=== PATIENT | female | born 1945 | race Caucasian/White ===

== ENCOUNTER 2016-03-14 17:15 | Inpatient (IN) ==
--- NOTE | 2016-03-14 17:46 | Emergency Department Note ---
Disposition Clinical Impression: Acute exacerbation of chronic obstructive airways disease, Hyperglycemia Disposition: Admitted As Inpatient Referrals: Noah Clark MD [Primary Care Provider] - Forms: ED Satisfaction Letter General Adult HPI - General Chief complaint: ED Shortness of Breath/Dyspnea Stated complaint: BA Time Seen by Provider: 03/14/16 17:39 Source: patient, EMS Limitations: no limitations - History of Present Illness HPI Narrative: 70-year-old female reports to the emergency department complaining of cough and shortness of breath. She was here previously in the ED and was advised to stay in the hospital but she declined at that time. The patient has no baseline oxygen requirement. She does have a history of COPD and takes inhalers at home. She reports a coarse cough which has been present for several days. She has chest pain when coughing. The patient does not have chest pain otherwise. She describes a history of coronary artery disease. She has never had any type of malignancy or PE or DVT per direct history. The patient denies any vomiting , she might of had an episode or 2 of diarrhea which have been nonbloody earlier today. No abdominal pain no leg swelling or pain no coughing up blood she has had a sore throat. No history of ear pain headache neck stiffness rash convulsion or confusion no trouble moving the arms or legs and independently no trauma reported or noted. The patient denies any history of CHF and does not take diuretic medication. Onset (ago): day(s) Pain Scale: 0 - Related Data Home Medications Medication Instructions Recorded Confirmed Alprazolam [Xanax 0.5 MG Tablet] 0.5 mg PO TID 07/23/15 03/14/16 Aripiprazole [Abilify] 5 mg PO DAILY 07/23/15 03/14/16 Diltiazem CD (24hr) [Cardizem CD] 120 mg PO DAILY 07/23/15 03/14/16 Folic Acid 1 mg PO DAILY 07/23/15 03/14/16 GuaiFENesin ER [Mucinex] 600 mg PO Q12H PRN 07/23/15 03/14/16 Lisinopril [Zestril] 20 mg PO BID 07/23/15 03/14/16 Metformin [Glucophage] 500 mg PO BIDWM 07/23/15 03/14/16 Propafenone HCl [Rythmol] 225 mg PO Q8H 07/23/15 03/14/16 Solifenacin Succinate [Vesicare] 5 mg PO DAILY 07/23/15 03/14/16 Albuterol Sulfate [Ventolin Hfa] 2 puff IH Q4H PRN 03/14/16 03/14/16 Atorvastatin [Lipitor] 10 mg PO HS 03/14/16 03/14/16 Brimonidine Tartrate/Timolol 1 drop BOTH EYES BID 03/14/16 03/14/16 [Combigan Eye Drops] Budesonide/Formoterol 160/4.5 2 puff IH BIDR 03/14/16 03/14/16 [Symbicort 160/4.5] Cholecalciferol (D-3) [Vitamin D] 5,000 unit PO DAILY 03/14/16 03/14/16 Citalopram Hydrobromide [Celexa] 40 mg PO DAILY 03/14/16 03/14/16 Fenofibrate [Lofibra] 160 mg PO DAILY 03/14/16 03/14/16 Multivitamin/Iron/Folic Acid 1 each PO DAILY 03/14/16 03/14/16 [Cerovite Advanced Form Tab] Omeprazole [PriLOSEC] 40 mg PO DAILY 03/14/16 03/14/16 Oxycodone HCl/Acetaminophen 1 each PO TID PRN 03/14/16 03/14/16 [Percocet 7.5-325 mg Tablet] Thiamine Mononitrate [Vitamin B-1] 100 mg PO DAILY 03/14/16 03/14/16 Vitamin E 1,000 unit PO DAILY 03/14/16 03/14/16 Previous Rx's Medication Instructions Recorded Cephalexin [Keflex] 500 mg PO QID #28 capsule MDD 03/10/16 03-10-16 Allergies Allergy/AdvReac Type Severity Reaction Status Date / Time gabapentin AdvReac Confusion Verified 03/14/16 20:23 Methadone AdvReac Confusion Verified 03/14/16 20:23 morphine AdvReac Confusion Verified 03/14/16 20:23 Zolpidem [From Ambien] AdvReac Confusion Verified 03/14/16 20:23 All systems ED: reviewed and negative except as stated. Past Medical History - Past Medical History Medical history: Reports: arthritis, COPD, diabetes, osteoporosis, SVT Surgical history: Reports: non-contributory Psychiatric history: Reports: anxiety, depression - Social History Smoking Status: Former smoker Smokeless Tobacco Status: No Alcohol use: Reports: none Drug use: Reports: none Physical Exam - General Limitations: no limitations General appearance: alert, in no apparent distress - Head Head exam: atraumatic, normocephalic, normal inspection - Eye Eye exam: Present: normal appearance, PERRL, EOMI - ENT ENT exam: normal exam, normal oropharynx, mucous membranes moist, normal external ear exam - Neck Neck exam: Present: normal inspection, full ROM, trachea midline - Chest Chest inspection: Present: symmetric chest wall rise. Absent: tenderness - Respiratory Respiratory exam: Present: wheezes, prolonged expiratory phase, other (Coarse breath sounds). Absent: respiratory distress - Cardiovascular Cardiovascular exam: Present: regular rate, normal rhythm, normal heart sounds - Abdominal Exam Abdominal exam: Present: soft, Non-Tender. Absent: tenderness, distention, guarding, rebound, rigidity - Extremities Exam Extremities exam: Present: normal inspection, full ROM. Absent: tenderness, normal capillary refill, pedal edema, joint swelling, calf tenderness - Expanded Lower Extremity Exam Hip/Pelvis exam: Present: tenderness Lower leg exam: Absent: tenderness, Homans' sign Neurovascular/Tendon exam: Absent: motor deficit, sensory deficit, tendon deficit - Back Exam Back exam: Present: normal inspection, full ROM. Absent: tenderness, CVA tenderness (R), CVA tenderness (L), vertebral tenderness - Neurological Exam Neurological exam: Present: alert, oriented X3, CN II-XII intact. Absent: motor sensory deficit - Psychiatric Psychiatric exam: Present: normal affect, normal mood - Skin Skin exam: Present: warm, dry, intact, normal color. Absent: rash, cyanosis, diaphoresis, erythema, pallor, mottled Course Vital Signs Temperature 98.3 F 03/14/16 17:16 Pulse Rate 76 03/14/16 17:16 Respiratory Rate 20 03/14/16 17:16 Blood Pressure 143/84 03/14/16 17:16 O2 Sat by Pulse Oximetry 97 03/14/16 17:16 Temperature 98.3 F 03/14/16 17:16 Pulse Rate 97 03/14/16 20:52 Respiratory Rate 20 03/14/16 20:52 Blood Pressure 170/104 03/14/16 20:52 O2 Sat by Pulse Oximetry 94 L 03/14/16 20:52 Oxygen Delivery Oxygen Delivery Room Air Medical Decision Making - MDM Narrative Medical decision making narrative: The patient had very coarse breath sounds with significant wheezing in the ED. She was given 2 DuoNeb and still had a peak flow of 150. The patient appears to have failed outpatient therapy. She appears to have a COPD exacerbation. The patient has coarse rhonchi and wheezing persistently. She was seen several days ago in the ED for UTI and COPD and decided to try home therapy but is now getting worse. Urinalysis is pending. The patient states she lives alone at home, she is diabetic, she appears to have significant COPD, and is been worsening instead of improving, she was on steroids outpatient which have not really helped her. She was given antibiotics in the ED as well. Based on her presentation comorbidities and on improvement I have consulted the hospitalist. - Lab Data Lab results reviewed: Yes I reviewed the patient's lab results. Result diagrams: 03/14/16 18:12 03/14/16 18:12 Lab Results 03/14/16 03/14/16 03/14/16 Range/Units 18:12 18:12 18:12 WBC 7.8 (4.3-11.1) K/mcL RBC 4.70 (3.82-4.97) M/mcL Hgb 13.4 (11.5-15.4) g/dL Hct 41.1 (35.3-44.9) % MCV 87.4 (83.0-100.0) fL MCH 28.5 (28.0-33.3) pg MCHC 32.6 (31.6-35.5) g/dL RDW 12.7 (11.5-14.5) % Plt Count 289 (140-400) K/mcL MPV 10.4 (9.4-12.4) fL Seg Neutrophils % 76.0 % Band Neutrophils % 6.0 H (0-4) % Lymphocytes % 14.0 % Monocytes % 2.0 % Basophils % 2.0 % Neutrophils # 6.4 (1.6-8.9) K/mcL Lymphocytes # 1.1 (0.6-4.6) K/mcL Monocytes # 0.2 (0.0-1.3) K/mcL Basophils # 0.2 (0.0-0.2) K/mcL Platelet Estimate Normal (Normal) Immature Plt Fraction 4.4 (1.1-6.1) % Sodium 142 (136-145) mEq/L Potassium 4.0 (3.5-4.5) mEq/L Chloride 109 (98-109) mEq/L Carbon Dioxide 24 (19-29) mEq/L BUN 24 H (7-20) mg/dL Creatinine 0.85 (0.57-1.11) mg/dL Est GFR ( Amer) > 60 (> 60) Est GFR (Non-Af Amer) > 60 (> 60) BUN/Creatinine Ratio 28 H (6-26) Glucose 153 H (70-99) mg/dL Calculated Osmolality 301 H (280-300) Lactic Acid 1.3 (0.5-2.2) mmol/L Calcium 9.5 (8.6-10.8) mg/dL Total Bilirubin 0.4 (0.2-1.2) mg/dL Direct Bilirubin 0.2 (0.0-0.5) mg/dL Indirect Bilirubin 0.2 (0.0-1.2) mg/dL AST 19 (5-34) Units/L ALT 16 (0-55) Units/L Alkaline Phosphatase 93 (38-126) Units/L Troponin I (0-0.03) ng/mL C-Reactive Protein (Less than 5) mg/L B-Natriuretic Peptide (0-100) pg/mL Serum Total Protein 7.0 (6.0-8.3) g/dL Albumin 3.4 L (3.5-5.0) g/dL Globulin 3.6 H (2.4-3.5) g/dL Albumin/Globulin Ratio 0.9 L (1.1-2.2) 03/14/16 03/14/16 03/14/16 Range/Units 18:12 18:12 18:12 WBC (4.3-11.1) K/mcL RBC (3.82-4.97) M/mcL Hgb (11.5-15.4) g/dL Hct (35.3-44.9) % MCV (83.0-100.0) fL MCH (28.0-33.3) pg MCHC (31.6-35.5) g/dL RDW (11.5-14.5) % Plt Count (140-400) K/mcL MPV (9.4-12.4) fL Seg Neutrophils % % Band Neutrophils % (0-4) % Lymphocytes % % Monocytes % % Basophils % % Neutrophils # (1.6-8.9) K/mcL Lymphocytes # (0.6-4.6) K/mcL Monocytes # (0.0-1.3) K/mcL Basophils # (0.0-0.2) K/mcL Platelet Estimate (Normal) Immature Plt Fraction (1.1-6.1) % Sodium (136-145) mEq/L Potassium (3.5-4.5) mEq/L Chloride (98-109) mEq/L Carbon Dioxide (19-29) mEq/L BUN (7-20) mg/dL Creatinine (0.57-1.11) mg/dL Est GFR ( Amer) (> 60) Est GFR (Non-Af Amer) (> 60) BUN/Creatinine Ratio (6-26) Glucose (70-99) mg/dL Calculated Osmolality (280-300) Lactic Acid (0.5-2.2) mmol/L Calcium (8.6-10.8) mg/dL Total Bilirubin (0.2-1.2) mg/dL Direct Bilirubin (0.0-0.5) mg/dL Indirect Bilirubin (0.0-1.2) mg/dL AST (5-34) Units/L ALT (0-55) Units/L Alkaline Phosphatase (38-126) Units/L Troponin I 0.01 (0-0.03) ng/mL C-Reactive Protein 20 H (Less than 5) mg/L B-Natriuretic Peptide 87 (0-100) pg/mL Serum Total Protein (6.0-8.3) g/dL Albumin (3.5-5.0) g/dL Globulin (2.4-3.5) g/dL Albumin/Globulin Ratio (1.1-2.2) - Radiology Data Radiology results reviewed: Yes I reviewed the patient's radiology results.
[2016-03-14] MEDS ORDERED: Ipratropium/Albuterol Neb 3 ML IH ONE ×2 (17:55→20:00)
[2016-03-14] MEDS ORDERED: methylPREDNISolone 125 MG/2 ML VIAL IVP ONE (17:55)
[2016-03-14 18:22] LABS: Hematocrit 41.1 % (35.3-44.9); Hemoglobin 13.4 g/dL (11.5-15.4); Immature Platelets 4.4 % (1.1-6.1); Mean Corpuscular HGB Conc 32.6 g/dL (31.6-35.5); Mean Corpuscular Hemoglobin 28.5 pg (28.0-33.3); Mean Corpuscular Volume 87.4 fL (83.0-100.0); Mean Platelet Volume 10.4 fL (9.4-12.4); Platelet Count 289 K/mcL (140-400); Red Cell Distribution Width 12.7 % (11.5-14.5)
[2016-03-14 18:37] LABS: Alanine Aminotransferase 16 Units/L (0-55); Albumin 3.4 g/dL (3.5-5.0); Albumin/Globulin Ratio 0.9 (1.1-2.2); Alkaline Phosphatase 93 Units/L (38-126); Aspartate Amino Transferase 19 Units/L (5-34); BUN/Creatinine Ratio 28 (6-26); Bilirubin,Direct 0.2 mg/dL (0.0-0.5); Bilirubin,Indirect 0.2 mg/dL (0.0-1.2); Bilirubin,Total 0.4 mg/dL (0.2-1.2); Blood Urea Nitrogen 24 mg/dL (7-20); Calcium 9.5 mg/dL (8.6-10.8); Carbon Dioxide 24 mEq/L (19-29); Chloride 109 mEq/L (98-109); Globulin 3.6 g/dL (2.4-3.5); Glucose 153 mg/dL (70-99); Osmolality,Calculated 301 (280-300); Sodium 142 mEq/L (136-145); eGFR For African Americans > 60 (> 60); eGFR For Non-African Americans > 60 (> 60)
[2016-03-14 18:50] LABS: Basophils # 0.2 K/mcL (0.0-0.2); Lymphocytes # 1.1 K/mcL (0.6-4.6); Monocytes # 0.2 K/mcL (0.0-1.3); Neutrophils # 6.4 K/mcL (1.6-8.9); Platelet Estimate Normal (Normal)
[2016-03-14] MEDS ORDERED: Levofloxacin 750 MG/150 ML 750 MG/150 ML BAG IVPB ONE (20:08)
[2016-03-14] MEDS ORDERED: *HR* OxyCODONE/APAP 5/325 TABLET PO ONE (20:58)
[2016-03-14] MEDS ORDERED: Albuterol 2.5 MG/3 ML NEBULIZER IH PRN (21:53)
[2016-03-14] MEDS ORDERED: GuaiFENesin/Codeine Oral Soln 5 ML UDC PO PRN (22:07)
[2016-03-14] MEDS ORDERED: Naloxone 0.4 MG/ML INJ IVP PRN (22:10)
[2016-03-14] MEDS ORDERED: *HR* Dextrose 50 % in Water (Syg) 50 ML SYRINGE IVP PRN (22:13)
[2016-03-14] MEDS ORDERED: Dextrose Gel 15 GM PO PRN ×2 (22:13)
[2016-03-14] MEDS ORDERED: D5% in Water 1,000 ML IV PRN (22:13)
[2016-03-14] MEDS ORDERED: Ringers Solution, Lactated 1,000 ML IVC SCH (22:15)
--- NOTE | 2016-03-14 22:16 | Internal Med History&Physical ---
Date of Encounter: 03/14/16 Time of Encounter: 21:30 Internal Medicine - H&P: HPI Chief complaint: SOB, coughing x 1 day. Admitted From: Emergency Dept Plans for Post Hospital Care: Home History of present illness: Ms. Lemon is a 70 year old female with medical history significant for COPD, presents to the ED with 1 week history of dry, coarse cough, rattling breath sounds and progressive SOB. She was evaluated in the ED, an admission was recommended at that time, but she preferred to go home. She was prescribed Cephalexin for UTI. She has sick contacts, as her daughter and grand son all had respiratory conditions recently. She is not oxygen dependent and uses Symbicort for maintenance for COPD. sHE QUIT SMOKING 4 YEARS AGO. She is up-to- date with influenza and pneumococcal vaccination. She reports eigastric and lower chest wall pain with cough. No hemoptysis, no rash, no sorethroat or glandular enlargement, no vomiting. She has 2 loose bowel movements today, this has since resolved. No abdominal pain no leg swelling or pain No history of ear pain headache neck stiffness,convulsion or confusion, no focal weakness. No history of CHF, no current diuretic use, no history of DVT/PE. She has a history of SVT on chronic cardizem and propafenone. She is FULL CODE as per discussion, she nominates her daughter, Niurka Lemon ([phone]) as joselyn JOVANNY/ MAKSIM. Medical history: Reports: arthritis, COPD, diabetes, osteoporosis, SVT Surgical history: Reports: non-contributory, not significant Psychiatric history: Reports: anxiety, depression Smoking Status: Former smoker, quit 4 years ago Smokeless Tobacco Status: No Alcohol use: Reports: none Drug use: Reports: none Family History: Father: CHF, mother: DM2, brother: liver cancer (alcoholic), COPD, daughter : PVCs, DVT, COPD. ROS: A 10-point ROS was performed, positives and relevant negatives are detailed , system-symptoms not mentioned are assumed negative unless otherwise stated. Vital Signs Temperature 98.3 F 03/14/16 17:16 Pulse Rate 76 03/14/16 17:16 Respiratory Rate 20 03/14/16 17:16 Blood Pressure 143/84 03/14/16 17:16 O2 Sat by Pulse Oximetry 97 03/14/16 17:16 Temperature 98.3 F 03/14/16 17:16 Pulse Rate 97 03/14/16 20:52 Respiratory Rate 20 03/14/16 20:52 Blood Pressure 170/104 03/14/16 20:52 O2 Sat by Pulse Oximetry 94 L 03/14/16 20:52 Not in distress, not pale, anicteric, afebrile,acyanotic, mild tachypnea, lethargic, no pusring of lips, Speaks in complete sentences. HEENT: Trachea is central, no cervical or jugular lymphadenopathy, no subcutaneous emphysema. Chest: Scattered wheezing. Diminished air entry. Mid inspiratory crackles. generalized, no localization Heart: rrr, hs1/2 Abdomen: soft, non-tender, no masses. 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, no focal Extremities: Trace pedal edema, normal pedal pulses, no calf tenderness SKIN: No active skin lesion Lab Results 03/14/16 03/14/16 03/14/16 Range/Units 18:12 18:12 18:12 WBC 7.8 (4.3-11.1) K/mcL RBC 4.70 (3.82-4.97) M/mcL Hgb 13.4 (11.5-15.4) g/dL Hct 41.1 (35.3-44.9) % MCV 87.4 (83.0-100.0) fL MCH 28.5 (28.0-33.3) pg MCHC 32.6 (31.6-35.5) g/dL RDW 12.7 (11.5-14.5) % Plt Count 289 (140-400) K/mcL MPV 10.4 (9.4-12.4) fL Seg Neutrophils % 76.0 % Band Neutrophils % 6.0 H (0-4) % Lymphocytes % 14.0 % Monocytes % 2.0 % Basophils % 2.0 % Neutrophils # 6.4 (1.6-8.9) K/mcL Lymphocytes # 1.1 (0.6-4.6) K/mcL Monocytes # 0.2 (0.0-1.3) K/mcL Basophils # 0.2 (0.0-0.2) K/mcL Platelet Estimate Normal (Normal) Immature Plt Fraction 4.4 (1.1-6.1) % Sodium 142 (136-145) mEq/L Potassium 4.0 (3.5-4.5) mEq/L Chloride 109 (98-109) mEq/L Carbon Dioxide 24 (19-29) mEq/L BUN 24 H (7-20) mg/dL Creatinine 0.85 (0.57-1.11) mg/dL Est GFR ( Amer) > 60 (> 60) Est GFR (Non-Af Amer) > 60 (> 60) BUN/Creatinine Ratio 28 H (6-26) Glucose 153 H (70-99) mg/dL Calculated Osmolality 301 H (280-300) Lactic Acid 1.3 (0.5-2.2) mmol/L Calcium 9.5 (8.6-10.8) mg/dL Total Bilirubin 0.4 (0.2-1.2) mg/dL Direct Bilirubin 0.2 (0.0-0.5) mg/dL Indirect Bilirubin 0.2 (0.0-1.2) mg/dL AST 19 (5-34) Units/L ALT 16 (0-55) Units/L Alkaline Phosphatase 93 (38-126) Units/L Troponin I (0-0.03) ng/mL C-Reactive Protein (Less than 5) mg/L B-Natriuretic Peptide (0-100) pg/mL Serum Total Protein 7.0 (6.0-8.3) g/dL Albumin 3.4 L (3.5-5.0) g/dL Globulin 3.6 H (2.4-3.5) g/dL Albumin/Globulin Ratio 0.9 L (1.1-2.2) 03/14/16 03/14/16 03/14/16 Range/Units 18:12 18:12 18:12 WBC (4.3-11.1) K/mcL RBC (3.82-4.97) M/mcL Hgb (11.5-15.4) g/dL Hct (35.3-44.9) % MCV (83.0-100.0) fL MCH (28.0-33.3) pg MCHC (31.6-35.5) g/dL RDW (11.5-14.5) % Plt Count (140-400) K/mcL MPV (9.4-12.4) fL Seg Neutrophils % % Band Neutrophils % (0-4) % Lymphocytes % % Monocytes % % Basophils % % Neutrophils # (1.6-8.9) K/mcL Lymphocytes # (0.6-4.6) K/mcL Monocytes # (0.0-1.3) K/mcL Basophils # (0.0-0.2) K/mcL Platelet Estimate (Normal) Immature Plt Fraction (1.1-6.1) % Sodium (136-145) mEq/L Potassium (3.5-4.5) mEq/L Chloride (98-109) mEq/L Carbon Dioxide (19-29) mEq/L BUN (7-20) mg/dL Creatinine (0.57-1.11) mg/dL Est GFR ( Amer) (> 60) Est GFR (Non-Af Amer) (> 60) BUN/Creatinine Ratio (6-26) Glucose (70-99) mg/dL Calculated Osmolality (280-300) Lactic Acid (0.5-2.2) mmol/L Calcium (8.6-10.8) mg/dL Total Bilirubin (0.2-1.2) mg/dL Direct Bilirubin (0.0-0.5) mg/dL Indirect Bilirubin (0.0-1.2) mg/dL AST (5-34) Units/L ALT (0-55) Units/L Alkaline Phosphatase (38-126) Units/L Troponin I 0.01 (0-0.03) ng/mL C-Reactive Protein 20 H (Less than 5) mg/L B-Natriuretic Peptide 87 (0-100) pg/mL Serum Total Protein (6.0-8.3) g/dL Albumin (3.5-5.0) g/dL Globulin (2.4-3.5) g/dL Albumin/Globulin Ratio (1.1-2.2) CXR: Background COPD, no acute cardiopulmonary findings. IMP COPD exacerbation. Acute on chronic bronchitis Mild dehydration Chronic morbidities COPD DM2 Osteoporosis History of SVT PLAN Admit Solumedrol 40mg q12h, Duonebs QID, ALBUTEROL NEBS Q4H PRN. Continue Symbicort Levaquin 500mg po QD Cough suppressant Chest percussion therapy, incentive spirometry, respiratory therapy consult Supportive care IVF RL @ 75 Continue metformin, start Levenir 10u QHS, and sliding scale insulin Continue other medications for chronic morbidities including cardizem and propafenone. DVT prophylaxis with Lovenox GI prophylaxis, she is on Esomeprazole for GERD. I discussed my assessment with the patient, family at [facility], they verbalized understanding and are agreeable to admission. She is at risk of acute respiratory failure. Past Med Surg Social Fam HX - Past Medical History Medical history: arthritis, COPD, diabetes, osteoporosis, SVT Psychiatric history: anxiety, depression - Past Surgical History Surgical History: non-contributory - Social History Smoking Status: Former smoker Smokeless Tobacco Status: No Alcohol use: none Drug use: none Internal Medicine - H&P: Meds Alprazolam [Xanax 0.5 MG Tablet] 0.5 mg PO TID 07/23/15 [History] Aripiprazole [Abilify] 5 mg PO DAILY 07/23/15 [History] Diltiazem CD (24hr) [Cardizem CD] 120 mg PO DAILY 07/23/15 [History] Folic Acid 1 mg PO DAILY 07/23/15 [History] GuaiFENesin ER [Mucinex] 600 mg PO Q12H PRN 07/23/15 [History] Lisinopril [Zestril] 20 mg PO BID 07/23/15 [History] Metformin [Glucophage] 500 mg PO BIDWM 07/23/15 [History] Propafenone HCl [Rythmol] 225 mg PO Q8H 07/23/15 [History] Solifenacin Succinate [Vesicare] 5 mg PO DAILY 07/23/15 [History] Cephalexin [Keflex] 500 mg PO QID #28 capsule MDD 1-5-17 03/10/16 [Rx] Albuterol Sulfate [Ventolin Hfa] 2 puff IH Q4H PRN 03/14/16 [History] Atorvastatin [Lipitor] 10 mg PO HS 03/14/16 [History] Brimonidine Tartrate/Timolol [Combigan Eye Drops] 1 drop BOTH EYES BID 03/14/16 [History] Budesonide/Formoterol 160/4.5 [Symbicort 160/4.5] 2 puff IH BIDR 03/14/16 [ History] Cholecalciferol (D-3) [Vitamin D] 5,000 unit PO DAILY 03/14/16 [History] Citalopram Hydrobromide [Celexa] 40 mg PO DAILY 03/14/16 [History] Fenofibrate [Lofibra] 160 mg PO DAILY 03/14/16 [History] Multivitamin/Iron/Folic Acid [Cerovite Advanced Form Tab] 1 each PO DAILY [History] Omeprazole [PriLOSEC] 40 mg PO DAILY 03/14/16 [History] Oxycodone HCl/Acetaminophen [Percocet 7.5-325 mg Tablet] 1 each PO TID PRN 03/14 [History] Thiamine Mononitrate [Vitamin B-1] 100 mg PO DAILY 03/14/16 [History] Vitamin E 1,000 unit PO DAILY 03/14/16 [History] Allergies gabapentin Adverse Reaction (Verified 03/14/16 20:23) Confusion Methadone Adverse Reaction (Verified 03/14/16 20:23) Confusion morphine Adverse Reaction (Verified 03/14/16 20:23) Confusion Zolpidem [From Ambien] Adverse Reaction (Verified 03/14/16 20:23) Confusion All Systems PM: A 10-system review of systems was performed and is negative for pertinent findings except as documented above in the HPI. - Constitutional Vitals: Temp Pulse Resp BP Pulse Ox 98.3 F 97 20 170/96 94 L 03/14/16 21:30 03/14/16 20:52 03/14/16 21:30 03/14/16 21:30 03/14/16 20:52 Internal Med - H&P Results - Labs CBC & Chem 7: 03/14/16 18:12 03/14/16 18:12
[2016-03-14] MEDS: Insulin DETEMIR 100 UNIT/ML X5UNITS SQ SCH (23:28)
[2016-03-14] MEDS: Lisinopril 20 MG TABLET PO SCH (23:51)
[2016-03-14] MEDS: ALPRAZolam 0.5 MG TABLET PO SCH (23:51)
[2016-03-14] MEDS: *HR* OxyCODONE/APAP 7.5/325 TABLET PO PRN (23:52)
[2016-03-15] MEDS: Ipratropium/Albuterol Neb 3 ML IH SCH ×6 (00:36→22:53)
[2016-03-15 01:55] LABS: Bilirubin,Urine Negative (Negative); Blood,Urine Negative (Negative); Clarity,Urine Clear (Clear); Color,Urine Yellow (Yellow); Glucose,Urine (UA) 100 mg/dL (Normal); Ketones,Urine Negative (Negative); Leukocyte Esterase,Urine Negative (Negative); Nitrite,Urine Negative (Negative); Protein,Urine Negative (Neg-Trace); Urobilinogen,Urine Normal (Normal)
[2016-03-15] MEDS: MethylPREDNISolone 40 MG/ML VIAL IVP SCH ×2 (05:59→17:01)
[2016-03-15] MEDS: *HR* Enoxaparin 40 MG/0.4 ML SYRINGE SQ SCH (05:59)
[2016-03-15] MEDS: ARIPiprazole 5 MG TABLET PO SCH (09:17)
[2016-03-15] MEDS: levoFLOXacin 500 MG TABLET PO SCH (09:17)
[2016-03-15] MEDS: *HR* Metformin 500 MG TABLET PO SCH ×2 (09:17→17:01)
[2016-03-15] MEDS: ALPRAZolam 0.5 MG TABLET PO SCH ×3 (09:17→20:31)
[2016-03-15] MEDS: Multivit/Ca/Min/Fe/FA 1 TAB TABLET PO SCH (09:17)
[2016-03-15] MEDS: Lisinopril 20 MG TABLET PO SCH ×2 (09:17→20:31)
[2016-03-15] MEDS: Fenofibrate 54 MG TABLET PO SCH (09:17)
[2016-03-15] MEDS: Diltiazem CD (24hr) 120 MG CAPSULE PO SCH (09:17)
[2016-03-15] MEDS: Folic Acid 1 MG TABLET PO SCH (09:18)
[2016-03-15] MEDS: Cholecalciferol (D-3) 1,000 UNIT TABLET PO SCH (09:18)
[2016-03-15] MEDS: Insulin LISPRO 300 UNITS/3 ML VIAL SQ SCH ×4 (09:19→20:32)
[2016-03-15] MEDS: (Vitamin E [Vitamin E] 1,000 UNIT) PO SCH (09:19)
[2016-03-15] MEDS: (Combigan 0.2%-0.5% Eye) OP SCH ×2 (09:19→20:33)
[2016-03-15] MEDS: Thiamine (B-1) 100 MG TABLET PO SCH (09:19)
[2016-03-15] MEDS: *HR* OxyCODONE/APAP 7.5/325 TABLET PO PRN ×2 (09:25→20:30)
[2016-03-15] MEDS: Budesonide/Formoterol 160/4.5 MDI IH SCH ×2 (10:27→22:53)
--- NOTE | 2016-03-15 14:44 | Electrocardiograph Report ---
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
--- NOTE | 2016-03-15 15:35 | Internal Med Progress Note ---
Date of Encounter: 03/15/16 Time of Encounter: 15:26 - Assessment and plan (1) Acute exacerbation of chronic obstructive airways disease Current Visit: Yes Status: Acute (2) Bronchitis Current Visit: No Status: Acute (3) UTI (urinary tract infection) Current Visit: No Status: Acute Assessment and plan: Continue steroids, nebs and abx. add mucinex bid recent Ucx shows klebsiella sensitive to cipro. Qualifiers: Urinary tract infection type: acute cystitis Hematuria presence: without hematuria Qualified Code(s): N30.00 - Acute cystitis without hematuria - Subjective Interval history: Pt reports some improvement, still coughing. - Constitutional Vitals: Temp Pulse Resp BP Pulse Ox 98.0 F 91 14 147/75 94 L 03/15/16 15:20 03/15/16 15:20 03/15/16 15:20 03/15/16 15:20 03/15/16 15:20 General appearance: Present: A&O X 3, no acute distress - Head Head exam: Present: atraumatic, normocephalic - Eye Eye exam: Present: PERRL, conjuntiva pink, sclera anicteric Pupils: Present: PERRL - Neck Neck exam general surgery: Present: supple, trachea midline. Absent: lymphadenopathy - Respiratory Respiratory exam: Present: decreased breath sounds, rhonchi. Absent: accessory muscle use, CTAB, rales, wheezes - Cardiovascular Cardiovascular exam: Present: RRR, +S1, +S2. Absent: diastolic murmur, gallop, rubs, systolic murmur - GI/Abdominal GI/Abdominal exam: Present: normal bowel sounds, soft, no peritoneal signs. Absent: distended, tenderness - Extremities Exam Extremities exam: Present: warm, radial pulses palpable and symetrical. Absent : calf tenderness, cyanotic, pedal edema - Neurological Exam Neurological exam: Present: CN II-XII intact, oriented X3, no focal deficits. Absent: pronater drift, facial droop, speech deficit - Skin Skin exam: Present: dry, intact Internal Medicine: Result - Labs CBC & Chem 7: 03/14/16 18:12 03/14/16 18:12 Labs: Urine 03/15/16 Range/Units 00:25 Urine Color Yellow (Yellow) Urine Clarity Clear (Clear) Urine pH 6.0 (5.0-8.0) pH Units Ur Specific [place] 1.020 (1.010-1.025) Urine Protein Negative (Neg-Trace) mg/dL Urine Glucose (UA) 100 H (Normal) mg/dL Consult Discharge Plan - Plan Referrals: Noah Clark MD [Primary Care Provider] - 03/21/16 1:45 pm
[2016-03-15] MEDS: Insulin DETEMIR 100 UNIT/ML X5UNITS SQ SCH (20:32)
[2016-03-16] MEDS: Ipratropium/Albuterol Neb 3 ML IH SCH ×4 (03:54→21:18)
[2016-03-16] MEDS: *HR* Enoxaparin 40 MG/0.4 ML SYRINGE SQ SCH (06:44)
[2016-03-16] MEDS: MethylPREDNISolone 40 MG/ML VIAL IVP SCH ×3 (06:44→22:50)
[2016-03-16] MEDS: Lisinopril 20 MG TABLET PO SCH ×2 (09:05→20:39)
[2016-03-16] MEDS: (Vitamin E [Vitamin E] 1,000 UNIT) PO SCH (09:05)
[2016-03-16] MEDS: *HR* Metformin 500 MG TABLET PO SCH ×2 (09:05→17:33)
[2016-03-16] MEDS: Fenofibrate 54 MG TABLET PO SCH (09:05)
[2016-03-16] MEDS: levoFLOXacin 500 MG TABLET PO SCH (09:05)
[2016-03-16] MEDS: Multivit/Ca/Min/Fe/FA 1 TAB TABLET PO SCH (09:05)
[2016-03-16] MEDS: Diltiazem CD (24hr) 120 MG CAPSULE PO SCH (09:05)
[2016-03-16] MEDS: Insulin LISPRO 300 UNITS/3 ML VIAL SQ SCH ×4 (09:05→20:38)
[2016-03-16] MEDS: ALPRAZolam 0.5 MG TABLET PO SCH ×3 (09:05→20:39)
[2016-03-16] MEDS: (Combigan 0.2%-0.5% Eye) OP SCH ×2 (09:05→20:39)
[2016-03-16] MEDS: Folic Acid 1 MG TABLET PO SCH (09:05)
[2016-03-16] MEDS: Thiamine (B-1) 100 MG TABLET PO SCH (09:05)
[2016-03-16] MEDS: ARIPiprazole 5 MG TABLET PO SCH (09:05)
[2016-03-16] MEDS: Cholecalciferol (D-3) 1,000 UNIT TABLET PO SCH (09:05)
[2016-03-16] MEDS: *HR* OxyCODONE/APAP 7.5/325 TABLET PO PRN ×3 (10:41→22:51)
[2016-03-16] MEDS: Budesonide/Formoterol 160/4.5 MDI IH SCH (10:52)
--- NOTE | 2016-03-16 18:24 | Internal Med Progress Note ---
Date of Encounter: 03/16/16 Time of Encounter: 18:22 - Assessment and plan (1) Acute exacerbation of chronic obstructive airways disease Current Visit: Yes Status: Acute (2) Bronchitis Current Visit: No Status: Acute (3) UTI (urinary tract infection) Current Visit: No Status: Acute Assessment and plan: Continue steroids, nebs and abx. still significant congestion. continue mucinex bid, add mucomyst nebs q8 recent Ucx shows klebsiella, continue levaquin. Qualifiers: Urinary tract infection type: acute cystitis Hematuria presence: without hematuria Qualified Code(s): N30.00 - Acute cystitis without hematuria - Subjective Interval history: Pt reports more cough today rather than improvement. - Constitutional Vitals: Temp Pulse Resp BP Pulse Ox 98.3 F 96 16 146/75 97 03/16/16 15:02 03/16/16 15:02 03/16/16 15:52 03/16/16 15:02 03/16/16 15:52 General appearance: Present: A&O X 3, no acute distress - Head Head exam: Present: atraumatic, normocephalic - Eye Eye exam: Present: PERRL, conjuntiva pink, sclera anicteric Pupils: Present: PERRL - Neck Neck exam general surgery: Present: supple, trachea midline. Absent: lymphadenopathy - Respiratory Respiratory exam: Present: decreased breath sounds, rhonchi. Absent: accessory muscle use, rales, wheezes - Cardiovascular Cardiovascular exam: Present: RRR, +S1, +S2. Absent: diastolic murmur, gallop, rubs, systolic murmur - GI/Abdominal GI/Abdominal exam: Present: normal bowel sounds, soft, no peritoneal signs. Absent: distended, tenderness - Extremities Exam Extremities exam: Present: warm, radial pulses palpable and symetrical. Absent : calf tenderness, cyanotic, pedal edema - Neurological Exam Neurological exam: Present: CN II-XII intact, oriented X3, no focal deficits. Absent: pronater drift, facial droop, speech deficit - Skin Skin exam: Present: dry, intact Internal Medicine: Result - Labs CBC & Chem 7: 03/14/16 18:12 03/14/16 18:12 Consult Discharge Plan - Plan Referrals: Noah Clark MD [Primary Care Provider] - 03/21/16 1:45 pm
[2016-03-16] MEDS: Insulin DETEMIR 100 UNIT/ML X5UNITS SQ SCH (20:38)
[2016-03-16] MEDS: Acetylcysteine 10% 2 ML INHSOL IH SCH (21:17)
[2016-03-17] MEDS: Ipratropium/Albuterol Neb 3 ML IH SCH ×7 (00:48→23:08)
[2016-03-17 03:37] LABS: Basophils % 0.3 %; Hematocrit 42.2 % (35.3-44.9); Hemoglobin 13.8 g/dL (11.5-15.4); Immature Granulocytes % 4.3 % (0-4); Lymphocytes # 0.6 K/mcL (0.6-4.6); Lymphocytes % 4.7 %; Mean Corpuscular HGB Conc 32.7 g/dL (31.6-35.5); Mean Corpuscular Hemoglobin 28.5 pg (28.0-33.3); Mean Platelet Volume 10.6 fL (9.4-12.4); Monocytes # 0.2 K/mcL (0.0-1.3); Monocytes % 1.4 %; Platelet Count 309 K/mcL (140-400); Red Blood Count 4.85 M/mcL (3.82-4.97); Red Cell Distribution Width 12.8 % (11.5-14.5); Segmented Neutrophils % 89.3 %
[2016-03-17 03:51] LABS: Calcium 9.5 mg/dL (8.6-10.8); Potassium 4.4 mEq/L (3.5-4.5)
[2016-03-17] MEDS: Acetylcysteine 10% 2 ML INHSOL IH SCH ×4 (04:51→23:08)
[2016-03-17] MEDS: *HR* Enoxaparin 40 MG/0.4 ML SYRINGE SQ SCH (06:13)
[2016-03-17] MEDS: Insulin LISPRO 300 UNITS/3 ML VIAL SQ SCH ×4 (08:51→21:32)
[2016-03-17] MEDS: MethylPREDNISolone 40 MG/ML VIAL IVP SCH ×2 (08:51→17:46)
[2016-03-17] MEDS: Folic Acid 1 MG TABLET PO SCH (08:52)
[2016-03-17] MEDS: Lisinopril 20 MG TABLET PO SCH (08:52)
[2016-03-17] MEDS: *HR* Metformin 500 MG TABLET PO SCH (08:52)
[2016-03-17] MEDS: Cholecalciferol (D-3) 1,000 UNIT TABLET PO SCH (08:52)
[2016-03-17] MEDS: Fenofibrate 54 MG TABLET PO SCH (08:52)
[2016-03-17] MEDS: Thiamine (B-1) 100 MG TABLET PO SCH (08:52)
[2016-03-17] MEDS: Multivit/Ca/Min/Fe/FA 1 TAB TABLET PO SCH (08:53)
[2016-03-17] MEDS: levoFLOXacin 500 MG TABLET PO SCH (08:53)
[2016-03-17] MEDS: *HR* OxyCODONE/APAP 7.5/325 TABLET PO PRN ×3 (08:53→22:51)
[2016-03-17] MEDS: Diltiazem CD (24hr) 120 MG CAPSULE PO SCH (08:53)
[2016-03-17] MEDS: ARIPiprazole 5 MG TABLET PO SCH (08:53)
[2016-03-17] MEDS: ALPRAZolam 0.5 MG TABLET PO SCH ×3 (08:53→21:30)
[2016-03-17] MEDS: (Vitamin E [Vitamin E] 1,000 UNIT) PO SCH (08:54)
[2016-03-17] MEDS: (Combigan 0.2%-0.5% Eye) OP SCH ×2 (08:54→22:42)
--- NOTE | 2016-03-17 18:25 | Internal Med Progress Note ---
Date of Encounter: 03/17/16 Time of Encounter: 18:23 - Assessment and plan (1) Acute exacerbation of chronic obstructive airways disease Current Visit: Yes Status: Acute (2) Bronchitis Current Visit: No Status: Acute (3) UTI (urinary tract infection) Current Visit: No Status: Acute Assessment and plan: Continue steroids, nebs and abx. still significant congestion persists. acute renal insufficiency, will give gentle hydration, might help with expectoration of mucus. continue mucinex bid, and mucomyst nebs q8 continue levaquin. Qualifiers: Urinary tract infection type: acute cystitis Hematuria presence: without hematuria Qualified Code(s): N30.00 - Acute cystitis without hematuria - Subjective Interval history: Pt reports mild improvement. - Constitutional Vitals: Temp Pulse Resp BP Pulse Ox 98.5 F 82 15 120/71 94 L 03/17/16 15:17 03/17/16 15:17 03/17/16 16:31 03/17/16 15:17 03/17/16 16:31 General appearance: Present: A&O X 3, no acute distress - Head Head exam: Present: atraumatic, normocephalic - Eye Eye exam: Present: PERRL, conjuntiva pink, sclera anicteric Pupils: Present: PERRL - Neck Neck exam general surgery: Present: supple, trachea midline. Absent: lymphadenopathy - Respiratory Respiratory exam: Present: decreased breath sounds, rhonchi. Absent: accessory muscle use, rales, wheezes - Cardiovascular Cardiovascular exam: Present: RRR, +S1, +S2. Absent: diastolic murmur, gallop, rubs, systolic murmur - GI/Abdominal GI/Abdominal exam: Present: normal bowel sounds, soft, no peritoneal signs. Absent: distended, tenderness - Extremities Exam Extremities exam: Present: warm, radial pulses palpable and symetrical. Absent : calf tenderness, cyanotic, pedal edema - Neurological Exam Neurological exam: Present: CN II-XII intact, oriented X3, no focal deficits. Absent: pronater drift, facial droop, speech deficit - Skin Skin exam: Present: dry, intact Internal Medicine: Result - Labs CBC & Chem 7: 03/17/16 03:04 03/17/16 03:04 Labs: Short CBC 03/17/16 Range/Units 03:04 WBC 12.3 H D (4.3-11.1) K/mcL Hgb 13.8 (11.5-15.4) g/dL Hct 42.2 (35.3-44.9) % Plt Count 309 (140-400) K/mcL Neutrophils # 11.0 H (1.6-8.9) K/mcL BMP 03/17/16 03:04 Sodium 138 Potassium 4.4 Chloride 105 Carbon Dioxide 21 BUN 32 H Creatinine 1.16 H Glucose 293 H Calcium 9.5 Consult Discharge Plan - Plan Referrals: Noah Clark MD [Primary Care Provider] - 03/21/16 1:45 pm
[2016-03-17] MEDS ORDERED: 0.9 % Sodium Chloride 1,000 ML IV ONE (18:30)
[2016-03-17] MEDS ORDERED: 0.9 % Sodium Chloride 1,000 ML ONE (18:41)
[2016-03-17] MEDS: Insulin DETEMIR 100 UNIT/ML X5UNITS SQ SCH (21:32)
[2016-03-18 03:53] LABS: Basophils # 0.1 K/mcL (0.0-0.2); Basophils % 0.5 %; Hematocrit 40.4 % (35.3-44.9); Hemoglobin 13.1 g/dL (11.5-15.4); Immature Granulocytes % 4.4 % (0-4); Lymphocytes # 0.6 K/mcL (0.6-4.6); Lymphocytes % 5.3 %; Mean Corpuscular HGB Conc 32.4 g/dL (31.6-35.5); Mean Corpuscular Hemoglobin 28.1 pg (28.0-33.3); Mean Corpuscular Volume 86.7 fL (83.0-100.0); Mean Platelet Volume 11.1 fL (9.4-12.4); Monocytes # 0.5 K/mcL (0.0-1.3); Monocytes % 4.5 %; Neutrophils # 9.4 K/mcL (1.6-8.9); Platelet Count 284 K/mcL (140-400); Red Blood Count 4.66 M/mcL (3.82-4.97); Red Cell Distribution Width 12.8 % (11.5-14.5); Segmented Neutrophils % 85.3 %
[2016-03-18 04:10] LABS: Calcium 9.3 mg/dL (8.6-10.8)
[2016-03-18 04:18] LABS: Potassium 4.3 mEq/L (3.5-4.5)
[2016-03-18] MEDS: Ipratropium/Albuterol Neb 3 ML IH SCH ×5 (04:28→20:10)
[2016-03-18] MEDS: *HR* Enoxaparin 40 MG/0.4 ML SYRINGE SQ SCH (05:50)
[2016-03-18] MEDS: MethylPREDNISolone 40 MG/ML VIAL IVP SCH ×2 (05:51→17:56)
[2016-03-18] MEDS: Acetylcysteine 10% 2 ML INHSOL IH SCH ×2 (07:44→16:23)
[2016-03-18] MEDS: ALPRAZolam 0.5 MG TABLET PO SCH ×3 (08:08→20:03)
[2016-03-18] MEDS: Cholecalciferol (D-3) 1,000 UNIT TABLET PO SCH (08:08)
[2016-03-18] MEDS: Multivit/Ca/Min/Fe/FA 1 TAB TABLET PO SCH (08:08)
[2016-03-18] MEDS: amLODIPine 5 MG TABLET PO SCH (08:08)
[2016-03-18] MEDS: Thiamine (B-1) 100 MG TABLET PO SCH (08:08)
[2016-03-18] MEDS: ARIPiprazole 5 MG TABLET PO SCH (08:08)
[2016-03-18] MEDS: (Combigan 0.2%-0.5% Eye) OP SCH ×2 (08:09→20:09)
[2016-03-18] MEDS: levoFLOXacin 500 MG TABLET PO SCH (08:09)
[2016-03-18] MEDS: Fenofibrate 54 MG TABLET PO SCH (08:09)
[2016-03-18] MEDS: Folic Acid 1 MG TABLET PO SCH (08:09)
[2016-03-18] MEDS: (Vitamin E [Vitamin E] 1,000 UNIT) PO SCH (08:09)
[2016-03-18] MEDS: Diltiazem CD (24hr) 120 MG CAPSULE PO SCH (08:09)
[2016-03-18] MEDS: Insulin LISPRO 300 UNITS/3 ML VIAL SQ SCH ×4 (08:15→22:17)
[2016-03-18] MEDS: *HR* OxyCODONE/APAP 7.5/325 TABLET PO PRN ×2 (13:39→22:17)
--- NOTE | 2016-03-18 18:08 | Internal Med Progress Note ---
Date of Encounter: 03/18/16 Time of Encounter: 18:05 - Assessment and plan (1) Acute exacerbation of chronic obstructive airways disease Current Visit: Yes Status: Acute (2) DM2 (diabetes mellitus, type 2) Current Visit: Yes Status: Acute Qualifiers: Diabetes mellitus complication status: with unspecified complications Qualified Code(s): E11.8 - Type 2 diabetes mellitus with unspecified complications (3) HTN (hypertension) Current Visit: Yes Status: Acute Assessment and plan: Continue steroids, nebs and abx. still significant congestion persists but improving slowly. renal function not improved today, if worsens tomorrow, consider checking retroperitoneal/renal ultrasound. monitor ins/outs. avoiding nephrotoxic drugs/agents. continue levaquin. continue norvasc and diltiazem continue accucheck with insulin coverage. Qualifiers: Hypertension type: essential hypertension Qualified Code(s): I10 - Essential (primary) hypertension - Subjective Interval history: Pt reports mild improvement. - Constitutional Vitals: Temp Pulse Resp BP Pulse Ox 98.2 F 77 18 153/75 97 03/18/16 11:22 03/18/16 11:22 03/18/16 16:23 03/18/16 11:22 03/18/16 16:23 General appearance: Present: A&O X 3, no acute distress - Head Head exam: Present: atraumatic, normocephalic - Eye Eye exam: Present: PERRL, conjuntiva pink, sclera anicteric Pupils: Present: PERRL - Neck Neck exam general surgery: Present: supple, trachea midline. Absent: lymphadenopathy - Respiratory Respiratory exam: Present: decreased breath sounds, rhonchi. Absent: accessory muscle use, rales, wheezes - Cardiovascular Cardiovascular exam: Present: RRR, +S1, +S2. Absent: diastolic murmur, gallop, rubs, systolic murmur - GI/Abdominal GI/Abdominal exam: Present: normal bowel sounds, soft, no peritoneal signs. Absent: distended, tenderness - Extremities Exam Extremities exam: Present: warm, radial pulses palpable and symetrical. Absent : calf tenderness, cyanotic, pedal edema - Neurological Exam Neurological exam: Present: CN II-XII intact, oriented X3, no focal deficits. Absent: pronater drift, facial droop, speech deficit - Skin Skin exam: Present: dry, intact Internal Medicine: Result - Labs CBC & Chem 7: 03/18/16 03:02 03/18/16 03:02 Labs: Short CBC 03/18/16 Range/Units 03:02 WBC 11.0 (4.3-11.1) K/mcL Hgb 13.1 (11.5-15.4) g/dL Hct 40.4 (35.3-44.9) % Plt Count 284 (140-400) K/mcL Neutrophils # 9.4 H (1.6-8.9) K/mcL BMP 03/18/16 03:02 Sodium 138 Potassium 4.3 Chloride 104 Carbon Dioxide 21 BUN 34 H Creatinine 1.25 H Glucose 335 H Calcium 9.3 Consult Discharge Plan - Plan Referrals: Noah Clark MD [Primary Care Provider] - 03/21/16 1:45 pm
[2016-03-18] MEDS: Insulin DETEMIR 100 UNIT/ML X5UNITS SQ SCH (22:18)
[2016-03-19] MEDS: Ipratropium/Albuterol Neb 3 ML IH SCH ×7 (00:17→23:29)
[2016-03-19 04:16] LABS: Basophils # 0.1 K/mcL (0.0-0.2); Basophils % 0.5 %; Hematocrit 39.1 % (35.3-44.9); Immature Granulocytes % 3.5 % (0-4); Lymphocytes # 0.6 K/mcL (0.6-4.6); Lymphocytes % 6.6 %; Mean Corpuscular HGB Conc 33.2 g/dL (31.6-35.5); Mean Corpuscular Hemoglobin 28.5 pg (28.0-33.3); Mean Corpuscular Volume 85.7 fL (83.0-100.0); Mean Platelet Volume 11.1 fL (9.4-12.4); Monocytes # 0.4 K/mcL (0.0-1.3); Monocytes % 4.7 %; Neutrophils # 7.7 K/mcL (1.6-8.9); Platelet Count 252 K/mcL (140-400); Red Blood Count 4.56 M/mcL (3.82-4.97); Red Cell Distribution Width 12.7 % (11.5-14.5); Segmented Neutrophils % 84.7 %
[2016-03-19 04:35] LABS: Calcium 8.9 mg/dL (8.6-10.8); Potassium 3.9 mEq/L (3.5-4.5)
[2016-03-19] MEDS: MethylPREDNISolone 40 MG/ML VIAL IVP SCH ×2 (06:38→17:23)
[2016-03-19] MEDS: *HR* Enoxaparin 40 MG/0.4 ML SYRINGE SQ SCH (06:38)
[2016-03-19] MEDS: *HR* OxyCODONE/APAP 7.5/325 TABLET PO PRN ×3 (06:48→23:34)
[2016-03-19] MEDS ORDERED: Insulin DETEMIR 100 UNIT/ML X5UNITS SQ SCH (08:35)
--- NOTE | 2016-03-19 08:38 | Internal Med Progress Note ---
Date of Encounter: 03/19/16 Time of Encounter: 07:30 - Assessment and plan (1) Physical deconditioning Current Visit: Yes Status: Acute Assessment and plan: Cardiac back on Xanax, ambulate PT/OT. Check vitamin B12 and 25-hydroxy vitamin D (2) Polypharmacy Current Visit: Yes Status: Acute Assessment and plan: Tapered down Xanax and cut back on Bactroban (3) Acute exacerbation of chronic obstructive airways disease Current Visit: Yes Status: Acute Assessment and plan: Increase Mucinex , continued Duonep, counseling on deep breathing, counseling on incentive spirometry, will check chest x-ray, check BNP (4) DM2 (diabetes mellitus, type 2) Current Visit: Yes Status: Acute Assessment and plan: Increase Levemir continuous insulin sliding scale Qualifiers: Diabetes mellitus complication status: with unspecified complications Diabetes mellitus intelligence clerk insulin use: without intelligence clerk use Qualified Code( s): E11.8 - Type 2 diabetes mellitus with unspecified complications - Time Spent With Patient 25 - 35 minutes (Possible discharge in next 24 hour. Awaiting chest x-ray result. Weaning off oxygen as tolerated, ambulate with physical therapy) - Subjective Interval history: Operations complain of feeling very tired, patient is complaining of shortness of breath and dry cough. Patient denies any nausea or vomiting. Patient denies any orthopnea or paroxysmal nocturnal dyspnea - Constitutional Vitals: Temp Pulse Resp BP Pulse Ox 97.6 F 79 15 131/86 94 L 03/19/16 06:47 03/19/16 06:47 03/19/16 06:47 03/19/16 06:47 03/19/16 06:47 General appearance: Present: A&O X 3, no acute distress - Head Head exam: Present: atraumatic, normocephalic - Respiratory Respiratory exam: Present: decreased breath sounds, rales, wheezes (Diffuse expiratory wheezing bilaterally). Absent: accessory muscle use, rhonchi - Cardiovascular Cardiovascular exam: Present: RRR, +S1, +S2. Absent: diastolic murmur, gallop, rubs, systolic murmur - GI/Abdominal GI/Abdominal exam: Present: normal bowel sounds, soft, no peritoneal signs. Absent: distended, tenderness - Extremities Exam Extremities exam: Present: warm, radial pulses palpable and symetrical. Absent : calf tenderness, cyanotic, pedal edema - Skin Skin exam: Present: dry, intact Internal Medicine: Result - Labs CBC & Chem 7: 03/19/16 03:28 03/19/16 03:28 Labs: Short CBC 03/19/16 Range/Units 03:28 WBC 9.1 (4.3-11.1) K/mcL Hgb 13.0 (11.5-15.4) g/dL Hct 39.1 (35.3-44.9) % Plt Count 252 (140-400) K/mcL Neutrophils # 7.7 (1.6-8.9) K/mcL BMP 03/19/16 03:28 Sodium 137 Potassium 3.9 Chloride 100 Carbon Dioxide 28 BUN 31 H Creatinine 1.14 H Glucose 297 H Calcium 8.9 Renal function at baseline Consult Discharge Plan - Plan Referrals: Noah Clark MD [Primary Care Provider] - 03/21/16 1:45 pm
[2016-03-19] MEDS: Cholecalciferol (D-3) 1,000 UNIT TABLET PO SCH (09:43)
[2016-03-19] MEDS: levoFLOXacin 500 MG TABLET PO SCH (09:44)
[2016-03-19] MEDS: ARIPiprazole 5 MG TABLET PO SCH (09:44)
[2016-03-19] MEDS: Fenofibrate 54 MG TABLET PO SCH (09:44)
[2016-03-19] MEDS: amLODIPine 5 MG TABLET PO SCH (09:44)
[2016-03-19] MEDS: Folic Acid 1 MG TABLET PO SCH (09:44)
[2016-03-19] MEDS: Diltiazem CD (24hr) 120 MG CAPSULE PO SCH (09:44)
[2016-03-19] MEDS: Multivit/Ca/Min/Fe/FA 1 TAB TABLET PO SCH (09:45)
[2016-03-19] MEDS: Thiamine (B-1) 100 MG TABLET PO SCH (09:45)
[2016-03-19] MEDS: ALPRAZolam 0.5 MG TABLET PO PRN ×2 (09:45→23:39)
[2016-03-19] MEDS: Insulin LISPRO 300 UNITS/3 ML VIAL SQ SCH ×4 (09:50→20:41)
[2016-03-19] MEDS: (Combigan 0.2%-0.5% Eye) OP SCH ×2 (10:01→23:34)
[2016-03-19] MEDS: (Vitamin E [Vitamin E] 1,000 UNIT) PO SCH (10:01)
[2016-03-20] MEDS: Ipratropium/Albuterol Neb 3 ML IH SCH ×6 (04:19→23:50)
[2016-03-20 04:30] LABS: Basophils # 0.1 K/mcL (0.0-0.2); Basophils % 0.5 %; Hematocrit 40.7 % (35.3-44.9); Hemoglobin 13.6 g/dL (11.5-15.4); Immature Granulocytes % 2.4 % (0-4); Lymphocytes # 0.5 K/mcL (0.6-4.6); Lymphocytes % 5.2 %; Mean Corpuscular HGB Conc 33.4 g/dL (31.6-35.5); Mean Corpuscular Hemoglobin 28.5 pg (28.0-33.3); Mean Corpuscular Volume 85.3 fL (83.0-100.0); Monocytes # 0.4 K/mcL (0.0-1.3); Monocytes % 4.6 %; Neutrophils # 8.1 K/mcL (1.6-8.9); Platelet Count 258 K/mcL (140-400); Red Blood Count 4.77 M/mcL (3.82-4.97); Red Cell Distribution Width 12.7 % (11.5-14.5); Segmented Neutrophils % 87.3 %
[2016-03-20] MEDS: *HR* Enoxaparin 40 MG/0.4 ML SYRINGE SQ SCH (06:05)
[2016-03-20] MEDS: MethylPREDNISolone 40 MG/ML VIAL IVP SCH ×2 (06:05→17:08)
[2016-03-20 06:14] LABS: BUN/Creatinine Ratio 31 (6-26); Blood Urea Nitrogen 32 mg/dL (7-20); Calcium 8.9 mg/dL (8.6-10.8); Carbon Dioxide 24 mEq/L (19-29); Chloride 103 mEq/L (98-109); Glucose 359 mg/dL (70-99); Osmolality,Calculated 307 (280-300); Potassium 4.3 mEq/L (3.5-4.5); Sodium 138 mEq/L (136-145); eGFR For African Americans > 60 (> 60); eGFR For Non-African Americans 54 (> 60)
[2016-03-20] MEDS: Cholecalciferol (D-3) 1,000 UNIT TABLET PO SCH (08:02)
[2016-03-20] MEDS: Multivit/Ca/Min/Fe/FA 1 TAB TABLET PO SCH (08:02)
[2016-03-20] MEDS: Insulin LISPRO 300 UNITS/3 ML VIAL SQ SCH ×4 (08:02→21:15)
[2016-03-20] MEDS: Fenofibrate 54 MG TABLET PO SCH (08:02)
[2016-03-20] MEDS: ARIPiprazole 5 MG TABLET PO SCH (08:02)
[2016-03-20] MEDS: Thiamine (B-1) 100 MG TABLET PO SCH (08:03)
[2016-03-20] MEDS: amLODIPine 5 MG TABLET PO SCH (08:03)
[2016-03-20] MEDS: Folic Acid 1 MG TABLET PO SCH (08:03)
[2016-03-20] MEDS: levoFLOXacin 500 MG TABLET PO SCH (08:03)
[2016-03-20] MEDS: Diltiazem CD (24hr) 120 MG CAPSULE PO SCH (08:03)
[2016-03-20] MEDS: (Combigan 0.2%-0.5% Eye) OP SCH ×2 (08:11→20:06)
[2016-03-20] MEDS: *HR* OxyCODONE/APAP 7.5/325 TABLET PO PRN ×3 (08:12→23:20)
[2016-03-20] MEDS: (Vitamin E [Vitamin E] 1,000 UNIT) PO SCH (08:13)
--- NOTE | 2016-03-20 15:08 | Internal Med Progress Note ---
Date of Encounter: 03/20/16 Time of Encounter: 15:00 - Assessment and plan (1) Physical deconditioning Current Visit: Yes Status: Acute Assessment and plan: PT OT ambulate (2) Polypharmacy Current Visit: Yes Status: Acute Assessment and plan: Taper down narcotic and benzodiazepine as tolerated (3) Acute exacerbation of chronic obstructive airways disease Current Visit: Yes Status: Acute Assessment and plan: Continue aerosol treatment, chest physical therapy, counseling again on deep breathing, incentive spirometry (4) DM2 (diabetes mellitus, type 2) Current Visit: Yes Status: Acute Assessment and plan: Increase Levemir again continuous insulin sliding scale Qualifiers: Diabetes mellitus complication status: with unspecified complications Diabetes mellitus long term acute care registered nurse insulin use: without long term acute care registered nurse use Qualified Code( s): E11.8 - Type 2 diabetes mellitus with unspecified complications - Subjective Interval history: Patient still has some shortness of breath, she stated that she is not on home oxygen, she continued to have dry cough, audible wheezing - Constitutional Vitals: Temp Pulse Resp BP Pulse Ox 97.9 F 69 15 134/77 95 03/20/16 10:48 03/20/16 10:48 03/20/16 11:43 03/20/16 10:48 03/20/16 11:43 General appearance: Present: A&O X 3, no acute distress - Neck Neck exam general surgery: Present: supple, trachea midline - Respiratory Respiratory exam: Present: decreased breath sounds, prolonged expiratory phase, rales (Diffuse wheezing and crackles bilateral), wheezes. Absent: accessory muscle use, rhonchi - Cardiovascular Cardiovascular exam: Present: RRR, +S1, +S2. Absent: diastolic murmur, gallop, rubs, systolic murmur - GI/Abdominal GI/Abdominal exam: Present: normal bowel sounds, soft, no peritoneal signs. Absent: distended, tenderness - Extremities Exam Extremities exam: Present: warm, radial pulses palpable and symetrical. Absent : calf tenderness, cyanotic, pedal edema - Skin Skin exam: Present: dry, intact Internal Medicine: Result - Labs CBC & Chem 7: 03/20/16 03:53 03/20/16 03:53 Labs: Short CBC 03/20/16 Range/Units 03:53 WBC 9.3 (4.3-11.1) K/mcL Hgb 13.6 (11.5-15.4) g/dL Hct 40.7 (35.3-44.9) % Plt Count 258 (140-400) K/mcL Neutrophils # 8.1 (1.6-8.9) K/mcL [facility] 03/20/16 03:53 Sodium 138 Potassium 4.3 Chloride 103 Carbon Dioxide 24 BUN 32 H Creatinine 1.02 Glucose 359 H Calcium 8.9 Consult Discharge Plan - Plan Referrals: Noah Clark MD [Primary Care Provider] - 03/21/16 1:45 pm
[2016-03-20] MEDS ORDERED: Insulin DETEMIR 100 UNIT/ML X5UNITS SQ SCH (15:14)
[2016-03-20] MEDS ORDERED: Insulin Human Regular 10 UNIT in 0.9 % Sodium Chloride 10 ML IV ONE (15:15)
[2016-03-20] MEDS: ALPRAZolam 0.5 MG TABLET PO PRN (17:03)
[2016-03-21] MEDS: Ipratropium/Albuterol Neb 3 ML IH SCH ×5 (03:58→20:25)
[2016-03-21] MEDS: *HR* Enoxaparin 40 MG/0.4 ML SYRINGE SQ SCH (05:37)
[2016-03-21] MEDS: MethylPREDNISolone 40 MG/ML VIAL IVP SCH (05:38)
[2016-03-21] MEDS: Insulin LISPRO 300 UNITS/3 ML VIAL SQ SCH ×3 (07:48→17:51)
[2016-03-21] MEDS: Folic Acid 1 MG TABLET PO SCH (07:49)
[2016-03-21] MEDS: Diltiazem CD (24hr) 120 MG CAPSULE PO SCH (07:49)
[2016-03-21] MEDS: Fenofibrate 54 MG TABLET PO SCH (07:49)
[2016-03-21] MEDS: Multivit/Ca/Min/Fe/FA 1 TAB TABLET PO SCH (07:49)
[2016-03-21] MEDS: ARIPiprazole 5 MG TABLET PO SCH (07:49)
[2016-03-21] MEDS: Cholecalciferol (D-3) 1,000 UNIT TABLET PO SCH (07:49)
[2016-03-21] MEDS: Thiamine (B-1) 100 MG TABLET PO SCH (07:49)
[2016-03-21] MEDS: amLODIPine 5 MG TABLET PO SCH (07:50)
[2016-03-21] MEDS: (Combigan 0.2%-0.5% Eye) OP SCH (07:51)
[2016-03-21] MEDS: (Vitamin E [Vitamin E] 1,000 UNIT) PO SCH (07:51)
[2016-03-21] MEDS: ALPRAZolam 0.5 MG TABLET PO PRN (08:00)
[2016-03-21] MEDS: *HR* OxyCODONE/APAP 7.5/325 TABLET PO PRN ×2 (08:00→15:39)
[2016-03-21] MEDS ORDERED: Levofloxacin 500 MG/100 ML 500 MG/100 ML BAG IVPB SCH (09:00)
[2016-03-21 15:50] VITALS: BP 139/73
--- NOTE | 2016-03-21 15:53 | Discharge Summary ---
Date of Encounter: 03/21/16 Time of Encounter: 14:00 - Discharge Diagnosis (1) Acute exacerbation of chronic obstructive airways disease Priority: Primary Status: Acute Comments: Improved. Patient stating she was nearly back to her baseline on day of discharge however she remained hypoxic. Sending inpatient rehabilitation. Flu negative. Blood culture negative. Received 1 dose of Levaquin while admitted, will continue upon discharge. ITS Impressions Chest X-Ray 03/14/16 17:45 IMPRESSION: No evidence of acute cardiopulmonary disease. D/ / Jose Parker MD / Jose Parker MD Interpreting Provider: Jose Parker MD Chest X-Ray 03/19/16 08:28 IMPRESSION: Bibasilar airspace disease could represent atelectasis and/or pneumonia. D/ / Juma Garcia MD / Juma Garcia MD Interpreting Provider: Juma Garcia MD (2) Acute respiratory failure Priority: Primary Status: Acute Comments: Likely secondary to COPD exacerbation and possible bilateral pneumonia. Treated with levofloxacin, will continue upon discharge. Not on oxygen at home , 3 L here, sending the inpatient rehabilitation. (3) COURTNEY (acute kidney injury) Priority: Primary Status: Acute Comments: nearly resolved; recommend follow-up outpatient. (4) DM2 (diabetes mellitus, type 2) Priority: Secondary Status: Chronic Comments: Relatively well controlled with an increase in A1c is 7.1%. Recommend continued follow-up outpatient. Qualifiers: Diabetes mellitus complication status: with unspecified complications Diabetes mellitus jail insulin use: without jail use Qualified Code( s): E11.8 - Type 2 diabetes mellitus with unspecified complications (5) HTN (hypertension) Priority: Secondary Status: Chronic Comments: Controlled, recommended continued follow-up outpatient. Qualifiers: Hypertension type: essential hypertension Qualified Code(s): I10 - Essential (primary) hypertension (6) Physical deconditioning Priority: Primary Status: Acute Comments: Likely secondary to COPD exacerbation/possible bilateral pneumonia, sending to [facility]. (7) Polypharmacy Priority: Secondary Status: Chronic - Discharge Medications Prescriptions: Alprazolam [Xanax 0.5 MG Tablet] 0.5 mg PO TID #21 tablet Levofloxacin 750 mg PO DAILY #5 tablet Oxycodone HCl/Acetaminophen [Percocet 7.5-325 mg Tablet] 1 each PO TID PRN #21 tablet PRN Reason: Pain Oxygen 3 l IN CONT #1 each PredniSONE 40 mg PO DAILY #10 tablet Home Medications: Aripiprazole [Abilify] 5 mg PO DAILY 07/23/15 [History] Diltiazem CD (24hr) [Cardizem CD] 120 mg PO DAILY 07/23/15 [History] Folic Acid 1 mg PO DAILY 07/23/15 [History] GuaiFENesin ER [Mucinex] 600 mg PO Q12H PRN 07/23/15 [History] Lisinopril [Zestril] 20 mg PO BID 07/23/15 [History] Metformin [Glucophage] 500 mg PO BIDWM 07/23/15 [History] Propafenone HCl [Rythmol] 225 mg PO Q8H 07/23/15 [History] Solifenacin Succinate [Vesicare] 5 mg PO DAILY 07/23/15 [History] Cephalexin [Keflex] 500 mg PO QID #28 capsule MDD 1-5-17 03/10/16 [Rx] Albuterol Sulfate [Ventolin Hfa] 2 puff IH Q4H PRN 03/14/16 [History] Atorvastatin [Lipitor] 10 mg PO HS 03/14/16 [History] Brimonidine Tartrate/Timolol [Combigan 0.2%-0.5% Eye Drops] 1 drop BOTH EYES BID 03/14/16 [History] Budesonide/Formoterol 160/4.5 [Symbicort 160/4.5] 2 puff IH BIDR 03/14/16 [ History] Cholecalciferol (D-3) [Vitamin D] 5,000 unit PO DAILY 03/14/16 [History] Citalopram Hydrobromide [Celexa] 40 mg PO DAILY 03/14/16 [History] Fenofibrate [Lofibra] 160 mg PO DAILY 03/14/16 [History] Multivitamin/Iron/Folic Acid [Cerovite Advanced Form Tab] 1 each PO DAILY [History] Omeprazole [PriLOSEC] 40 mg PO DAILY 03/14/16 [History] Thiamine Mononitrate [Vitamin B-1] 100 mg PO DAILY 03/14/16 [History] Vitamin E 1,000 unit PO DAILY 03/14/16 [History] Alprazolam [Xanax 0.5 MG Tablet] 0.5 mg PO TID #21 tablet 03/21/16 [Rx] Levofloxacin 750 mg PO DAILY #5 tablet 03/21/16 [Rx] Oxycodone HCl/Acetaminophen [Percocet 7.5-325 mg Tablet] 1 each PO TID PRN #21 tablet 03/21/16 [Rx] Oxygen 3 l IN CONT #1 each 03/21/16 [Rx] PredniSONE 40 mg PO DAILY #10 tablet 03/21/16 [Rx] Allergies/Adverse Reactions: Allergies gabapentin Adverse Reaction (Verified 03/14/16 20:23) Confusion Methadone Adverse Reaction (Verified 03/14/16 20:23) Confusion morphine Adverse Reaction (Verified 03/14/16 20:23) Confusion Zolpidem [From Ambien] Adverse Reaction (Verified 03/14/16 20:23) Confusion Date of admission: 03/14/16 21:07 Primary care physician: Noah Clark MD Consults: 03/17/16 02:14 Consult to Filing And Polishing Supervisor [CONS] Routine Reason for SW Consult: Possible need for O2 qualification 03/17/16 02:16 OT [Consult to Occupational Therapy] [CONS] Routine Comment: Evaluate, develop and implement POC PT [Consult to Physical Therapy] [CONS] Routine Comment: Evaluate, develop and implement POC 03/20/16 15:18 Consult to Nurse Navigator [CONS] Routine Comment: Chest physiotherapy 3 times a day Discharging clinician: Viviana Cisneros Anticipated date of discharge: 03/21/16 - Patient Status Disposition: Transfer Inpatient Rehab Fac Condition: Fair Functional capacity at discharge: independent ambulation Overall status at discharge: patient is progressing back to baseline - Discharge Instructions Follow Up With: Noah Clark MD [Primary Care Provider] - 03/21/16 1:45 pm Additional Instructions: Follow-up with primary care provider within one to 2 weeks - Diet and Activity Activity: as per physical therapy, increase activity as tolerated Diet: diabetic diet Hospital course: Ms. Lemon is a 70 year old female with past medical history of COPD not on home oxygen, diabetes, SVT, former tobacco abuse. Patient presented to the emergency room for chief complaint one-week history of dry, coarse cough and progressive shortness of breath. She was seen and evaluated 5 days prior to this presentation and inpatient was recommended at that time however the patient refused stating she would rather go home. She was sent home on Keflex for urinary tract infection at that time. She then returned for continued shortness of breath. Workup in the emergency department unremarkable. Initial chest x-ray negative. Patient was admitted to the hospitalist service for further evaluation and management of COPD exacerbation. Patient required supplemental oxygenation throughout this admission. She was admitted and observed over the course of 8 days. She was seen and evaluated by occupational and physical therapy who recommended ECF placement. Repeat chest x-ray on day 5 of her admission revealed findings consistent with possible bilateral bibasilar pneumonia. Patient was then started on levofloxacin. On day of discharge, patient stating she was feeling closer back to her norm though continued to endorse weakness and shortness of breath above her norm. Patient initially had acute kidney injury did nearly resolved while admitted. Flu swab negative. Blood cultures negative. She was discharged to [facility] in stable condition with close outpatient follow-up recommended. ITS Impressions Chest X-Ray 03/14/16 17:45 IMPRESSION: No evidence of acute cardiopulmonary disease. D/ / Jose Parker MD / Jose Parker MD Interpreting Provider: Jose Parker MD Chest X-Ray 03/19/16 08:28 IMPRESSION: Bibasilar airspace disease could represent atelectasis and/or pneumonia. D/ / Juma Garcia MD / Juma Garcia MD Interpreting Provider: Juma Garcia MD - Time Spent with Patient Total time spent providing and/or coordinating discharge services: - Constitutional Vitals: Temp Pulse Resp BP Pulse Ox 98.7 F 72 16 139/73 92 L 03/21/16 15:50 03/21/16 15:50 03/21/16 15:50 03/21/16 15:50 03/21/16 15:50 General appearance: Present: A&O X 3, pleasant, no acute distress, answers questions appropriately - Head Head exam: Present: atraumatic, normocephalic - Eye Eye exam: Present: PERRL, conjuntiva pink, sclera anicteric Pupils: Present: PERRL - Neck Neck exam general surgery: Present: supple, trachea midline. Absent: lymphadenopathy - Respiratory Respiratory exam: Present: accessory muscle use, decreased breath sounds. Absent: rales, respiratory distress, rhonchi, wheezes - Cardiovascular Cardiovascular exam: Present: RRR, +S1, +S2. Absent: diastolic murmur, gallop, rubs, systolic murmur - GI/Abdominal GI/Abdominal exam: Present: normal bowel sounds, soft, no peritoneal signs. Absent: distended, tenderness - Extremities Exam Extremities exam: Present: warm, radial pulses palpable and symetrical. Absent : calf tenderness, cyanotic, pedal edema - Neurological Exam Neurological exam: Present: alert, CN II-XII intact, oriented X3, no focal deficits, strengths equal and symetr throughout. Absent: pronater drift, facial droop, speech deficit - Skin Skin exam: Present: dry, intact, pallor, warm
--- NOTE | 2016-03-21 16:08 | Physician Discharge Referral ---
ExtendedCare Referral Info Transfer To: [facility] Provider in Charge: Ivan Cisneros CNP Provider in Charge after Transfer: PCP Institutional Level of Care: Skilled - Diagnosis (1) Acute exacerbation of chronic obstructive airways disease Priority: Primary Status: Acute (2) Acute respiratory failure Priority: Primary Status: Acute (3) COURTNEY (acute kidney injury) Priority: Primary Status: Acute (4) DM2 (diabetes mellitus, type 2) Priority: Secondary Status: Chronic (5) HTN (hypertension) Priority: Secondary Status: Chronic (6) Physical deconditioning Priority: Primary Status: Acute (7) Polypharmacy Priority: Secondary Status: Chronic Prognosis: Good Aware of Diagnosis: Patient Aware of Prognosis: Patient - Transfer Medications Prescriptions: Alprazolam [Xanax 0.5 MG Tablet] 0.5 mg PO TID #21 tablet Levofloxacin 750 mg PO DAILY #5 tablet Oxycodone HCl/Acetaminophen [Percocet 7.5-325 mg Tablet] 1 each PO TID PRN #21 tablet PRN Reason: Pain Oxygen 3 l IN CONT #1 each PredniSONE 40 mg PO DAILY #10 tablet Home Medications: Aripiprazole [Abilify] 5 mg PO DAILY 07/23/15 [History] Diltiazem CD (24hr) [Cardizem CD] 120 mg PO DAILY 07/23/15 [History] Folic Acid 1 mg PO DAILY 07/23/15 [History] GuaiFENesin ER [Mucinex] 600 mg PO Q12H PRN 07/23/15 [History] Lisinopril [Zestril] 20 mg PO BID 07/23/15 [History] Metformin [Glucophage] 500 mg PO BIDWM 07/23/15 [History] Propafenone HCl [Rythmol] 225 mg PO Q8H 07/23/15 [History] Solifenacin Succinate [Vesicare] 5 mg PO DAILY 07/23/15 [History] Cephalexin [Keflex] 500 mg PO QID #28 capsule MDD 1-5-17 03/10/16 [Rx] Albuterol Sulfate [Ventolin Hfa] 2 puff IH Q4H PRN 03/14/16 [History] Atorvastatin [Lipitor] 10 mg PO HS 03/14/16 [History] Brimonidine Tartrate/Timolol [Combigan 0.2%-0.5% Eye Drops] 1 drop BOTH EYES BID 03/14/16 [History] Budesonide/Formoterol 160/4.5 [Symbicort 160/4.5] 2 puff IH BIDR 03/14/16 [ History] Cholecalciferol (D-3) [Vitamin D] 5,000 unit PO DAILY 03/14/16 [History] Citalopram Hydrobromide [Celexa] 40 mg PO DAILY 03/14/16 [History] Fenofibrate [Lofibra] 160 mg PO DAILY 03/14/16 [History] Multivitamin/Iron/Folic Acid [Cerovite Advanced Form Tab] 1 each PO DAILY [History] Omeprazole [PriLOSEC] 40 mg PO DAILY 03/14/16 [History] Thiamine Mononitrate [Vitamin B-1] 100 mg PO DAILY 03/14/16 [History] Vitamin E 1,000 unit PO DAILY 03/14/16 [History] Alprazolam [Xanax 0.5 MG Tablet] 0.5 mg PO TID #21 tablet 03/21/16 [Rx] Levofloxacin 750 mg PO DAILY #5 tablet 03/21/16 [Rx] Oxycodone HCl/Acetaminophen [Percocet 7.5-325 mg Tablet] 1 each PO TID PRN #21 tablet 03/21/16 [Rx] Oxygen 3 l IN CONT #1 each 03/21/16 [Rx] PredniSONE 40 mg PO DAILY #10 tablet 03/21/16 [Rx] Allergies/Adverse Reactions: Allergies gabapentin Adverse Reaction (Verified 03/14/16 20:23) Confusion Methadone Adverse Reaction (Verified 03/14/16 20:23) Confusion morphine Adverse Reaction (Verified 03/14/16 20:23) Confusion Zolpidem [From Ambien] Adverse Reaction (Verified 03/14/16 20:23) Confusion - Respiratory Orders Oxygen / L per min (3) Smoking Cessation: Smoking cessation has been advised. For more information, call the [place] Tobacco Quit Line at 0-227-UPNW-NOW. - Ancillary Orders May use pressure relief devices daily prn, May go on MODESTA w/family/respon constitution party w /meds at nurse discretion PRN, May have alcoholic beverages, May consult with Dentist, Project Management It Specialist, Nitric Acid Concentrator Operator PRN - Advance Directives Living Will: No Power of Sheriff Detective: No Code Status: Full Code - Mobility Orders Ambulate (per PT) - Rehabiliation Orders Rehab Potential: Good Rehab Orders: ROM Exercises, Evaluation for Physical Therapy, Evaluation for Occupational Therapy - Treatments Skin tear care topically daily PRN per policy, May check for fecal impaction rectally daily PRN, Fleet enema rectally every other day PRN cleansing purposes - Diet Orders No Added Salt (GUADALUPE), No Concentrated Sweets CERTIFICATION: I certify that the transfer of the above named patient to an Extended Care Facility is necessary for the continuing treatment of the diagnosis listed. The above information is true and accurate reflection of patient's current condition. Confidential - Redisclosure prohibited without a patient's written consent.
== END 2016-03-21 19:05 | DRG 140 ==
LOC: 3BNU 17:15 → EMEROO 17:15 → OBSVTOIN 21:07 → SUATTDRO 21:07 → 3BNU 22:02
PROVIDERS: ADMIT Internal Medicine; ATTEND Nurse Practitioner Family

== ENCOUNTER 2016-07-11 18:11 | Inpatient (IN) ==
[~2016-07-11 18:11] MED LIST: *HR* LORazepam 2 MG/ML VIAL IVP ONE; *HR* Midazolam HCl 2 MG/2 ML VIAL IVP ONE; *HR* Midazolam HCl 5 MG/5 ML VIAL IVP ONE; *HR* Rocuronium Bromide 100 MG/10 ML VIAL IVP ONE
--- NOTE | 2016-07-11 18:22 | Emergency Department Note ---
START Narrative - START START: I examined this patient and my medical decision-making was reviewed with the CODE NUMBER STAMPER/PA/Advanced Practice Nurse/Resident Physician. I agree with the documented findings, disposition and treatment plan as described except to the extent set forth below. Patient was seen on arrival by Dr. Pettit and myself with EMS. They were called for altered mental status. Her Xanax is missing and they could have taken up to 30 (0.5 mg) Xanax. She is protecting her airway she will follow commands no signs of obvious stroke. We will get labs CT of her head chest x-ray EKG and reassess. She is stable at this time or move her to a resuscitation room. And then we will monitor her and sign her out to the evening ER physician for further management and disposition.
[2016-07-11] MEDS ORDERED: 0.9 % Sodium Chloride 1,000 ML IVC SCH (18:30)
[2016-07-11 18:51] LABS: VBG HCO3 30.3 mEq/L (21-27); VBG PH 7.39 pH Units (7.32-7.42)
[2016-07-11 18:54] LABS: Basophils % 0.6 %; Eosinophils # 0.1 K/mcL (0.0-0.6); Eosinophils % 1.4 %; Hematocrit 46.9 % (35.3-44.9); Hemoglobin 15.2 g/dL (11.5-15.4); Immature Granulocytes % 0.2 % (0-4); Lymphocytes # 1.5 K/mcL (0.6-4.6); Lymphocytes % 30.5 %; Mean Corpuscular HGB Conc 32.4 g/dL (31.6-35.5); Mean Corpuscular Volume 86.5 fL (83.0-100.0); Mean Platelet Volume 10.6 fL (9.4-12.4); Monocytes # 0.3 K/mcL (0.0-1.3); Monocytes % 6.4 %; Platelet Count 213 K/mcL (140-400); Red Blood Count 5.42 M/mcL (3.82-4.97); Red Cell Distribution Width 12.3 % (11.5-14.5); Segmented Neutrophils % 60.9 %
[2016-07-11 19:07] LABS: Acetaminophen < 1.0 mcg/mL (10-30); Alanine Aminotransferase 8 Units/L (0-55); Albumin 3.8 g/dL (3.5-5.0); Albumin/Globulin Ratio 1.1 (1.1-2.2); Alkaline Phosphatase 89 Units/L (38-126); Aspartate Amino Transferase 12 Units/L (5-34); BUN/Creatinine Ratio 20 (6-26); Bilirubin,Total 0.5 mg/dL (0.2-1.2); Blood Urea Nitrogen 17 mg/dL (7-20); Calcium 9.5 mg/dL (8.6-10.8); Carbon Dioxide 28 mEq/L (19-29); Chloride 107 mEq/L (98-109); Ethanol < 10 mg/dL (0-10); Globulin 3.5 g/dL (2.4-3.5); Glucose 119 mg/dL (70-99); Osmolality,Calculated 299 (280-300); Potassium 3.7 mEq/L (3.5-4.5); Salicylate < 5.0 mg/dL (15-30); Sodium 143 mEq/L (136-145); Total Protein 7.3 g/dL (6.0-8.3); eGFR For African Americans > 60 (> 60); eGFR For Non-African Americans > 60 (> 60)
--- NOTE | 2016-07-11 21:44 | Emergency Department Note ---
Overdose - Lab Data Result diagrams: 07/11/16 18:43 07/11/16 18:43 Lab Results 07/11/16 07/11/16 07/11/16 Range/Units 18:38 18:43 18:43 WBC 4.9 (4.3-11.1) K/mcL RBC 5.42 H (3.82-4.97) M/mcL Hgb 15.2 (11.5-15.4) g/dL Hct 46.9 H (35.3-44.9) % MCV 86.5 (83.0-100.0) fL MCH 28.0 (28.0-33.3) pg MCHC 32.4 (31.6-35.5) g/dL RDW 12.3 (11.5-14.5) % Plt Count 213 (140-400) K/mcL MPV 10.6 (9.4-12.4) fL Immature Gran % 0.2 (0-4) % Seg Neutrophils % 60.9 % Lymphocytes % 30.5 % Monocytes % 6.4 % Eosinophils % 1.4 % Basophils % 0.6 % Neutrophils # 3.0 (1.6-8.9) K/mcL Lymphocytes # 1.5 (0.6-4.6) K/mcL Monocytes # 0.3 (0.0-1.3) K/mcL Eosinophils # 0.1 (0.0-0.6) K/mcL Basophils # 0.0 (0.0-0.2) K/mcL ABG pH (7.32-7.45) pH Units ABG pCO2 (35-45) mmHg ABG pO2 (85-104) mmHg ABG HCO3 (21-27) mEQ/L ABG Total CO2 (20-26) mEq/L ABG O2 Saturation (95-98) % ABG Base Excess (-2.0 to 3.0) mEq/L VBG pH (7.32-7.42) pH Units VBG pCO2 (41-51) mmHg VBG pO2 (25-40) mmHg VBG HCO3 (21-27) mEq/L Respiration Rate Blood Gas Modality Inspired O2 % Tidal Volume cc PEEP cm H2O Sodium 143 (136-145) mEq/L Potassium 3.7 (3.5-4.5) mEq/L Chloride 107 (98-109) mEq/L Carbon Dioxide 28 (19-29) mEq/L BUN 17 (7-20) mg/dL Creatinine 0.86 (0.57-1.11) mg/dL Est GFR ( Amer) > 60 (> 60) Est GFR (Non-Af Amer) > 60 (> 60) BUN/Creatinine Ratio 20 (6-26) Glucose 119 H (70-99) mg/dL POC Glucose 106 H (58-89) Calculated Osmolality 299 (280-300) Calcium 9.5 (8.6-10.8) mg/dL Total Bilirubin 0.5 (0.2-1.2) mg/dL AST 12 (5-34) Units/L ALT 8 (0-55) Units/L Alkaline Phosphatase 89 (38-126) Units/L Creatine Kinase (29-168) Units/L Troponin I (0-0.03) ng/mL Serum Total Protein 7.3 (6.0-8.3) g/dL Albumin 3.8 (3.5-5.0) g/dL Globulin 3.5 (2.4-3.5) g/dL Albumin/Globulin Ratio 1.1 (1.1-2.2) Urine Color (Yellow) Urine Clarity (Clear) Urine pH (5.0-8.0) pH Units Ur Specific [place] (1.010-1.025) Urine Protein (Neg-Trace) mg/dL Urine Glucose (UA) (Normal) mg/dL Urine Ketones (Negative) mg/dL Urine Blood (Negative) Urine Nitrite (Negative) Urine Bilirubin (Negative) Urine Urobilinogen (Normal) mg/dL Ur Leukocyte Esterase (Negative) Urine Microscopic RBC (0-3) per hpf Urine Microscopic WBC (0-3) per hpf Ur Squamous Epith Cells (None-Few) per lpf Urine Bacteria (None-Few) per hpf Hyaline Casts (None-Few) per lpf Ur Culture Indicated? (NO) Salicylates < 5.0 L (15-30) mg/dL Urine Opiates Screen (Gmeego=576) ng/mL Acetaminophen < 1.0 L (10-30) mcg/mL Ur Barbiturates Screen (Ophtqx=686) ng/mL Ur Phencyclidine Scrn (Cutoff=25) ng/mL Ur Amphetamines Screen (Nebefk=7312) ng/mL U Benzodiazepines Scrn (Smfoif=774) ng/mL Urine Cocaine Screen (Cutoff= 300) ng/mL U Marijuana (THC) Screen (Cutoff = 50) ng/mL Ethyl Alcohol < 10 (0-10) mg/dL 07/11/16 07/11/16 07/11/16 Range/Units 18:43 18:43 18:43 WBC (4.3-11.1) K/mcL RBC (3.82-4.97) M/mcL Hgb (11.5-15.4) g/dL Hct (35.3-44.9) % MCV (83.0-100.0) fL MCH (28.0-33.3) pg MCHC (31.6-35.5) g/dL RDW (11.5-14.5) % Plt Count (140-400) K/mcL MPV (9.4-12.4) fL Immature Gran % (0-4) % Seg Neutrophils % % Lymphocytes % % Monocytes % % Eosinophils % % Basophils % % Neutrophils # (1.6-8.9) K/mcL Lymphocytes # (0.6-4.6) K/mcL Monocytes # (0.0-1.3) K/mcL Eosinophils # (0.0-0.6) K/mcL Basophils # (0.0-0.2) K/mcL ABG pH (7.32-7.45) pH Units ABG pCO2 (35-45) mmHg ABG pO2 (85-104) mmHg ABG HCO3 (21-27) mEQ/L ABG Total CO2 (20-26) mEq/L ABG O2 Saturation (95-98) % ABG Base Excess (-2.0 to 3.0) mEq/L VBG pH 7.39 (7.32-7.42) pH Units VBG pCO2 50 (41-51) mmHg VBG pO2 31 (25-40) mmHg VBG HCO3 30.3 H (21-27) mEq/L Respiration Rate Blood Gas Modality Inspired O2 % Tidal Volume cc PEEP cm H2O Sodium (136-145) mEq/L Potassium (3.5-4.5) mEq/L Chloride (98-109) mEq/L Carbon Dioxide (19-29) mEq/L BUN (7-20) mg/dL Creatinine (0.57-1.11) mg/dL Est GFR ( Amer) (> 60) Est GFR (Non-Af Amer) (> 60) BUN/Creatinine Ratio (6-26) Glucose (70-99) mg/dL POC Glucose (58-89) Calculated Osmolality (280-300) Calcium (8.6-10.8) mg/dL Total Bilirubin (0.2-1.2) mg/dL AST (5-34) Units/L ALT (0-55) Units/L Alkaline Phosphatase (38-126) Units/L Creatine Kinase 39 (29-168) Units/L Troponin I 0.00 (0-0.03) ng/mL Serum Total Protein (6.0-8.3) g/dL Albumin (3.5-5.0) g/dL Globulin (2.4-3.5) g/dL Albumin/Globulin Ratio (1.1-2.2) Urine Color (Yellow) Urine Clarity (Clear) Urine pH (5.0-8.0) pH Units Ur Specific [place] (1.010-1.025) Urine Protein (Neg-Trace) mg/dL Urine Glucose (UA) (Normal) mg/dL Urine Ketones (Negative) mg/dL Urine Blood (Negative) Urine Nitrite (Negative) Urine Bilirubin (Negative) Urine Urobilinogen (Normal) mg/dL Ur Leukocyte Esterase (Negative) Urine Microscopic RBC (0-3) per hpf Urine Microscopic WBC (0-3) per hpf Ur Squamous Epith Cells (None-Few) per lpf Urine Bacteria (None-Few) per hpf Hyaline Casts (None-Few) per lpf Ur Culture Indicated? (NO) Salicylates (15-30) mg/dL Urine Opiates Screen (Lbzqda=968) ng/mL Acetaminophen (10-30) mcg/mL Ur Barbiturates Screen (Aibhxg=124) ng/mL Ur Phencyclidine Scrn (Cutoff=25) ng/mL Ur Amphetamines Screen (Jijxbo=1471) ng/mL U Benzodiazepines Scrn (Qnioah=772) ng/mL Urine Cocaine Screen (Cutoff= 300) ng/mL U Marijuana (THC) Screen (Cutoff = 50) ng/mL Ethyl Alcohol (0-10) mg/dL 07/11/16 07/11/16 07/11/16 Range/Units 22:08 22:08 23:08 WBC (4.3-11.1) K/mcL RBC (3.82-4.97) M/mcL Hgb (11.5-15.4) g/dL Hct (35.3-44.9) % MCV (83.0-100.0) fL MCH (28.0-33.3) pg MCHC (31.6-35.5) g/dL RDW (11.5-14.5) % Plt Count (140-400) K/mcL MPV (9.4-12.4) fL Immature Gran % (0-4) % Seg Neutrophils % % Lymphocytes % % Monocytes % % Eosinophils % % Basophils % % Neutrophils # (1.6-8.9) K/mcL Lymphocytes # (0.6-4.6) K/mcL Monocytes # (0.0-1.3) K/mcL Eosinophils # (0.0-0.6) K/mcL Basophils # (0.0-0.2) K/mcL ABG pH 7.32 (7.32-7.45) pH Units ABG pCO2 51 H (35-45) mmHg ABG pO2 104 (85-104) mmHg ABG HCO3 26.3 (21-27) mEQ/L ABG Total CO2 27.9 H (20-26) mEq/L ABG O2 Saturation 98 (95-98) % ABG Base Excess -0.7 (-2.0 to 3.0) mEq/L VBG pH (7.32-7.42) pH Units VBG pCO2 (41-51) mmHg VBG pO2 (25-40) mmHg VBG HCO3 (21-27) mEq/L Respiration Rate 16 Blood Gas Modality SIMV Inspired O2 100 % Tidal Volume 400 cc PEEP 5 cm H2O Sodium (136-145) mEq/L Potassium (3.5-4.5) mEq/L Chloride (98-109) mEq/L Carbon Dioxide (19-29) mEq/L BUN (7-20) mg/dL Creatinine (0.57-1.11) mg/dL Est GFR ( Amer) (> 60) Est GFR (Non-Af Amer) (> 60) BUN/Creatinine Ratio (6-26) Glucose (70-99) mg/dL POC Glucose (58-89) Calculated Osmolality (280-300) Calcium (8.6-10.8) mg/dL Total Bilirubin (0.2-1.2) mg/dL AST (5-34) Units/L ALT (0-55) Units/L Alkaline Phosphatase (38-126) Units/L Creatine Kinase (29-168) Units/L Troponin I (0-0.03) ng/mL Serum Total Protein (6.0-8.3) g/dL Albumin (3.5-5.0) g/dL Globulin (2.4-3.5) g/dL Albumin/Globulin Ratio (1.1-2.2) Urine Color Yellow (Yellow) Urine Clarity Cloudy A (Clear) Urine pH 7.0 (5.0-8.0) pH Units Ur Specific [place] 1.012 (1.010-1.025) Urine Protein Trace (Neg-Trace) mg/dL Urine Glucose (UA) Normal (Normal) mg/dL Urine Ketones Negative (Negative) mg/dL Urine Blood Trace H (Negative) Urine Nitrite Negative (Negative) Urine Bilirubin Negative (Negative) Urine Urobilinogen Normal (Normal) mg/dL Ur Leukocyte Esterase Large H (Negative) Urine Microscopic RBC 5-15 H (0-3) per hpf Urine Microscopic WBC TNTC H (0-3) per hpf Ur Squamous Epith Cells Many H (None-Few) per lpf Urine Bacteria Many H (None-Few) per hpf Hyaline Casts None Seen (None-Few) per lpf Ur Culture Indicated? YES A (NO) Salicylates (15-30) mg/dL Urine Opiates Screen Negative (Aitpat=030) ng/mL Acetaminophen (10-30) mcg/mL Ur Barbiturates Screen Negative (Nixtmr=882) ng/mL Ur Phencyclidine Scrn Negative (Cutoff=25) ng/mL Ur Amphetamines Screen Negative (Atnqaz=2267) ng/mL U Benzodiazepines Scrn Positive H (Abelsr=995) ng/mL Urine Cocaine Screen Negative (Cutoff= 300) ng/mL U Marijuana (THC) Screen Negative (Cutoff = 50) ng/mL Ethyl Alcohol (0-10) mg/dL Overdose HPI - General Chief Complaint: ED Overdose Stated Complaint: Decreased LOC took Xanax Time Seen by Provider: 07/11/16 18:19 Source: EMS Limitations: altered mental status Nursing Notes Reviewed: Yes Vital Signs Reviewed: Yes - History of Present Illness HPI Narrative: History extremely limited due to patient's altered mental status. I received the patient in sign out. Per Dr. Pardo, the patient took 30 tablets of 0.5 mg Xanax in an attempt to harm herself. No other known ingestions. Patient comes in due to extreme somnolence. No further history available due to patient 's altered mental status. - Related Data Home Medications Medication Instructions Recorded Confirmed Aripiprazole [Abilify] 5 mg PO DAILY 07/23/15 07/11/16 Diltiazem CD (24hr) [Cardizem CD] 120 mg PO DAILY 07/23/15 07/11/16 Folic Acid 1 mg PO DAILY 07/23/15 07/11/16 GuaiFENesin ER [Mucinex] 600 mg PO Q12H PRN 07/23/15 07/11/16 Lisinopril [Zestril] 20 mg PO BID 07/23/15 07/11/16 Metformin [Glucophage] 500 mg PO BIDWM 07/23/15 07/11/16 Propafenone HCl [Rythmol] 225 mg PO Q8H 07/23/15 07/11/16 Solifenacin Succinate [Vesicare] 5 mg PO DAILY 07/23/15 07/11/16 Albuterol Sulfate [Ventolin Hfa] 2 puff IH Q4H PRN 03/14/16 07/11/16 Atorvastatin [Lipitor] 10 mg PO HS 03/14/16 07/11/16 Brimonidine Tartrate/Timolol 1 drop BOTH EYES BID 03/14/16 07/11/16 [Combigan 0.2%-0.5% Eye Drops] Budesonide/Formoterol 160/4.5 2 puff IH BIDR 03/14/16 07/11/16 [Symbicort 160/4.5] Cholecalciferol (D-3) [Vitamin D] 5,000 unit PO DAILY 03/14/16 07/11/16 Citalopram Hydrobromide [Celexa] 40 mg PO DAILY 03/14/16 07/11/16 Fenofibrate [Lofibra] 160 mg PO DAILY 03/14/16 07/11/16 Multivitamin/Iron/Folic Acid 1 each PO DAILY 03/14/16 07/11/16 [Cerovite Advanced Form Tab] Omeprazole [PriLOSEC] 40 mg PO DAILY 03/14/16 07/11/16 Thiamine Mononitrate [Vitamin B-1] 100 mg PO DAILY 03/14/16 07/11/16 Vitamin E 1,000 unit PO DAILY 03/14/16 07/11/16 Previous Rx's Medication Instructions Recorded Alprazolam [Xanax 0.5 MG Tablet] 0.5 mg PO TID #21 tablet 03/21/16 Oxycodone HCl/Acetaminophen 1 each PO TID PRN #21 tablet 03/21/16 [Percocet 7.5-325 mg Tablet] Oxygen 3 l IN CONT #1 each 03/21/16 Allergies Allergy/AdvReac Type Severity Reaction Status Date / Time gabapentin AdvReac Confusion Verified 03/14/16 20:23 Methadone AdvReac Confusion Verified 03/14/16 20:23 morphine AdvReac Confusion Verified 03/14/16 20:23 Zolpidem [From Ambien] AdvReac Confusion Verified 03/14/16 20:23 Limitations: ROS unobtainable due to patients medical condition Past Medical History - Past Medical History Attestation: Yes The following information was validated with the patient. Source: patient Medical history: Reports: arthritis, COPD, diabetes, osteoporosis, SVT Surgical history: Reports: non-contributory, hysterectomy Psychiatric history: Reports: anxiety, depression - Social History Smoking Status: Former smoker Smokeless Tobacco Status: No Alcohol use: Reports: none Drug use: Reports: none Physical Exam - Head Head exam: atraumatic, normocephalic, normal inspection - Eye Eye exam: Present: normal appearance, PERRL, EOMI - ENT ENT exam: normal exam, normal oropharynx, mucous membranes moist - Neck Neck exam: Present: normal inspection, full ROM, trachea midline - Chest Chest inspection: Present: normal inspection, symmetric chest wall rise - Respiratory Respiratory exam: Clear to auscultation bilaterally without wheezes rales or rhonchi Cardiovascular Cardiovascular exam: Present: regular rate, normal rhythm, normal heart sounds - Abdominal Exam Abdominal exam: Present: soft, Non-Tender. Absent: tenderness, distention, guarding, rebound, rigidity There is mild bilateral pedal edema. - Back Exam Back exam: Present: normal inspection, full ROM. Absent: tenderness, CVA tenderness (R), CVA tenderness (L) - Neurological Exam Patient opens eyes to voice. She grumbles responses to my questions, but does not make any coherent answers. A simple commands and moves all extremities. - Skin Skin exam: Present: warm, dry, intact, normal color - General Limitations: altered mental status General appearance: alert Course - Reevaluation(s) Reevaluation #1: Sinus bradycardia at 58 with left axis deviation. No ST elevation or depression. There is one PVC. Normal QRS at 89 otherwise. Normal QTC at 431. No old EKG available. Time: 21:44 Reevaluation #2: Patient now with difficulty bearing secretions. She is requiring frequent suctioning. She has some gag reflex, but with increased secretions and significant oxygen requirement at 4 L by nasal cannula and poor mental status we will intubate the patient for airway protection. I attempted to reach the patient's daughter Azalea, but she has not answered the phone on 2 separate phone calls. Time: 22:20 Reevaluation #3: ET tube on good position on chest x-ray. Blood pressure and heart rate improved after sedation. Patient accepted by Dr. Johnson for overdose, suicide attempt, respiratory failure, urinary tract infection. Patient is given a 30 mL /kg IV fluid bolus due to her pulmonary vascular congestion and poor respiratory status. She has not had any hypotension. No acidosis on ABG. Time: 23:45 Vital Signs Temperature 0 F L 07/11/16 18:17 Pulse Rate 62 07/11/16 18:17 Respiratory Rate 20 07/11/16 18:17 Blood Pressure 169/105 07/11/16 18:17 O2 Sat by Pulse Oximetry 95 07/11/16 18:17 Temperature 97.2 F L 07/12/16 01:00 Pulse Rate 89 07/12/16 01:00 Respiratory Rate 19 07/12/16 01:00 Blood Pressure 154/73 07/12/16 01:00 O2 Sat by Pulse Oximetry 96 07/12/16 01:00 Oxygen Delivery Oxygen Delivery Ventilator Procedures - Intubation Time out performed: Yes sedative: Versed Mg Given: 5 paralytic: Rocuronium Mg Given: 100 Laryngoscope: Ladi (4) ET Tube Size: 7.5 ET Tube Uncuffed: No Tube Secured Depth (cm): 23 Tube Secured Location: lips Tube Placement Confirmation: visualized tube passing through cords, equal breath sounds bilaterally, no breath sounds over epigastrium, confirmation by capnometry Patient Tolerated Procedure: well, no complications Intubation Complications: none Additional Comments: No complications or desaturation during intubation, the patient was noted to have a significant amount of clear frothy secretions throughout the procedure. Disposition Clinical Impression: Drug overdose, Suicide attempt, UTI (urinary tract infection) Respiratory failure Qualifiers: Chronicity: acute Respiratory failure complication: unspecified whether with hypoxia or hypercapnia Qualified Code(s): J96.00 - Acute respiratory failure, unspecified whether with hypoxia or hypercapnia Disposition: Admitted As Inpatient Condition: Undetermined Time of Disposition: 21:45 Attestation Statement - Attestation Attestation: I, Dusty Santiago, examined this patient and my medical decision-making was reviewed with the VENEER LATHE OPERATOR/PA/Advanced Practice Nurse/Resident Physician. I agree with the documented findings, disposition and treatment plan as described except to the extent set forth below. History source: Patient is unable to provide information for this note. Info was gathered from the patient, hospital staff, the patient's chart. History limitations: Patient condition Medications: As per nurses note 71-year-old female received in sign out at start of my shift pending laboratory evaluation, imaging, evaluation, and disposition. Patient was found face down in a bed with an empty pill bottle of Xanax nearby. Patient has been unable to provide history regarding her symptoms. Family has not been present during my evaluation in the emergency department to obtain further history. Patient was observed for multiple hours while waiting results of urine and other labs. She started to have worsening of her respiratory effort, requiring multiple liters of oxygen while satting 93%. Patient was intubated for protection of her airway. She was unable to provide history regarding her CODE STATUS and we were unable to obtain family. Patient was intubated in the emergency department without complication. Patient given ceftriaxone for urinary tract infection. Patient was not given 30 mL per KG fluid bolus secondary to venous congestion on chest x-ray and her difficulty breathing. She was transferred to the ICU for further care and evaluation of her altered mental status, also overdose of Xanax and possible suicidal ideation.
[2016-07-11] MEDS ORDERED: *HR* FentaNYL (PF) 100 MCG/2 ML VIAL IVP ONE (22:16)
[2016-07-11] MEDS ORDERED: *HR* Midazolam HCl 5 MG/ML VIAL IVP ONE (22:16)
[2016-07-11] MEDS ORDERED: *HR* Rocuronium Bromide 50 MG/5 ML VIAL IVP ONE (22:16)
[2016-07-11 22:18] LABS: Bilirubin,Urine Negative (Negative); Blood,Urine Trace (Negative); Clarity,Urine Cloudy (Clear); Color,Urine Yellow (Yellow); Glucose,Urine (UA) Normal (Normal); Ketones,Urine Negative (Negative); Leukocyte Esterase,Urine Large (Negative); Nitrite,Urine Negative (Negative); Protein,Urine Trace mg/dL (Neg-Trace); Specific Gravity,Urine 1.012 (1.010-1.025); Urobilinogen,Urine Normal (Normal)
[2016-07-11 22:21] LABS: Bacteria,Urine Many per hpf (None-Few); Hyaline Casts,Urine None Seen per lpf (None-Few); Squamous Epithelial Cell,Urine Many per lpf (None-Few); WBC,Urine TNTC per hpf (0-3)
[2016-07-11 22:25] LABS: Amphetamine Screen,Urine Negative ng/mL (Cutoff=1000); Barbiturate Screen,Urine Negative ng/mL (Cutoff=200); Benzodiazepines Screen,Urine Positive ng/mL (Cutoff=200); Cannabinoid Screen,Urine Negative ng/mL (Cutoff = 50); Cocaine Screen,Urine Negative ng/mL (Cutoff= 300); Opiate Screen,Urine Negative ng/mL (Cutoff=300); Phencyclidine Screen,Urine Negative ng/mL (Cutoff=25)
[2016-07-11] MEDS ORDERED: *HR* Propofol 500 MG/50 ML BOTTLE IVP ONE (23:14)
[2016-07-11] MEDS ORDERED: *HR* Midazolam HCl 2 MG/2 ML VIAL IVP ONE (23:14)
[2016-07-11] MEDS ORDERED: *HR* LORazepam 2 MG/ML VIAL IVP ONE (23:19)
[2016-07-11 23:20] LABS: ABG Base Excess -0.7 mEq/L (-2.0 to 3.0); ABG HCO3 26.3 mEQ/L (21-27); ABG Oxygen Saturation 98 % (95-98); ABG PCO2 51 mmHg (35-45); ABG PH 7.32 pH Units (7.32-7.45); ABG PO2 104 mmHg (85-104); ABG TCO2 27.9 mEq/L (20-26)
[2016-07-11] MEDS ORDERED: *HR* HYDROmorphone (PF) 1 MG/ML SYRINGE IVP ONE (23:20)
[2016-07-11 23:21] LABS: Blood Gas FiO2 100 %; Blood Gas PEEP 5 cm H2O; Blood Gas Respiration Rate 16; Blood Gas VT 400 cc
[2016-07-11] MEDS: Propofol 500 MG/50 ML INFUS..BTL IVC SCH (23:48)
[2016-07-12] MEDS ORDERED: Naloxone 0.4 MG/ML INJ IVP PRN (00:43)
[2016-07-12] MEDS ORDERED: Lacri-Lube 3.5 GM TUBE BOTH EYES PRN (00:46)
--- NOTE | 2016-07-12 01:30 | Internal Med History&Physical ---
<James Cochran - Last Filed: 07/12/16 02:40> Date of Encounter: 07/12/16 Time of Encounter: 01:26 Assessment and Plan (1) Drug overdose Current visit: Yes Status: Acute Apparently intentional. Likely Xanax per records, could be as many as 30 0.5Mg tablets. Remains unresponsive at this time. We will continue with supportive therapy and fluid hydration. Patient is not a good candidate for flumazenil as she is on chronic benzo therapy and this could precipitate withdrawal and seizures. Qualifiers: Encounter type: initial encounter Injury intent: intentional self-harm Qualified Code(s): T50.902A - Poisoning by unspecified drugs, medicaments and biological substances, intentional self-harm, initial encounter (2) Suicide attempt Current visit: Yes Status: Acute Via benzodiazepine overdose as discussed above. Patient will likely need psychiatric evaluation when medically stable. (3) Acute respiratory failure Current visit: No Status: Acute Secondary to benzodiazepine overdose as discussed above. Patient was intubated in the emergency department. ABGs show acceptable oxygenation and ventilation. We will continue to monitor. Qualifiers: Respiratory failure complication: unspecified whether with hypoxia or hypercapnia Qualified Code(s): J96.00 - Acute respiratory failure, unspecified whether with hypoxia or hypercapnia (4) UTI (urinary tract infection) Current visit: Yes Status: Acute Urinalysis shows positive leukocyte esterase with many bacteria and too numerous to count white blood cells. Culture is pending. We will treat with Rocephin for 3 days. Qualifiers: Urinary tract infection type: acute cystitis Hematuria presence: with hematuria Qualified Code(s): N30.01 - Acute cystitis with hematuria (5) H/O supraventricular tachycardia Current visit: Yes Status: Acute It was noted on a previous admission H&P that the patient has a history of supraventricular tachycardia and the patient takes Rythmol. No evidence of arrhythmia at this time. Will hold patient's home medications at this time and continue to monitor. (6) DM2 (diabetes mellitus, type 2) Current visit: No Status: Chronic Questionable history. Patient is on metformin at home. Blood sugars been under relatively good control since admission. We will check A1c in the morning. We will hold off on any treatment at this time as the patient is nothing by mouth. Qualifiers: Diabetes mellitus complication status: with unspecified complications Diabetes mellitus retirement insulin use: without meterman use Qualified Code( s): E11.8 - Type 2 diabetes mellitus with unspecified complications (7) HTN (hypertension) Current visit: No Status: Chronic Blood pressure stable this time. We will hold blood pressure medications in the acute phase of the drug overdose as discussed above. Qualifiers: Hypertension type: essential hypertension Qualified Code(s): I10 - Essential (primary) hypertension (8) DVT prophylaxis Current visit: Yes Status: Acute Heparin 5000 units subcutaneous every 8 hours. Internal Medicine - H&P: HPI Chief complaint: Overdose Admitted From: Home Plans for Post Hospital Care: Home History of present illness: Ms. Lemon is a 71 year old female who presents with an overdose. The patient was intubated and sedated on arrival to the ICU and there is no family at the bedside. History is extremely limited due to this. Per ER records the patient took 30 0.5 mg Xanax tablets prior to arrival. Upon presentation the emergency department the patient was somnolent but stable and protecting her airway at that time. However, throughout her stay in the emergency department she began to have trouble handling her secretions and there is concern for airway compromise and the patient was intubated. Patient was then transferred to the ICU on mechanical ventilation. The patient is nonresponsive at this time and all sedation has been turned off. She does not appear to be in any acute distress. Past Med Surg Social Fam HX - Past Medical History Medical history: arthritis, COPD, diabetes, osteoporosis, SVT Psychiatric history: anxiety, depression - Past Surgical History Surgical History: non-contributory, hysterectomy - Social History Smoking Status: Former smoker Smokeless Tobacco Status: No Alcohol use: none Drug use: none Internal Medicine - H&P: Meds Aripiprazole [Abilify] 5 mg PO DAILY 07/23/15 [History] Diltiazem CD (24hr) [Cardizem CD] 120 mg PO DAILY 07/23/15 [History] Folic Acid 1 mg PO DAILY 07/23/15 [History] GuaiFENesin ER [Mucinex] 600 mg PO Q12H PRN 07/23/15 [History] Lisinopril [Zestril] 20 mg PO BID 07/23/15 [History] Metformin [Glucophage] 500 mg PO BIDWM 07/23/15 [History] Propafenone HCl [Rythmol] 225 mg PO Q8H 07/23/15 [History] Solifenacin Succinate [Vesicare] 5 mg PO DAILY 07/23/15 [History] Albuterol Sulfate [Ventolin Hfa] 2 puff IH Q4H PRN 03/14/16 [History] Atorvastatin [Lipitor] 10 mg PO HS 03/14/16 [History] Brimonidine Tartrate/Timolol [Combigan 0.2%-0.5% Eye Drops] 1 drop BOTH EYES BID 03/14/16 [History] Budesonide/Formoterol 160/4.5 [Symbicort 160/4.5] 2 puff IH BIDR 03/14/16 [ History] Cholecalciferol (D-3) [Vitamin D] 5,000 unit PO DAILY 03/14/16 [History] Citalopram Hydrobromide [Celexa] 40 mg PO DAILY 03/14/16 [History] Fenofibrate [Lofibra] 160 mg PO DAILY 03/14/16 [History] Multivitamin/Iron/Folic Acid [Cerovite Advanced Form Tab] 1 each PO DAILY [History] Omeprazole [PriLOSEC] 40 mg PO DAILY 03/14/16 [History] Thiamine Mononitrate [Vitamin B-1] 100 mg PO DAILY 03/14/16 [History] Vitamin E 1,000 unit PO DAILY 03/14/16 [History] Alprazolam [Xanax 0.5 MG Tablet] 0.5 mg PO TID #21 tablet 03/21/16 [Rx] Oxycodone HCl/Acetaminophen [Percocet 7.5-325 mg Tablet] 1 each PO TID PRN #21 tablet 03/21/16 [Rx] Oxygen 3 l IN CONT #1 each 03/21/16 [Rx] Allergies gabapentin Adverse Reaction (Verified 03/14/16 20:23) Confusion Methadone Adverse Reaction (Verified 03/14/16 20:23) Confusion morphine Adverse Reaction (Verified 03/14/16 20:23) Confusion Zolpidem [From Ambien] Adverse Reaction (Verified 03/14/16 20:23) Confusion ROS unobtainable: due to endotracheal tube All Systems PM: A 10-system review of systems was performed and is negative for pertinent findings except as documented above in the HPI. - Constitutional Vitals: Temp Pulse Resp BP Pulse Ox 97.2 F L 89 19 154/73 96 07/12/16 01:00 07/12/16 01:00 07/12/16 01:00 07/12/16 01:00 07/12/16 01:00 General appearance: Present: A&O X 0 Exam: Unresponsive - Head Head exam: Present: atraumatic, normal inspection, normocephalic - Eye Additional comments: Pupils are equally constricted bilaterally however they do constrict further to light. - ENT ENT exam: Present: mucous membranes dry - Neck Neck exam general surgery: Absent: nuchal rigidity - Respiratory Respiratory exam: Present: rhonchi (Coarse bilaterally). Absent: respiratory distress, wheezes, tachypnea - Cardiovascular Cardiovascular exam: Present: RRR. Absent: gallop, rubs, systolic murmur - GI/Abdominal GI/Abdominal exam: Present: hypoactive bowel sounds, soft. Absent: distended, tenderness - Extremities Exam Extremities exam: Absent: pedal edema, tenderness - Neurological Exam Additional comments: Patient is unresponsive to painful stimuli. Pupils are constricted but equally reactive to light. Gag reflex is present. Patient has positive Babinski signs bilaterally. Internal Med - H&P Results - Labs CBC & Chem 7: 07/11/16 18:43 07/11/16 18:43 <Rickey Tolliver - Last Filed: 07/12/16 03:34> Date of Encounter: 07/12/16 Assessment and Plan (1) Acute metabolic encephalopathy Current visit: Yes Status: Acute related to benzos Internal Medicine - H&P: HPI History of present illness: Ms. Lemon is a 71 year old female Past Med Surg Social Fam HX - Additional Family History Additional family history: unable to obtain due to mental status All Systems PM: A 10-system review of systems was performed and is negative for pertinent findings except as documented above in the HPI. - Constitutional Vitals: Temp Pulse Resp BP Pulse Ox 97.2 F L 85 20 155/72 93 07/12/16 01:00 07/12/16 02:00 07/12/16 03:11 07/12/16 03:11 07/12/16 03:11 Internal Med - H&P Results - Labs CBC & Chem 7: 07/11/16 18:43 07/11/16 18:43 - EKG Data -: EKG Interpreted by Myself - Diagnostic Studies CT scan - head Status: image reviewed by me Chest x-ray Status: image reviewed by me - Attending Attestation I examined this patient and my medical decision-making was reviewed with the Resident Physician. I agree with the documented findings, disposition and treatment plan as described except to the extent set forth below. Patient has critical illness, with multiple vital organ impairment; mostly brain and respiratory with a high probability of imminent/life threatening deterioration in her condition. I performed critical intervention, involving high complexity decision making to assess, manipulate, and support vital organ system failure; and I spent about 45 minutes engaged in work directly related to the patient's care at her immediate bedside and also on the unit.
[2016-07-12] MEDS ORDERED: 0.9 % Sodium Chloride 1,000 ML IVC SCH (02:30)
[2016-07-12] MEDS: Lacri-Lube 3.5 GM TUBE BOTH EYES SCH ×6 (03:32→23:23)
[2016-07-12 04:18] LABS: ABG Base Excess 0.5 mEq/L (-2.0 to 3.0); ABG HCO3 24.6 mEQ/L (21-27); ABG Oxygen Saturation 98 % (95-98); ABG PCO2 37 mmHg (35-45); ABG PH 7.43 pH Units (7.32-7.45); ABG PO2 98 mmHg (85-104); ABG TCO2 25.7 mEq/L (20-26); Blood Gas FiO2 60 %
[2016-07-12] MEDS: *HR* Heparin 5,000 UNIT/ML VIAL SQ SCH ×3 (05:00→20:17)
[2016-07-12] MEDS: Pantoprazole 40 MG VIAL IVPB SCH (05:00)
[2016-07-12 06:13] LABS: Basophils % 0.1 %; Hemoglobin 14.9 g/dL (11.5-15.4); Immature Granulocytes % 0.4 % (0-4); Lymphocytes # 0.6 K/mcL (0.6-4.6); Lymphocytes % 4.5 %; Mean Corpuscular HGB Conc 33.1 g/dL (31.6-35.5); Mean Corpuscular Hemoglobin 28.4 pg (28.0-33.3); Mean Corpuscular Volume 85.7 fL (83.0-100.0); Mean Platelet Volume 10.8 fL (9.4-12.4); Monocytes # 0.7 K/mcL (0.0-1.3); Monocytes % 4.6 %; Platelet Count 240 K/mcL (140-400); Red Blood Count 5.25 M/mcL (3.82-4.97); Red Cell Distribution Width 12.3 % (11.5-14.5); Segmented Neutrophils % 90.4 %
[2016-07-12 06:16] LABS: Neutrophils # 12.8 K/mcL (1.6-8.9)
[2016-07-12 06:17] LABS: INR 1.1; Prothrombin Time 12.4 Seconds (9.4-12.1)
[2016-07-12 06:32] LABS: Alanine Aminotransferase 10 Units/L (0-55); Albumin 3.5 g/dL (3.5-5.0); Albumin/Globulin Ratio 1.1 (1.1-2.2); Alkaline Phosphatase 77 Units/L (38-126); Aspartate Amino Transferase 14 Units/L (5-34); BUN/Creatinine Ratio 22 (6-26); Bilirubin,Total 0.5 mg/dL (0.2-1.2); Blood Urea Nitrogen 19 mg/dL (7-20); Calcium 9.2 mg/dL (8.6-10.8); Carbon Dioxide 24 mEq/L (19-29); Chloride 107 mEq/L (98-109); Globulin 3.3 g/dL (2.4-3.5); Glucose 206 mg/dL (70-99); Magnesium 1.4 mg/dL (1.6-2.6); Osmolality,Calculated 300 (280-300); Potassium 3.5 mEq/L (3.5-4.5); Sodium 141 mEq/L (136-145); Total Protein 6.8 g/dL (6.0-8.3); eGFR For African Americans > 60 (> 60); eGFR For Non-African Americans > 60 (> 60)
[2016-07-12] MEDS ORDERED: Budesonide/Formoterol 160/4.5 MDI IH ONE (07:10)
[2016-07-12] MEDS: Budesonide/Formoterol 160/4.5 MDI IH SCH ×2 (07:12→19:47)
[2016-07-12] MEDS: 0.9 % Sodium Chloride 1,000 ML IVC SCH ×2 (08:27→13:05)
[2016-07-12] MEDS ORDERED: Potassium Chloride 40 MEQ/200 ML BAG IVPB PRN (08:28)
[2016-07-12] MEDS ORDERED: Calcium Gluconate 1,000 MG in D5% in Water 100 ML IVPB PRN (08:28)
[2016-07-12] MEDS ORDERED: Sodium Phosphate 30 MMOL in D5% in Water 100 ML IVPB PRN (08:28)
[2016-07-12] MEDS: Chlorhexidine Rinse 15 ML MOUTHWASH MM SCH ×2 (08:49→19:41)
--- NOTE | 2016-07-12 08:51 | Pulmonology Consult Note ---
<Fabi Farfan - Last Filed: 07/12/16 11:42> Date of Encounter: 07/12/16 Time of Encounter: 08:45 Assessment and Plan (1) Drug overdose Current Visit: Yes Status: Acute It is possible that this may have been a drug overdose, and patient could have taken as many as 30 tablets of .5mg ativan. However, earlier in the day, nurse had discussion with patient's son, who stated that she puts all her pills she needs for the day into a bottle, and then takes her pills. Son thinks that patient may have been confused and accidentally overdosed on her Xanax. We will clarify this with patient once she is alert and oriented. Patient not a good candidate for flumazenil, as she chronically takes benzodiazepines, which could precipitate seizures. Plan: will discuss with patient once she is awake and alert, and do psych consult if warranted. Qualifiers: Encounter type: initial encounter Injury intent: intentional self-harm Qualified Code(s): T50.902A - Poisoning by unspecified drugs, medicaments and biological substances, intentional self-harm, initial encounter (2) Suicide attempt Current Visit: Yes Status: Acute possible suicide attempt. plan as above. (3) Acute respiratory failure Current Visit: No Status: Acute etiology likely secondary to benzodiazepine overdose. initial ABG showed mild respiratory acidosis, which was resolved after intubation. Patient is currently intubated without sedation. she is not responding or following commands. plan: will continue trial of CPAP and see if patient passes weaning parameters to be extuated later today. Qualifiers: Respiratory failure complication: unspecified whether with hypoxia or hypercapnia Qualified Code(s): J96.00 - Acute respiratory failure, unspecified whether with hypoxia or hypercapnia (4) UTI (urinary tract infection) Current Visit: Yes Status: Acute urinalysis showed evidence of infection. urine culture pending Plan: ceftriaxone day 2 Qualifiers: Urinary tract infection type: acute cystitis Hematuria presence: with hematuria Qualified Code(s): N30.01 - Acute cystitis with hematuria (5) H/O supraventricular tachycardia Current Visit: Yes Status: Acute patient had multiple episodes of tachycardia this morning. EKG reviewed, did not show evidence of prolonged QT interval. Plan: have re started rhythmol and cardizem. will switch to long acting cardizem home dose once extubated. (6) DM2 (diabetes mellitus, type 2) Current Visit: No Status: Chronic A1C noted to be 7. patient takes metformin at home, which is being held Plan: low dose sliding scale insulin with Q4 accuchecks. 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 have re started home dose of lisinopril metoprolol IV PRN Qualifiers: Hypertension type: essential hypertension Qualified Code(s): I10 - Essential (primary) hypertension (8) DVT prophylaxis Current Visit: Yes Status: Acute Heparin SQ Neuro/sedation: patient is intubated without sedation. she is following some commands. on CPAP trial now, may extubate later if she passes weaning parameters. pulmonology: patient may be extubated later today. Current FIO2: 40, tidal volume 400, PEEP: 5 CV: hx of SVT. continue rhythmol and cardizem. patient is hypertensive, re started home med lisinopril. IV metoprolol PRN GI: no concerns at this time. Renal: will monitor electrolytes and replace as per protocol. ID: Ceftriaxone day 2 for UTI. urine culture pending. heme/onc: stable H/H. no concerns at this time. Heparin SQ for DVT prophylaxis. ENdo: hx of DM 2, hold metformin, low dose sliding scale insulin with Q4HR accuchecks. integ/MSK: skincare as per ICU protocol. History of Present Illness Consult date: 07/12/16 Requesting physician: James Cochran Chief complaint: acute respiratory failure History of present illness: 71 year old female admitted to hospital overnight for apparent drug overdose. She was intubated due to copious secretions and inability to protect her airway. Per history, patient took about 30 pills of .5mg Xanax tablets before arrival. She is non responsive at this time and is not getting any sedation. SHe is not a candidate for flumazenil, as she has chronic use of benzodiazepines , which may increase seizure threshold. SHe is currently on CPAP mode and unresponsive, does not follow commands. She will continue to be monitored for possible extubation later today. Past Med Surg Social Fam HX - Past Medical History Medical history: arthritis, COPD, diabetes, osteoporosis, SVT Psychiatric history: anxiety, depression - Past Surgical History Surgical History: non-contributory, hysterectomy - Social History Smoking Status: Former smoker Smokeless Tobacco Status: No Alcohol use: none Drug use: none Medications and Allergies Aripiprazole [Abilify] 5 mg PO DAILY 07/23/15 [History] Diltiazem CD (24hr) [Cardizem CD] 120 mg PO DAILY 07/23/15 [History] Folic Acid 1 mg PO DAILY 07/23/15 [History] GuaiFENesin ER [Mucinex] 600 mg PO Q12H PRN 07/23/15 [History] Lisinopril [Zestril] 20 mg PO BID 07/23/15 [History] Metformin [Glucophage] 500 mg PO BIDWM 07/23/15 [History] Propafenone HCl [Rythmol] 225 mg PO Q8H 07/23/15 [History] Solifenacin Succinate [Vesicare] 5 mg PO DAILY 07/23/15 [History] Albuterol Sulfate [Ventolin Hfa] 2 puff IH Q4H PRN 03/14/16 [History] Atorvastatin [Lipitor] 10 mg PO HS 03/14/16 [History] Brimonidine Tartrate/Timolol [Combigan 0.2%-0.5% Eye Drops] 1 drop BOTH EYES BID 03/14/16 [History] Budesonide/Formoterol 160/4.5 [Symbicort 160/4.5] 2 puff IH BIDR 03/14/16 [ History] Cholecalciferol (D-3) [Vitamin D] 5,000 unit PO DAILY 03/14/16 [History] Citalopram Hydrobromide [Celexa] 40 mg PO DAILY 03/14/16 [History] Fenofibrate [Lofibra] 160 mg PO DAILY 03/14/16 [History] Multivitamin/Iron/Folic Acid [Cerovite Advanced Form Tab] 1 each PO DAILY [History] Omeprazole [PriLOSEC] 40 mg PO DAILY 03/14/16 [History] Thiamine Mononitrate [Vitamin B-1] 100 mg PO DAILY 03/14/16 [History] Vitamin E 1,000 unit PO DAILY 03/14/16 [History] Alprazolam [Xanax 0.5 MG Tablet] 0.5 mg PO TID #21 tablet 03/21/16 [Rx] Oxycodone HCl/Acetaminophen [Percocet 7.5-325 mg Tablet] 1 each PO TID PRN #21 tablet 03/21/16 [Rx] Oxygen 3 l IN CONT #1 each 03/21/16 [Rx] Allergies gabapentin Adverse Reaction (Verified 03/14/16 20:23) Confusion Methadone Adverse Reaction (Verified 03/14/16 20:23) Confusion morphine Adverse Reaction (Verified 03/14/16 20:23) Confusion Zolpidem [From Ambien] Adverse Reaction (Verified 03/14/16 20:23) Confusion ROS unobtainable: due to endotracheal tube, due to mental status All Systems: A 10-system review of systems was performed and is negative for pertinent findings except as documented above in the HPI. Physical Examination Vital Signs: Vital Signs, Last 4 Hours Temp Pulse Resp BP Pulse Ox 07/12/16 08:23 27 167/80 96 07/12/16 08:00 119 29 167/80 97 07/12/16 07:58 101.7 F H 07/12/16 07:18 113 07/12/16 07:14 28 151/64 98 07/12/16 07:00 113 26 151/64 97 07/12/16 06:00 114 26 151/69 97 07/12/16 05:16 21 191/98 99 07/12/16 05:00 105 24 191/98 98 General appearance: no acute distress, asleep Eyes: nonicteric ENT: oropharynx dry Neck: supple, no JVD Auscultation: left: wheezes Cardiovascular: other (tachycardic) Gastrointestinal: hypoactive bowel sounds, soft, non-tender Integumentary: normal Extremities: no cyanosis, no edema Musculoskeletal: no deformities motor strength normal and symmetric, unable to assess due to mental status other (unable to assess) Ventilator Settings Ventilator Settings: Ventilator Settings, Last 8 Hours Ventilator Mode CPAP Ventilator Mode VC+ Ventilator Mode VC+ Ventilator Mode VC+ Ventilator Mode VC+ Ventilator Mode VC+ Ventilator Mode VC+ Ventilator Mode VC+ Ventilator Mode VC+ Ventilator Mode VC+ Ventilator Mode VC+ Ventilator Mode VC+ Ventilator Tidal Volume 400 Setting Ventilator Tidal Volume 400 Setting Ventilator Tidal Volume 400 Setting Ventilator Tidal Volume 400 Setting Ventilator Tidal Volume 400 Setting Ventilator Tidal Volume 400 Setting Ventilator Tidal Volume 400 Setting Ventilator Tidal Volume 400 Setting Ventilator Tidal Volume 400 Setting Ventilator Tidal Volume 400 Setting Ventilator Tidal Volume 400 Setting Ventilator Respiratory Rate 16 Setting Ventilator Respiratory Rate 16 Setting Ventilator Respiratory Rate 16 Setting Ventilator Respiratory Rate 16 Setting Ventilator Respiratory Rate 16 Setting Ventilator Respiratory Rate 16 Setting Ventilator Respiratory Rate 16 Setting Ventilator Respiratory Rate 16 Setting Ventilator Respiratory Rate 16 Setting Ventilator Respiratory Rate 16 Setting Ventilator Respiratory Rate 16 Setting Actual Respiratory Rate 29 Actual Respiratory Rate 27 Actual Respiratory Rate 26 Actual Respiratory Rate 22 Actual Respiratory Rate 22 Actual Respiratory Rate 22 Actual Respiratory Rate 20 Actual Respiratory Rate 24 Actual Respiratory Rate 19 Actual Respiratory Rate 18 Positive End Expiratory 5 Pressure Positive End Expiratory 5 Pressure Positive End Expiratory 5 Pressure Positive End Expiratory 5 Pressure Positive End Expiratory 5 Pressure Positive End Expiratory 5 Pressure Positive End Expiratory 5 Pressure Positive End Expiratory 5 Pressure Positive End Expiratory 5 Pressure Positive End Expiratory 5 Pressure Positive End Expiratory 5 Pressure Positive End Expiratory 5 Pressure Peak Inspiratory Airway 13 Pressure Peak Inspiratory Airway 12 Pressure Peak Inspiratory Airway 13 Pressure Peak Inspiratory Airway 14 Pressure Peak Inspiratory Airway 14 Pressure Peak Inspiratory Airway 14 Pressure Peak Inspiratory Airway 14 Pressure Peak Inspiratory Airway 14 Pressure Peak Inspiratory Airway 11 Pressure Peak Inspiratory Airway 11 Pressure Results - Laboratory Findings CBC and BMP: 07/12/16 08:59 07/12/16 08:59 ABG ABG pH 7.43 pH Units (7.32-7.45) 07/12/16 04:02 ABG pCO2 37 mmHg (35-45) 07/12/16 04:02 ABG pO2 98 mmHg (85-104) 07/12/16 04:02 ABG O2 Saturation 98 % (95-98) 07/12/16 04:02 PT/INR, D-dimer PT 12.4 Seconds (9.4-12.1) H 07/12/16 06:03 Abnormal lab findings: Abnormal lab results WBC 14.2 K/mcL (4.3-11.1) H D 07/12/16 06:03 RBC 5.25 M/mcL (3.82-4.97) H 07/12/16 06:03 Hct 45.0 % (35.3-44.9) H 07/12/16 06:03 Neutrophils # 12.8 K/mcL (1.6-8.9) H 07/12/16 06:03 PT 12.4 Seconds (9.4-12.1) H 07/12/16 06:03 VBG HCO3 30.3 mEq/L (21-27) H 07/11/16 18:43 Glucose 206 mg/dL (70-99) H 07/12/16 06:03 POC Glucose 157 (58-89) H 07/12/16 00:32 Hemoglobin A1c 7.0 % (-5.6) H 07/12/16 06:03 Magnesium 1.4 mg/dL (1.6-2.6) L 07/12/16 06:03 Urine Clarity Cloudy (Clear) A 07/11/16 22:08 Urine Blood Trace (Negative) H 07/11/16 22:08 Ur Leukocyte Esterase Large (Negative) H 07/11/16 22:08 Urine Microscopic RBC 5-15 per hpf (0-3) H 07/11/16 22:08 Urine Microscopic WBC TNTC per hpf (0-3) H 07/11/16 22:08 Ur Squamous Epith Cells Many per lpf (None-Few) H 07/11/16 22:08 Urine Bacteria Many per hpf (None-Few) H 07/11/16 22:08 Ur Culture Indicated? YES (NO) A 07/11/16 22:08 Salicylates < 5.0 mg/dL (15-30) L 07/11/16 18:43 Acetaminophen < 1.0 mcg/mL (10-30) L 07/11/16 18:43 U Benzodiazepines Scrn Positive ng/mL ([id number]=[id number]) H 07/11/16 22:08 - Clinical Findings Intake & Output: Intake & Output 07/11/16 07/12/16 07/12/16 23:59 07:59 15:59 Intake Total 0 / 0 Output Total 900 / 900 Balance -880 / -880 0 / 0 Weight 90.2 kg Consult Discharge Plan - Plan Referrals: NO,PCP [Primary Care Provider] - <Seamus Dumont - Last Filed: 07/12/16 20:59> Date of Encounter: 07/12/16 All Systems: A 10-system review of systems was performed and is negative for pertinent findings except as documented above in the HPI. Physical Examination Vital Signs: Vital Signs, Last 4 Hours Temp Pulse Resp BP Pulse Ox 07/12/16 17:07 25 174/90 96 07/12/16 17:00 100 25 174/90 96 07/12/16 16:00 105 27 182/90 96 07/12/16 15:35 26 182/90 96 07/12/16 15:32 101.0 F H 07/12/16 15:27 104 25 179/90 95 07/12/16 15:26 98 07/12/16 14:00 98 26 164/78 94 Ventilator Settings Ventilator Settings: Ventilator Settings, Last 8 Hours Ventilator Mode VC+ Ventilator Mode VC+ Ventilator Mode VC+ Ventilator Mode VC+ Ventilator Mode CPAP Ventilator Mode CPAP Ventilator Tidal Volume 400 Setting Ventilator Tidal Volume 400 Setting Ventilator Tidal Volume 400 Setting Ventilator Tidal Volume 400 Setting Ventilator Respiratory Rate 16 Setting Ventilator Respiratory Rate 16 Setting Ventilator Respiratory Rate 16 Setting Ventilator Respiratory Rate 16 Setting Actual Respiratory Rate 25 Actual Respiratory Rate 26 Actual Respiratory Rate 27 Actual Respiratory Rate 29 Actual Respiratory Rate 35 Actual Respiratory Rate 35 Positive End Expiratory 5 Pressure Positive End Expiratory 5 Pressure Positive End Expiratory 5 Pressure Positive End Expiratory 5 Pressure Positive End Expiratory 5 Pressure Positive End Expiratory 5 Pressure Peak Inspiratory Airway 19 Pressure Peak Inspiratory Airway 20 Pressure Peak Inspiratory Airway 20 Pressure Peak Inspiratory Airway 20 Pressure Peak Inspiratory Airway 16 Pressure Peak Inspiratory Airway 13 Pressure Results - Laboratory Findings CBC and BMP: 07/12/16 08:59 07/12/16 13:22 ABG ABG pH 7.43 pH Units (7.32-7.45) 07/12/16 04:02 ABG pCO2 37 mmHg (35-45) 07/12/16 04:02 ABG pO2 98 mmHg (85-104) 07/12/16 04:02 ABG O2 Saturation 98 % (95-98) 07/12/16 04:02 PT/INR, D-dimer PT 12.4 Seconds (9.4-12.1) H 07/12/16 06:03 Abnormal lab findings: Abnormal lab results WBC 15.4 K/mcL (4.3-11.1) H 07/12/16 08:59 RBC 5.10 M/mcL (3.82-4.97) H 07/12/16 08:59 Neutrophils # 13.9 K/mcL (1.6-8.9) H 07/12/16 08:59 PT 12.4 Seconds (9.4-12.1) H 07/12/16 06:03 VBG HCO3 30.3 mEq/L (21-27) H 07/11/16 18:43 Glucose 220 mg/dL (70-99) H 07/12/16 08:59 POC Glucose 173 (58-89) H 07/12/16 15:55 Hemoglobin A1c 7.0 % (-5.6) H 07/12/16 06:03 Magnesium 1.5 mg/dL (1.6-2.6) L 07/12/16 13:22 Urine Clarity Cloudy (Clear) A 07/11/16 22:08 Urine Blood Trace (Negative) H 07/11/16 22:08 Ur Leukocyte Esterase Large (Negative) H 07/11/16 22:08 Urine Microscopic RBC 5-15 per hpf (0-3) H 07/11/16 22:08 Urine Microscopic WBC TNTC per hpf (0-3) H 07/11/16 22:08 Ur Squamous Epith Cells Many per lpf (None-Few) H 07/11/16 22:08 Urine Bacteria Many per hpf (None-Few) H 07/11/16 22:08 Ur Culture Indicated? YES (NO) A 07/11/16 22:08 Salicylates < 5.0 mg/dL (15-30) L 07/11/16 18:43 Acetaminophen < 1.0 mcg/mL (10-30) L 07/11/16 18:43 U Benzodiazepines Scrn Positive ng/mL ([id number]=176) H 07/11/16 22:08 - Clinical Findings Intake & Output: Intake & Output 07/12/16 07/12/16 07/12/16 07:59 15:59 23:59 Intake Total / 20 1000 / 1000 104 / 104 Output Total 900 / 900 150 / 150 Balance -880 / -880 850 / 850 104 / 104 Weight 90.2 kg - Attending Attestation I examined this patient and my medical decision-making was reviewed with the CASTING MACHINE OPERATOR AUTOMATIC/PA/Advanced Practice Nurse/Resident Physician. I agree with the documented findings, disposition and treatment plan as described except to the extent set forth below. Patient seen and examined. Labs, radiology, chart personally reviewed. Agree with resident's history and physical, assessment, plan with following comments. When she is extubated will need to ask her about if she is suicidal and consider psych consult. 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 Cardiovascular: stable GI: Nutrition per dietary and GI prophylaxis per routine Heme: DVT prophylaxis per routine ID: Concern that she could have aspiration Renal; urine out put and renal funtion reviewed Endorcine: blood glucose is monitored Lines: all lines checked and no evidence of infections Skin: skin care to prevent pressure ulcers per nursing routine care
[2016-07-12 09:04] LABS: Basophils % 0.1 %; Hematocrit 43.1 % (35.3-44.9); Hemoglobin 14.8 g/dL (11.5-15.4); Immature Granulocytes % 0.3 % (0-4); Lymphocytes # 0.8 K/mcL (0.6-4.6); Lymphocytes % 5.1 %; Mean Corpuscular HGB Conc 34.3 g/dL (31.6-35.5); Mean Corpuscular Volume 84.5 fL (83.0-100.0); Monocytes # 0.6 K/mcL (0.0-1.3); Neutrophils # 13.9 K/mcL (1.6-8.9); Platelet Count 261 K/mcL (140-400); Red Cell Distribution Width 12.5 % (11.5-14.5); Segmented Neutrophils % 90.5 %
[2016-07-12 09:16] LABS: BUN/Creatinine Ratio 24 (6-26); Blood Urea Nitrogen 20 mg/dL (7-20); Calcium 9.1 mg/dL (8.6-10.8); Carbon Dioxide 23 mEq/L (19-29); Chloride 107 mEq/L (98-109); Glucose 220 mg/dL (70-99); Osmolality,Calculated 299 (280-300); Potassium 3.4 mEq/L (3.5-4.5); Sodium 140 mEq/L (136-145); eGFR For African Americans > 60 (> 60); eGFR For Non-African Americans > 60 (> 60)
[2016-07-12] MEDS ORDERED: Potassium Chloride Elixir 20 MEQ/15 ML UDC GTUBE PRN (09:25)
[2016-07-12] MEDS ORDERED: Diltiazem CD (24hr) 120 MG CAPSULE PO SCH (09:30)
[2016-07-12] MEDS ORDERED: *HR* Metoprolol 5 MG/5 ML VIAL IVP PRN (09:37)
[2016-07-12] MEDS ORDERED: D5% in Water 1,000 ML IVC PRN (10:36)
[2016-07-12] MEDS ORDERED: Dextrose Gel 15 GM PO PRN ×2 (10:36)
[2016-07-12] MEDS ORDERED: *HR* Dextrose 50 % in Water (Syg) 50 ML SYRINGE IVP PRN (10:36)
[2016-07-12 10:38] LABS: Phosphorous 2.7 mg/dL (2.3-4.7)
[2016-07-12] MEDS: Insulin LISPRO 300 UNITS/3 ML VIAL SQ SCH ×4 (11:24→23:22)
[2016-07-12] MEDS: Lisinopril 20 MG TABLET PO SCH ×2 (12:07→19:42)
[2016-07-12] MEDS ORDERED: *HR* Metoprolol 5 MG/5 ML VIAL IVP ONE (12:25)
[2016-07-12 13:39] LABS: Magnesium 1.5 mg/dL (1.6-2.6); Phosphorous 2.9 mg/dL (2.3-4.7); Potassium 4.1 mEq/L (3.5-4.5)
[2016-07-12] MEDS: Magnesium Sulfate 2 GM in D5% in Water 100 ML IVPB PRN ×2 (14:07→14:09)
--- NOTE | 2016-07-12 16:54 | Electrocardiograph Report ---
[address] [place] [address] Test Date: 2016-07-11 Pat Name: Niurka Lemon Department: 104 Room: 10 Gender: F Skip Tender: ANGELLA : 1945 Requested By: Seb Pardo Order Number: [id number] Reading MD: Krystal Estrada Measurements Intervals [place] Rate: 58 P: 12 UT: 162 QRS: -16 QRSD: 89 T: -2 QT: 434 QTc: 431 Interpretive Statements SINUS BRADYCARDIA WITH OCCASIONAL VENTRICULAR PREMATURE COMPLEXES Electronically Signed On 07-12-2016 16:53:24 EDT by Krystal Estrada
[2016-07-12] MEDS: *HR* FentaNYL (PF) 100 MCG/2 ML VIAL IVP PRN ×3 (18:20→22:23)
--- NOTE | 2016-07-12 18:24 | Event Note ---
<Gorge Coleman - Last Filed: 07/12/16 18:19> Date of Encounter: 07/12/16 Time of Encounter: 18:19 Noted patient is now having fever tachycardia, and Leukocytosis which is trending up. Possibly inflammatory. However will need to consider Sepsis. Would consider aspiration with recent overdose. Also has UTI on her UA. We will get a CXR, and blood cultures. If CXR reveals infiltrate will need coverage for anaerobic organisms. Faith also broaden spectrum of antibiotics if she clinically worsens. <Seamus Dumont - Last Filed: 07/12/16 20:15> Date of Encounter: 07/12/16 Discussed and agree with above.
[2016-07-12] MEDS: Propofol 500 MG/50 ML INFUS..BTL IVC SCH ×2 (19:39→23:19)
[2016-07-12] MEDS: FentaNYL (PF) 1,000 MCG in 0.9 % Sodium Chloride 80 ML IVC SCH (22:37)
[2016-07-13 03:29] LABS: Ionized Calcium 1.23 mmol/L (1.15-1.35)
[2016-07-13 03:36] LABS: Magnesium 1.6 mg/dL (1.6-2.6); Phosphorous 2.8 mg/dL (2.3-4.7)
[2016-07-13] MEDS ORDERED: Acetaminophen 325 MG TABLET PO PRN (03:56)
[2016-07-13] MEDS: Lacri-Lube 3.5 GM TUBE BOTH EYES SCH ×6 (04:03→23:09)
[2016-07-13 04:21] LABS: Basophils % 0.1 %; Hematocrit 44.4 % (35.3-44.9); Hemoglobin 14.4 g/dL (11.5-15.4); Immature Granulocytes % 0.3 % (0-4); Lymphocytes # 1.1 K/mcL (0.6-4.6); Mean Corpuscular HGB Conc 32.4 g/dL (31.6-35.5); Mean Corpuscular Hemoglobin 28.4 pg (28.0-33.3); Mean Corpuscular Volume 87.6 fL (83.0-100.0); Mean Platelet Volume 11.3 fL (9.4-12.4); Monocytes # 0.9 K/mcL (0.0-1.3); Monocytes % 6.4 %; Neutrophils # 12.2 K/mcL (1.6-8.9); Platelet Count 233 K/mcL (140-400); Red Blood Count 5.07 M/mcL (3.82-4.97); Segmented Neutrophils % 85.2 %
[2016-07-13 04:54] LABS: ABG Base Excess -0.4 mEq/L (-2.0 to 3.0); ABG HCO3 24.1 mEQ/L (21-27); ABG Oxygen Saturation 98 % (95-98); ABG PCO2 38 mmHg (35-45); ABG PH 7.41 pH Units (7.32-7.45); ABG PO2 95 mmHg (85-104); ABG TCO2 25.3 mEq/L (20-26)
[2016-07-13 04:55] LABS: Blood Gas FiO2 40 %
[2016-07-13] MEDS: Pantoprazole 40 MG VIAL IVPB SCH (05:09)
[2016-07-13] MEDS: Insulin LISPRO 300 UNITS/3 ML VIAL SQ SCH ×6 (05:10→23:27)
[2016-07-13] MEDS: Ampicillin/Sulbactam 3,000 MG in 0.9 % Sodium Chloride Mini Bag 100 ML IVPB SCH ×3 (05:10→18:06)
[2016-07-13] MEDS: Magnesium Sulfate 2 GM in D5% in Water 100 ML IVPB PRN ×2 (05:10→19:50)
[2016-07-13] MEDS: *HR* Heparin 5,000 UNIT/ML VIAL SQ SCH ×3 (05:11→23:09)
[2016-07-13] MEDS: Propofol 500 MG/50 ML INFUS..BTL IVC SCH (05:11)
--- NOTE | 2016-07-13 05:40 | Event Note ---
<James Cochran - Last Filed: 07/13/16 05:39> Date of Encounter: 07/13/16 Time of Encounter: 05:39 Patient continued to spike fevers overnight. CBC this morning shows a persistent leukocytosis. Chest x-ray shows a worsening left lower lobe infiltrate. Concern for aspiration pneumonia, therefore I have discontinued Rocephin and started Unasyn. <Rickey Tolliver - Last Filed: 07/13/16 06:51> Date of Encounter: 07/13/16 Dw with resident, Zosyn will better cover anaerobes so we will use that
[2016-07-13 05:41] LABS: BUN/Creatinine Ratio 27 (6-26); Blood Urea Nitrogen 26 mg/dL (7-20); Calcium 8.7 mg/dL (8.6-10.8); Carbon Dioxide 20 mEq/L (19-29); Chloride 110 mEq/L (98-109); Glucose 159 mg/dL (70-99); Osmolality,Calculated 300 (280-300); Potassium 3.5 mEq/L (3.5-4.5); Sodium 141 mEq/L (136-145); eGFR For African Americans > 60 (> 60); eGFR For Non-African Americans 58 (> 60)
[2016-07-13] MEDS: 0.9 % Sodium Chloride 1,000 ML IVC SCH ×2 (05:45→10:03)
[2016-07-13] MEDS ORDERED: Ampicillin/Sulbactam 3,000 MG in 0.9 % Sodium Chloride Mini Bag 100 ML IVPB SCH (06:00)
--- NOTE | 2016-07-13 06:28 | Pulmonology Progress Note ---
Date of Encounter: 07/13/16 Assessment and Plan (1) Drug overdose Current Visit: Yes Status: Acute Qualifiers: Encounter type: initial encounter Injury intent: intentional self-harm Qualified Code(s): T50.902A - Poisoning by unspecified drugs, medicaments and biological substances, intentional self-harm, initial encounter (2) Suicide attempt Current Visit: Yes Status: Acute (3) Acute respiratory failure Current Visit: No Status: Acute Qualifiers: Respiratory failure complication: unspecified whether with hypoxia or hypercapnia Qualified Code(s): J96.00 - Acute respiratory failure, unspecified whether with hypoxia or hypercapnia (4) UTI (urinary tract infection) Current Visit: Yes Status: Acute Qualifiers: Urinary tract infection type: acute cystitis Hematuria presence: with hematuria Qualified Code(s): N30.01 - Acute cystitis with hematuria (5) H/O supraventricular tachycardia Current Visit: Yes Status: Acute (6) DM2 (diabetes mellitus, type 2) Current Visit: No Status: Chronic Qualifiers: Diabetes mellitus complication status: with unspecified complications Diabetes mellitus care home insulin use: without terminal manager use Qualified Code( s): E11.8 - Type 2 diabetes mellitus with unspecified complications (7) HTN (hypertension) Current Visit: No Status: Chronic Qualifiers: Hypertension type: essential hypertension Qualified Code(s): I10 - Essential (primary) hypertension (8) DVT prophylaxis Current Visit: Yes Status: Acute Objective PUL Vital signs: Last Vital Signs Temp 102.0 F H 07/13/16 03:00 Pulse 73 07/13/16 05:50 Resp 17 07/13/16 05:50 BP 122/63 07/13/16 05:50 Pulse Ox 97 07/13/16 05:50 Ventilator Settings Ventilator Settings: Ventilator Settings, Last 8 Hours Ventilator Mode VC+ Ventilator Mode VC+ Ventilator Mode VC+ Ventilator Mode VC+ Ventilator Mode VC+ Ventilator Mode VC+ Ventilator Mode VC+ Ventilator Mode VC+ Ventilator Mode VC+ Ventilator Mode VC+ Ventilator Mode VC+ Ventilator Mode VC+ Ventilator Tidal Volume 400 Setting Ventilator Tidal Volume 400 Setting Ventilator Tidal Volume 400 Setting Ventilator Tidal Volume 400 Setting Ventilator Tidal Volume 400 Setting Ventilator Tidal Volume 400 Setting Ventilator Tidal Volume 400 Setting Ventilator Tidal Volume 400 Setting Ventilator Tidal Volume 400 Setting Ventilator Tidal Volume 400 Setting Ventilator Tidal Volume 400 Setting Ventilator Tidal Volume 400 Setting Ventilator Respiratory Rate 16 Setting Ventilator Respiratory Rate 16 Setting Ventilator Respiratory Rate 16 Setting Ventilator Respiratory Rate 16 Setting Ventilator Respiratory Rate 16 Setting Ventilator Respiratory Rate 16 Setting Ventilator Respiratory Rate 16 Setting Ventilator Respiratory Rate 16 Setting Ventilator Respiratory Rate 16 Setting Ventilator Respiratory Rate 16 Setting Ventilator Respiratory Rate 16 Setting Ventilator Respiratory Rate 16 Setting Actual Respiratory Rate 16 Actual Respiratory Rate 17 Actual Respiratory Rate 18 Actual Respiratory Rate 18 Actual Respiratory Rate 20 Actual Respiratory Rate 20 Actual Respiratory Rate 17 Actual Respiratory Rate 20 Actual Respiratory Rate 18 Actual Respiratory Rate 18 Actual Respiratory Rate 20 Positive End Expiratory 5 Pressure Positive End Expiratory 5 Pressure Positive End Expiratory 5 Pressure Positive End Expiratory 5 Pressure Positive End Expiratory 5 Pressure Positive End Expiratory 5 Pressure Positive End Expiratory 5 Pressure Positive End Expiratory 5 Pressure Positive End Expiratory 5 Pressure Positive End Expiratory 5 Pressure Positive End Expiratory 5 Pressure Positive End Expiratory 5 Pressure Peak Inspiratory Airway 22 Pressure Peak Inspiratory Airway 22 Pressure Peak Inspiratory Airway 23 Pressure Peak Inspiratory Airway 14 Pressure Peak Inspiratory Airway 14 Pressure Peak Inspiratory Airway 14 Pressure Peak Inspiratory Airway 23 Pressure Peak Inspiratory Airway 14 Pressure Peak Inspiratory Airway 14 Pressure Peak Inspiratory Airway 14 Pressure Peak Inspiratory Airway 13 Pressure Results - Laboratory Findings CBC and BMP: 07/13/16 03:15 07/13/16 04:59 ABG ABG pH 7.41 pH Units (7.32-7.45) 07/13/16 04:48 ABG pCO2 38 mmHg (35-45) 07/13/16 04:48 ABG pO2 95 mmHg (85-104) 07/13/16 04:48 ABG O2 Saturation 98 % (95-98) 07/13/16 04:48 PT/INR, D-dimer PT 12.4 Seconds (9.4-12.1) H 07/12/16 06:03 Abnormal lab findings: Abnormal lab results WBC 14.3 K/mcL (4.3-11.1) H 07/13/16 03:15 RBC 5.07 M/mcL (3.82-4.97) H 07/13/16 03:15 Neutrophils # 12.2 K/mcL (1.6-8.9) H 07/13/16 03:15 PT 12.4 Seconds (9.4-12.1) H 07/12/16 06:03 VBG HCO3 30.3 mEq/L (21-27) H 07/11/16 18:43 Chloride 110 mEq/L (98-109) H 07/13/16 04:59 BUN 26 mg/dL (7-20) H 07/13/16 04:59 Est GFR (Non-Af Amer) 58 (> 60) L 07/13/16 04:59 BUN/Creatinine Ratio 27 (6-26) H 07/13/16 04:59 Glucose 159 mg/dL (70-99) H 07/13/16 04:59 POC Glucose 155 (58-89) H 07/13/16 04:15 Hemoglobin A1c 7.0 % (-5.6) H 07/12/16 06:03 Creatine Kinase 19 Units/L (29-168) L 07/13/16 03:15 Urine Clarity Cloudy (Clear) A 07/11/16 22:08 Urine Blood Trace (Negative) H 07/11/16 22:08 Ur Leukocyte Esterase Large (Negative) H 07/11/16 22:08 Urine Microscopic RBC 5-15 per hpf (0-3) H 07/11/16 22:08 Urine Microscopic WBC TNTC per hpf (0-3) H 07/11/16 22:08 Ur Squamous Epith Cells Many per lpf (None-Few) H 07/11/16 22:08 Urine Bacteria Many per hpf (None-Few) H 07/11/16 22:08 Ur Culture Indicated? YES (NO) A 07/11/16 22:08 Salicylates < 5.0 mg/dL (15-30) L 07/11/16 18:43 Acetaminophen < 1.0 mcg/mL (10-30) L 07/11/16 18:43 U Benzodiazepines Scrn Positive ng/mL ([id number]=[id number]) H 07/11/16 22:08 - Microbiology Findings Microbiology Findings: Microbiology, Last 48 Hours 07/12/16 18:37 Sputum Culture - Preliminary Sputum 07/12/16 18:40 Influenza Types A,B Antigen (MANNIE) - Final Nasopharyngeal - Clinical Findings Intake & Output: Intake & Output 07/12/16 07/12/16 07/13/16 15:59 23:59 07:59 Intake Total 1000 / 1000 104 / 104 1100 / 1100 Output Total 150 / 150 300 / 300 100 / 100 Balance 850 / 850 -196 / -196 1000 / 1000 Weight 90.4 kg Consult Discharge Plan - Plan Referrals: NO,PCP [Primary Care Provider] -
--- NOTE | 2016-07-13 06:29 | Pulmonology Progress Note ---
<Fabi Farfan - Last Filed: 07/13/16 09:56> Date of Encounter: 07/13/16 Time of Encounter: 08:27 Assessment and Plan (1) Sepsis Current Visit: Yes Status: Acute Yesterday evening, patient had elevated temperature, HR in 90s, elevated white count CXR showed LLL consolidation. concern for aspiration secondary to benzodiazepine overdose. Patient received one dose of ceftriaxone. influenza A/B negative prelim sputum culture grew gram positive cocci and gram positive rods. prelim urine culture grew gram negative rods. Plan: Antibiotic changed to unsasyn (day 2) for possible aspiration. Blood cultures x2 pending. Qualifiers: Sepsis type: sepsis due to unspecified organism Qualified Code(s): A41.9 - Sepsis, unspecified organism (2) Drug overdose Current Visit: Yes Status: Acute It is possible that this may have been a drug overdose, and patient could have taken as many as 30 tablets of .5mg ativan. However, earlier in the day, nurse had discussion with patient's son, who stated that she puts all her pills she needs for the day into a bottle, and then takes her pills. Son thinks that patient may have been confused and accidentally overdosed on her Xanax. We will clarify this with patient once she is alert and oriented. Patient not a good candidate for flumazenil, as she chronically takes benzodiazepines, which could precipitate seizures. Plan: will discuss with patient once she is awake and alert, and do psych consult if warranted. will get EEG for possible seizure activity secondary to drug overdose. patient is very rigid on exam: CK 19. Qualifiers: Encounter type: initial encounter Injury intent: intentional self-harm Qualified Code(s): T50.902A - Poisoning by unspecified drugs, medicaments and biological substances, intentional self-harm, initial encounter (3) Suicide attempt Current Visit: Yes Status: Acute possible suicide attempt. plan as above. (4) Acute respiratory failure Current Visit: No Status: Acute etiology likely secondary to benzodiazepine overdose. initial ABG showed mild respiratory acidosis, which was resolved after intubation. Patient is currently intubated without sedation. she is not responding or following commands. plan: will continue trial of CPAP again and see if patient passes weaning parameters Qualifiers: Respiratory failure complication: unspecified whether with hypoxia or hypercapnia Qualified Code(s): J96.00 - Acute respiratory failure, unspecified whether with hypoxia or hypercapnia (5) UTI (urinary tract infection) Current Visit: Yes Status: Acute urinalysis showed evidence of infection. urine culture showed gram negative rods. Plan: got 1 dose of ceftriaxone antibiotic switched to unasyn due to possible aspiration pneumonia. Qualifiers: Urinary tract infection type: acute cystitis Hematuria presence: with hematuria Qualified Code(s): N30.01 - Acute cystitis with hematuria (6) H/O supraventricular tachycardia Current Visit: Yes Status: Acute currently regular rate and rhythm EKG reviewed, did not show evidence of prolonged QT interval. Plan: continue home meds rhythmol and cardizem. will switch to long acting cardizem home dose once extubated. (7) DM2 (diabetes mellitus, type 2) Current Visit: No Status: Chronic A1C noted to be 7. patient takes metformin at home, which is being held Plan: sugars well controlled at this time low dose sliding scale insulin with Q4 accuchecks. Qualifiers: Diabetes mellitus complication status: with unspecified complications Diabetes mellitus skilled nursing insulin use: without tank terminal gauger use Qualified Code( s): E11.8 - Type 2 diabetes mellitus with unspecified complications (8) HTN (hypertension) Current Visit: No Status: Chronic currently normotensive continue lisinopril metoprolol IV PRN Qualifiers: Hypertension type: essential hypertension Qualified Code(s): I10 - Essential (primary) hypertension (9) DVT prophylaxis Current Visit: Yes Status: Acute Heparin SQ Neuro/sedation: patient is intubated without sedation. She was placed on fentanyl drip overnight which has been discontinued. SHe has fentanyl IVP PRN. pulmonology: Current FIO2: 40, tidal volume 400, PEEP: 5, CXR showed LLL consolidation, possible aspiration pneumonia secondary to overdose. Unasyn day 2. Currently on CPAP trial. CV: hx of SVT. continue rhythmol and cardizem. HR currently well controlled. continue home med lisinopril for hypertension. IV metoprolol PRN GI: protonix for GI prophylaxis Renal: will monitor electrolytes and replace as per protocol. ID: urine prelim culture grew gram negative rods. sputum culture prelim grew gram positive rods and gram positive cocci. final culture pending. Unasyn day 2 heme/onc: stable H/H. elevated white count. Heparin SQ for DVT prophylaxis. ENdo: hx of DM 2, hold metformin, low dose sliding scale insulin with Q4HR accuchecks. sugars well controlled at this time. integ/MSK: skincare as per ICU protocol. Subjective Principal diagnosis: sepsis Interval history: 71 tear old female evaluated at bedside. Patient opens her eyes, but does not follow commands. She is very stiff and rigid in her left arm and legs. She continued to spike fevers overnight. CXR significant for LLL pneumonia. Unasyn started, ceftriaxone discontinued. Objective PUL Vital signs: Last Vital Signs Temp 102.0 F H 07/13/16 03:00 Pulse 73 07/13/16 05:50 Resp 17 07/13/16 05:50 BP 122/63 07/13/16 05:50 Pulse Ox 97 07/13/16 05:50 General appearance: no acute distress, lethargic Eyes: nonicteric ENT: oropharynx dry Neck: supple, no JVD Auscultation: bilateral: clear Cardiovascular: regular rate and rhythm Gastrointestinal: hypoactive bowel sounds Integumentary: normal Extremities: no cyanosis, no edema, no clubbing, other (extremities very rigid bilterally. ) Musculoskeletal: joint inflammation Gait: other (extremities rigid. ) pupils equal and round, unable to assess due to mental status Ventilator Settings Ventilator Settings: Ventilator Settings, Last 8 Hours Ventilator Mode VC+ Ventilator Mode VC+ Ventilator Mode VC+ Ventilator Mode VC+ Ventilator Mode VC+ Ventilator Mode VC+ Ventilator Mode VC+ Ventilator Mode VC+ Ventilator Mode VC+ Ventilator Mode VC+ Ventilator Mode VC+ Ventilator Mode VC+ Ventilator Tidal Volume 400 Setting Ventilator Tidal Volume 400 Setting Ventilator Tidal Volume 400 Setting Ventilator Tidal Volume 400 Setting Ventilator Tidal Volume 400 Setting Ventilator Tidal Volume 400 Setting Ventilator Tidal Volume 400 Setting Ventilator Tidal Volume 400 Setting Ventilator Tidal Volume 400 Setting Ventilator Tidal Volume 400 Setting Ventilator Tidal Volume 400 Setting Ventilator Tidal Volume 400 Setting Ventilator Respiratory Rate 16 Setting Ventilator Respiratory Rate 16 Setting Ventilator Respiratory Rate 16 Setting Ventilator Respiratory Rate 16 Setting Ventilator Respiratory Rate 16 Setting Ventilator Respiratory Rate 16 Setting Ventilator Respiratory Rate 16 Setting Ventilator Respiratory Rate 16 Setting Ventilator Respiratory Rate 16 Setting Ventilator Respiratory Rate 16 Setting Ventilator Respiratory Rate 16 Setting Ventilator Respiratory Rate 16 Setting Actual Respiratory Rate 16 Actual Respiratory Rate 17 Actual Respiratory Rate 18 Actual Respiratory Rate 18 Actual Respiratory Rate 20 Actual Respiratory Rate 20 Actual Respiratory Rate 17 Actual Respiratory Rate 20 Actual Respiratory Rate 18 Actual Respiratory Rate 18 Actual Respiratory Rate 20 Positive End Expiratory 5 Pressure Positive End Expiratory 5 Pressure Positive End Expiratory 5 Pressure Positive End Expiratory 5 Pressure Positive End Expiratory 5 Pressure Positive End Expiratory 5 Pressure Positive End Expiratory 5 Pressure Positive End Expiratory 5 Pressure Positive End Expiratory 5 Pressure Positive End Expiratory 5 Pressure Positive End Expiratory 5 Pressure Positive End Expiratory 5 Pressure Peak Inspiratory Airway 22 Pressure Peak Inspiratory Airway 22 Pressure Peak Inspiratory Airway 23 Pressure Peak Inspiratory Airway 14 Pressure Peak Inspiratory Airway 14 Pressure Peak Inspiratory Airway 14 Pressure Peak Inspiratory Airway 23 Pressure Peak Inspiratory Airway 14 Pressure Peak Inspiratory Airway 14 Pressure Peak Inspiratory Airway 14 Pressure Peak Inspiratory Airway 13 Pressure Results - Laboratory Findings CBC and BMP: 07/13/16 03:15 07/13/16 04:59 ABG ABG pH 7.41 pH Units (7.32-7.45) 07/13/16 04:48 ABG pCO2 38 mmHg (35-45) 07/13/16 04:48 ABG pO2 95 mmHg (85-104) 07/13/16 04:48 ABG O2 Saturation 98 % (95-98) 07/13/16 04:48 PT/INR, D-dimer PT 12.4 Seconds (9.4-12.1) H 07/12/16 06:03 Abnormal lab findings: Abnormal lab results WBC 14.3 K/mcL (4.3-11.1) H 07/13/16 03:15 RBC 5.07 M/mcL (3.82-4.97) H 07/13/16 03:15 Neutrophils # 12.2 K/mcL (1.6-8.9) H 07/13/16 03:15 PT 12.4 Seconds (9.4-12.1) H 07/12/16 06:03 VBG HCO3 30.3 mEq/L (21-27) H 07/11/16 18:43 Chloride 110 mEq/L (98-109) H 07/13/16 04:59 BUN 26 mg/dL (7-20) H 07/13/16 04:59 Est GFR (Non-Af Amer) 58 (> 60) L 07/13/16 04:59 BUN/Creatinine Ratio 27 (6-26) H 07/13/16 04:59 Glucose 159 mg/dL (70-99) H 07/13/16 04:59 POC Glucose 155 (58-89) H 07/13/16 04:15 Hemoglobin A1c 7.0 % (-5.6) H 07/12/16 06:03 Creatine Kinase 19 Units/L (29-168) L 07/13/16 03:15 Urine Clarity Cloudy (Clear) A 07/11/16 22:08 Urine Blood Trace (Negative) H 07/11/16 22:08 Ur Leukocyte Esterase Large (Negative) H 07/11/16 22:08 Urine Microscopic RBC 5-15 per hpf (0-3) H 07/11/16 22:08 Urine Microscopic WBC TNTC per hpf (0-3) H 07/11/16 22:08 Ur Squamous Epith Cells Many per lpf (None-Few) H 07/11/16 22:08 Urine Bacteria Many per hpf (None-Few) H 07/11/16 22:08 Ur Culture Indicated? YES (NO) A 07/11/16 22:08 Salicylates < 5.0 mg/dL (15-30) L 07/11/16 18:43 Acetaminophen < 1.0 mcg/mL (10-30) L 07/11/16 18:43 U Benzodiazepines Scrn Positive ng/mL (Bqwnvt=488) H 07/11/16 22:08 - Microbiology Findings Microbiology Findings: Microbiology, Last 48 Hours 07/12/16 18:37 Sputum Culture - Preliminary Sputum 07/12/16 18:40 Influenza Types A,B Antigen (MANNIE) - Final Nasopharyngeal - Clinical Findings Intake & Output: Intake & Output 07/12/16 07/12/16 07/13/16 15:59 23:59 07:59 Intake Total 1000 / 1000 104 / 104 1100 / 1100 Output Total 150 / 150 300 / 300 100 / 100 Balance 850 / 850 -196 / -196 1000 / 1000 Weight 90.4 kg Consult Discharge Plan - Plan Referrals: NO,PCP [Primary Care Provider] - <Seamus Dumont - Last Filed: 07/13/16 12:05> Date of Encounter: 07/13/16 Objective PUL Vital signs: Last Vital Signs Temp 97.6 F 07/13/16 11:00 Pulse 95 07/13/16 11:20 Resp 20 07/13/16 11:23 BP 172/81 07/13/16 11:25 Pulse Ox 94 07/13/16 11:25 Ventilator Settings Ventilator Settings: Ventilator Settings, Last 8 Hours Ventilator Mode CPAP Ventilator Mode CPAP Ventilator Mode VC+ Ventilator Mode VC+ Ventilator Mode VC+ Ventilator Mode VC+ Ventilator Mode VC+ Ventilator Tidal Volume 400 Setting Ventilator Tidal Volume 400 Setting Ventilator Tidal Volume 400 Setting Ventilator Tidal Volume 400 Setting Ventilator Tidal Volume 400 Setting Ventilator Respiratory Rate 16 Setting Ventilator Respiratory Rate 16 Setting Ventilator Respiratory Rate 16 Setting Ventilator Respiratory Rate 16 Setting Ventilator Respiratory Rate 16 Setting Actual Respiratory Rate 14 Actual Respiratory Rate 13 Actual Respiratory Rate 16 Actual Respiratory Rate 16 Actual Respiratory Rate 17 Actual Respiratory Rate 18 Positive End Expiratory 5 Pressure Positive End Expiratory 5 Pressure Positive End Expiratory 5 Pressure Positive End Expiratory 5 Pressure Positive End Expiratory 5 Pressure Positive End Expiratory 5 Pressure Positive End Expiratory 5 Pressure Peak Inspiratory Airway 15 Pressure Peak Inspiratory Airway 15 Pressure Peak Inspiratory Airway 15 Pressure Peak Inspiratory Airway 22 Pressure Peak Inspiratory Airway 22 Pressure Peak Inspiratory Airway 23 Pressure Results - Laboratory Findings CBC and BMP: 07/13/16 03:15 07/13/16 04:59 ABG ABG pH 7.41 pH Units (7.32-7.45) 07/13/16 04:48 ABG pCO2 38 mmHg (35-45) 07/13/16 04:48 ABG pO2 95 mmHg (85-104) 07/13/16 04:48 ABG O2 Saturation 98 % (95-98) 07/13/16 04:48 PT/INR, D-dimer PT 12.4 Seconds (9.4-12.1) H 07/12/16 06:03 Abnormal lab findings: Abnormal lab results WBC 14.3 K/mcL (4.3-11.1) H 07/13/16 03:15 RBC 5.07 M/mcL (3.82-4.97) H 07/13/16 03:15 Neutrophils # 12.2 K/mcL (1.6-8.9) H 07/13/16 03:15 PT 12.4 Seconds (9.4-12.1) H 07/12/16 06:03 VBG HCO3 30.3 mEq/L (21-27) H 07/11/16 18:43 Chloride 110 mEq/L (98-109) H 07/13/16 04:59 BUN 26 mg/dL (7-20) H 07/13/16 04:59 Est GFR (Non-Af Amer) 58 (> 60) L 07/13/16 04:59 BUN/Creatinine Ratio 27 (6-26) H 07/13/16 04:59 Glucose 159 mg/dL (70-99) H 07/13/16 04:59 POC Glucose 142 (58-89) H 07/13/16 11:13 Hemoglobin A1c 7.0 % (-5.6) H 07/12/16 06:03 Creatine Kinase 19 Units/L (29-168) L 07/13/16 03:15 Urine Clarity Cloudy (Clear) A 07/11/16 22:08 Urine Blood Trace (Negative) H 07/11/16 22:08 Ur Leukocyte Esterase Large (Negative) H 07/11/16 22:08 Urine Microscopic RBC 5-15 per hpf (0-3) H 07/11/16 22:08 Urine Microscopic WBC TNTC per hpf (0-3) H 07/11/16 22:08 Ur Squamous Epith Cells Many per lpf (None-Few) H 07/11/16 22:08 Urine Bacteria Many per hpf (None-Few) H 07/11/16 22:08 Ur Culture Indicated? YES (NO) A 07/11/16 22:08 Salicylates < 5.0 mg/dL (15-30) L 07/11/16 18:43 Acetaminophen < 1.0 mcg/mL (10-30) L 07/11/16 18:43 U Benzodiazepines Scrn Positive ng/mL (Vqhzbs=116) H 07/11/16 22:08 - Microbiology Findings Microbiology Findings: Microbiology, Last 48 Hours 07/12/16 18:37 Sputum Culture - Preliminary Sputum 07/12/16 18:40 Influenza Types A,B Antigen (MANNIE) - Final Nasopharyngeal - Clinical Findings Intake & Output: Intake & Output 07/12/16 07/13/16 07/13/16 23:59 07:59 15:59 Intake Total 104 / 104 1100 / 1100 1000 / 1000 Output Total 300 / 300 250 / 250 175 / 175 Balance -196 / -196 850 / 850 825 / 825 Weight 90.4 kg - Attending Attestation I examined this patient and my medical decision-making was reviewed with the FRUIT GRADER OPERATOR/PA/Advanced Practice Nurse/Resident Physician. I agree with the documented findings, disposition and treatment plan as described except to the extent set forth below. Patient seen and examined. Labs, radiology, chart personally reviewed. Agree with resident's history and physical, assessment, plan with following comments: CHIEF OF FIELD OPERATIONS: Patient follows simple commands, patient has some rigidity with his waxing and waning, not clear etiology. Pulmonary: Acceptable oxygenation and ventilation and patient extubated successfully. To be monitored for airway protection and suspect aspiration pneumonia Cardiovascular: stable GI: Nutrition per dietary and GI prophylaxis per routine Heme: DVT prophylaxis per routine ID: Continue antibiotic and plan to de-escalation Renal; urine out put and renal funtion reviewed Endorcine: blood glucose is monitored Lines: all lines checked and no evidence of infections Skin: skin care to prevent pressure ulcers per nursing routine care bilingual patient support caseworker consult
[2016-07-13] MEDS: Budesonide/Formoterol 160/4.5 MDI IH SCH ×2 (07:35→22:19)
[2016-07-13] MEDS: Chlorhexidine Rinse 15 ML MOUTHWASH MM SCH ×2 (09:59→19:53)
[2016-07-13] MEDS: Lisinopril 20 MG TABLET PO SCH ×2 (09:59→19:48)
[2016-07-13] MEDS ORDERED: Ipratropium/Albuterol Neb 3 ML IH PRN (10:29)
[2016-07-13 14:08] LABS: Magnesium 1.7 mg/dL (1.6-2.6); Phosphorous 1.9 mg/dL (2.3-4.7); Potassium 3.5 mEq/L (3.5-4.5)
[2016-07-13] MEDS: *HR* LORazepam 2 MG/ML VIAL IVP PRN (14:30)
[2016-07-13] MEDS ORDERED: Acetaminophen IV 1,000 MG/100 ML INFUS..BTL IVPB ONE (15:23)
--- NOTE | 2016-07-13 15:25 | EEG/EMG/Oth Biometrics Report ---
EEG Procedure Report EEG Procedure: Routine EEG Procedure Note: This is a report of a 21 channel bipolar and referential montage EEG. Posterior dominant rhythm consist of 6-7 Hz moderate voltage theta frequency. This rhythm is not reactive to eye opening. Hyperventilation was not performed in the recording. Theta frequencies prevail in all leads bilaterally throughout much of the recording. Occasional spindle-like activity is present during the recording. However it is not a well organized stage II sleep pattern. Photic stimulation is performed and does not produce a driving response. The playground monitor reveals normal sinus rhythm at 90 bpm. Impressions: This EEG recording is abnormal and is reflective of a mild to moderate generalized encephalopathy. There is no evidence of epileptiform activity identified during the study. Comment: This EEG that does not display epileptiform activity does not rule out the possibility of seizures or epilepsy. If the clinical suspicion for seizure activity is high, serial EEGs or perhaps a prolonged recording may increase the yield. Please correlate clinically. The documentation in the history of HPI and plan were at least partially created by [employer] voice recognition technology by Dr. Cunningham. Errors in grammar, wording or other phrases may exist. If errors are found after the documentation signed, they will be addressed individually in the addendum section of this document when appropriate.
[2016-07-13] MEDS: niCARdipine 20 MG/200 ML MLS IVC SCH ×2 (15:27→23:29)
[2016-07-13] MEDS: FentaNYL (PF) 1,000 MCG in 0.9 % Sodium Chloride 80 ML IVC SCH (19:49)
[2016-07-13] MEDS: Potassium Phosphate 44 MEQ in 0.9 % Sodium Chloride 250 ML IVPB PRN (20:38)
--- NOTE | 2016-07-13 23:28 | Venous Imaging Report ---
UE Venous Duplex Patient Name:Niurka Lemon Order Number:[id number] Procedure Date:07/13/2016 Date:6Age:71 yrs Gender:Female Location:[facility] Room #: IC10 Shade Cutter:Ama Mcnair RDCS Referring MD:Gorge Coleman DO investigator operator:None Reading MD:Kobe Rdz MD , FACS Primary Indications:R/O DVT Secondary Indications: Impressions: Left upper extremity: normal superficial and deep exam. Right upper extremity: normal contralateral exam. Recommendations: Preliminary given to Pt RN. Findings Venous Duplex Results: Right: Venous imaging of the upper extremity reveals full patency and normal vessel compressibility of the right subclavian. Doppler signals in the evaluated veins were normal. Left: Venous imaging of the upper extremity reveals full patency and normal vessel compressibility of the left jugular, left subclavian, left axillary, left brachial, left cephalic, left cephalic upper arm, left basilic, left basilic upper arm, left radial and left ulnar. Doppler signals in the evaluated veins were normal. Prior Study: No prior study available for comparison. Upper Extremity Venous Duplex Side Vein Compress Spontaneous Flow Augment Left Jugular Normal Yes Phasic Yes Left Subclavian Normal Yes Phasic Yes Left Axillary Normal Yes Phasic Yes Left Brachial Normal Yes Phasic Yes Left Cephalic Normal Yes Phasic Yes Left Cephalic Upper Arm Normal Yes Phasic Yes Left Basilic Normal Yes Phasic Yes Left Basilic Upper Arm Normal Yes Phasic Yes Left Radial Normal Yes Phasic Yes Left Ulnar Normal Yes Phasic Yes Right Subclavian Normal Yes Phasic Yes Updated by Kobe Rdz MD, FACS on 07/13/2016 11:23:40 PM Kobe Rdz MD electronically signed on 07/13/2016 11:24:25 PM with status of Final
[2016-07-14] MEDS: Ampicillin/Sulbactam 3,000 MG in 0.9 % Sodium Chloride Mini Bag 100 ML IVPB SCH ×5 (00:50→23:43)
[2016-07-14] MEDS: niCARdipine 20 MG/200 ML MLS IVC SCH ×7 (00:51→23:43)
[2016-07-14] MEDS: *HR* FentaNYL (PF) 100 MCG/2 ML VIAL IVP PRN (02:51)
[2016-07-14] MEDS: Lacri-Lube 3.5 GM TUBE BOTH EYES SCH ×5 (04:15→20:16)
[2016-07-14 04:59] LABS: Basophils % 0.3 %; Eosinophils # 0.2 K/mcL (0.0-0.6); Eosinophils % 1.7 %; Hematocrit 42.9 % (35.3-44.9); Hemoglobin 13.7 g/dL (11.5-15.4); Immature Granulocytes % 0.4 % (0-4); Lymphocytes # 0.9 K/mcL (0.6-4.6); Lymphocytes % 9.6 %; Mean Corpuscular HGB Conc 31.9 g/dL (31.6-35.5); Mean Corpuscular Hemoglobin 27.9 pg (28.0-33.3); Mean Corpuscular Volume 87.4 fL (83.0-100.0); Mean Platelet Volume 10.6 fL (9.4-12.4); Monocytes # 0.6 K/mcL (0.0-1.3); Monocytes % 5.7 %; Neutrophils # 7.9 K/mcL (1.6-8.9); Platelet Count 225 K/mcL (140-400); Red Blood Count 4.91 M/mcL (3.82-4.97); Red Cell Distribution Width 12.8 % (11.5-14.5); Segmented Neutrophils % 82.3 %
[2016-07-14] MEDS: Insulin LISPRO 300 UNITS/3 ML VIAL SQ SCH ×5 (05:05→20:15)
[2016-07-14] MEDS: 0.9 % Sodium Chloride 1,000 ML IVC SCH ×2 (05:08→20:16)
[2016-07-14] MEDS: *HR* Heparin 5,000 UNIT/ML VIAL SQ SCH ×3 (05:11→23:42)
[2016-07-14] MEDS: Pantoprazole 40 MG VIAL IVPB SCH (05:11)
[2016-07-14] MEDS ORDERED: *HR* Metoprolol 5 MG/5 ML VIAL IVP SCH (05:15)
[2016-07-14 05:41] LABS: BUN/Creatinine Ratio 21 (6-26); Blood Urea Nitrogen 16 mg/dL (7-20); Calcium 8.8 mg/dL (8.6-10.8); Carbon Dioxide 20 mEq/L (19-29); Chloride 108 mEq/L (98-109); Glucose 133 mg/dL (70-99); Magnesium 1.7 mg/dL (1.6-2.6); Osmolality,Calculated 297 (280-300); Phosphorous 2.4 mg/dL (2.3-4.7); Potassium 3.8 mEq/L (3.5-4.5); Sodium 142 mEq/L (136-145); eGFR For African Americans > 60 (> 60); eGFR For Non-African Americans > 60 (> 60)
--- NOTE | 2016-07-14 06:14 | Pulmonology Progress Note ---
<MariettaSeamus alberto M - Last Filed: 07/14/16 09:41> Date of Encounter: 07/14/16 Objective PUL Vital signs: Last Vital Signs Temp 98.7 F 07/14/16 07:30 Pulse 103 07/14/16 09:00 Resp 12 07/14/16 09:00 BP 128/64 07/14/16 09:00 Pulse Ox 96 07/14/16 09:00 Results - Laboratory Findings CBC and BMP: 07/14/16 04:11 07/14/16 07:54 ABG ABG pH 7.41 pH Units (7.32-7.45) 07/13/16 04:48 ABG pCO2 38 mmHg (35-45) 07/13/16 04:48 ABG pO2 95 mmHg (85-104) 07/13/16 04:48 ABG O2 Saturation 98 % (95-98) 07/13/16 04:48 PT/INR, D-dimer PT 12.4 Seconds (9.4-12.1) H 07/12/16 06:03 Abnormal lab findings: Abnormal lab results MCH 27.9 pg (28.0-33.3) L 07/14/16 04:11 PT 12.4 Seconds (9.4-12.1) H 07/12/16 06:03 VBG HCO3 30.3 mEq/L (21-27) H 07/11/16 18:43 Glucose 158 mg/dL (70-99) H 07/14/16 07:54 POC Glucose 159 (58-89) H 07/14/16 07:19 Hemoglobin A1c 7.0 % (-5.6) H 07/12/16 06:03 Ionized Calcium 1.10 mmol/L (1.15-1.35) L 07/14/16 04:11 Creatine Kinase 19 Units/L (29-168) L 07/13/16 03:15 Urine Clarity Cloudy (Clear) A 07/11/16 22:08 Urine Blood Trace (Negative) H 07/11/16 22:08 Ur Leukocyte Esterase Large (Negative) H 07/11/16 22:08 Urine Microscopic RBC 5-15 per hpf (0-3) H 07/11/16 22:08 Urine Microscopic WBC TNTC per hpf (0-3) H 07/11/16 22:08 Ur Squamous Epith Cells Many per lpf (None-Few) H 07/11/16 22:08 Urine Bacteria Many per hpf (None-Few) H 07/11/16 22:08 Ur Culture Indicated? YES (NO) A 07/11/16 22:08 Salicylates < 5.0 mg/dL (15-30) L 07/11/16 18:43 Acetaminophen < 1.0 mcg/mL (10-30) L 07/11/16 18:43 U Benzodiazepines Scrn Positive ng/mL (Vuredc=150) H 07/11/16 22:08 - Microbiology Findings Microbiology Findings: Microbiology, Last 48 Hours 07/12/16 18:47 Blood Culture - Preliminary Peripheral Venipuncture No growth. 07/12/16 18:41 Blood Culture - Preliminary Peripheral Venipuncture No growth. 07/12/16 18:37 Sputum Culture - Preliminary Sputum 07/12/16 18:40 Influenza Types A,B Antigen (MANNIE) - Final Nasopharyngeal - Clinical Findings Intake & Output: Intake & Output 07/13/16 07/14/16 07/14/16 23:59 07:59 15:59 Intake Total 734 / 734 1830 / 1830 681 / 681 Output Total 1400 / 1400 1500 / 1500 Balance -666 / -666 330 / 330 681 / 681 Weight 91.3 kg Consult Discharge Plan - Plan Referrals: NO,PCP [Primary Care Provider] - - Attending Attestation I examined this patient and my medical decision-making was reviewed with the GEM EXPERT/PA/Advanced Practice Nurse/Resident Physician. I agree with the documented findings, disposition and treatment plan as described except to the extent set forth below. Patient seen and examined. Labs, radiology, chart personally reviewed. 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 She has rigidity and that is wax and wane , suspect patient might have parkinson, will consult neurology. Pulmonary: Acceptable oxygenation and ventilation, but patient remain at risk and has tenuous pulmonary status, will keep her in ICU. Cardiovascular: Monitor BP GI: Nutrition per dietary and GI prophylaxis per routine. Patient at risk of aspiration. Heme: DVT prophylaxis per routine ID: Continue antibiotics and plan to de-escalation Renal; urine out put and renal funtion reviewed Endorcine: blood glucose is monitored Lines: all lines checked and no evidence of infections Skin: skin care to prevent pressure ulcers per nursing routine care <Fabi Farfan - Last Filed: 07/14/16 14:30> Date of Encounter: 07/14/16 Time of Encounter: 08:00 Assessment and Plan (1) Sepsis Current Visit: Yes Status: Acute CXR showed LLL consolidation. concern for aspiration secondary to benzodiazepine overdose. Patient received one dose of ceftriaxone. influenza A/B negative prelim sputum culture grew gram positive cocci and gram positive rods. urine culture grew E coli and klebsiella, holder sensitive. Plan: Got one dose of Ceftriaxone, unsasyn (day 3) for possible aspiration. Blood cultures x2 pending. Qualifiers: Sepsis type: sepsis due to unspecified organism Qualified Code(s): A41.9 - Sepsis, unspecified organism (2) Drug overdose Current Visit: Yes Status: Acute It is possible that this may have been a drug overdose, and patient could have taken as many as 30 tablets of .5mg ativan. However, earlier in the day, nurse had discussion with patient's son, who stated that she puts all her pills she needs for the day into a bottle, and then takes her pills. Son thinks that patient may have been confused and accidentally overdosed on her Xanax. We will clarify this with patient once she is alert and oriented. Patient not a good candidate for flumazenil, as she chronically takes benzodiazepines, which could precipitate seizures. patient is very rigid on exam: CK 19. EEG performed yesterday, which showed mild to moderate encephalopathy, no seizure activity. Plan: will discuss with patient once she is awake and alert, and do psych consult if warranted. consult to neurology for recommendations. MRI head pending Qualifiers: Encounter type: initial encounter Injury intent: intentional self-harm Qualified Code(s): T50.902A - Poisoning by unspecified drugs, medicaments and biological substances, intentional self-harm, initial encounter (3) Suicide attempt Current Visit: Yes Status: Acute possible suicide attempt. plan as above. (4) Acute respiratory failure Current Visit: No Status: Acute etiology likely secondary to benzodiazepine overdose. initial ABG showed mild respiratory acidosis, which was resolved after intubation. Patient is currently intubated without sedation. she is not responding or following commands. plan: continue BiPAP to maintain oxygen saturation. wean off as tolerated. Qualifiers: Respiratory failure complication: unspecified whether with hypoxia or hypercapnia Qualified Code(s): J96.00 - Acute respiratory failure, unspecified whether with hypoxia or hypercapnia (5) UTI (urinary tract infection) Current Visit: Yes Status: Acute urinalysis showed evidence of infection. urine culture showed gram negative rods. Plan: got 1 dose of ceftriaxone antibiotic switched to unasyn due to possible aspiration pneumonia. Qualifiers: Urinary tract infection type: acute cystitis Hematuria presence: with hematuria Qualified Code(s): N30.01 - Acute cystitis with hematuria (6) H/O supraventricular tachycardia Current Visit: Yes Status: Acute currently regular rate and rhythm EKG reviewed, did not show evidence of prolonged QT interval. Plan: hold home meds until patient passes swallow eval. (7) DM2 (diabetes mellitus, type 2) Current Visit: No Status: Chronic A1C noted to be 7. patient takes metformin at home, which is being held Plan: sugars well controlled at this time low dose sliding scale insulin with Q4 accuchecks. 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 Qualifiers: Hypertension type: essential hypertension Qualified Code(s): I10 - Essential (primary) hypertension (9) DVT prophylaxis Current Visit: Yes Status: Acute Heparin SQ Neuro/sedation: patient extubated yesterday, currently maintaining O2sat on BiPAP. Continue fentanyl IV push PRN. Alert, but does not move or follow commands. EEG showed mild to moderate encephalopathy but negative for seizure activity. Appreciate neuro input. MRI head pending pulmonology: CXR showed LLL consolidation, possible aspiration pneumonia secondary to overdose. Unasyn day 3. CV: hx of SVT. NPO, currently holding cardizem and Rhythmol. IV lopressor PRN. will re start home meds once patient is able to pass swallow eval. GI: protonix for GI prophylaxis Renal: will monitor electrolytes and replace as per protocol. ID: urine culture grew E.Coli and Klebsiella. sputum culture prelim grew gram positive rods and gram positive cocci. final culture pending. Unasyn day 3 heme/onc: stable H/H. white count trending down. Heparin SQ for DVT prophylaxis. ENdo: hx of DM 2, hold metformin, low dose sliding scale insulin with Q4HR accuchecks. sugars well controlled at this time. integ/MSK: skincare as per ICU protocol. Subjective Principal diagnosis: sepsis Interval history: 71 year old female evaluated at bedside. Patient opens her eyes, but does not follow commands. She continues to be occasionally rigid. Objective PUL Vital signs: Last Vital Signs Temp 98.6 F 07/14/16 05:00 Pulse 101 07/14/16 06:00 Resp 22 07/14/16 06:00 BP 145/73 07/14/16 06:00 Pulse Ox 98 07/14/16 06:00 General appearance: no acute distress, alert, lethargic Eyes: nonicteric ENT: oropharynx moist Neck: supple, no JVD Auscultation: bilateral: clear Cardiovascular: regular rate and rhythm Gastrointestinal: normoactive bowel sounds Integumentary: normal Extremities: no cyanosis, no edema, no clubbing Musculoskeletal: joint inflammation unable to assess due to mental status other (unable to assess due to mental status. ) Results - Laboratory Findings CBC and BMP: 07/14/16 04:11 07/14/16 07:54 ABG ABG pH 7.41 pH Units (7.32-7.45) 07/13/16 04:48 ABG pCO2 38 mmHg (35-45) 07/13/16 04:48 ABG pO2 95 mmHg (85-104) 07/13/16 04:48 ABG O2 Saturation 98 % (95-98) 07/13/16 04:48 PT/INR, D-dimer PT 12.4 Seconds (9.4-12.1) H 07/12/16 06:03 Abnormal lab findings: Abnormal lab results MCH 27.9 pg (28.0-33.3) L 07/14/16 04:11 PT 12.4 Seconds (9.4-12.1) H 07/12/16 06:03 VBG HCO3 30.3 mEq/L (21-27) H 07/11/16 18:43 Glucose 133 mg/dL (70-99) H 07/14/16 04:11 POC Glucose 125 (58-89) H 07/14/16 04:23 Hemoglobin A1c 7.0 % (-5.6) H 07/12/16 06:03 Ionized Calcium 1.10 mmol/L (1.15-1.35) L 07/14/16 04:11 Creatine Kinase 19 Units/L (29-168) L 07/13/16 03:15 Urine Clarity Cloudy (Clear) A 07/11/16 22:08 Urine Blood Trace (Negative) H 07/11/16 22:08 Ur Leukocyte Esterase Large (Negative) H 07/11/16 22:08 Urine Microscopic RBC 5-15 per hpf (0-3) H 07/11/16 22:08 Urine Microscopic WBC TNTC per hpf (0-3) H 07/11/16 22:08 Ur Squamous Epith Cells Many per lpf (None-Few) H 07/11/16 22:08 Urine Bacteria Many per hpf (None-Few) H 07/11/16 22:08 Ur Culture Indicated? YES (NO) A 07/11/16 22:08 Salicylates < 5.0 mg/dL (15-30) L 07/11/16 18:43 Acetaminophen < 1.0 mcg/mL (10-30) L 07/11/16 18:43 U Benzodiazepines Scrn Positive ng/mL (Rdjcsr=238) H 07/11/16 22:08 - Microbiology Findings Microbiology Findings: Microbiology, Last 48 Hours 07/12/16 18:37 Sputum Culture - Preliminary Sputum 07/12/16 18:40 Influenza Types A,B Antigen (MANNIE) - Final Nasopharyngeal - Clinical Findings Intake & Output: Intake & Output 07/13/16 07/13/16 07/14/16 15:59 23:59 07:59 Intake Total 1130 / 1130 734 / 734 1630 / 1630 Output Total 175 / 175 1400 / 1400 1000 / 1000 Balance 955 / 955 -666 / -666 630 / 630 Weight 91.3 kg
[2016-07-14] MEDS: Potassium Phosphate 44 MEQ in 0.9 % Sodium Chloride 250 ML IVPB PRN ×2 (06:33→15:57)
[2016-07-14] MEDS: Magnesium Sulfate 2 GM in D5% in Water 100 ML IVPB PRN ×2 (06:34→15:46)
[2016-07-14] MEDS: Propofol 500 MG/50 ML INFUS..BTL IVC SCH (07:18)
[2016-07-14] MEDS: Lisinopril 20 MG TABLET PO SCH ×2 (07:19→20:17)
[2016-07-14] MEDS: Budesonide/Formoterol 160/4.5 MDI IH SCH ×2 (08:04→20:01)
[2016-07-14 08:15] LABS: BUN/Creatinine Ratio 21 (6-26); Blood Urea Nitrogen 16 mg/dL (7-20); Calcium 8.7 mg/dL (8.6-10.8); Carbon Dioxide 20 mEq/L (19-29); Chloride 107 mEq/L (98-109); Glucose 158 mg/dL (70-99); Osmolality,Calculated 294 (280-300); Sodium 140 mEq/L (136-145); eGFR For African Americans > 60 (> 60); eGFR For Non-African Americans > 60 (> 60)
[2016-07-14] MEDS: Chlorhexidine Rinse 15 ML MOUTHWASH MM SCH ×2 (08:52→20:18)
--- NOTE | 2016-07-14 09:01 | Neurology - Consult Note ---
<Elpidio Pretty - Last Filed: 07/14/16 10:05> Date of Encounter: 07/14/16 Time of Encounter: 08:40 Assessment and Plan (1) Acute metabolic encephalopathy Current Visit: Yes Status: Acute The patient is difficult to assess at this time due to lack of cooperation with motor testing. Reflexes are symmetric. The patient is able to understand when I ask her to state her name and can state her first name. She does not follow any motor commands making it difficult to assess for and focal defects. I believe at this time she remains somnolent due to medications. Will reassess the patient when she is more awake and alert. Recommend serial neuro exams. Laboratory findings are grossly normal. History of Present Illness Chief complaint: OD HPI: Ms. Lemon is a 71 year old female with PMH significant for DM2, HTN, COPD, SVT , and anxiety who presented to [facility] following an overdose that is reported as intentional. Her reported OD was on 30 tablets of 0.5mg Xanax. She was intubated at admission 07/11 due to respiratory failure, but has since been extubated on 07/13 just before noon. The patient is unable to provide any additional history at this time. She is currently somnolent and will track with her eyes, but does not follow commands. She attempts to try to communicate, but her words are slow and unintelligible. She appears comfortable. Past Med Surg Social Fam HX - Past Medical History Medical history: arthritis, COPD, diabetes, osteoporosis, SVT Psychiatric history: anxiety, depression - Past Surgical History Surgical History: non-contributory, hysterectomy - Social History Smoking Status: Former smoker Smokeless Tobacco Status: No Alcohol use: none Drug use: none Medications and Allergies Aripiprazole [Abilify] 5 mg PO DAILY 07/23/15 [History] Diltiazem CD (24hr) [Cardizem CD] 120 mg PO DAILY 07/23/15 [History] Folic Acid 1 mg PO DAILY 07/23/15 [History] GuaiFENesin ER [Mucinex] 600 mg PO Q12H PRN 07/23/15 [History] Lisinopril [Zestril] 20 mg PO BID 07/23/15 [History] Propafenone HCl [Rythmol] 225 mg PO Q8H 07/23/15 [History] Solifenacin Succinate [Vesicare] 5 mg PO DAILY 07/23/15 [History] metFORMIN [Glucophage] 500 mg PO BIDWM 07/23/15 [History] Albuterol Sulfate [Ventolin Hfa] 2 puff IH Q4H PRN 03/14/16 [History] Atorvastatin [Lipitor] 10 mg PO HS 03/14/16 [History] Brimonidine Tartrate/Timolol [Combigan 0.2%-0.5% Eye Drops] 1 drop BOTH EYES BID 03/14/16 [History] Budesonide/Formoterol 160/4.5 [Symbicort 160/4.5] 2 puff IH BIDR 03/14/16 [ History] Cholecalciferol (D-3) [Vitamin D] 5,000 unit PO DAILY 03/14/16 [History] Citalopram Hydrobromide [Celexa] 40 mg PO DAILY 03/14/16 [History] Fenofibrate [Lofibra] 160 mg PO DAILY 03/14/16 [History] Multivitamin/Iron/Folic Acid [Cerovite Advanced Form Tab] 1 each PO DAILY [History] Omeprazole [PriLOSEC] 40 mg PO DAILY 03/14/16 [History] Thiamine Mononitrate [Vitamin B-1] 100 mg PO DAILY 03/14/16 [History] Vitamin E 1,000 unit PO DAILY 03/14/16 [History] ALPRAZolam [Xanax 0.5 MG Tablet] 0.5 mg PO TID #21 tablet 03/21/16 [Rx] Oxycodone HCl/Acetaminophen [Percocet 7.5-325 mg Tablet] 1 each PO TID PRN #21 tablet 03/21/16 [Rx] Oxygen 3 l IN CONT #1 each 03/21/16 [Rx] Allergies gabapentin Adverse Reaction (Verified 03/14/16 20:23) Confusion Methadone Adverse Reaction (Verified 03/14/16 20:23) Confusion morphine Adverse Reaction (Verified 03/14/16 20:23) Confusion Zolpidem [From Ambien] Adverse Reaction (Verified 03/14/16 20:23) Confusion ROS unobtainable: due to mental status All Systems: A 10-system review of systems was performed and is negative for pertinent findings except as documented above in the HPI. Physical Examination - Vital Signs Vital Signs: Initial Vital Signs Temp Pulse Resp BP Pulse Ox 0 F L 62 20 169/105 95 07/11/16 18:17 07/11/16 18:17 07/11/16 18:17 07/11/16 18:17 07/11/16 18:17 - Constitutional General appearance: comfortable - Neurologic Detailed motor examination: other (Unable to assess due to lack of the patient' s cooperation. Movement of the patient's upper extremities does not demonstrate any flaccidity or rigidity) Detailed sensory examination: other (Unable to assess due to patient's non- verbal state) Reflexes: Biceps: 2+, Triceps: 1+, Brachioradialis: 2+, Patella: 2+, Achilles: 1 + Mental Status Examination: awake (The patient will not follow motor commands. She will state her name when asked, but is difficult to understand. When asked what her last name is she will repeat her first name.), does not follow commands , drowsy, opens eyes to voice, makes eye contact Cranial nerve examination: PERRL, EOMI (able to track left and right as I moved in the room, but unable to assess vertical movement), corneal reflexes brisk symmetrically, no facial asymmetry is present, gag diminished Results - Laboratory Findings CBC and BMP: 07/14/16 04:11 07/14/16 07:54 Abnormal lab findings: Abnormal lab results MCH 27.9 pg (28.0-33.3) L 07/14/16 04:11 PT 12.4 Seconds (9.4-12.1) H 07/12/16 06:03 VBG HCO3 30.3 mEq/L (21-27) H 07/11/16 18:43 Glucose 158 mg/dL (70-99) H 07/14/16 07:54 POC Glucose 159 (58-89) H 07/14/16 07:19 Hemoglobin A1c 7.0 % (-5.6) H 07/12/16 06:03 Ionized Calcium 1.10 mmol/L (1.15-1.35) L 07/14/16 04:11 Creatine Kinase 19 Units/L (29-168) L 07/13/16 03:15 Urine Clarity Cloudy (Clear) A 07/11/16 22:08 Urine Blood Trace (Negative) H 07/11/16 22:08 Ur Leukocyte Esterase Large (Negative) H 07/11/16 22:08 Urine Microscopic RBC 5-15 per hpf (0-3) H 07/11/16 22:08 Urine Microscopic WBC TNTC per hpf (0-3) H 07/11/16 22:08 Ur Squamous Epith Cells Many per lpf (None-Few) H 07/11/16 22:08 Urine Bacteria Many per hpf (None-Few) H 07/11/16 22:08 Ur Culture Indicated? YES (NO) A 07/11/16 22:08 Salicylates < 5.0 mg/dL (15-30) L 07/11/16 18:43 Acetaminophen < 1.0 mcg/mL (10-30) L 07/11/16 18:43 U Benzodiazepines Scrn Positive ng/mL (Ocbfmb=816) H 07/11/16 22:08 Consult Discharge Plan - Plan Referrals: NO,PCP [Primary Care Provider] - <James Cunningham - Last Filed: 07/14/16 14:58> Date of Encounter: 07/14/16 Time of Encounter: 14:55 Assessment and Plan (1) Acute metabolic encephalopathy Current Visit: Yes Status: Acute The major differential here would be lingering effects of the Xanax versus anoxic brain injury. The half-life of Xanax is about 16 hours. Although she apparently took quite a large dose. No concern is the possibility of anoxic brain injury secondary to respiratory status suppression. I am encouraged however that she seems to be making some improvements. She is making eye contact. She follows simple commands and she attempts to verbalize. She does however have bilateral Babinski which is reflective of bihemispheric injury under this scenario. The EEG revealed moderate generalized encephalopathy, however did not reveal evidence of nonconvulsive status. She did not experience a cardiac arrest, MRI scan of the brain is yet pending for this evening. I will reevaluate her tomorrow. History of Present Illness HPI: Ms. Lemon is a 71 year old female is being seen for neurologic consultation secondary to unresponsiveness. The case was discussed with Dr. Pretty, patient was seen and examined independently. Patient is admitted secondary to acute respiratory failure secondary to suspected Xanax overdose. Apparently she was found unconscious. The report is that she was "blue". I am not certain when the last time she had been seen normal prior to being found in this condition. Apparently she was intubated in the field. There is no mention of cardiac arrest. Patient today seems to be somewhat improved as she is making eye contact, she does give one-word replies to answer questions, she follows some simple commands. However she remains somnolent when not being stimulated. I did repeat an EEG yesterday on her which revealed mild to moderate generalized encephalopathy. No seizure activity was identified however. Patient would not given Romazicon due to fear of precipitating a seizure activity. Apparently she takes maintenance Xanax daily. MRI scan of the brain for today is yet pending. ROS unobtainable: due to mental status All Systems: A 10-system review of systems was performed and is negative for pertinent findings except as documented above in the HPI. Physical Examination - Vital Signs Vital Signs: Initial Vital Signs Temp Pulse Resp BP Pulse Ox 0 F L 62 20 169/105 95 07/11/16 18:17 07/11/16 18:17 07/11/16 18:17 07/11/16 18:17 07/11/16 18:17 - Exam Exam: Mental status functions-the patient is somnolent however arousable to voice. She immediately makes eye contact. She is slow to respond to questions however does give him one word responses. She also follows simple commands. However she is lethargic and is not fully awake or alert. Cranial nerves: Pupils are equal and reactive to light, extraocular motility is intact. There is no facial asymmetry is identified. She is breathing comfortably. Motor exam-no focal or lateralized deficits are identified. She has normal bulk and tone of both upper and lower extremities. No involuntary movements are identified. I am not able to strength test her in the normal traditional manner. Deep tendon reflexes-2+ symmetrical biceps triceps brachioradialis, right patellar reflexes 2+, left patellar reflexes 1. She does have bilateral Babinski signs identified. Results - Laboratory Findings CBC and BMP: 07/14/16 04:11 07/14/16 07:54 Abnormal lab findings: Abnormal lab results MCH 27.9 pg (28.0-33.3) L 07/14/16 04:11 PT 12.4 Seconds (9.4-12.1) H 07/12/16 06:03 VBG HCO3 30.3 mEq/L (21-27) H 07/11/16 18:43 Glucose 158 mg/dL (70-99) H 07/14/16 07:54 POC Glucose 143 (58-89) H 07/14/16 11:27 Hemoglobin A1c 7.0 % (-5.6) H 07/12/16 06:03 Uric Acid 2.1 mg/dL (2.6-6.0) L 07/14/16 04:11 Ionized Calcium 1.10 mmol/L (1.15-1.35) L 07/14/16 04:11 Creatine Kinase 19 Units/L (29-168) L 07/13/16 03:15 Urine Clarity Cloudy (Clear) A 07/11/16 22:08 Urine Blood Trace (Negative) H 07/11/16 22:08 Ur Leukocyte Esterase Large (Negative) H 07/11/16 22:08 Urine Microscopic RBC 5-15 per hpf (0-3) H 07/11/16 22:08 Urine Microscopic WBC TNTC per hpf (0-3) H 07/11/16 22:08 Ur Squamous Epith Cells Many per lpf (None-Few) H 07/11/16 22:08 Urine Bacteria Many per hpf (None-Few) H 07/11/16 22:08 Ur Culture Indicated? YES (NO) A 07/11/16 22:08 Salicylates < 5.0 mg/dL (15-30) L 07/11/16 18:43 Acetaminophen < 1.0 mcg/mL (10-30) L 07/11/16 18:43 U Benzodiazepines Scrn Positive ng/mL (Aliopv=052) H 07/11/16 22:08
[2016-07-14] MEDS ORDERED: Acetaminophen IV 1,000 MG/100 ML INFUS..BTL IVPB ONE (11:06)
[2016-07-14] MEDS ORDERED: *HR* Metoprolol 5 MG/5 ML VIAL IVP PRN (11:07)
[2016-07-14 11:37] LABS: Uric Acid 2.1 mg/dL (2.6-6.0)
[2016-07-14 15:05] LABS: Ionized Calcium 1.16 mmol/L (1.15-1.35)
[2016-07-14 15:07] LABS: Magnesium 1.9 mg/dL (1.6-2.6); Phosphorous 2.3 mg/dL (2.3-4.7); Potassium 3.9 mEq/L (3.5-4.5)
[2016-07-14] MEDS: Ketorolac 15 MG/ML VIAL IVP PRN (21:30)
[2016-07-14] MEDS: *HR* LORazepam 2 MG/ML VIAL IVP PRN (21:45)
[2016-07-15] MEDS: Insulin LISPRO 300 UNITS/3 ML VIAL SQ SCH ×6 (00:56→21:23)
[2016-07-15] MEDS: Lacri-Lube 3.5 GM TUBE BOTH EYES SCH ×6 (00:56→21:22)
[2016-07-15] MEDS: niCARdipine 20 MG/200 ML MLS IVC SCH ×2 (02:53→08:51)
[2016-07-15] MEDS: 0.9 % Sodium Chloride 1,000 ML IVC SCH (02:53)
[2016-07-15 04:36] LABS: Basophils % 0.5 %; Eosinophils # 0.2 K/mcL (0.0-0.6); Eosinophils % 3.2 %; Hematocrit 40.9 % (35.3-44.9); Hemoglobin 13.5 g/dL (11.5-15.4); Immature Granulocytes % 0.5 % (0-4); Lymphocytes # 0.9 K/mcL (0.6-4.6); Lymphocytes % 13.1 %; Mean Corpuscular Hemoglobin 28.8 pg (28.0-33.3); Mean Corpuscular Volume 87.2 fL (83.0-100.0); Mean Platelet Volume 10.4 fL (9.4-12.4); Monocytes # 0.4 K/mcL (0.0-1.3); Monocytes % 6.6 %; Neutrophils # 5.1 K/mcL (1.6-8.9); Platelet Count 238 K/mcL (140-400); Red Blood Count 4.69 M/mcL (3.82-4.97); Red Cell Distribution Width 12.8 % (11.5-14.5); Segmented Neutrophils % 76.1 %
[2016-07-15 04:45] LABS: Ionized Calcium 1.06 mmol/L (1.15-1.35)
[2016-07-15 05:01] LABS: BUN/Creatinine Ratio 18 (6-26); Blood Urea Nitrogen 13 mg/dL (7-20); Calcium 9.1 mg/dL (8.6-10.8); Carbon Dioxide 18 mEq/L (19-29); Chloride 109 mEq/L (98-109); Glucose 131 mg/dL (70-99); Osmolality,Calculated 292 (280-300); Phosphorous 3.2 mg/dL (2.3-4.7); Sodium 140 mEq/L (136-145); eGFR For African Americans > 60 (> 60); eGFR For Non-African Americans > 60 (> 60)
[2016-07-15] MEDS: *HR* Heparin 5,000 UNIT/ML VIAL SQ SCH ×3 (05:36→21:23)
[2016-07-15] MEDS: Pantoprazole 40 MG VIAL IVPB SCH (05:36)
[2016-07-15] MEDS: Ampicillin/Sulbactam 3,000 MG in 0.9 % Sodium Chloride Mini Bag 100 ML IVPB SCH ×3 (05:36→17:00)
[2016-07-15 05:40] LABS: C-Reactive Protein 180 mg/L (Less than 5); Potassium 4.2 mEq/L (3.5-4.5)
--- NOTE | 2016-07-15 06:43 | Pulmonology Progress Note ---
<JuliaMartineesteban M - Last Filed: 07/15/16 12:05> Date of Encounter: 07/15/16 Objective PUL Vital signs: Last Vital Signs Temp 97.9 F 07/15/16 07:29 Pulse 114 07/15/16 11:00 Resp 18 07/15/16 11:00 BP 137/66 07/15/16 11:00 Pulse Ox 96 07/15/16 11:00 Results - Laboratory Findings CBC and BMP: 07/15/16 04:26 07/15/16 04:26 ABG ABG pH 7.41 pH Units (7.32-7.45) 07/13/16 04:48 ABG pCO2 38 mmHg (35-45) 07/13/16 04:48 ABG pO2 95 mmHg (85-104) 07/13/16 04:48 ABG O2 Saturation 98 % (95-98) 07/13/16 04:48 PT/INR, D-dimer PT 12.4 Seconds (9.4-12.1) H 07/12/16 06:03 Abnormal lab findings: Abnormal lab results ESR 73 mm/hr (0-15) H 07/15/16 04:26 PT 12.4 Seconds (9.4-12.1) H 07/12/16 06:03 VBG HCO3 30.3 mEq/L (21-27) H 07/11/16 18:43 Carbon Dioxide 18 mEq/L (19-29) L 07/15/16 04:26 Glucose 131 mg/dL (70-99) H 07/15/16 04:26 POC Glucose 143 (58-89) H 07/15/16 11:37 Hemoglobin A1c 7.0 % (-5.6) H 07/12/16 06:03 Uric Acid 2.1 mg/dL (2.6-6.0) L 07/14/16 04:11 Ionized Calcium 1.06 mmol/L (1.15-1.35) L 07/15/16 04:26 Creatine Kinase 19 Units/L (29-168) L 07/13/16 03:15 C-Reactive Protein 180 mg/L (Less than 5) H 07/15/16 04:26 Urine Clarity Cloudy (Clear) A 07/11/16 22:08 Urine Blood Trace (Negative) H 07/11/16 22:08 Ur Leukocyte Esterase Large (Negative) H 07/11/16 22:08 Urine Microscopic RBC 5-15 per hpf (0-3) H 07/11/16 22:08 Urine Microscopic WBC TNTC per hpf (0-3) H 07/11/16 22:08 Ur Squamous Epith Cells Many per lpf (None-Few) H 07/11/16 22:08 Urine Bacteria Many per hpf (None-Few) H 07/11/16 22:08 Ur Culture Indicated? YES (NO) A 07/11/16 22:08 Salicylates < 5.0 mg/dL (15-30) L 07/11/16 18:43 Acetaminophen < 1.0 mcg/mL (10-30) L 07/11/16 18:43 U Benzodiazepines Scrn Positive ng/mL (Bcttay=072) H 07/11/16 22:08 - Microbiology Findings Microbiology Findings: Microbiology, Last 48 Hours 07/12/16 18:37 Sputum Culture - Preliminary Sputum 07/12/16 18:47 Blood Culture - Preliminary Peripheral Venipuncture No growth. 07/12/16 18:41 Blood Culture - Preliminary Peripheral Venipuncture No growth. - Clinical Findings Intake & Output: Intake & Output 07/14/16 07/15/16 07/15/16 23:59 07:59 15:59 Intake Total 404 / 404 1523 / 1523 573 / 573 Output Total 750 / 750 850 / 850 Balance -346 / -346 673 / 673 573 / 573 Weight 91.036 kg Consult Discharge Plan - Plan Referrals: NO,PCP [Primary Care Provider] - - Attending Attestation I examined this patient and my medical decision-making was reviewed with the DOCUMENT ANALYST/PA/Advanced Practice Nurse/Resident Physician. I agree with the documented findings, disposition and treatment plan as described except to the extent set forth below. Patient seen and examined. Labs, radiology, chart personally reviewed. Agree with resident's history and physical, assessment, plan with following comments: AIRPORT OPERATIONS COORDINATOR: Patient follows commands, appreciate neurology's input Pulmonary: Acceptable oxygenation and ventilation continued treatment for aspiration pneumonia Cardiovascular: Hypertension which is multifactorial. I suspect resuming her home medication will help to control blood pressure. GI: Speech evaluation Heme: DVT prophylaxis per routine ID: Continue antibiotics and plan to de-escalation Once her blood pressure is controlled and able to eat will transfer patient to the floor. <Ferdous,Aasia - Last Filed: 07/15/16 13:25> Date of Encounter: 07/15/16 Time of Encounter: 06:39 Assessment and Plan (1) Sepsis Current Visit: Yes Status: Acute CXR showed LLL consolidation. concern for aspiration secondary to benzodiazepine overdose. Patient received one dose of ceftriaxone. influenza A/B negative prelim sputum culture grew gram positive cocci and gram positive rods. urine culture grew E coli and klebsiella, holder sensitive. Plan: Got one dose of Ceftriaxone, unsasyn (day 4) for possible aspiration. prelim blood cultures showed no growth. Qualifiers: Sepsis type: sepsis due to unspecified organism Qualified Code(s): A41.9 - Sepsis, unspecified organism (2) Drug overdose Current Visit: Yes Status: Acute It is possible that this may have been a drug overdose, and patient could have taken as many as 30 tablets of .5mg ativan. However, earlier in the day, nurse had discussion with patient's son, who stated that she puts all her pills she needs for the day into a bottle, and then takes her pills. Son thinks that patient may have been confused and accidentally overdosed on her Xanax. We will clarify this with patient once she is alert and oriented. Patient not a good candidate for flumazenil, as she chronically takes benzodiazepines, which could precipitate seizures. patient is very rigid on exam: CK 19. EEG performed yesterday, which showed mild to moderate encephalopathy, no seizure activity. MRI showed no acute abnormality. Plan: will discuss with patient once she is awake and alert, and do psych consult if warranted. consult to neurology for recommendations. Qualifiers: Encounter type: initial encounter Injury intent: intentional self-harm Qualified Code(s): T50.902A - Poisoning by unspecified drugs, medicaments and biological substances, intentional self-harm, initial encounter (3) Suicide attempt Current Visit: Yes Status: Acute possible suicide attempt. plan as above. (4) Acute respiratory failure Current Visit: No Status: Acute etiology likely secondary to benzodiazepine overdose. initial ABG showed mild respiratory acidosis, which was resolved after intubation. patient extubated, currently on oxygen and BiPAP as needed. plan: continue to wean off oxygen and bipap as tolerated. Qualifiers: Respiratory failure complication: unspecified whether with hypoxia or hypercapnia Qualified Code(s): J96.00 - Acute respiratory failure, unspecified whether with hypoxia or hypercapnia (5) UTI (urinary tract infection) Current Visit: Yes Status: Acute urinalysis showed evidence of infection. urine culture grew pseudomonas and klebsiella. Plan: got 1 dose of ceftriaxone antibiotic switched to unasyn due to possible aspiration pneumonia. Qualifiers: Urinary tract infection type: acute cystitis Hematuria presence: with hematuria Qualified Code(s): N30.01 - Acute cystitis with hematuria (6) H/O supraventricular tachycardia Current Visit: Yes Status: Acute currently regular rate and rhythm EKG reviewed, did not show evidence of prolonged QT interval. Plan: hold home meds until patient passes swallow eval. patient went into SVT this morning, will start cardizem gtt d/c cardene drip. (7) DM2 (diabetes mellitus, type 2) Current Visit: No Status: Chronic A1C noted to be 7. patient takes metformin at home, which is being held Plan: sugars well controlled at this time low dose sliding scale insulin with Q4 accuchecks. Qualifiers: Diabetes mellitus complication status: with unspecified complications Diabetes mellitus moth exterminator insulin use: without custodial use Qualified Code( s): E11.8 - Type 2 diabetes mellitus with unspecified complications (8) HTN (hypertension) Current Visit: No Status: Chronic currently normotensive hold lisinopril metoprolol IV PRN wean off cardene drip Qualifiers: Hypertension type: essential hypertension Qualified Code(s): I10 - Essential (primary) hypertension (9) DVT prophylaxis Current Visit: Yes Status: Acute Heparin SQ Neuro/sedation: patient extubated, currently maintaining O2sat without BiPAP. Alert, follows some commands. EEG showed mild to moderate encephalopathy but negative for seizure activity. MRI showed no acute infarction and diffuse parenchymal volume loss. Appreciate neuro input. pulmonology: CXR showed LLL consolidation, possible aspiration pneumonia secondary to overdose. Unasyn day 4 . CV: hx of SVT. NPO, currently holding PO cardizem and Rhythmol. will re start home meds once patient is able to pass swallow eval. d/c Cardene drip. Patient went into SVT today and received 6mg adenosine. will start Cardizem gtt. GI: protonix for GI prophylaxis Renal: will monitor electrolytes and replace as per protocol. ID: urine culture grew E.Coli and Klebsiella. sputum culture prelim grew gram positive rods and gram positive cocci. final culture pending. prelim blood culture showed no growth. Unasyn day 4 heme/onc: stable H/H. white count now normal. Heparin SQ for DVT prophylaxis. ENdo: hx of DM 2, hold metformin, low dose sliding scale insulin with Q4HR accuchecks. sugars well controlled at this time. integ/MSK: skincare as per ICU protocol. Subjective Principal diagnosis: sepsis Interval history: 71 year old female evaluated at bedside. Overnight, she was placed back on cardene drip for hypertensive urgency and she received one dose of ativan before her MRI. She had no other acute events overnight. She was placed back on BiPAP while asleep. Objective PUL Vital signs: Last Vital Signs Temp 98.4 F 07/15/16 05:08 Pulse 98 07/15/16 06:00 Resp 24 07/15/16 06:00 BP 120/64 07/15/16 06:00 Pulse Ox 97 07/15/16 06:00 General appearance: no acute distress, alert, lethargic Eyes: nonicteric ENT: oropharynx moist Neck: supple, no JVD Auscultation: left: wheezes Cardiovascular: other (tachycardic) Gastrointestinal: hypoactive bowel sounds Extremities: no cyanosis, no edema, no clubbing Musculoskeletal: other (inflammed joints. ) unable to assess due to mental status, other (patient follows some commands. positive bilateral babinski signs. ) Results - Laboratory Findings CBC and BMP: 07/15/16 04:26 07/15/16 04:26 ABG ABG pH 7.41 pH Units (7.32-7.45) 07/13/16 04:48 ABG pCO2 38 mmHg (35-45) 07/13/16 04:48 ABG pO2 95 mmHg (85-104) 07/13/16 04:48 ABG O2 Saturation 98 % (95-98) 07/13/16 04:48 PT/INR, D-dimer PT 12.4 Seconds (9.4-12.1) H 07/12/16 06:03 Abnormal lab findings: Abnormal lab results ESR 73 mm/hr (0-15) H 07/15/16 04:26 PT 12.4 Seconds (9.4-12.1) H 07/12/16 06:03 VBG HCO3 30.3 mEq/L (21-27) H 07/11/16 18:43 Carbon Dioxide 18 mEq/L (19-29) L 07/15/16 04:26 Glucose 131 mg/dL (70-99) H 07/15/16 04:26 POC Glucose 132 (58-89) H 07/15/16 04:55 Hemoglobin A1c 7.0 % (-5.6) H 07/12/16 06:03 Uric Acid 2.1 mg/dL (2.6-6.0) L 07/14/16 04:11 Ionized Calcium 1.06 mmol/L (1.15-1.35) L 07/15/16 04:26 Creatine Kinase 19 Units/L (29-168) L 07/13/16 03:15 C-Reactive Protein 180 mg/L (Less than 5) H 07/15/16 04:26 Urine Clarity Cloudy (Clear) A 07/11/16 22:08 Urine Blood Trace (Negative) H 07/11/16 22:08 Ur Leukocyte Esterase Large (Negative) H 07/11/16 22:08 Urine Microscopic RBC 5-15 per hpf (0-3) H 07/11/16 22:08 Urine Microscopic WBC TNTC per hpf (0-3) H 07/11/16 22:08 Ur Squamous Epith Cells Many per lpf (None-Few) H 07/11/16 22:08 Urine Bacteria Many per hpf (None-Few) H 07/11/16 22:08 Ur Culture Indicated? YES (NO) A 07/11/16 22:08 Salicylates < 5.0 mg/dL (15-30) L 07/11/16 18:43 Acetaminophen < 1.0 mcg/mL (10-30) L 07/11/16 18:43 U Benzodiazepines Scrn Positive ng/mL (Caasvs=339) H 07/11/16 22:08 - Microbiology Findings Microbiology Findings: Microbiology, Last 48 Hours 07/12/16 18:37 Sputum Culture - Preliminary Sputum 07/12/16 18:47 Blood Culture - Preliminary Peripheral Venipuncture No growth. 07/12/16 18:41 Blood Culture - Preliminary Peripheral Venipuncture No growth. - Clinical Findings Intake & Output: Intake & Output 07/14/16 07/14/16 07/15/16 15:59 23:59 07:59 Intake Total 1196 / 1196 404 / 404 1357 / 1357 Output Total 850 / 850 750 / 750 750 / 750 Balance 346 / 346 -346 / -346 607 / 607 Weight 91.036 kg
[2016-07-15] MEDS: Chlorhexidine Rinse 15 ML MOUTHWASH MM SCH ×2 (07:09→21:22)
[2016-07-15] MEDS: Lisinopril 20 MG TABLET PO SCH ×2 (07:09→21:23)
[2016-07-15] MEDS ORDERED: *HR* Adenosine 6 MG/2 ML VIAL IVP ONE ×2 (08:40→08:46)
--- NOTE | 2016-07-15 08:59 | Event Note ---
<Fabi Farfan - Last Filed: 07/15/16 09:58> Date of Encounter: 07/15/16 Time of Encounter: 08:40 at 0840 patient went into SVT and did not respond to vagal maneuvers. She received 6mg adenosine one time dose, converted to sinus tachycardia. Cardene gtt will be discontinued and patient will be started on cardizem gtt. attending physician will be made aware. Patient remains alert and continues to intermittently follow commands. will continue to monitor. <Seamus Dumont - Last Filed: 07/15/16 11:59> Date of Encounter: 07/15/16 I examined this patient and my medical decision-making was reviewed with the HUMAN RESOURCES ADMIN/PA/Advanced Practice Nurse/Resident Physician. I agree with the documented findings, disposition and treatment plan as described except to the extent set forth below.
[2016-07-15] MEDS: Ketorolac 15 MG/ML VIAL IVP PRN (09:22)
--- NOTE | 2016-07-15 09:58 | Neurology Progress Note ---
Date of Encounter: 07/15/16 Time of Encounter: 09:55 Assessment and Plan (1) Acute metabolic encephalopathy Current Visit: Yes Status: Acute Patient continues to make slow improvements with regard to her mental status. She is now speaking a bit better, she is aware of her environment she knows that she is in [facility] she knows the month is July. She still remains a bit drowsy. She does not always completely follow commands correctly, and she informs me that she is in pain but does not elaborate on the nature of the pain. MRI scan of the brain reveals no evidence of an acute process. However her urine and sputumare reflective of different infectious processes. This may also be contributing to her mental status. My primary suspicion is that she likely experienced some element of anoxic brain injury as a result of her respiratory suppression. However this is improving. Time will tell to what extent she fully recovers. Of course her other acute medical issues may also have some bearing on this ultimately. We will reevaluate her at your request. Subjective Principal diagnosis: sepsis Interval history: The chart was reviewed, the patient was seen and examined. Case was discussed with nursing. Patient had a brief run of SVT this morning, she was given adenosine and converted back to normal sinus rhythm. Apparently her urine was positive for Klebsiella, sputum reveals gram-positive rods, and gram-positive cocci. Chest x-ray reveals LLL consolidation. The patient continues to make slow improvements from a neurologic perspective. She still remains groggy however again makes eye contact, she follows some simple commands but not all. She is able to speak. She knows the month is July she knows that she is in [facility]. She could not tell me the year. She recognized the number of fingers that I held up 2 different times. She squeezes with both both hands and wiggles the toes on command. She tells me that she is "in pain" but she does not tell me specifically where the pain is. MRI scan of the brain was completed yesterday evening and reveals diffuse cortical atrophy, there is chronic deep white matter change present, no evidence of acute infarction is present. Objective - Constitutional Vitals: Temp Pulse Resp BP Pulse Ox 97.9 F 114 25 182/86 100 07/15/16 07:29 07/15/16 09:00 07/15/16 09:00 07/15/16 09:00 07/15/16 09:00 - Neurological Exam Motor Examination: Present: other (Unable to assess due to lack of the patient' s cooperation. Movement of the patient's upper extremities does not demonstrate any flaccidity or rigidity) Sensation intact: Present: other (Unable to assess due to patient's non-verbal state) Mental Status Examination: Present: awake (The patient will not follow motor commands. She will state her name when asked, but is difficult to understand. When asked what her last name is she will repeat her first name.), does not follow commands, drowsy, opens eyes to voice, makes eye contact Cranial nerve examination: Present: PERRL, EOMI (able to track left and right as I moved in the room, but unable to assess vertical movement), corneal reflexes brisk symmetrically, no facial asymmetry is present, gag diminished Additional comments: Today's exam as stated in the history of present illness. Bilateral Babinskis remain. Results - Laboratory Findings CBC and BMP: 07/15/16 04:26 07/15/16 04:26 Abnormal lab findings: Abnormal lab results ESR 73 mm/hr (0-15) H 07/15/16 04:26 PT 12.4 Seconds (9.4-12.1) H 07/12/16 06:03 VBG HCO3 30.3 mEq/L (21-27) H 07/11/16 18:43 Carbon Dioxide 18 mEq/L (19-29) L 07/15/16 04:26 Glucose 131 mg/dL (70-99) H 07/15/16 04:26 POC Glucose 122 (58-89) H 07/15/16 07:10 Hemoglobin A1c 7.0 % (-5.6) H 07/12/16 06:03 Uric Acid 2.1 mg/dL (2.6-6.0) L 07/14/16 04:11 Ionized Calcium 1.06 mmol/L (1.15-1.35) L 07/15/16 04:26 Creatine Kinase 19 Units/L (29-168) L 07/13/16 03:15 C-Reactive Protein 180 mg/L (Less than 5) H 07/15/16 04:26 Urine Clarity Cloudy (Clear) A 07/11/16 22:08 Urine Blood Trace (Negative) H 07/11/16 22:08 Ur Leukocyte Esterase Large (Negative) H 07/11/16 22:08 Urine Microscopic RBC 5-15 per hpf (0-3) H 07/11/16 22:08 Urine Microscopic WBC TNTC per hpf (0-3) H 07/11/16 22:08 Ur Squamous Epith Cells Many per lpf (None-Few) H 07/11/16 22:08 Urine Bacteria Many per hpf (None-Few) H 07/11/16 22:08 Ur Culture Indicated? YES (NO) A 07/11/16 22:08 Salicylates < 5.0 mg/dL (15-30) L 07/11/16 18:43 Acetaminophen < 1.0 mcg/mL (10-30) L 07/11/16 18:43 U Benzodiazepines Scrn Positive ng/mL (Wzpvqq=841) H 07/11/16 22:08 Consult Discharge Plan - Plan Referrals: NO,PCP [Primary Care Provider] -
[2016-07-15] MEDS: Budesonide/Formoterol 160/4.5 MDI IH SCH ×2 (10:29→21:44)
[2016-07-16] MEDS: Ampicillin/Sulbactam 3,000 MG in 0.9 % Sodium Chloride Mini Bag 100 ML IVPB SCH ×4 (00:54→17:04)
[2016-07-16] MEDS: Lacri-Lube 3.5 GM TUBE BOTH EYES SCH ×3 (00:56→08:26)
[2016-07-16] MEDS: Insulin LISPRO 300 UNITS/3 ML VIAL SQ SCH ×6 (00:56→20:28)
[2016-07-16 02:42] LABS: Ionized Calcium 1.23 mmol/L (1.15-1.35)
[2016-07-16 02:50] LABS: BUN/Creatinine Ratio 29 (6-26); Blood Urea Nitrogen 23 mg/dL (7-20); Calcium 9.3 mg/dL (8.6-10.8); Carbon Dioxide 22 mEq/L (19-29); Chloride 111 mEq/L (98-109); Glucose 140 mg/dL (70-99); Magnesium 1.7 mg/dL (1.6-2.6); Osmolality,Calculated 302 (280-300); Phosphorous 3.2 mg/dL (2.3-4.7); Potassium 3.9 mEq/L (3.5-4.5); Sodium 143 mEq/L (136-145); eGFR For African Americans > 60 (> 60); eGFR For Non-African Americans > 60 (> 60)
[2016-07-16 02:56] LABS: Basophils % 0.6 %; Eosinophils # 0.2 K/mcL (0.0-0.6); Eosinophils % 4.4 %; Hematocrit 39.2 % (35.3-44.9); Hemoglobin 12.6 g/dL (11.5-15.4); Immature Granulocytes % 0.8 % (0-4); Mean Corpuscular HGB Conc 32.1 g/dL (31.6-35.5); Mean Corpuscular Hemoglobin 28.1 pg (28.0-33.3); Mean Corpuscular Volume 87.5 fL (83.0-100.0); Mean Platelet Volume 10.5 fL (9.4-12.4); Monocytes # 0.4 K/mcL (0.0-1.3); Platelet Count 294 K/mcL (140-400); Red Blood Count 4.48 M/mcL (3.82-4.97); Red Cell Distribution Width 12.7 % (11.5-14.5); Segmented Neutrophils % 68.2 %
[2016-07-16 02:57] LABS: Neutrophils # 3.6 K/mcL (1.6-8.9)
[2016-07-16 03:49] LABS: Platelet Estimate Normal (Normal)
[2016-07-16] MEDS: *HR* Heparin 5,000 UNIT/ML VIAL SQ SCH (05:04)
[2016-07-16] MEDS: Pantoprazole 40 MG VIAL IVPB SCH (05:04)
[2016-07-16] MEDS: Magnesium Sulfate 2 GM in D5% in Water 100 ML IVPB PRN (05:27)
[2016-07-16] MEDS: Budesonide/Formoterol 160/4.5 MDI IH SCH ×3 (07:43→19:57)
[2016-07-16] MEDS: Lisinopril 20 MG TABLET PO SCH ×2 (08:26→20:28)
[2016-07-16] MEDS: Chlorhexidine Rinse 15 ML MOUTHWASH MM SCH (08:27)
--- NOTE | 2016-07-16 09:01 | Pulmonology Progress Note ---
<NormanshanSeamus alberto M - Last Filed: 07/16/16 10:51> Date of Encounter: 07/16/16 Objective PUL Vital signs: Last Vital Signs Temp 98.6 F 07/16/16 07:45 Pulse 94 07/16/16 09:00 Resp 20 07/16/16 09:00 BP 135/84 07/16/16 09:00 Pulse Ox 97 07/16/16 09:00 Results - Laboratory Findings CBC and BMP: 07/16/16 02:26 07/16/16 02:26 ABG ABG pH 7.41 pH Units (7.32-7.45) 07/13/16 04:48 ABG pCO2 38 mmHg (35-45) 07/13/16 04:48 ABG pO2 95 mmHg (85-104) 07/13/16 04:48 ABG O2 Saturation 98 % (95-98) 07/13/16 04:48 PT/INR, D-dimer PT 12.4 Seconds (9.4-12.1) H 07/12/16 06:03 Abnormal lab findings: Abnormal lab results ESR 73 mm/hr (0-15) H 07/15/16 04:26 PT 12.4 Seconds (9.4-12.1) H 07/12/16 06:03 VBG HCO3 30.3 mEq/L (21-27) H 07/11/16 18:43 Chloride 111 mEq/L (98-109) H 07/16/16 02:26 BUN 23 mg/dL (7-20) H D 07/16/16 02:26 BUN/Creatinine Ratio 29 (6-26) H 07/16/16 02:26 Glucose 140 mg/dL (70-99) H 07/16/16 02:26 POC Glucose 139 (58-89) H 07/16/16 07:39 Hemoglobin A1c 7.0 % (-5.6) H 07/12/16 06:03 Calculated Osmolality 302 (280-300) H 07/16/16 02:26 Uric Acid 2.1 mg/dL (2.6-6.0) L 07/14/16 04:11 Creatine Kinase 19 Units/L (29-168) L 07/13/16 03:15 C-Reactive Protein 180 mg/L (Less than 5) H 07/15/16 04:26 Urine Clarity Cloudy (Clear) A 07/11/16 22:08 Urine Blood Trace (Negative) H 07/11/16 22:08 Ur Leukocyte Esterase Large (Negative) H 07/11/16 22:08 Urine Microscopic RBC 5-15 per hpf (0-3) H 07/11/16 22:08 Urine Microscopic WBC TNTC per hpf (0-3) H 07/11/16 22:08 Ur Squamous Epith Cells Many per lpf (None-Few) H 07/11/16 22:08 Urine Bacteria Many per hpf (None-Few) H 07/11/16 22:08 Ur Culture Indicated? YES (NO) A 07/11/16 22:08 Salicylates < 5.0 mg/dL (15-30) L 07/11/16 18:43 Acetaminophen < 1.0 mcg/mL (10-30) L 07/11/16 18:43 U Benzodiazepines Scrn Positive ng/mL ([id number]) H 07/11/16 22:08 - Microbiology Findings Microbiology Findings: Microbiology, Last 48 Hours 07/12/16 18:37 Sputum Culture - Final Sputum 07/12/16 18:47 Blood Culture - Preliminary Peripheral Venipuncture No growth. 07/12/16 18:41 Blood Culture - Preliminary Peripheral Venipuncture No growth. - Clinical Findings Intake & Output: Intake & Output 07/15/16 07/16/16 07/16/16 23:59 07:59 15:59 Intake Total 460 / 460 200 / 200 80 / 80 Output Total 400 / 400 175 / 175 Balance 60 / 60 25 / 25 80 / 80 Weight 90.855 kg Consult Discharge Plan - Plan Referrals: NO,PCP [Primary Care Provider] - - Attending Attestation I examined this patient and my medical decision-making was reviewed with the COMPENSATION SUPERVISOR/PA/Advanced Practice Nurse/Resident Physician. I agree with the documented findings, disposition and treatment plan as described except to the extent set forth below. Patient seen and examined. Labs, radiology, chart personally reviewed. Agree with resident's history and physical, assessment, plan with following comments: SNUFF DRIER: Patient follows commands, Pulmonary: Acceptable oxygenation and ventilation Cardiovascular: stable GI: Nutrition per dietary and GI prophylaxis per routine Heme: DVT prophylaxis per routine ID: Continue antibiotics and plan to de-escalation Renal; urine out put and renal funtion reviewed Endorcine: blood glucose is monitored Lines: all lines checked and no evidence of infections Skin: skin care to prevent pressure ulcers per nursing routine care Patient is hemodynamically stable and she would be transferred to the floor. <Fabi Farfan - Last Filed: 07/16/16 13:23> Date of Encounter: 07/16/16 Time of Encounter: 08:59 Assessment and Plan (1) Sepsis Current Visit: Yes Status: Resolved CXR showed LLL consolidation. concern for aspiration secondary to benzodiazepine overdose. Patient received one dose of ceftriaxone. influenza A/B negative prelim sputum culture grew gram positive cocci and gram positive rods. urine culture grew E coli and klebsiella, holder sensitive. Plan: Got one dose of Ceftriaxone, unsasyn (day 5) for possible aspiration. prelim blood cultures showed no growth. patient continues to maintain oxygenation well without BiPAP continue PT/OT and begin discharge planning. patient will likely need to be in fpc. Plan to transfer out of ICU today. Qualifiers: Sepsis type: sepsis due to unspecified organism Qualified Code(s): A41.9 - Sepsis, unspecified organism (2) Drug overdose Current Visit: Yes Status: Acute EEG performed yesterday showed mild to moderate encephalopathy, no seizure activity. MRI showed no acute abnormality. patient states this is not a suicide attempt, but an accidental overdose, as she took her pills accidentaly. she claims she was not having thoughts of suicide or homocide. continue to monitor. Qualifiers: Encounter type: initial encounter Injury intent: intentional self-harm Qualified Code(s): T50.902A - Poisoning by unspecified drugs, medicaments and biological substances, intentional self-harm, initial encounter (3) Acute respiratory failure Current Visit: No Status: Resolved etiology likely secondary to benzodiazepine overdose. initial ABG showed mild respiratory acidosis, which was resolved after intubation. plan: patient continues to maintain O2 sat. Continue to monitor. Qualifiers: Respiratory failure complication: unspecified whether with hypoxia or hypercapnia Qualified Code(s): J96.00 - Acute respiratory failure, unspecified whether with hypoxia or hypercapnia (4) UTI (urinary tract infection) Current Visit: Yes Status: Resolved urinalysis showed evidence of infection. urine culture grew pseudomonas and klebsiella. Plan: got 1 dose of ceftriaxone antibiotic switched to unasyn due to possible aspiration pneumonia. Qualifiers: Urinary tract infection type: acute cystitis Hematuria presence: with hematuria Qualified Code(s): N30.01 - Acute cystitis with hematuria (5) H/O supraventricular tachycardia Current Visit: Yes Status: Acute currently regular rate and rhythm EKG reviewed, did not show evidence of prolonged QT interval. Plan: continue home meds rhythmol and cardizem (6) DM2 (diabetes mellitus, type 2) Current Visit: No Status: Chronic A1C noted to be 7. patient takes metformin at home, which is being held Plan: sugars well controlled at this time low dose sliding scale insulin with ACHS accuchecks Qualifiers: Diabetes mellitus complication status: with unspecified complications Diabetes mellitus fdc insulin use: without fdc use Qualified Code( s): E11.8 - Type 2 diabetes mellitus with unspecified complications (7) HTN (hypertension) Current Visit: No Status: Chronic currently normotensive continue home med lisinopril. hydralazine PRN Qualifiers: Hypertension type: essential hypertension Qualified Code(s): I10 - Essential (primary) hypertension (8) DVT prophylaxis Current Visit: Yes Status: Acute Heparin SQ Neuro/sedation: patient alert, oriented. continues to try and follow commands. very weak muscle strength. EEG and MRI negative. pulmonology: CXR showed LLL consolidation, possible aspiration pneumonia secondary to overdose. Unasyn day 5 . CV: continue lisinopril for HTN, cardizem and rhythmol for SVT GI: omeprazole for GI prophylaxis Renal: will monitor electrolytes and replace as per protocol. ID: urine culture grew E.Coli and Klebsiella. sputum culture prelim grew gram positive rods and gram positive cocci. final culture pending. prelim blood culture showed no growth. Unasyn day 5 heme/onc: stable H/H. white count now normal. Heparin SQ for DVT prophylaxis. ENdo: hx of DM 2, hold metformin, low dose sliding scale insulin with ACHS accuchecks. sugars well controlled at this time. integ/MSK: skincare as per ICU protocol. Subjective Principal diagnosis: sepsis Interval history: 71 year old female evaluated at bedside. per nursing staff, there were no acute events overnight. patient continues to complain of pain in her back and knees. she denies nausea, vomiting, fever, chills. she has no further complaints today. Objective PUL Vital signs: Last Vital Signs Temp 98.6 F 07/16/16 07:45 Pulse 91 07/16/16 07:00 Resp 17 07/16/16 06:30 BP 129/64 07/16/16 06:30 Pulse Ox 98 07/16/16 06:30 General appearance: no acute distress, alert Auscultation: bilateral: clear Cardiovascular: regular rate and rhythm Gastrointestinal: normoactive bowel sounds, soft Integumentary: normal Extremities: no cyanosis, other (mild lower extremity edema. ) Musculoskeletal: joint inflammation, joint tenderness pupils equal and round, other (patient continues to follow commands. muscle strength continues to be very weak. ) other (flat affect) Results - Laboratory Findings CBC and BMP: 07/16/16 02:26 07/16/16 02:26 ABG ABG pH 7.41 pH Units (7.32-7.45) 07/13/16 04:48 ABG pCO2 38 mmHg (35-45) 07/13/16 04:48 ABG pO2 95 mmHg (85-104) 07/13/16 04:48 ABG O2 Saturation 98 % (95-98) 07/13/16 04:48 PT/INR, D-dimer PT 12.4 Seconds (9.4-12.1) H 07/12/16 06:03 Abnormal lab findings: Abnormal lab results ESR 73 mm/hr (0-15) H 07/15/16 04:26 PT 12.4 Seconds (9.4-12.1) H 07/12/16 06:03 VBG HCO3 30.3 mEq/L (21-27) H 07/11/16 18:43 Chloride 111 mEq/L (98-109) H 07/16/16 02:26 BUN 23 mg/dL (7-20) H D 07/16/16 02:26 BUN/Creatinine Ratio 29 (6-26) H 07/16/16 02:26 Glucose 140 mg/dL (70-99) H 07/16/16 02:26 POC Glucose 139 (58-89) H 07/16/16 07:39 Hemoglobin A1c 7.0 % (-5.6) H 07/12/16 06:03 Calculated Osmolality 302 (280-300) H 07/16/16 02:26 Uric Acid 2.1 mg/dL (2.6-6.0) L 07/14/16 04:11 Creatine Kinase 19 Units/L (29-168) L 07/13/16 03:15 C-Reactive Protein 180 mg/L (Less than 5) H 07/15/16 04:26 Urine Clarity Cloudy (Clear) A 07/11/16 22:08 Urine Blood Trace (Negative) H 07/11/16 22:08 Ur Leukocyte Esterase Large (Negative) H 07/11/16 22:08 Urine Microscopic RBC 5-15 per hpf (0-3) H 07/11/16 22:08 Urine Microscopic WBC TNTC per hpf (0-3) H 07/11/16 22:08 Ur Squamous Epith Cells Many per lpf (None-Few) H 07/11/16 22:08 Urine Bacteria Many per hpf (None-Few) H 07/11/16 22:08 Ur Culture Indicated? YES (NO) A 07/11/16 22:08 Salicylates < 5.0 mg/dL (15-30) L 07/11/16 18:43 Acetaminophen < 1.0 mcg/mL (10-30) L 07/11/16 18:43 U Benzodiazepines Scrn Positive ng/mL (Psmsqe=904) H 07/11/16 22:08 - Microbiology Findings Microbiology Findings: Microbiology, Last 48 Hours 07/12/16 18:37 Sputum Culture - Final Sputum 07/12/16 18:47 Blood Culture - Preliminary Peripheral Venipuncture No growth. 07/12/16 18:41 Blood Culture - Preliminary Peripheral Venipuncture No growth. - Clinical Findings Intake & Output: Intake & Output 07/15/16 07/16/16 07/16/16 23:59 07:59 15:59 Intake Total 460 / 460 200 / 200 Output Total 400 / 400 175 / 175 Balance 60 / 60 25 / 25 Weight 90.855 kg
[2016-07-16] MEDS ORDERED: Ipratropium/Albuterol Neb 3 ML IH PRN (09:44)
[2016-07-16] MEDS ORDERED: D5% in Water 1,000 ML IVC PRN (09:44)
[2016-07-16] MEDS ORDERED: *HR* LORazepam 2 MG/ML VIAL IVP PRN (09:44)
[2016-07-16] MEDS ORDERED: *HR* Dextrose 50 % in Water (Syg) 50 ML SYRINGE IVP PRN (09:44)
[2016-07-16] MEDS ORDERED: Dextrose Gel 15 GM PO PRN ×2 (09:44)
[2016-07-16] MEDS ORDERED: Acetaminophen 325 MG TABLET PO PRN (09:44)
[2016-07-16] MEDS ORDERED: Naloxone 0.4 MG/ML INJ IVP PRN (09:44)
--- NOTE | 2016-07-16 11:35 | Procedure Note ---
Date of procedure: 07/16/16 Pre-op diagnosis: septic shock Post-op diagnosis: same
[2016-07-16] MEDS: Ketorolac 15 MG/ML VIAL IVP PRN ×2 (13:55→20:28)
[2016-07-17] MEDS: Insulin LISPRO 300 UNITS/3 ML VIAL SQ SCH ×6 (00:18→20:50)
[2016-07-17] MEDS: Ampicillin/Sulbactam 3,000 MG in 0.9 % Sodium Chloride Mini Bag 100 ML IVPB SCH ×4 (00:47→18:52)
[2016-07-17] MEDS: Ketorolac 15 MG/ML VIAL IVP PRN ×2 (04:48→10:48)
[2016-07-17 05:17] LABS: Basophils % 0.5 %; Eosinophils # 0.2 K/mcL (0.0-0.6); Eosinophils % 4.7 %; Hematocrit 38.4 % (35.3-44.9); Hemoglobin 12.6 g/dL (11.5-15.4); Immature Granulocytes % 1.2 % (0-4); Lymphocytes % 24.2 %; Mean Corpuscular HGB Conc 32.8 g/dL (31.6-35.5); Mean Corpuscular Volume 88.5 fL (83.0-100.0); Mean Platelet Volume 10.2 fL (9.4-12.4); Monocytes # 0.4 K/mcL (0.0-1.3); Monocytes % 8.6 %; Neutrophils # 2.6 K/mcL (1.6-8.9); Platelet Count 238 K/mcL (140-400); Red Blood Count 4.34 M/mcL (3.82-4.97); Red Cell Distribution Width 12.7 % (11.5-14.5); Segmented Neutrophils % 60.8 %
[2016-07-17 05:31] LABS: BUN/Creatinine Ratio 29 (6-26); Blood Urea Nitrogen 24 mg/dL (7-20); Calcium 9.3 mg/dL (8.6-10.8); Carbon Dioxide 24 mEq/L (19-29); Chloride 112 mEq/L (98-109); Glucose 141 mg/dL (70-99); Magnesium 1.4 mg/dL (1.6-2.6); Osmolality,Calculated 306 (280-300); Phosphorous 3.7 mg/dL (2.3-4.7); Sodium 145 mEq/L (136-145); eGFR For African Americans > 60 (> 60); eGFR For Non-African Americans > 60 (> 60)
[2016-07-17 05:32] LABS: Ionized Calcium 1.31 mmol/L (1.15-1.35)
[2016-07-17] MEDS ORDERED: Pantoprazole 40 MG VIAL IVPB SCH (06:30)
[2016-07-17] MEDS: Budesonide/Formoterol 160/4.5 MDI IH SCH ×2 (07:47→20:35)
[2016-07-17] MEDS: Lisinopril 20 MG TABLET PO SCH ×2 (08:33→20:50)
--- NOTE | 2016-07-17 12:28 | Electrocardiograph Report ---
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
--- NOTE | 2016-07-17 13:39 | Internal Med Progress Note ---
Date of Encounter: 07/17/16 Time of Encounter: 13:37 - Assessment and plan (1) Drug overdose Current Visit: Yes Status: Acute Assessment and plan: due to Xanax overdose EEG showed mild to moderate encephalopathy, no seizure activity. MRI showed no acute abnormality. patient states this was not a suicide attempt, but an accidental overdose, as she took her pills accidentaly. she claimed she was not having thoughts of suicide or homocide. continue to monitor. Qualifiers: Encounter type: initial encounter Injury intent: intentional self-harm Qualified Code(s): T50.902A - Poisoning by unspecified drugs, medicaments and biological substances, intentional self-harm, initial encounter (2) Aspiration pneumonia Current Visit: Yes Status: Acute Assessment and plan: acute hypoxic respiratory failure due to benzo overdose and sepsis due to aspiration pneumonia CXR showed LLL consolidation. concern for aspiration secondary to benzodiazepine overdose. Patient received one dose of ceftriaxone. influenza A/B negative prelim sputum culture grew gram positive cocci and gram positive rods. urine culture grew E coli and klebsiella, holder sensitive. Got one dose of Ceftriaxone, unsasyn (day 6) blood cultures showed no growth. patient continues to maintain oxygenation well without BiPAP Qualifiers: Aspiration pneumonia type: due to gastric secretions Laterality: left Lung location: lower lobe of lung Qualified Code(s): J69.0 - Pneumonitis due to inhalation of food and vomit (3) Sepsis Current Visit: Yes Status: Resolved Qualifiers: Sepsis type: sepsis due to unspecified organism Qualified Code(s): A41.9 - Sepsis, unspecified organism (4) Acute exacerbation of chronic obstructive airways disease Current Visit: No Status: Acute (5) HTN (hypertension) Current Visit: No Status: Chronic Assessment and plan: continue lisinopril Qualifiers: Hypertension type: essential hypertension Qualified Code(s): I10 - Essential (primary) hypertension (6) Acute respiratory failure Current Visit: No Status: Resolved Qualifiers: Respiratory failure complication: unspecified whether with hypoxia or hypercapnia Qualified Code(s): J96.00 - Acute respiratory failure, unspecified whether with hypoxia or hypercapnia (7) UTI (urinary tract infection) Current Visit: Yes Status: Resolved Assessment and plan: urinalysis showed evidence of infection. urine culture grew pseudomonas and klebsiella. Qualifiers: Urinary tract infection type: acute cystitis Hematuria presence: with hematuria Qualified Code(s): N30.01 - Acute cystitis with hematuria (8) H/O supraventricular tachycardia Current Visit: Yes Status: Acute Assessment and plan: Developed SVT required adenosine currently regular rate and rhythm EKG reviewed, did not show evidence of prolonged QT interval. continue home meds rhythmol and cardizem (9) Acute metabolic encephalopathy Current Visit: Yes Status: Acute (10) DM2 (diabetes mellitus, type 2) Current Visit: No Status: Chronic Assessment and plan: A1C noted to be 7. patient takes metformin at home, which is being held low dose sliding scale insulin with ACHS accuchecks Qualifiers: Diabetes mellitus complication status: with unspecified complications Diabetes mellitus extermination inspector insulin use: without extermination inspector use Qualified Code( s): E11.8 - Type 2 diabetes mellitus with unspecified complications - Subjective Interval history: the patient is complaining of back pain , is oriented, denies CP or SOB, no dyruia, no abdominal pain , no fever - Constitutional Vitals: Temp Pulse Resp BP Pulse Ox 97.7 F 85 18 168/84 99 07/17/16 10:57 07/17/16 10:57 07/17/16 10:57 07/17/16 10:57 07/17/16 10:57 General appearance: Present: A&O X 3 - Head Head exam: Present: atraumatic, normocephalic - Eye Eye exam: Present: PERRL, conjuntiva pink, sclera anicteric Pupils: Present: PERRL - Neck Neck exam general surgery: Present: supple, trachea midline. Absent: lymphadenopathy - Respiratory Respiratory exam: Present: decreased breath sounds, CTAB. Absent: accessory muscle use, rales, rhonchi, wheezes - Cardiovascular Cardiovascular exam: Present: RRR, +S1, +S2. Absent: diastolic murmur, gallop, rubs, systolic murmur - GI/Abdominal GI/Abdominal exam: Present: normal bowel sounds, soft, no peritoneal signs. Absent: distended, tenderness - Extremities Exam Extremities exam: Present: warm, radial pulses palpable and symetrical. Absent : calf tenderness, cyanotic, pedal edema - Neurological Exam Neurological exam: Present: CN II-XII intact, oriented X3, no focal deficits. Absent: pronater drift, facial droop, speech deficit Additional comments: gets confused at times - Skin Skin exam: Present: dry, intact Internal Medicine: Result - Labs CBC & Chem 7: 07/17/16 04:51 07/17/16 04:51 Labs: Short CBC 07/17/16 Range/Units 04:51 WBC 4.3 (4.3-11.1) K/mcL Hgb 12.6 (11.5-15.4) g/dL Hct 38.4 (35.3-44.9) % Plt Count 238 (140-400) K/mcL Neutrophils # 2.6 (1.6-8.9) K/mcL BMP 07/17/16 04:51 Sodium 145 Potassium 4.0 Chloride 112 H Carbon Dioxide 24 BUN 24 H Creatinine 0.82 Glucose 141 H Calcium 9.3 - ABG Interpretation ABG results: ABG ABG pH 7.41 pH Units (7.32-7.45) 07/13/16 04:48 ABG pCO2 38 mmHg (35-45) 07/13/16 04:48 ABG pO2 95 mmHg (85-104) 07/13/16 04:48 ABG O2 Saturation 98 % (95-98) 07/13/16 04:48 PT/INR, D-dimer PT 12.4 Seconds (9.4-12.1) H 07/12/16 06:03 Consult Discharge Plan - Plan Referrals: NO,PCP [Primary Care Provider] -
[2016-07-17] MEDS: *HR* OxyCODONE/APAP 7.5/325 TABLET PO PRN ×2 (15:09→20:50)
[2016-07-18] MEDS: Insulin LISPRO 300 UNITS/3 ML VIAL SQ SCH ×4 (00:19→11:31)
[2016-07-18] MEDS: Ampicillin/Sulbactam 3,000 MG in 0.9 % Sodium Chloride Mini Bag 100 ML IVPB SCH ×3 (00:23→11:22)
[2016-07-18] MEDS: *HR* OxyCODONE/APAP 7.5/325 TABLET PO PRN ×2 (02:55→09:37)
[2016-07-18] MEDS: Budesonide/Formoterol 160/4.5 MDI IH SCH (07:47)
[2016-07-18] MEDS: Lisinopril 20 MG TABLET PO SCH (09:38)
[2016-07-18 10:25] VITALS: BP 180/79
--- NOTE | 2016-07-18 10:29 | Discharge Summary ---
Date of Encounter: 07/18/16 Time of Encounter: 10:24 - Discharge Diagnosis (1) Drug overdose Priority: Primary Status: Acute Comments: due to Xanax overdose Qualifiers: Encounter type: initial encounter Injury intent: intentional self-harm Qualified Code(s): T50.902A - Poisoning by unspecified drugs, medicaments and biological substances, intentional self-harm, initial encounter (2) Aspiration pneumonia Priority: Primary Status: Acute Comments: acute hypoxic respiratory failure due to benzo overdose and sepsis due to aspiration pneumonia Qualifiers: Aspiration pneumonia type: due to gastric secretions Laterality: left Lung location: lower lobe of lung Qualified Code(s): J69.0 - Pneumonitis due to inhalation of food and vomit (3) Sepsis Priority: Primary Status: Resolved Qualifiers: Sepsis type: sepsis due to unspecified organism Qualified Code(s): A41.9 - Sepsis, unspecified organism (4) Acute exacerbation of chronic obstructive airways disease Priority: Primary Status: Acute (5) HTN (hypertension) Priority: Secondary Status: Chronic Qualifiers: Hypertension type: essential hypertension Qualified Code(s): I10 - Essential (primary) hypertension (6) Acute respiratory failure Priority: Primary Status: Resolved Qualifiers: Respiratory failure complication: unspecified whether with hypoxia or hypercapnia Qualified Code(s): J96.00 - Acute respiratory failure, unspecified whether with hypoxia or hypercapnia (7) UTI (urinary tract infection) Priority: Secondary Status: Resolved Qualifiers: Urinary tract infection type: acute cystitis Hematuria presence: with hematuria Qualified Code(s): N30.01 - Acute cystitis with hematuria (8) H/O supraventricular tachycardia Priority: Secondary Status: Acute (9) Acute metabolic encephalopathy Priority: Primary Status: Acute (10) DM2 (diabetes mellitus, type 2) Priority: Secondary Status: Chronic Qualifiers: Diabetes mellitus complication status: with unspecified complications Diabetes mellitus rat exterminator insulin use: without fdc use Qualified Code( s): E11.8 - Type 2 diabetes mellitus with unspecified complications - Discharge Medications Prescriptions: ALPRAZolam [Xanax 0.5 MG Tablet] 0.5 mg PO TID #30 tablet Aripiprazole [Abilify] 5 mg PO DAILY #30 tablet Oxycodone HCl/Acetaminophen [Percocet 7.5-325 mg Tablet] 1 each PO TID PRN #21 tablet PRN Reason: Pain Home Medications: Diltiazem CD (24hr) [Cardizem CD] 120 mg PO DAILY 07/23/15 [History] Folic Acid 1 mg PO DAILY 07/23/15 [History] GuaiFENesin ER [Mucinex] 600 mg PO Q12H PRN 07/23/15 [History] Lisinopril [Zestril] 20 mg PO BID 07/23/15 [History] Propafenone HCl [Rythmol] 225 mg PO Q8H 07/23/15 [History] Solifenacin Succinate [Vesicare] 5 mg PO DAILY 07/23/15 [History] metFORMIN [Glucophage] 500 mg PO BIDWM 07/23/15 [History] Albuterol Sulfate [Ventolin Hfa] 2 puff IH Q4H PRN 03/14/16 [History] Atorvastatin [Lipitor] 10 mg PO HS 03/14/16 [History] Brimonidine Tartrate/Timolol [Combigan 0.2%-0.5% Eye Drops] 1 drop BOTH EYES BID 03/14/16 [History] Budesonide/Formoterol 160/4.5 [Symbicort 160/4.5] 2 puff IH BIDR 03/14/16 [ History] Cholecalciferol (D-3) [Vitamin D] 5,000 unit PO DAILY 03/14/16 [History] Citalopram Hydrobromide [Celexa] 40 mg PO DAILY 03/14/16 [History] Fenofibrate [Lofibra] 160 mg PO DAILY 03/14/16 [History] Multivitamin/Iron/Folic Acid [Cerovite Advanced Form Tab] 1 each PO DAILY [History] Omeprazole [PriLOSEC] 40 mg PO DAILY 03/14/16 [History] Thiamine Mononitrate [Vitamin B-1] 100 mg PO DAILY 03/14/16 [History] Vitamin E 1,000 unit PO DAILY 03/14/16 [History] Oxygen 3 l IN CONT #1 each 03/21/16 [Rx] ALPRAZolam [Xanax 0.5 MG Tablet] 0.5 mg PO TID #30 tablet 07/18/16 [Rx] Aripiprazole [Abilify] 5 mg PO DAILY #30 tablet 07/18/16 [Rx] Oxycodone HCl/Acetaminophen [Percocet 7.5-325 mg Tablet] 1 each PO TID PRN #21 tablet 07/18/16 [Rx] Allergies/Adverse Reactions: Allergies gabapentin Adverse Reaction (Verified 03/14/16 20:23) Confusion Methadone Adverse Reaction (Verified 03/14/16 20:23) Confusion morphine Adverse Reaction (Verified 03/14/16 20:23) Confusion Zolpidem [From Ambien] Adverse Reaction (Verified 03/14/16 20:23) Confusion Procedures/tests Complete & Pending: Procedures Performed prior 72 hours Category Date Time Status EKG [ECG 12 lead ECG] [ECG] Routine Y 07/15/16 09:52 Completed Date of admission: 07/11/16 23:50 Primary care physician: PCP NO Consults: 07/12/16 00:43 Consult to Pulmonology [CONS] Routine Consulting Provider: [facility] Reason for Consult: Benzo overdose/Resp failure Time Notified: 06:00 Call Completed: Yes 07/13/16 10:12 Consult to Interpret Exam [CONS] Routine Consulting Provider: James Cunningham Consult to Interpret Exam: Interpret EEG 07/13/16 10:29 Consult to Special Education Aide [CONS] Routine Reason for SW Consult: possible accidental drug overdose 07/14/16 08:03 Consult to Neurology [CONS] Routine Consulting Provider: Neurology [facility] Reason for Consult: possible anoxic brain injury, extubated, not following commands, Time Notified: 08:03 Call Completed: Yes 07/15/16 08:39 Consult to Speech Therapy [CONS] Routine Comment: Evaluate, develop and implement POC Reason for Consult: xanax overdose, s/p extubation. needs speech and swallow eval. Call Completed: No 07/15/16 13:23 Consult to Occupational Therapy [CONS] Routine Comment: Evaluate, develop and implement POC Reason for Consult: patient bedridden for many days, weak Consult to Physical Therapy [CONS] Routine Comment: Evaluate, develop and implement POC Reason for Consult: patient bedridden for many days, weak - Patient Status Disposition: Transfer SNF Condition: Fair Overall status at discharge: patient is progressing back to baseline - Discharge Instructions Follow Up With: NO,PCP [Primary Care Provider] - Additional Instructions: Follow up with the primary care physician after being discharged from the snf facility. Needs a follow-up with psychiatry within the next 1- 2 weeks. Mechanical altered diet with thin liquids as recommended by speech pathology - Diet and Activity Activity: increase activity as tolerated Diet: other (Mechanical altered diet with thin liquids as recommended by speech pathology) Hospital course: Ms. Lemon is a 71 year old female with a past medical history of COPD not oxygen dependent, diabetes type 2 not insulin-dependent, osteoporosis, SVT, depression and anxiety, who presents with an overdose. The patient was intubated and sedated on arrival to the ICU. History was extremely limited . Apparently the patient took 30 0.5 mg Xanax tablets prior to arrival. Upon presentation the emergency department the patient was somnolent but stable and protecting her airway at that time. However, throughout her stay in the emergency department she began to have trouble handling her secretions and there is concern for airway compromise and the patient was intubated. Patient was then transferred to the ICU on mechanical ventilation. Overdosed on Xanax, developed acute respiratory failure, also acute hypoxic respiratory failure due to benzo overdose and sepsis due to aspiration pneumonia. CXR showed LLL consolidation. concern for aspiration secondary to benzodiazepine overdose. Patient received one dose of ceftriaxone, then completed 7 days of Unasyn. Blood cultures had showed no growth influenza A/B was negative sputum culture grew gram positive cocci and gram positive rods. urine culture grew E coli and klebsiella, holder sensitive. EEG showed mild to moderate encephalopathy, no seizure activity. MRI showed no acute abnormality. Patient states this was not a suicide attempt, but an accidental overdose, as she took her pills accidentaly. She claimed she was not having thoughts of suicide or homocide. During her hospitalization the patient developed SVT, required adenosine, currently regular rate and rhythm EKG, did not show evidence of prolonged QT interval, rhythmol and cardizem were continued. Stable to be discharged - Time Spent with Patient Total time spent providing and/or coordinating discharge services: Greater than 30 minutes (40 min) - Constitutional Vitals: Temp Pulse Resp BP Pulse Ox 98.4 F 89 16 159/71 98 07/18/16 07:16 07/18/16 07:16 07/18/16 07:48 07/18/16 07:16 07/18/16 07:48 General appearance: Present: A&O X 3 - Head Head exam: Present: atraumatic, normocephalic - Eye Eye exam: Present: PERRL, conjuntiva pink, sclera anicteric Pupils: Present: PERRL - Neck Neck exam general surgery: Present: supple, trachea midline. Absent: lymphadenopathy - Respiratory Respiratory exam: Present: CTAB. Absent: accessory muscle use, rales, rhonchi, wheezes - Cardiovascular Cardiovascular exam: Present: RRR, +S1, +S2. Absent: diastolic murmur, gallop, rubs, systolic murmur - GI/Abdominal GI/Abdominal exam: Present: distended, normal bowel sounds, soft, no peritoneal signs. Absent: tenderness - Extremities Exam Extremities exam: Present: warm, radial pulses palpable and symetrical. Absent : calf tenderness, cyanotic, pedal edema - Neurological Exam Neurological exam: Present: CN II-XII intact, oriented X3, no focal deficits. Absent: pronater drift, facial droop, speech deficit Additional comments: Gets easily confused and forgetful. Becomes disoriented in times, slow thinking. - Skin Skin exam: Present: dry, intact
--- NOTE | 2016-07-18 10:37 | Physician Discharge Referral ---
[facility] Referral Info Provider in Charge after Transfer: PCP Institutional Level of Care: Skilled - Diagnosis (1) Drug overdose Status: Acute (2) Aspiration pneumonia Status: Acute (3) Sepsis Status: Resolved (4) Acute exacerbation of chronic obstructive airways disease Status: Acute (5) HTN (hypertension) Status: Chronic (6) Acute respiratory failure Status: Resolved (7) UTI (urinary tract infection) Status: Resolved (8) H/O supraventricular tachycardia Status: Acute (9) Acute metabolic encephalopathy Status: Acute (10) DM2 (diabetes mellitus, type 2) Status: Chronic - Transfer Medications Prescriptions: ALPRAZolam [Xanax 0.5 MG Tablet] 0.5 mg PO TID #30 tablet Aripiprazole [Abilify] 5 mg PO DAILY #30 tablet Oxycodone HCl/Acetaminophen [Percocet 7.5-325 mg Tablet] 1 each PO TID PRN #21 tablet PRN Reason: Pain Home Medications: Diltiazem CD (24hr) [Cardizem CD] 120 mg PO DAILY 07/23/15 [History] Folic Acid 1 mg PO DAILY 07/23/15 [History] GuaiFENesin ER [Mucinex] 600 mg PO Q12H PRN 07/23/15 [History] Lisinopril [Zestril] 20 mg PO BID 07/23/15 [History] Propafenone HCl [Rythmol] 225 mg PO Q8H 07/23/15 [History] Solifenacin Succinate [Vesicare] 5 mg PO DAILY 07/23/15 [History] metFORMIN [Glucophage] 500 mg PO BIDWM 07/23/15 [History] Albuterol Sulfate [Ventolin Hfa] 2 puff IH Q4H PRN 03/14/16 [History] Atorvastatin [Lipitor] 10 mg PO HS 03/14/16 [History] Brimonidine Tartrate/Timolol [Combigan 0.2%-0.5% Eye Drops] 1 drop BOTH EYES BID 03/14/16 [History] Budesonide/Formoterol 160/4.5 [Symbicort 160/4.5] 2 puff IH BIDR 03/14/16 [ History] Cholecalciferol (D-3) [Vitamin D] 5,000 unit PO DAILY 03/14/16 [History] Citalopram Hydrobromide [Celexa] 40 mg PO DAILY 03/14/16 [History] Fenofibrate [Lofibra] 160 mg PO DAILY 03/14/16 [History] Multivitamin/Iron/Folic Acid [Cerovite Advanced Form Tab] 1 each PO DAILY [History] Omeprazole [PriLOSEC] 40 mg PO DAILY 03/14/16 [History] Thiamine Mononitrate [Vitamin B-1] 100 mg PO DAILY 03/14/16 [History] Vitamin E 1,000 unit PO DAILY 03/14/16 [History] Oxygen 3 l IN CONT #1 each 03/21/16 [Rx] ALPRAZolam [Xanax 0.5 MG Tablet] 0.5 mg PO TID #30 tablet 07/18/16 [Rx] Aripiprazole [Abilify] 5 mg PO DAILY #30 tablet 07/18/16 [Rx] Oxycodone HCl/Acetaminophen [Percocet 7.5-325 mg Tablet] 1 each PO TID PRN #21 tablet 07/18/16 [Rx] Allergies/Adverse Reactions: Allergies gabapentin Adverse Reaction (Verified 03/14/16 20:23) Confusion Methadone Adverse Reaction (Verified 03/14/16 20:23) Confusion morphine Adverse Reaction (Verified 03/14/16 20:23) Confusion Zolpidem [From Ambien] Adverse Reaction (Verified 03/14/16 20:23) Confusion - Respiratory Orders Smoking Cessation: Smoking cessation has been advised. For more information, call the [place] Tobacco Quit Line at 2-568-KWQS-NOW. - Advance Directives Code Status: Full Code - Treatments List/Other: Follow up with the primary care physician after being discharged from the custodial facility. Needs a follow-up with psychiatry within the next 1- 2 weeks. Mechanical altered diet with thin liquids as recommended by speech pathology. Aspiration precautions - Diet Orders Mechanical Soft CERTIFICATION: I certify that the transfer of the above named patient to an Extended Care Facility is necessary for the continuing treatment of the diagnosis listed. The above information is true and accurate reflection of patient's current condition. Confidential - Redisclosure prohibited without a patient's written consent.
== END 2016-07-18 13:38 | disposition home or self-care (01) | DRG 720 ==
LOC: EMEROO 18:11 → ICNU 23:50 → 3ANU 07-16 18:53
PROVIDERS: ADMIT Internal Medicine; ATTEND Internal Medicine Endocrinology, Diabetes & Metabolism

== ENCOUNTER 2018-06-15 15:51 | Inpatient (IN) ==
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
[2018-06-15 17:35] LABS: Basophils % 0.4 %; Eosinophils % 0.4 %; Hematocrit 40.9 % (35.3-44.9); Hemoglobin 13.4 g/dL (11.5-15.4); Immature Granulocytes % 0.5 % (0-4); Lymphocytes # 0.7 K/mcL (0.6-4.6); Lymphocytes % 9.4 %; Mean Corpuscular HGB Conc 32.8 g/dL (31.6-35.5); Mean Corpuscular Hemoglobin 28.6 pg (28.0-33.3); Mean Corpuscular Volume 87.4 fL (83.0-100.0); Monocytes # 0.5 K/mcL (0.0-1.3); Monocytes % 6.5 %; Neutrophils # 6.4 K/mcL (1.6-8.9); Platelet Count 311 K/mcL (140-400); Red Blood Count 4.68 M/mcL (3.82-4.97); Red Cell Distribution Width 13.4 % (11.5-14.5); Segmented Neutrophils % 82.8 %
[2018-06-15 17:46] LABS: INR 1.1; Prothrombin Time 12.2 Seconds (9.4-12.1)
[2018-06-15 17:49] LABS: Activated Partial Thrombo Time 27.7 Seconds (26.0-36.0)
[2018-06-15 17:57] LABS: Alanine Aminotransferase 24 Units/L (7-52); Albumin 3.3 g/dL (3.5-5.7); Albumin/Globulin Ratio 1.2 (1.1-2.2); Alkaline Phosphatase 116 Units/L (34-104); Aspartate Amino Transferase 20 Units/L (13-39); BUN/Creatinine Ratio 30 (6-26); Bilirubin,Direct 0.2 mg/dL (0.0-0.2); Bilirubin,Indirect 0.4 mg/dL (0.0-1.2); Bilirubin,Total 0.6 mg/dL (0.3-1.0); Blood Urea Nitrogen 25 mg/dL (8-23); Calcium 8.9 mg/dL (8.6-10.3); Carbon Dioxide 23 mEq/L (23-29); Chloride 107 mEq/L (98-107); Globulin 2.8 g/dL (2.4-3.5); Glucose 130 mg/dL (70-105); Osmolality,Calculated 296 (280-300); Potassium 3.3 mEq/L (3.5-5.1); Sodium 140 mEq/L (136-145); Total Protein 6.1 g/dL (6.4-8.9); Troponin I 0.85 ng/mL (< 0.04); eGFR For Non-African Americans > 60 (> 60)
[2018-06-15] MEDS ORDERED: Aspirin 325 MG TABLET PO ONE (17:57)
[2018-06-15] MEDS ORDERED: *HR* Heparin 5,000 UNIT/ML VIAL IVP ONE (18:16)
[2018-06-15] MEDS ORDERED: *HR* Heparin 5,000 UNIT/ML VIAL IVP PRN (18:16)
[2018-06-15] MEDS ORDERED: *HR* FentaNYL (PF) 100 MCG/2 ML VIAL IVP ONE (18:52)
[2018-06-15 19:00] LABS: Bilirubin,Urine Negative (Negative); Blood,Urine Negative (Negative); Clarity,Urine Cloudy (Clear); Color,Urine Yellow (Yellow); Glucose,Urine (UA) Normal (Normal); Ketones,Urine Negative (Negative); Leukocyte Esterase,Urine Small (Negative); Nitrite,Urine Positive (Negative); Protein,Urine 30 mg/dL (Neg-Trace); Specific Gravity,Urine 1.012 (1.010-1.025)
[2018-06-15 19:01] LABS: Bacteria,Urine Many per hpf (None-Few); Hyaline Casts,Urine Moderate per lpf (None-Few); Squamous Epithelial Cell,Urine Many per lpf (None-Few); WBC,Urine 15-30 per hpf (0-3)
[2018-06-15] MEDS ORDERED: cefTRIAXone 1,000 MG in Water for inj. (sterile) 20 ML 10 ML IVP ONE (19:03)
[2018-06-15 19:15] LABS: RBC,Urine 0-3 per hpf (0-3); Renal Epithelial Cells,Urine Few per hpf (None-Few); Transitional Epi Cells,Urine Few per hpf (None-Few)
--- NOTE | 2018-06-15 19:49 | Emergency Department Note ---
Disposition Clinical Impression: NSTEMI (non-ST elevated myocardial infarction) Urinary tract infection Qualifiers: Urinary tract infection type: site unspecified Hematuria presence: without hematuria Qualified Code(s): N39.0 - Urinary tract infection, site not specified Disposition: Admitted As Inpatient Condition: Fair Referrals: NONE,PCP [Primary Care Provider] - Forms: ED Satisfaction Letter General Adult HPI - General Chief complaint: ED Altered Mental Status Stated complaint: confusion Time Seen by Provider: 06/15/18 15:53 Source: patient, EMS Mode of arrival: EMS Limitations: no limitations - History of Present Illness Pain Scale: 8 - Related Data Home Medications Medication Instructions Recorded Confirmed Diltiazem CD (24hr) [Cardizem CD] 120 mg PO DAILY 07/23/15 07/11/16 Folic Acid 1 mg PO DAILY 07/23/15 07/11/16 GuaiFENesin ER [Mucinex] 600 mg PO Q12H PRN 07/23/15 07/11/16 Lisinopril [Zestril] 20 mg PO BID 07/23/15 07/11/16 Propafenone HCl [Rythmol] 225 mg PO Q8H 07/23/15 07/11/16 Solifenacin Succinate [Vesicare] 5 mg PO DAILY 07/23/15 07/11/16 metFORMIN [Glucophage] 500 mg PO BIDWM 07/23/15 07/11/16 Albuterol Sulfate [Ventolin Hfa] 2 puff IH Q4H PRN 03/14/16 07/11/16 Atorvastatin [Lipitor] 10 mg PO HS 03/14/16 07/11/16 Brimonidine Tartrate/Timolol 1 drop BOTH EYES BID 03/14/16 07/11/16 [Combigan 0.2%-0.5% Eye Drops] Budesonide/Formoterol 160/4.5 2 puff IH BIDR 03/14/16 07/11/16 [Symbicort 160/4.5] Cholecalciferol (D-3) [Vitamin D] 5,000 unit PO DAILY 03/14/16 07/11/16 Citalopram Hydrobromide [Celexa] 40 mg PO DAILY 03/14/16 07/11/16 Fenofibrate [Lofibra] 160 mg PO DAILY 03/14/16 07/11/16 Multivitamin/Iron/Folic Acid 1 each PO DAILY 03/14/16 07/11/16 [Cerovite Advanced Form Tab] Omeprazole [PriLOSEC] 40 mg PO DAILY 03/14/16 07/11/16 Thiamine Mononitrate [Vitamin B-1] 100 mg PO DAILY 03/14/16 07/11/16 Vitamin E 1,000 unit PO DAILY 03/14/16 07/11/16 Previous Rx's Medication Instructions Recorded Oxygen 3 l IN CONT #1 each 03/21/16 ALPRAZolam [Xanax 0.5 MG Tablet] 0.5 mg PO TID #30 tablet 07/18/16 Aripiprazole [Abilify] 5 mg PO DAILY #30 tablet 07/18/16 Oxycodone HCl/Acetaminophen 1 each PO TID PRN #21 tablet 07/18/16 [Percocet 7.5-325 mg Tablet] Cephalexin [Keflex] 500 mg PO QID #28 capsule 12/22/16 Allergies Allergy/AdvReac Type Severity Reaction Status Date / Time gabapentin AdvReac Confusion Verified 03/14/16 20:23 methadone [Methadone] AdvReac Confusion Verified 03/14/16 20:23 morphine AdvReac Confusion Verified 03/14/16 20:23 Zolpidem [From Ambien] AdvReac Confusion Verified 03/14/16 20:23 Past Medical History - Past Medical History Medical history: Reports: arthritis, COPD, diabetes, hyperlipidemia, hypert ension, osteoporosis, SVT Surgical history: Reports: non-contributory, hysterectomy Psychiatric history: Reports: anxiety, depression - Social History Smoking Status: Former smoker Smokeless Tobacco Status: No Alcohol use: Reports: none Drug use: Reports: none Physical Exam - General Limitations: no limitations General appearance: alert, in no apparent distress Course Vital Signs Temperature 98.1 F 06/15/18 15:59 Pulse Rate 95 06/15/18 15:59 Respiratory Rate 20 06/15/18 15:59 Blood Pressure 129/68 06/15/18 15:59 O2 Sat by Pulse Oximetry 98 06/15/18 15:59 Temperature 98.1 F 06/15/18 15:59 Pulse Rate 95 06/15/18 15:59 Respiratory Rate 20 06/15/18 15:59 Blood Pressure 129/68 06/15/18 15:59 O2 Sat by Pulse Oximetry 98 06/15/18 15:59 Oxygen Delivery Oxygen Delivery Room Air Medical Decision Making - Lab Data Result diagrams: 06/15/18 17:21 06/15/18 17:21 Lab Results 06/15/18 06/15/18 06/15/18 Range/Units 17:21 17:21 17:21 WBC 7.7 (4.3-11.1) K/mcL RBC 4.68 (3.82-4.97) M/mcL Hgb 13.4 (11.5-15.4) g/dL Hct 40.9 (35.3-44.9) % MCV 87.4 (83.0-100.0) fL MCH 28.6 (28.0-33.3) pg MCHC 32.8 (31.6-35.5) g/dL RDW 13.4 (11.5-14.5) % Plt Count 311 (140-400) K/mcL MPV 11.0 (9.4-12.4) fL Immature Gran % 0.5 (0-4) % Seg Neutrophils % 82.8 % Lymphocytes % 9.4 % Monocytes % 6.5 % Eosinophils % 0.4 % Basophils % 0.4 % Neutrophils # 6.4 (1.6-8.9) K/mcL Lymphocytes # 0.7 (0.6-4.6) K/mcL Monocytes # 0.5 (0.0-1.3) K/mcL Eosinophils # 0.0 (0.0-0.6) K/mcL Basophils # 0.0 (0.0-0.2) K/mcL PT 12.2 H (9.4-12.1) Seconds INR 1.1 APTT 27.7 (26.0-36.0) Seconds Sodium 140 (136-145) mEq/L Potassium 3.3 L (3.5-5.1) mEq/L Chloride 107 (98-107) mEq/L Carbon Dioxide 23 (23-29) mEq/L BUN 25 H (8-23) mg/dL Creatinine 0.84 (0.60-1.20) mg/dL Est GFR ( Amer) > 60 (> 60) Est GFR (Non-Af Amer) > 60 (> 60) BUN/Creatinine Ratio 30 H (6-26) Glucose 130 H (70-105) mg/dL Calculated Osmolality 296 (280-300) Calcium 8.9 (8.6-10.3) mg/dL Total Bilirubin 0.6 (0.3-1.0) mg/dL Direct Bilirubin 0.2 (0.0-0.2) mg/dL Indirect Bilirubin 0.4 (0.0-1.2) mg/dL AST 20 (13-39) Units/L ALT 24 (7-52) Units/L Alkaline Phosphatase 116 H (34-104) Units/L Troponin I 0.85 H* (< 0.04) ng/mL Serum Total Protein 6.1 L (6.4-8.9) g/dL Albumin 3.3 L (3.5-5.7) g/dL Globulin 2.8 (2.4-3.5) g/dL Albumin/Globulin Ratio 1.2 (1.1-2.2) Urine Color (Yellow) Urine Clarity (Clear) Urine pH (5.0-8.0) pH Units Ur Specific [place] (1.010-1.025) Urine Protein (Neg-Trace) mg/dL Urine Glucose (UA) (Normal) mg/dL Urine Ketones (Negative) mg/dL Urine Blood (Negative) Urine Nitrite (Negative) Urine Bilirubin (Negative) Urine Urobilinogen (Normal) mg/dL Ur Leukocyte Esterase (Negative) Urine Microscopic RBC (0-3) per hpf Urine Microscopic WBC (0-3) per hpf Ur Squamous Epith Cells (None-Few) per lpf Ur Transition Epith Cell (None-Few) per hpf Ur Renal Epithelial Cell (None-Few) per hpf Urine Bacteria (None-Few) per hpf Hyaline Casts (None-Few) per lpf Ur Culture Indicated? (NO) 06/15/18 Range/Units 18:45 WBC (4.3-11.1) K/mcL RBC (3.82-4.97) M/mcL Hgb (11.5-15.4) g/dL Hct (35.3-44.9) % MCV (83.0-100.0) fL MCH (28.0-33.3) pg MCHC (31.6-35.5) g/dL RDW (11.5-14.5) % Plt Count (140-400) K/mcL MPV (9.4-12.4) fL Immature Gran % (0-4) % Seg Neutrophils % % Lymphocytes % % Monocytes % % Eosinophils % % Basophils % % Neutrophils # (1.6-8.9) K/mcL Lymphocytes # (0.6-4.6) K/mcL Monocytes # (0.0-1.3) K/mcL Eosinophils # (0.0-0.6) K/mcL Basophils # (0.0-0.2) K/mcL PT (9.4-12.1) Seconds INR APTT (26.0-36.0) Seconds Sodium (136-145) mEq/L Potassium (3.5-5.1) mEq/L Chloride (98-107) mEq/L Carbon Dioxide (23-29) mEq/L BUN (8-23) mg/dL Creatinine (0.60-1.20) mg/dL Est GFR ( Amer) (> 60) Est GFR (Non-Af Amer) (> 60) BUN/Creatinine Ratio (6-26) Glucose (70-105) mg/dL Calculated Osmolality (280-300) Calcium (8.6-10.3) mg/dL Total Bilirubin (0.3-1.0) mg/dL Direct Bilirubin (0.0-0.2) mg/dL Indirect Bilirubin (0.0-1.2) mg/dL AST (13-39) Units/L ALT (7-52) Units/L Alkaline Phosphatase (34-104) Units/L Troponin I (< 0.04) ng/mL Serum Total Protein (6.4-8.9) g/dL Albumin (3.5-5.7) g/dL Globulin (2.4-3.5) g/dL Albumin/Globulin Ratio (1.1-2.2) Urine Color Yellow (Yellow) Urine Clarity Cloudy A (Clear) Urine pH 6.0 (5.0-8.0) pH Units Ur Specific [place] 1.012 (1.010-1.025) Urine Protein 30 H (Neg-Trace) mg/dL Urine Glucose (UA) Normal (Normal) mg/dL Urine Ketones Negative (Negative) mg/dL Urine Blood Negative (Negative) Urine Nitrite Positive A (Negative) Urine Bilirubin Negative (Negative) Urine Urobilinogen 2.0 H (Normal) mg/dL Ur Leukocyte Esterase Small H (Negative) Urine Microscopic RBC 0-3 (0-3) per hpf Urine Microscopic WBC 15-30 H (0-3) per hpf Ur Squamous Epith Cells Many H (None-Few) per lpf Ur Transition Epith Cell Few (None-Few) per hpf Ur Renal Epithelial Cell Few (None-Few) per hpf Urine Bacteria Many H (None-Few) per hpf Hyaline Casts Moderate H (None-Few) per lpf Ur Culture Indicated? NO. A (NO) Attestation Statement - Attestation Attestation: I examined this patient and my medical decision-making was reviewed with the Resident Physician. I agree with the documented findings, disposition and treatment plan as described except to the extent set forth below. 73 year old female presents to the ED with complaints of confusion and appears to have multiple pysch medicaitons which have required close management in te past. PAstinet othewise has a new elevated troponin of .[address] depressions in addition to a complaints of chest pain per family over hte past week but is now chest pain free admited to medicine and conuslted with cards for heparin therapy
[2018-06-15 19:59] LABS: Hematocrit 41.8 % (35.3-44.9); Hemoglobin 13.5 g/dL (11.5-15.4); Mean Corpuscular HGB Conc 32.3 g/dL (31.6-35.5); Mean Corpuscular Hemoglobin 28.2 pg (28.0-33.3); Mean Corpuscular Volume 87.3 fL (83.0-100.0); Mean Platelet Volume 10.7 fL (9.4-12.4); Platelet Count 333 K/mcL (140-400); Red Blood Count 4.79 M/mcL (3.82-4.97); Red Cell Distribution Width 13.4 % (11.5-14.5)
[2018-06-15 20:06] LABS: Heparin anti-factor XA UFH 0.05 IU/mL (0.30-0.70); INR 1.1; Prothrombin Time 12.7 Seconds (9.4-12.1)
[2018-06-15] MEDS ORDERED: Naloxone 0.4 MG/ML INJ IVP PRN (20:16)
[2018-06-15] MEDS: Heparin 25,000 UNIT/250 ML D5W 25,000 UNIT/250 ML IV.SOLN IVC SCH (20:21)
[2018-06-15] MEDS ORDERED: 0.9 % Sodium Chloride 1,000 ML IVC SCH (20:30)
--- NOTE | 2018-06-15 22:48 | Internal Med History&Physical ---
Date of Encounter: 06/15/18 Time of Encounter: 22:32 Internal Medicine - H&P: HPI Chief complaint: Confusion History of present illness: Ms. Lemon is a 73 year old female with a past medical history of diabetes, hypertension, COPD, SVT, previous history of intentional drug overdose and anxiety who presented to the ED due to confusion. Patient is a poor historian and much of the history were obtained from records and ED report. Per EMS, family's been concerned the patient has been more confused over the past several days, however, it seems that this is been ongoing on and off for the past few months. Patient had been previously taking Celexa, Percocet and Abilify but her prescription ran out. She is followed by Dr. Jara with psychiatry whom she has not seen in the past 6 months. Patient has a history of abusing her Percocet and Xanax for which she had been admitted in the past for intentional drug overdose. Patient's confusion appears to be characterized by hallucinations in which she sees things that are not there; noting seeing a hand under the bed. On arrival patient was afebrile, hemodynamically stable. Labs were relatively unremarkable aside from an elevated troponin of 0.85 and UA suggestive of UTI. EKG showed mild global ST depressions. Upon requestioning, patient did endorse chest pain over the past week. Patient is currently chest pain-free. Case was discussed with cardiology who given her absence of chest pain recommended he parinizing and repeating EKG. Past Med Surg Social Fam HX - Past Medical History Medical history: arthritis, COPD, diabetes, hyperlipidemia, hypertension, osteoporosis, SVT Additional medical history: CHRONIC UTI Psychiatric history: anxiety, depression - Past Surgical History Surgical History: non-contributory, hysterectomy - Social History Smoking Status: Former smoker Smokeless Tobacco Status: No Alcohol use: none Drug use: none Internal Medicine - H&P: Meds Diltiazem CD (24hr) [Cardizem CD] 120 mg PO DAILY 07/23/15 [History] Folic Acid 1 mg PO DAILY 07/23/15 [History] GuaiFENesin ER [Mucinex] 600 mg PO Q12H PRN 07/23/15 [History] Lisinopril [Zestril] 20 mg PO BID 07/23/15 [History] Propafenone HCl [Rythmol] 225 mg PO Q8H 07/23/15 [History] Solifenacin Succinate [Vesicare] 5 mg PO DAILY 07/23/15 [History] metFORMIN [Glucophage] 500 mg PO BIDWM 07/23/15 [History] Albuterol Sulfate [Ventolin Hfa] 2 puff IH Q4H PRN 03/14/16 [History] Atorvastatin [Lipitor] 10 mg PO HS 03/14/16 [History] Brimonidine Tartrate/Timolol [Combigan 0.2%-0.5% Eye Drops] 1 drop BOTH EYES BID 03/14/16 [History] Budesonide/Formoterol 160/4.5 [Symbicort 160/4.5] 2 puff IH BIDR 03/14/16 [History] Cholecalciferol (D-3) [Vitamin D] 5,000 unit PO DAILY 03/14/16 [History] Citalopram Hydrobromide [Celexa] 40 mg PO DAILY 03/14/16 [History] Fenofibrate [Lofibra] 160 mg PO DAILY 03/14/16 [History] Multivitamin/Iron/Folic Acid [Cerovite Advanced Form Tab] 1 each PO DAILY 03/14/16 [History] Omeprazole [PriLOSEC] 40 mg PO DAILY 03/14/16 [History] Thiamine Mononitrate [Vitamin B-1] 100 mg PO DAILY 03/14/16 [History] Vitamin E 1,000 unit PO DAILY 03/14/16 [History] Oxygen 3 l IN CONT #1 each 03/21/16 [Rx] ALPRAZolam [Xanax 0.5 MG Tablet] 0.5 mg PO TID #30 tablet 07/18/16 [Rx] Aripiprazole [Abilify] 5 mg PO DAILY #30 tablet 07/18/16 [Rx] Oxycodone HCl/Acetaminophen [Percocet 7.5-325 mg Tablet] 1 each PO TID PRN #21 tablet 07/18/16 [Rx] Cephalexin [Keflex] 500 mg PO QID #28 capsule 12/22/16 [Rx] Allergy/AdvReac Type Severity Reaction Status Date / Time gabapentin AdvReac Confusion Verified 03/14/16 20:23 methadone [Methadone] AdvReac Confusion Verified 03/14/16 20:23 morphine AdvReac Confusion Verified 03/14/16 20:23 Zolpidem [From Ambien] AdvReac Confusion Verified 03/14/16 20:23 All Systems PM: A 10-system review of systems was performed and is negative for pertinent findings except as documented above in the HPI. - Constitutional Constitutional: no chills, no fever(s), no night sweats - EENT Eyes: no change in vision, no discharge, no pain, no photophobia Ears: no ear discharge, no ear pain, no tinnitus Nose, mouth and throat: no dysphagia, no nasal discharge, no neck pain, no sore throat - Cardiovascular Cardiovascular ROS IM: no chest pain, no diaphoresis, no dyspnea, no lightheadedness, no palpitations, no syncope - Respiratory Respiratory: no cough, no dyspnea, no wheezing, no excessive phlegm production - Gastrointestinal Gastrointestinal: no abdominal pain, no diarrhea, no hematemesis, no hematochezia, no melena, no nausea, no vomiting - Genitourinary Genitourinary: no change in urinary stream, no dysuria, no flank pain, no hematuria - Musculoskeletal Musculoskeletal ROS IM: no numbness, no tingling - Integumentary Integumentary IM: no rash, no unusual bruising - Neurological Neurological ROS: no confusion, no convulsions, no focal weakness, no numbness, no tingling, no tremor(s) - Hematologic/Lymphatic Hematologic/Lymphatic: no easy bruising - Constitutional Vitals: Temp Pulse Resp BP Pulse Ox 98.1 F 93 21 161/97 96 06/15/18 15:59 06/15/18 19:53 06/15/18 19:53 06/15/18 19:53 06/15/18 19:53 Exam: General: Alert and oriented Skin:Normal color, no rash, no lesions. HEENT:EOM, pupils equal, round and reactive. Cardiovascular:Normal S1 & S2, no rubs, murmurs or gallops. No JVD. Pulse regular. Lungs:Normal breath sounds, no wheezes or crackles. Abdomen:Soft, non-tender, no rigidity. Extremities:No deformity, no edema or tenderness, no joint swelling or clubbing. Neurological:Normal cognition and motor skills. Pulses:Carotid and radial pulses normal +2. Rest of the physical exam is non contributory Internal Med - H&P Results - Labs CBC & Chem 7: 06/16/18 02:26 06/16/18 02:26 Labs: Short CBC 06/15/18 06/15/18 Range/Units 17:21 19:15 WBC 7.7 7.5 (4.3-11.1) K/mcL Hgb 13.4 13.5 (11.5-15.4) g/dL Hct 40.9 41.8 (35.3-44.9) % Plt Count 311 333 (140-400) K/mcL Neutrophils # 6.4 (1.6-8.9) K/mcL BMP 06/15/18 17:21 Sodium 140 Potassium 3.3 L Chloride 107 Carbon Dioxide 23 BUN 25 H Creatinine 0.84 Glucose 130 H Calcium 8.9 Cardiac Enzymes 06/15/18 Range/Units 17:21 Troponin I 0.85 H* (< 0.04) ng/mL Liver Function 06/15/18 Range/Units 17:21 Total Bilirubin 0.6 (0.3-1.0) mg/dL Direct Bilirubin 0.2 (0.0-0.2) mg/dL AST 20 (13-39) Units/L ALT 24 (7-52) Units/L Alkaline Phosphatase 116 H (34-104) Units/L Albumin 3.3 L (3.5-5.7) g/dL Urine 06/15/18 Range/Units 18:45 Urine Color Yellow (Yellow) Urine Clarity Cloudy A (Clear) Urine pH 6.0 (5.0-8.0) pH Units Ur Specific [place] 1.012 (1.010-1.025) Urine Protein 30 H (Neg-Trace) mg/dL Urine Glucose (UA) Normal (Normal) mg/dL - Impressions ITS Impressions Chest X-Ray 06/15/18 16:08 IMPRESSION: No acute cardiopulmonary process identified. D/ / Cory Starks MD / Cory Starks MD Interpreting Provider: Cory Starks MD Head CT 06/15/18 16:08 IMPRESSION: No acute intracranial abnormality detected. Mild to moderate motion degradation. Mucosal thickening and air-fluid level within the right maxillary sinus, which suggests possible acute on chronic sinusitis. D/ / Matias Tai MD / Matias Tai MD Interpreting Provider: Matias Tai MD - Assessment and Plan (1) Acute metabolic encephalopathy Current Visit: No Status: Acute Assessment and plan: Acute metabolic encephalopathy characterized by confusion and hallucinations. Patient currently alert oriented 3. No focal findings. CT scan of the head shows no acute intracranial abnormality however there was an air-fluid level within the right maxillary sinus suggestive of possible acute on chronic sinusitis. Suspect likely secondary to UTI plus or minus acute sinusitis. -We will treat for UTI/sinusitis (2) NSTEMI (non-ST elevated myocardial infarction) Current Visit: Yes Status: Acute Assessment and plan: Patient found to have an elevated troponin incidentally of 0.85. Patient does endorse chest pain over the past week. Patient was started on a heparin drip prior to transfer. -We will trend troponin -Continue with heparin drip -Echocardiogram -Cardiology consult (3) Urinary tract infection Current Visit: Yes Status: Acute Assessment and plan: Continue ceftriaxone. Follow-up urine culture Qualifiers: Urinary tract infection type: site unspecified Hematuria presence: without hematuria Qualified Code(s): N39.0 - Urinary tract infection, site not specified (4) DVT prophylaxis Current Visit: No Status: Acute - Time Spent With Patient Total time spent is greater than 50% in coordination of care (as documented) at patient's floor/unit and/or counseling patient:
[2018-06-16] MEDS: *HR* LORazepam 1 MG TABLET PO PRN ×2 (00:21→20:23)
[2018-06-16] MEDS: traMADol 50 MG TABLET PO PRN ×3 (00:21→20:30)
[2018-06-16] MEDS: Melatonin 3 MG TABLET PO PRN (02:26)
[2018-06-16] MEDS ORDERED: *HR* Metoprolol 5 MG/5 ML VIAL IVP ONE ×7 (02:34→10:02)
[2018-06-16] MEDS ORDERED: Nitroglycerin 0.4 MG TAB.SUBL SL ONE (02:41)
[2018-06-16] MEDS ORDERED: *HR* Adenosine 6 MG/2 ML VIAL IVP ONE (02:47)
[2018-06-16 03:03] LABS: Basophils % 0.5 %; Eosinophils # 0.1 K/mcL (0.0-0.6); Eosinophils % 0.6 %; Hematocrit 40.8 % (35.3-44.9); Hemoglobin 13.4 g/dL (11.5-15.4); Immature Granulocytes % 0.5 % (0-4); Lymphocytes # 1.7 K/mcL (0.6-4.6); Lymphocytes % 20.4 %; Mean Corpuscular HGB Conc 32.8 g/dL (31.6-35.5); Mean Corpuscular Hemoglobin 28.4 pg (28.0-33.3); Mean Corpuscular Volume 86.4 fL (83.0-100.0); Mean Platelet Volume 10.7 fL (9.4-12.4); Monocytes # 0.7 K/mcL (0.0-1.3); Monocytes % 8.4 %; Neutrophils # 5.8 K/mcL (1.6-8.9); Platelet Count 301 K/mcL (140-400); Red Blood Count 4.72 M/mcL (3.82-4.97); Red Cell Distribution Width 13.6 % (11.5-14.5); Segmented Neutrophils % 69.6 %
[2018-06-16 03:11] LABS: INR 1.1; Prothrombin Time 12.4 Seconds (9.4-12.1)
[2018-06-16 03:14] LABS: Activated Partial Thrombo Time 58.6 Seconds (26.0-36.0)
[2018-06-16 03:22] LABS: BUN/Creatinine Ratio 32 (6-26); Blood Urea Nitrogen 26 mg/dL (8-23); Calcium 9.1 mg/dL (8.6-10.3); Carbon Dioxide 24 mEq/L (23-29); Chloride 106 mEq/L (98-107); Chol/HDL Ratio 4.7 (0-4.9); Cholesterol 198 mg/dL (< 200); Glucose 113 mg/dL (70-105); HDL Cholesterol 42 mg/dL (40-59); LDL Cholesterol,Calculated 130 mg/dL (0-99); Magnesium 1.7 mg/dL (1.6-2.6); Osmolality,Calculated 302 (280-300); Potassium 3.1 mEq/L (3.5-5.1); Sodium 143 mEq/L (136-145); Triglycerides 131 mg/dL (< 150); eGFR For Non-African Americans > 60 (> 60)
[2018-06-16 03:59] LABS: Estimated Average Glucose 140 mg/dl; Hemoglobin A1C 6.5 %
--- NOTE | 2018-06-16 04:38 | Event Note ---
Date of Encounter: 06/16/18 Time of Encounter: 00:37 Alerted by patient's nurse FRANCISCO Cramer that patient's second troponin was now 4.46, up from 0.85 in the ER. Patient currently on heparin drip and denies chest pain or shortness of breath. Nurse reported telemetry looks good. Pulse 99, BP 183/101. Nurse reported getting patient Ativan and tramadol at that time. Nurse instructed to continue monitoring patient and keep me updated of any adverse changes. Alerted at 02:08 the patient was requesting melatonin to help her sleep. Patient reported taking melatonin at home but unsure of dose. 3 mg melatonin when necessary at bedtime ordered. While rounding on 2A at approximately 02:40, was notified that patient was in SVT with HR of 193. Went immediately to see patient who stated she has had episodes of SVT for the past several months. Stat Lopressor 5 mg IVP, stat troponin, and SL nitroglycerin ordered. BP at the time 116/71. Patient beginning to complain of chest pain in left chest and numbness in left arm and hand. BP 98/64 after first dose of sublingual nitroglycerin. Patient stating chest pain/arm pain/and now jaw pain worsening. Paged Dr. Riddle at 02:40 to come see pt. since he was covering 2nd floor. HR following first dose of IVP metoprolol low 170s and sustaining. Nurse instructed to obtain second IV access. Dr. Munoz before arrived with recommendation for adenosine 6 mg IV push at 02:49. BP 175/88 at 02:[address] Riddle p[address] Dr. Villagomez to see pt. since this was his new admission. Dr. Riddle recommended second IVP of metoprolol 5 mg. BP is 137/77 at 02:54. Pulse now 90 and second EKG shows normal sinus rhythm. Dr. Herson denney and myself at bedside with BP 147/73 at 0 2:57. Patient stating chest pain is now almost gone. BP 142/88 at 03:04. BP 150/73 at 03:00. Pt reporting CP gone and numbness in ULE subsiding. Alerted by 2A Charge Nurse FRANCISCO Borges that patient's stat troponin is 3.14, down from 4.46 previously. Heparin drip continuing. 03:15 patient's BP 154/76 with pulse maintaining at 90 bpm. I continue to assess patient who stated she said chest pain for the past few months which is worse in the morning when she wakes up. Chest pain presents as deep pressure in left chest with radiation to jaws, arms, and hands. During episodes, patient reports nausea and diaphoresis. States pain gradually goes away on its own. 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 Patient also reports taking several psych medications which she stopped approximately 4 months ago due to not being able to make her psychiatric appointments because she had no car or transportation. After abruptly stopping her psych meds, patient developed tardive dyskinesia and twitching legs. Patient reports she sees Dr. Vinson of [facility]. SW consult ordered by pts. nurse to obtain appointment w/Dr. Vinson so psych medications can be resumed. Cardiology consult ordered by Dr. Villagomez on admission. Echocardiogram also ordered. Patient currently on continuous cardiac telemetry and nurse instructed to continue monitoring patient very closely and notify Dr. Villagomez or myself immediately of any adverse changes.
--- NOTE | 2018-06-16 04:48 | Event Note ---
Date of Encounter: 06/16/18 Time of Encounter: 00:37
[2018-06-16] MEDS: cefTRIAXone 1,000 MG in Water for inj. (sterile) 20 ML 10 ML IVPB SCH (08:45)
[2018-06-16] MEDS ORDERED: *HR* Adenosine 6 MG/2 ML SYRINGE IVP ONE (08:54)
[2018-06-16] MEDS: Nitroglycerin 0.4 MG TAB.SUBL SL PRN (09:53)
[2018-06-16 10:04] LABS: Amphetamine Screen,Urine Negative ng/mL (Cutoff=1000); Barbiturate Screen,Urine Negative ng/mL (Cutoff=200); Benzodiazepines Screen,Urine Negative ng/mL (Cutoff=200); Cannabinoid Screen,Urine Negative ng/mL (Cutoff = 50); Cocaine Screen,Urine Negative ng/mL (Cutoff= 300); Opiate Screen,Urine Negative ng/mL (Cutoff=300); Phencyclidine Screen,Urine Negative ng/mL (Cutoff=25)
[2018-06-16] MEDS: *HR* Metoprolol 5 MG/5 ML VIAL IVP PRN (10:47)
--- NOTE | 2018-06-16 11:08 | Consult Note ---
Date of Encounter: 06/16/18 Time of Encounter: 11:00 Assessment & Recommendation (1) Major depression Current visit: Yes Status: Acute Assessment & Recommendation: Client likely experiencing dyskinetic movements from abruptly stopping the Abilify. Wants to restart her Abilify, Celexa, and Buspar. From a mental health standpoint restarting these meds is fine. However, given recent cardiac issues would wait to restart psych meds until after Cardiology has seen client. Can see QTc prolongation with many mental health meds and client is already experiencing arrhythmias. Client not confused on eval today. Suspect confusion more related to UTI and cardiac issues than her mood and anxiety problems. Client denying SI/HI/AH/VH and is not needing inpatient treatment at this time. Will follow along. Qualifiers: Qualified Code(s): F33.1 - Major depressive disorder, recurrent, moderate History of Present Illness Requesting Physician: Adeel Sanderson MD Reason for consult: confusion History of present illness: Ms. Lemon is a 73 year old female who presented to the hospital secondary to m ental status changes. Client has been confused off and on at home for an unknown period of time. Since arriving in the hospital client has had intermittent chest pain, runs of SVT, and elevated troponins. Cardiology consult pending. On eval today client is alert and oriented. No signs of confusion. However, she is having dyskinetic movements of the tongue and extremities. Client states the movements started approx 3 months ago after she stopped her Abilify. Has not seen a doctor about the movements. Client states she stopped the Abilify because she ran out of medication/refills and has not rescheduled a follow-up appointment. Has also run out of her Celexa and Buspar but states she ran out of these meds much more recently. Treated for depression and anxiety on an outpatient basis. Has a history of two suicide attempts via overdose and one hospitalization for depression many years ago. Denies any recent SI, intent, or plan. Wants to restart meds. Currently lives with sheela tiffanie. Client denies any AOD use but reportedly abused her Percocet and Xanax when she was prescribed these medications. Xanax was stopped after client overdosed on it a few years ago. Client reports this medication worked the best for her anxiety but that no one will prescribe it now based on what she did. CC: Adeel Sanderson MD Past Med Surg Social Fam HX - Past Medical History Medical history: arthritis, COPD, diabetes, hyperlipidemia, hypertension, osteoporosis, SVT - Past Psychiatric History Psychiatric history: Reports: anxiety, depression, prior suicide attempt, previous psychiatric hospitalization Family psychiatric history: Unknown Family History of Suicide: Unknown - Past Surgical History Surgical History: non-contributory, hysterectomy - Social History Smoking Status: Former smoker Smokeless Tobacco Status: No Alcohol use: none Drug use: none Medications & Allergies Diltiazem CD (24hr) [Cardizem CD] 120 mg PO DAILY 07/23/15 [History] Folic Acid 1 mg PO DAILY 07/23/15 [History] GuaiFENesin ER [Mucinex] 600 mg PO Q12H PRN 07/23/15 [History] Lisinopril [Zestril] 20 mg PO BID 07/23/15 [History] Propafenone HCl [Rythmol] 225 mg PO Q8H 07/23/15 [History] Solifenacin Succinate [Vesicare] 5 mg PO DAILY 07/23/15 [History] metFORMIN [Glucophage] 500 mg PO BIDWM 07/23/15 [History] Albuterol Sulfate [Ventolin Hfa] 2 puff IH Q4H PRN 03/14/16 [History] Atorvastatin [Lipitor] 10 mg PO HS 03/14/16 [History] Brimonidine Tartrate/Timolol [Combigan 0.2%-0.5% Eye Drops] 1 drop BOTH EYES BID 03/14/16 [History] Budesonide/Formoterol 160/4.5 [Symbicort 160/4.5] 2 puff IH BIDR 03/14/16 [History] Cholecalciferol (D-3) [Vitamin D] 5,000 unit PO DAILY 03/14/16 [History] Citalopram Hydrobromide [Celexa] 40 mg PO DAILY 03/14/16 [History] Fenofibrate [Lofibra] 160 mg PO DAILY 03/14/16 [History] Multivitamin/Iron/Folic Acid [Cerovite Advanced Form Tab] 1 each PO DAILY 03/14/16 [History] Omeprazole [PriLOSEC] 40 mg PO DAILY 03/14/16 [History] Thiamine Mononitrate [Vitamin B-1] 100 mg PO DAILY 03/14/16 [History] Vitamin E 1,000 unit PO DAILY 03/14/16 [History] Oxygen 3 l IN CONT #1 each 03/21/16 [Rx] ALPRAZolam [Xanax 0.5 MG Tablet] 0.5 mg PO TID #30 tablet 07/18/16 [Rx] Aripiprazole [Abilify] 5 mg PO DAILY #30 tablet 07/18/16 [Rx] Oxycodone HCl/Acetaminophen [Percocet 7.5-325 mg Tablet] 1 each PO TID PRN #21 tablet 07/18/16 [Rx] Cephalexin [Keflex] 500 mg PO QID #28 capsule 12/22/16 [Rx] Allergy/AdvReac Type Severity Reaction Status Date / Time gabapentin AdvReac Confusion Verified 03/14/16 20:23 methadone [Methadone] AdvReac Confusion Verified 03/14/16 20:23 morphine AdvReac Confusion Verified 03/14/16 20:23 Zolpidem [From Ambien] AdvReac Confusion Verified 03/14/16 20:23 Review of Systems Constitutional: Reports: weakness Eyes: Denies: eye pain, vision change Ears, Nose, Throat: Denies: ear pain, throat pain, dental pain, hearing loss, congestion Cardiovascular: Reports: chest pain, palpitations Respiratory: Reports: other Gastrointestinal: Denies: abdominal pain, nausea, vomiting, diarrhea, con stipation Genitourinary female: Denies: urgency, dysuria, frequency, abnormal menses, dyspareunia Musculoskeletal: Reports: other Integumentary: Denies: rash, lesions, pruritus Neurological: Reports: other Endocrine: Denies: fatigue, heat or cold intolerance Hematologic/Lymphatic: Denies: easy bruising, lymphadenopathy Allergic/Immunologic: Denies: urticaria, itchy eyes Psychiatry Exam - Constitutional Vitals: Temp Pulse Resp BP Pulse Ox 98.1 F 83 20 142/60 99 06/16/18 10:45 06/16/18 10:45 06/16/18 10:45 06/16/18 10:45 06/16/18 10:45 General appearance: disheveled - Musculoskeletal Gait: other Station: other Strength & Tone: other - Psychiatric Patient Orientation: Yes Person, Yes Time, Yes Place Level of alertness: Alert Behavior: calm, cooperative Psychomotor activity: Abnormal movements Eye Contact: Maintains Eye Contact Mood Description: Depressed Affect description: congruent with mood Speech Volume: Normal Speech pattern: normal rate, normal rhythm, normal tone, fluent, spontaneous Language & Vocabulary: consistent with education Thought Process: Linear Thought Content: No Suicidal ideation, No Homicidal ideation, No Overt delusions Perceptual Disturbances: No Auditory hallucinations, No Visual hallucinations Attention Span Ability: Capable of Focused Attention Memory Description: Grossly Intact Patient Reliability: Reliable Historian Fund of knowledge: Yes abstraction ability, Yes aware of current events Intelligence Estimate: Average Judgment: Fair Insight: Partial Results - Drug Levels and Toxicology Drug Levels and Toxicology: Drug Levels and Toxicity 06/16/18 09:05 Urine Opiates Screen Negative Ur Barbiturates Screen Negative Ur Phencyclidine Scrn Negative Ur Amphetamines Screen Negative U Benzodiazepines Scrn Negative Urine Cocaine Screen Negative U Marijuana (THC) Screen Negative - Labs Labs: Laboratory Last Values WBC 8.3 K/mcL (4.3-11.1) 06/16/18 02:26 RBC 4.72 M/mcL (3.82-4.97) 06/16/18 02:26 Hgb 13.4 g/dL (11.5-15.4) 06/16/18 02:26 Hct 40.8 % (35.3-44.9) 06/16/18 02:26 MCV 86.4 fL (83.0-100.0) 06/16/18 02:26 MCH 28.4 pg (28.0-33.3) 06/16/18 02:26 MCHC 32.8 g/dL (31.6-35.5) 06/16/18 02:26 RDW 13.6 % (11.5-14.5) 06/16/18 02:26 Plt Count 301 K/mcL (140-400) 06/16/18 02:26 MPV 10.7 fL (9.4-12.4) 06/16/18 02:26 Immature Gran % 0.5 % (0-4) 06/16/18 02:26 Seg Neutrophils % 69.6 % 06/16/18 02:26 Lymphocytes % 20.4 % 06/16/18 02:26 Monocytes % 8.4 % 06/16/18 02:26 Eosinophils % 0.6 % 06/16/18 02:26 Basophils % 0.5 % 06/16/18 02:26 Neutrophils # 5.8 K/mcL (1.6-8.9) 06/16/18 02:26 Lymphocytes # 1.7 K/mcL (0.6-4.6) 06/16/18 02:26 Monocytes # 0.7 K/mcL (0.0-1.3) 06/16/18 02:26 Eosinophils # 0.1 K/mcL (0.0-0.6) 06/16/18 02:26 Basophils # 0.0 K/mcL (0.0-0.2) 06/16/18 02:26 PT 12.4 Seconds (9.4-12.1) H 06/16/18 02:26 INR 1.1 06/16/18 02:26 APTT 58.6 Seconds (26.0-36.0) H D 06/16/18 02:26 Heparin Anti-Xa, Unfract 0.29 IU/mL (0.30-0.70) L 06/16/18 09:58 Sodium 143 mEq/L (136-145) 06/16/18 02:26 Potassium 3.1 mEq/L (3.5-5.1) L 06/16/18 02:26 Chloride 106 mEq/L (98-107) 06/16/18 02:26 Carbon Dioxide 24 mEq/L (23-29) 06/16/18 02:26 BUN 26 mg/dL (8-23) H 06/16/18 02:26 Creatinine 0.82 mg/dL (0.60-1.20) 06/16/18 02:26 Est GFR ( Amer) > 60 (> 60) 06/16/18 02:26 Est GFR (Non-Af Amer) > 60 (> 60) 06/16/18 02:26 BUN/Creatinine Ratio 32 (6-26) H 06/16/18 02:26 Glucose 113 mg/dL (70-105) H 06/16/18 02:26 Est Mean Plasma Glucose 140 mg/dl 06/16/18 02:26 Hemoglobin A1c 6.5 % (-5.6) H 06/16/18 02:26 Calculated Osmolality 302 (280-300) H 06/16/18 02:26 Calcium 9.1 mg/dL (8.6-10.3) 06/16/18 02:26 Magnesium 1.7 mg/dL (1.6-2.6) 06/16/18 02:26 Total Bilirubin 0.6 mg/dL (0.3-1.0) 06/15/18 17:21 Direct Bilirubin 0.2 mg/dL (0.0-0.2) 06/15/18 17:21 Indirect Bilirubin 0.4 mg/dL (0.0-1.2) 06/15/18 17:21 AST 20 Units/L (13-39) 06/15/18 17:21 ALT 24 Units/L (7-52) 06/15/18 17:21 Alkaline Phosphatase 116 Units/L (34-104) H 06/15/18 17:21 Troponin I 2.26 ng/mL (< 0.04) H* 06/16/18 09:58 Serum Total Protein 6.1 g/dL (6.4-8.9) L 06/15/18 17:21 Albumin 3.3 g/dL (3.5-5.7) L 06/15/18 17:21 Globulin 2.8 g/dL (2.4-3.5) 06/15/18 17:21 Albumin/Globulin Ratio 1.2 (1.1-2.2) 06/15/18 17:21 Triglycerides 131 mg/dL (< 150) 06/16/18 02:26 Cholesterol 198 mg/dL (< 200) 06/16/18 02:26 LDL Cholesterol, Calc 130 mg/dL (0-99) H 06/16/18 02:26 VLDL Cholesterol, Calc 26 mg/dL (< 31) 06/16/18 02:26 HDL Cholesterol 42 mg/dL (40-59) 06/16/18 02:26 Cholesterol/HDL Ratio 4.7 (0-4.9) 06/16/18 02:26 Urine Color Yellow (Yellow) 06/15/18 18:45 Urine Clarity Cloudy (Clear) A 06/15/18 18:45 Urine pH 6.0 pH Units (5.0-8.0) 06/15/18 18:45 Ur Specific [place] 1.012 (1.010-1.025) 06/15/18 18:45 Urine Protein 30 mg/dL (Neg-Trace) H 06/15/18 18:45 Urine Glucose (UA) Normal mg/dL (Normal) 06/15/18 18:45 Urine Ketones Negative mg/dL (Negative) 06/15/18 18:45 Urine Blood Negative (Negative) 06/15/18 18:45 Urine Nitrite Positive (Negative) A 06/15/18 18:45 Urine Bilirubin Negative (Negative) 06/15/18 18:45 Urine Urobilinogen 2.0 mg/dL (Normal) H 06/15/18 18:45 Ur Leukocyte Esterase Small (Negative) H 06/15/18 18:45 Urine Microscopic RBC 0-3 per hpf (0-3) 06/15/18 18:45 Urine Microscopic WBC 15-30 per hpf (0-3) H 06/15/18 18:45 Ur Squamous Epith Cells Many per lpf (None-Few) H 06/15/18 18:45 Ur Transition Epith Cell Few per hpf (None-Few) 06/15/18 18:45 Ur Renal Epithelial Cell Few per hpf (None-Few) 06/15/18 18:45 Urine Bacteria Many per hpf (None-Few) H 06/15/18 18:45 Hyaline Casts Moderate per lpf (None-Few) H 06/15/18 18:45 Ur Culture Indicated? NO. (NO) A 06/15/18 18:45 Urine Opiates Screen Negative ng/mL (Ldlkyu=822) 06/16/18 09:05 Ur Barbiturates Screen Negative ng/mL (Gppgfz=935) 06/16/18 09:05 Ur Phencyclidine Scrn Negative ng/mL (Cutoff=25) 06/16/18 09:05 Ur Amphetamines Screen Negative ng/mL (Rmkmur=0169) 06/16/18 09:05 U Benzodiazepines Scrn Negative ng/mL (Hcypis=759) 06/16/18 09:05 Urine Cocaine Screen Negative ng/mL (Cutoff= 300) 06/16/18 09:05 U Marijuana (THC) Screen Negative ng/mL (Cutoff = 50) 06/16/18 09:05 Ur Drug Screen Interp See Below 06/16/18 09:05 - Impressions Impressions Chest X-Ray 06/15/18 16:08 IMPRESSION: No acute cardiopulmonary process identified. D/ / Cory Starks MD / Cory Starks MD Interpreting Provider: Cory Starks MD Head CT 06/15/18 16:08 IMPRESSION: No acute intracranial abnormality detected. Mild to moderate motion degradation. Mucosal thickening and air-fluid level within the right maxillary sinus, which suggests possible acute on chronic sinusitis. D/ / Matias Tai MD / Matias Tai MD Interpreting Provider: Matias Tai MD Consult Discharge Plan - Plan Referrals: NONE,PCP [Primary Care Provider] -
[2018-06-16] MEDS: *HR* Heparin 5,000 UNIT/ML VIAL IVP PRN (13:00)
[2018-06-16] MEDS: Diltiazem CD (24hr) 120 MG CAPSULE PO SCH (13:03)
--- NOTE | 2018-06-16 13:19 | Cardiology Consult Note ---
Addendum entered and electronically signed by Krystal Estrada MD 06/16/18 13:40: I have personally performed a face to face evaluation on this patient. I have reviewed and agree with the care plan. History and Exam by me shows: Pt with nonSTEMI, CP at home. Will need LHC if patient able to consent. No family available to discuss with today. Concern regarding compliance with meds. Social work c/s. Also has longstanding hx of SVT. Previously controlled on propafenone. Has not been taking. Consider EPS/RFA if pt agreeable. D/C propafenone due to possible CAD. Beta blockade, calcium channel rahul. SVT converted to NSR with adenosine earlier today. Original Note: Date of Encounter: 06/16/18 Time of Encounter: 12:00 Assessment and Plan (1) NSTEMI (non-ST elevated myocardial infarction) Current Visit: Yes Status: Acute Per cardiology: -Troponins 0.85, 4.46, 3.14, 2.26. -Non-specific St and T wave abnormalities noted on ECG. -TTE pending. -Admitted to intermittent chest pain at home, denies current. -ON heparin drip. -Will start asa, statin, BB. Continue heparin drip. -Discussed LHC with patient, who states she will have to discuss with her [facility]. Of note, patient reports frequently forgetting medications at home. Concerning with potential need for dual anti-platelet therapy. Consider social group worker consult. If proceeds with LHC, consider bare metal stent. (2) SVT (supraventricular tachycardia) Current Visit: Yes Status: Chronic Per cardiology: -Known history of SVT, was on rhythmol, CCB, and BB at home, however was not taking. -SVT noted this admission, broke with 6mg of adenosine. -Will start BB and CCB. Do not recommend resuming rhythmol. -Can consider outpatient EP referral for potential SVT ablation. Discussion w patient/family: The assessment and plan as outlined above was discussed with the patient who expressed understanding and agreement. All questions were answered. Thank you for involving us in the care of your patient. Please call with any questions. Discussed and reviewed with Dr.Jennifer Estrada. History of Present Illness Consult date: 06/15/18 Requesting physician: Hussam A Fustok Consult reason: elevated troponin Chief complaint: confusion History of present illness: Ms. Lemon is a 73 year old female with a relevant past medical history of COPD, HTN, HLD, anxiety, depression, DM, fibromyalgia, SVT, who presented to [facility] with reported confusion noted by family. Patient states she does not know why she came to the hospital. Patient states she has been having intermittent chest pain at home. Unable to relate to exertion. Patient had episode of SVT today, reporte d chest pain during epsode today. Denies current chest pain. Patient reports that she has not been taking her medications at home. Past Med Surg Social Fam HX - Past Medical History Attestation: Yes The following information was validated with the patient. Source: patient, old records reviewed Medical history: arthritis, COPD, diabetes, hyperlipidemia, hypertension, osteoporosis, SVT Additional medical history: CHRONIC UTI Psychiatric history: anxiety, depression, prior suicide attempt, previous psychiatric hospitalization - Past Surgical History Surgical History: non-contributory, hysterectomy - Social History Smoking Status: Former smoker Smokeless Tobacco Status: No Alcohol use: none Drug use: none Medications and Allergies Diltiazem CD (24hr) [Cardizem CD] 120 mg PO DAILY 07/23/15 [History] Folic Acid 1 mg PO DAILY 07/23/15 [History] GuaiFENesin ER [Mucinex] 600 mg PO Q12H PRN 07/23/15 [History] Lisinopril [Zestril] 20 mg PO BID 07/23/15 [History] Propafenone HCl [Rythmol] 225 mg PO Q8H 07/23/15 [History] Solifenacin Succinate [Vesicare] 5 mg PO DAILY 07/23/15 [History] metFORMIN [Glucophage] 500 mg PO BIDWM 07/23/15 [History] Albuterol Sulfate [Ventolin Hfa] 2 puff IH Q4H PRN 03/14/16 [History] Atorvastatin [Lipitor] 10 mg PO HS 03/14/16 [History] Brimonidine Tartrate/Timolol [Combigan 0.2%-0.5% Eye Drops] 1 drop BOTH EYES BID 03/14/16 [History] Budesonide/Formoterol 160/4.5 [Symbicort 160/4.5] 2 puff IH BIDR 03/14/16 [History] Cholecalciferol (D-3) [Vitamin D] 5,000 unit PO DAILY 03/14/16 [History] Citalopram Hydrobromide [Celexa] 40 mg PO DAILY 03/14/16 [History] Fenofibrate [Lofibra] 160 mg PO DAILY 03/14/16 [History] Multivitamin/Iron/Folic Acid [Cerovite Advanced Form Tab] 1 each PO DAILY 03/14/16 [History] Omeprazole [PriLOSEC] 40 mg PO DAILY 03/14/16 [History] Thiamine Mononitrate [Vitamin B-1] 100 mg PO DAILY 03/14/16 [History] Vitamin E 1,000 unit PO DAILY 03/14/16 [History] Oxygen 3 l IN CONT #1 each 03/21/16 [Rx] ALPRAZolam [Xanax 0.5 MG Tablet] 0.5 mg PO TID #30 tablet 07/18/16 [Rx] Aripiprazole [Abilify] 5 mg PO DAILY #30 tablet 07/18/16 [Rx] Oxycodone HCl/Acetaminophen [Percocet 7.5-325 mg Tablet] 1 each PO TID PRN #21 tablet 07/18/16 [Rx] Cephalexin [Keflex] 500 mg PO QID #28 capsule 12/22/16 [Rx] Allergy/AdvReac Type Severity Reaction Status Date / Time gabapentin AdvReac Confusion Verified 03/14/16 20:23 methadone [Methadone] AdvReac Confusion Verified 03/14/16 20:23 morphine AdvReac Confusion Verified 03/14/16 20:23 Zolpidem [From Ambien] AdvReac Confusion Verified 03/14/16 20:23 All Systems Review: The remainder of the systems were reviewed and are negative - Cardiovascular Cardiovascular: as per HPI, chest pain at rest Physical Examination Vital Signs, Last 4 Hours Temp Pulse Resp BP Pulse Ox 06/16/18 10:45 98.1 F 83 20 142/60 99 General: Conversant, No Apparent Distress HEENT: Atraumatic, Normocephaly, Mucus Membranes Moist Neck: No JVD, Normal carotid pulses Cardiac: Reg Rate and Rhythm, Normal S1 and S2, No Murmur Lungs: Other (Lung sounds diminished throughout. ) Neuro: Alert and responsive, No focal deficits noted, Other (Oriented to person, place and time. Involuntary movements noted. ) Abdomen: Soft, Non-Tender Skin: No rashes noted on visualized skin Musculoskeletal: No Chest Wall Tenderness Extremities: No Clubbing, No Cyanosis, No Edema, Normal Pulses Results 06/16/18 02:26 06/16/18 02:26 Lab Results 06/15/18 06/15/18 06/15/18 17:21 17:21 17:21 WBC 7.7 Hgb 13.4 Hct 40.9 Plt Count 311 INR 1.1 APTT 27.7 Sodium 140 Potassium 3.3 L Chloride 107 Carbon Dioxide 23 BUN 25 H Creatinine 0.84 Glucose 130 H Calcium 8.9 Magnesium Total Bilirubin 0.6 AST 20 ALT 24 Alkaline Phosphatase 116 H Troponin I 0.85 H* Impressions Chest X-Ray 06/15/18 16:08 IMPRESSION: No acute cardiopulmonary process identified. D/ / Cory Starks MD / Cory Starks MD Interpreting Provider: Cory Starks MD Head CT 06/15/18 16:08 IMPRESSION: No acute intracranial abnormality detected. Mild to moderate motion degradation. Mucosal thickening and air-fluid level within the right maxillary sinus, which suggests possible acute on chronic sinusitis. D/ / Matias Tai MD / Matias Tai MD Interpreting Provider: Matias Tai MD Active Medications Diltiazem HCl (Cardizem Cd) 120 mg PO DAILY LEONILA Stop: 12/16/18 11:46 Last Admin: 06/16/18 13:03 Dose: 120 mg Heparin Sodium (Porcine) (Heparin) 4,000 unit IVP Q6HR PRN PRN Reason: SEE COMMENTS Stop: 12/15/18 18:17 Heparin Sodium (Porcine) (Heparin) 2,000 unit IVP Q6H PRN PRN Reason: SEE COMMENTS Stop: 12/15/18 18:17 Heparin Sodium/Dextrose (Heparin 25,000 Unit/250 Ml D5w) 25,000 unit in 250 mls @ 8.665 mls/hr IVC .Q24H LEONILA; Protocol Stop: 12/15/18 18:31 Last Titration: 06/16/18 13:03 Dose: 14.05 unit/kg/hr, 10.1 mls/hr Ceftriaxone Sodium 1,000 mg/ (Sterile Water) 10 mls @ 600 mls/hr IVPB Q24H LEONILA Stop: 12/16/18 09:01 Last Infusion: 06/16/18 08:50 Dose: Infused Lorazepam (Ativan) 1 mg PO HS PRN PRN Reason: Insomnia Stop: 12/15/18 23:32 Last Admin: 06/16/18 00:21 Dose: 1 mg Melatonin (Melatonin) 3 mg PO HS PRN PRN Reason: Insomnia Stop: 12/16/18 02:10 Last Admin: 06/16/18 02:26 Dose: 3 mg Metoprolol Tartrate (Lopressor) 5 mg IVP Q6H PRN PRN Reason: Tachyarrhythmias Stop: 12/16/18 03:29 Last Admin: 06/16/18 10:47 Dose: 5 mg Metoprolol Tartrate (Lopressor) 25 mg PO BID LEONILA Stop: 12/16/18 21:01 Naloxone HCl (Narcan) 0.4 mg IVP Q2M PRN PRN Reason: SEE COMMENTS Stop: 12/15/18 20:17 Nitroglycerin (Nitroglycerin) 0.4 mg SL Q5M PRN PRN Reason: Chest Pain Stop: 12/16/18 02:41 Last Admin: 06/16/18 09:53 Dose: 0.4 mg Tramadol HCl (Ultram) 50 mg PO Q6H PRN PRN Reason: Analgesia Stop: 12/15/18 23:33 Last Admin: 06/16/18 06:12 Dose: 50 mg Laboratory Tests 06/15/18 06/15/18 06/16/18 17:21 23:46 02:26 Hgb 13.4 Creatinine Troponin I 0.85 H* 4.46 H* 06/16/18 06/16/18 06/16/18 02:26 02:47 09:58 Hgb Creatinine 0.82 Troponin I 3.14 H* 2.26 H* - Imaging and Cardiology Chest Xray: report reviewed Echo: pending - EKG Interpretation EKG results cardiology: personally reviewed (ECG with SR, HR 86. Non-specific ST and T wave abnormalities noted.), other (Telemetry reviewed with average HR previous 12 hours noted to be 91, SR. Intermittent SVT noted. PVCs noted.) Consult Discharge Plan - Plan Referrals: NONE,PCP [Primary Care Provider] -
--- NOTE | 2018-06-16 13:24 | Internal Med Progress Note ---
<Denny Walters - Last Filed: 06/17/18 07:44> Hospitalist Progress Note - Encounter Date of Encounter: 06/17/18 Time of Encounter: 09:45 - Subjective Interval History: Patient seen this morning; she states that she is feeling well today, currently denies having any chest pain or shortness of breath. Does complain of some mild pain in her left maxillary and temporal area. No dizziness, lightheadedness, diaphoresis, or palpitations. At approximately 10 AM, patient began to experience chest pain and became tachycardic. Patient was placed on cardiac monitoring. Patient received 2 doses of Lopressor, 5 mg at 25 mg IV. After this, patients chest pain subsided. Upon arrival to patients room, heart rate was in the 90s; after assessment approximately 30 minutes later, heart rate was 82 bpm. We will closely monitor patient continue cardiac monitoring. Will await cardiologys recommendations. - Exam Vitals: Temp Pulse Resp BP Pulse Ox 98.1 F 83 20 142/60 99 06/16/18 10:45 06/16/18 10:45 06/16/18 10:45 06/16/18 10:45 06/16/18 10:45 Exam: General: Conversant, hard of hearing, no acute distress Head: atraumatic, normocephalic Eye: PERRL, EOMI, conjuntiva pink, sclera anicteric Neck: Supple, trachea midline; No lymphadenopathy Respiratory: CTAB. No accessory muscle use, wheezes, rales, or rhonchi Cardiovascular: RRR, +S1, +S2; no murmurs, rubs, gallops Abdomen: Soft, nontender Extremities: warm, radial pulses palpable and symmetrical Psychiatric: Normal affect, normal mood Skin: Dry, intact - Assessment and Plan (1) NSTEMI (non-ST elevated myocardial infarction) Current Visit: Yes Status: Acute Assessment and Plan: - Found to have an elevated troponin on arrival - Troponin levels: 0.85, 4.46, 3.14, 2.26 - Patient complained of intermittent chest pain of one weeks duration - As morning, patient had an episode of chest pain with tachycardia - 2 doses of Lopressor were administered; patients heart rate has been the 70s to 80s since Plan: - Continue heparin drip - Cardiology is following; would appreciate recommendations - Echocardiogram is ordered - Continue cardiac monitoring (2) Acute metabolic encephalopathy Current Visit: No Status: Acute Assessment and Plan: - Initially presented for confusion and hallucinations - Appears to have resolved; patient is alert and oriented and is conversant - CT of the head and is treated no acute intracranial abnormality, but did suggest possible acute on chronic sinusitis - Of note, patient has prior admissions for benzodiazepine overdose - UDS was negative - Patient has a known history of major depression Plan: - Psychiatry is following - Continue treatment for UTI (3) Urinary tract infection Current Visit: Yes Status: Acute Assessment and Plan: - Urinalysis on arrival demonstrated likely UTI Plan: - Continue ceftriaxone - Urine culture is currently pending - Time Spent with Patient Total time spent is greater than 50% in coordination of care (as documented) at patient's floor/unit and/or counseling patient: Internal Medicine: Result - Labs CBC & Chem 7: 06/17/18 03:10 06/17/18 03:10 Labs: Short CBC 06/15/18 06/15/18 06/16/18 Range/Units 17:21 19:15 02:26 WBC 7.7 7.5 8.3 (4.3-11.1) K/mcL Hgb 13.4 13.5 13.4 (11.5-15.4) g/dL Hct 40.9 41.8 40.8 (35.3-44.9) % Plt Count 311 333 301 (140-400) K/mcL Neutrophils # 6.4 5.8 (1.6-8.9) K/mcL BMP 06/15/18 06/16/18 17:21 02:26 Sodium 140 143 Potassium 3.3 L 3.1 L Chloride 107 106 Carbon Dioxide 23 24 BUN 25 H 26 H Creatinine 0.84 0.82 Glucose 130 H 113 H Calcium 8.9 9.1 Cardiac Enzymes 06/15/18 06/15/18 06/16/18 Range/Units 17:21 23:46 02:47 Troponin I 0.85 H* 4.46 H* 3.14 H* (< 0.04) ng/mL 06/16/18 Range/Units 09:58 Troponin I 2.26 H* (< 0.04) ng/mL Liver Function 06/15/18 Range/Units 17:21 Total Bilirubin 0.6 (0.3-1.0) mg/dL Direct Bilirubin 0.2 (0.0-0.2) mg/dL AST 20 (13-39) Units/L ALT 24 (7-52) Units/L Alkaline Phosphatase 116 H (34-104) Units/L Albumin 3.3 L (3.5-5.7) g/dL Urine 06/15/18 Range/Units 18:45 Urine Color Yellow (Yellow) Urine Clarity Cloudy A (Clear) Urine pH 6.0 (5.0-8.0) pH Units Ur Specific [place] 1.012 (1.010-1.025) Urine Protein 30 H (Neg-Trace) mg/dL Urine Glucose (UA) Normal (Normal) mg/dL - ABG Interpretation ABG results: PT/INR, D-dimer PT 12.4 Seconds (9.4-12.1) H 06/16/18 02:26 - Impressions Impressions Chest X-Ray 06/15/18 16:08 IMPRESSION: No acute cardiopulmonary process identified. D/ / Cory Starks MD / Cory Starks MD Interpreting Provider: Cory Starks MD Head CT 06/15/18 16:08 IMPRESSION: No acute intracranial abnormality detected. Mild to moderate motion degradation. Mucosal thickening and air-fluid level within the right maxillary sinus, which suggests possible acute on chronic sinusitis. D/ / Matias Tai MD / Matias Tai MD Interpreting Provider: Matias Tai MD Consult Discharge Plan - Plan Referrals: NONE,PCP [Primary Care Provider] - <Adeel Sanderson - Last Filed: 06/17/18 07:49> Hospitalist Progress Note - Encounter Date of Encounter: 06/17/18 - Exam Vitals: Temp Pulse Resp BP Pulse Ox 98.1 F 83 20 142/60 99 06/16/18 10:45 06/16/18 10:45 06/16/18 10:45 06/16/18 10:45 06/16/18 10:45 - Assessment and Plan (1) Acute metabolic encephalopathy Current Visit: No Status: Acute (2) NSTEMI (non-ST elevated myocardial infarction) Current Visit: Yes Status: Acute (3) Urinary tract infection Current Visit: Yes Status: Acute - Time Spent with Patient Total time spent is greater than 50% in coordination of care (as documented) at patient's floor/unit and/or counseling patient: Internal Medicine: Result - Labs CBC & Chem 7: 06/17/18 03:10 06/17/18 03:10 Labs: Short CBC 06/15/18 06/15/18 06/16/18 Range/Units 17:21 19:15 02:26 WBC 7.7 7.5 8.3 (4.3-11.1) K/mcL Hgb 13.4 13.5 13.4 (11.5-15.4) g/dL Hct 40.9 41.8 40.8 (35.3-44.9) % Plt Count 311 333 301 (140-400) K/mcL Neutrophils # 6.4 5.8 (1.6-8.9) K/mcL BMP 06/15/18 06/16/18 17:21 02:26 Sodium 140 143 Potassium 3.3 L 3.1 L Chloride 107 106 Carbon Dioxide 23 24 BUN 25 H 26 H Creatinine 0.84 0.82 Glucose 130 H 113 H Calcium 8.9 9.1 Cardiac Enzymes 06/15/18 06/15/18 06/16/18 Range/Units 17:21 23:46 02:47 Troponin I 0.85 H* 4.46 H* 3.14 H* (< 0.04) ng/mL 06/16/18 Range/Units 09:58 Troponin I 2.26 H* (< 0.04) ng/mL Liver Function 06/15/18 Range/Units 17:21 Total Bilirubin 0.6 (0.3-1.0) mg/dL Direct Bilirubin 0.2 (0.0-0.2) mg/dL AST 20 (13-39) Units/L ALT 24 (7-52) Units/L Alkaline Phosphatase 116 H (34-104) Units/L Albumin 3.3 L (3.5-5.7) g/dL Urine 06/15/18 Range/Units 18:45 Urine Color Yellow (Yellow) Urine Clarity Cloudy A (Clear) Urine pH 6.0 (5.0-8.0) pH Units Ur Specific [place] 1.012 (1.010-1.025) Urine Protein 30 H (Neg-Trace) mg/dL Urine Glucose (UA) Normal (Normal) mg/dL - ABG Interpretation ABG results: PT/INR, D-dimer PT 12.4 Seconds (9.4-12.1) H 06/16/18 02:26 - Impressions Impressions Chest X-Ray 06/15/18 16:08 IMPRESSION: No acute cardiopulmonary process identified. D/ / Cory Starks MD / Cory Starks MD Interpreting Provider: Cory Starks MD Head CT 06/15/18 16:08 IMPRESSION: No acute intracranial abnormality detected. Mild to moderate motion degradation. Mucosal thickening and air-fluid level within the right maxillary sinus, which suggests possible acute on chronic sinusitis. D/ / Matias Tai MD / Matias Tai MD Interpreting Provider: Matias Tai MD - Attending Attestation I examined this patient and my medical decision-making was reviewed with the Resident Physician. I agree with the documented findings, disposition and treatment plan as described except to the extent set forth below. Patient in the AM had complaints of leg discomfort. Later in the morning, I was notified of patient becoming tachycardic . Patient had heart rate in 180s today with complaints of chest pain. BP was running 90s-110/60-70. Nitro was given prior to my arrival at bedside and did not control chest pain. EKG at bedside showed SVT. Lopressor 5 mg IV given x2 but no improvement in BP. Adenosine was given and patient converted to normal sinus rhythm with HR in 80s. Her chest pain subsided. Patient has gone several months without psychiatric medications and cardiac medications, including BB, Cardizem and Rhythmol. Cardiology following, plan to start CCB, BB. Psychiatric meds can be restarted when rhythm more stable. Psychiatry following. Patient will likely need LHC. Will need to discuss with patient and her family. Critical care time 45 min provided while treating SVT with severe chest pain requiring urgent IV medications. <Denny Walters - Last Filed: 06/17/18 07:44> (3) Urinary tract infection Qualifiers: Urinary tract infection type: site unspecified Hematuria presence: without hematuria Qualified Code(s): N39.0 - Urinary tract infection, site not specified <Adeel Sanderson - Last Filed: 06/17/18 07:49> (3) Urinary tract infection Qualifiers: Urinary tract infection type: site unspecified Hematuria presence: without hematuria Qualified Code(s): N39.0 - Urinary tract infection, site not specified
[2018-06-16] MEDS ORDERED: *HR* OxyCODONE/APAP 5/325 TABLET PO ONE (17:38)
[2018-06-16] MEDS ORDERED: 0.9 % Sodium Chloride 250 ML ONE (18:11)
[2018-06-16] MEDS: Aspirin Enteric Coated 81 MG Tablet PO SCH (18:32)
[2018-06-16] MEDS: Heparin 25,000 UNIT/250 ML D5W 25,000 UNIT/250 ML IV.SOLN IVC SCH (21:57)
[2018-06-17 03:27] LABS: Basophils % 0.5 %; Eosinophils # 0.2 K/mcL (0.0-0.6); Eosinophils % 2.4 %; Hematocrit 38.7 % (35.3-44.9); Hemoglobin 12.7 g/dL (11.5-15.4); Immature Granulocytes % 0.3 % (0-4); Lymphocytes # 1.7 K/mcL (0.6-4.6); Mean Corpuscular HGB Conc 32.8 g/dL (31.6-35.5); Mean Corpuscular Hemoglobin 28.5 pg (28.0-33.3); Mean Platelet Volume 10.4 fL (9.4-12.4); Monocytes # 0.6 K/mcL (0.0-1.3); Monocytes % 9.4 %; Neutrophils # 3.7 K/mcL (1.6-8.9); Platelet Count 283 K/mcL (140-400); Red Blood Count 4.45 M/mcL (3.82-4.97); Red Cell Distribution Width 13.8 % (11.5-14.5); Segmented Neutrophils % 60.4 %
[2018-06-17 03:44] LABS: BUN/Creatinine Ratio 39 (6-26); Blood Urea Nitrogen 24 mg/dL (8-23); Calcium 8.8 mg/dL (8.6-10.3); Carbon Dioxide 23 mEq/L (23-29); Chloride 107 mEq/L (98-107); Glucose 118 mg/dL (70-105); Osmolality,Calculated 293 (280-300); Potassium 2.9 mEq/L (3.5-5.1); Sodium 139 mEq/L (136-145); eGFR For Non-African Americans > 60 (> 60)
[2018-06-17] MEDS: *HR* Heparin 5,000 UNIT/ML VIAL IVP PRN (03:58)
[2018-06-17] MEDS ORDERED: PROPAFENONE HCL 225 MG PO SCH (08:45)
[2018-06-17] MEDS: traMADol 50 MG TABLET PO PRN ×3 (08:52→20:17)
[2018-06-17] MEDS: Aspirin Enteric Coated 81 MG Tablet PO SCH (08:53)
[2018-06-17] MEDS: Diltiazem CD (24hr) 120 MG CAPSULE PO SCH (08:53)
[2018-06-17] MEDS: cefTRIAXone 1,000 MG in Water for inj. (sterile) 20 ML 10 ML IVPB SCH (08:53)
[2018-06-17] MEDS ORDERED: Diltiazem CD (24hr) 120 MG CAPSULE PO SCH (09:00)
[2018-06-17] MEDS: Budesonide/Formoterol 160/4.5 1 PUFF INH IH SCH ×2 (10:13→19:56)
[2018-06-17] MEDS ORDERED: Diltiazem CD (24hr) 120 MG CAPSULE PO ONE (10:30)
[2018-06-17] MEDS: Nitroglycerin 0.4 MG TAB.SUBL SL PRN (10:55)
[2018-06-17] MEDS: Fenofibrate 54 MG TABLET PO SCH (11:02)
[2018-06-17] MEDS: Lisinopril 20 MG TABLET PO SCH ×2 (11:02→20:17)
[2018-06-17] MEDS: Thiamine (B-1) 100 MG TABLET PO SCH (11:02)
[2018-06-17] MEDS ORDERED: 0.9 % Sodium Chloride 500 ML ONE (11:17)
--- NOTE | 2018-06-17 12:10 | Internal Med Progress Note ---
<Romeo,Denny - Last Filed: 06/17/18 14:54> Hospitalist Progress Note - Encounter Date of Encounter: 06/17/18 Time of Encounter: 08:40 - Subjective Interval History: Patient reports she is feeling well today. Denies having any episodes of chest pain or palpitations. Of note, patient's urinary catheter bag had a small amount of blood and clots present. No sign of active bleeding. Patient is unsure if she pulled on her catheter or not. She denies having any pain in the area. Hemoglobin was ordered; was 12.7. Will repeat hemoglobin in the morning. Cardiology is consulted; patient will undergo LHC tomorrow. Will make patient NPO at midnight. Patient is currently on cardiac monitoring. No complaints at this time. - Exam Vitals: Temp Pulse Resp BP Pulse Ox 97.8 F 67 20 165/89 97 06/17/18 10:56 06/17/18 10:56 06/17/18 10:56 06/17/18 10:56 06/17/18 10:56 Exam: General: Conversant, hard of hearing, no acute distress Head: atraumatic, normocephalic Eye: PERRL, EOMI, conjuntiva pink, sclera anicteric Neck: Supple, trachea midline; No lymphadenopathy Respiratory: CTAB. No accessory muscle use, wheezes, rales, or rhonchi Cardiovascular: RRR, +S1, +S2; no murmurs, rubs, gallops Abdomen: Soft, nontender Extremities: warm, radial pulses palpable and symmetrical Psychiatric: Normal affect, normal mood Skin: Dry, intact - Assessment and Plan (1) NSTEMI (non-ST elevated myocardial infarction) Current Visit: Yes Status: Acute Assessment and Plan: - Patient was found to have an elevated troponin on arrival - Troponin levels: 0.85, 4.46, 3.14, 2.26 - She reported intermittent chest pain of one weeks duration - Yesterday morning, patient an developed episode of tachycardia with chest pain; was given 2 doses of Lopressor and subsequently improved - Patient denies having any episodes of chest pain or palpitations since this - Cardiology is consulted for LHC Plan: - Per cardiology recommendations, continue heparin drip - Will make NPO after midnight for LHC tomorrow - If patient has continued recurrence of chest pain unrelieved by sublingual nitroglycerin, will initiate nitroglycerin drip - Hold Rythmol, Abilify, and Celexa for the time being; concern for QT prolongation - Continuous telemetry (2) Acute metabolic encephalopathy Current Visit: No Status: Acute Assessment and Plan: - Initially presented for confusion and hallucinations; known history of major depression and multiple admissions for benzodiazepine overdose - UDS on presentation was negative - AMS has resolved; patient is currently alert and oriented 3, and is conversant - Psychiatry was consulted; per psychiatry note, restart patients Abilify, Celexa, BuSpar - Psychiatry will continue to follow along Plan: - Will hold patient's Abilify and Celexa for the time being for concern of possible QT prolongation - Patient will be able to resume the rest of her medications after discharge (3) Urinary tract infection Current Visit: Yes Status: Acute Assessment and Plan: - Urinalysis on arrival demonstrated likely UTI Plan: - Continue ceftriaxone, day 2 - Urine culture is currently pending; tailor antibiotic therapy accordingly (4) Hematuria Current Visit: Yes Status: Acute Assessment and Plan: - She was noted to have a small amount of blood with clots in her catheter bag - She is currently on a heparin drip for NSTEMI - Hemoglobin drawn after this was 12.7 - No signs of active bleeding present - Patient denies having any pain in the area - Will repeat a.m. labs - Time Spent with Patient Total time spent is greater than 50% in coordination of care (as documented) at patient's floor/unit and/or counseling patient: 25 - 35 minutes Internal Medicine: Result - Labs CBC & Chem 7: 06/17/18 03:10 06/17/18 03:10 Labs: Short CBC 06/17/18 Range/Units 03:10 WBC 6.2 (4.3-11.1) K/mcL Hgb 12.7 (11.5-15.4) g/dL Hct 38.7 (35.3-44.9) % Plt Count 283 (140-400) K/mcL Neutrophils # 3.7 (1.6-8.9) K/mcL BMP 06/17/18 03:10 Sodium 139 Potassium 2.9 L Chloride 107 Carbon Dioxide 23 BUN 24 H Creatinine 0.62 Glucose 118 H Calcium 8.8 - ABG Interpretation ABG results: PT/INR, D-dimer PT 12.4 Seconds (9.4-12.1) H 06/16/18 02:26 - Impressions Impressions Echocardiogram 06/16/18 22:45 Impressions: LVEF 50-55%. Mild concentric left ventricular hypertrophy. Mild left ventricular diastolic dysfunction. Normal right ventricular structure and function. Mild mitral regurgitation. Unable to estimate RVSP due to lack of TR jet. Left Ventricular Wall Motion: Rest Echo Findings All wall segments showed normal motion. Findings: Study Quality * Technically adequate exam. ECG Findings * Normal sinus rhythm. Left Ventricle * LVEF 50-55%. * Normal LV chamber size and systolic function. * Mild concentric left ventricular hypertrophy. * Mild left ventricular diastolic dysfunction. Right Ventricle * Normal right ventricular structure and function. Left Atrium * Normal left atrial size. Right Atrium * Normal right atrial size. Interatrial Septum * Interatrial septum not well evaluated. * No evidence of PFO by color Doppler. Aortic Valve * Trileaflet aortic valve. * No aortic stenosis. * Trace aortic regurgitation. Mitral Valve * Normal mitral valve structure. * No mitral stenosis. * Mild mitral regurgitation. Tricuspid Valve * Normal tricuspid valve structure. * No tricuspid stenosis. * Trace tricuspid regurgitation. * Unable to estimate RVSP due to lack of TR jet. * Estimated RA pressure is 15 mmHg. Pulmonic Valve * Pulmonic valve is not well visualized. * No pulmonic stenosis. * No pulmonic regurgitation. Aorta * Normally sized aortic root. Pericardium * The pericardium appears normal. IVC * The IVC is dilated. * < 50% respiratory change. Consult Discharge Plan - Plan Referrals: NONE,PCP [Primary Care Provider] - <Adeel Sanderson - Last Filed: 06/17/18 15:54> Hospitalist Progress Note - Encounter Date of Encounter: 06/17/18 - Exam Vitals: Temp Pulse Resp BP Pulse Ox 97.8 F 68 20 147/69 98 06/17/18 15:37 06/17/18 15:37 06/17/18 15:37 06/17/18 15:37 06/17/18 15:37 - Assessment and Plan (1) Acute metabolic encephalopathy Current Visit: No Status: Acute (2) NSTEMI (non-ST elevated myocardial infarction) Current Visit: Yes Status: Acute (3) Urinary tract infection Current Visit: Yes Status: Acute (4) Hematuria Current Visit: Yes Status: Acute - Time Spent with Patient Total time spent is greater than 50% in coordination of care (as documented) at patient's floor/unit and/or counseling patient: Internal Medicine: Result - Labs CBC & Chem 7: 06/17/18 15:31 06/17/18 03:10 Labs: Short CBC 06/17/18 06/17/18 Range/Units 03:10 15:31 WBC 6.2 (4.3-11.1) K/mcL Hgb 12.7 13.2 (11.5-15.4) g/dL Hct 38.7 40.4 (35.3-44.9) % Plt Count 283 (140-400) K/mcL Neutrophils # 3.7 (1.6-8.9) K/mcL BMP 06/17/18 03:10 Sodium 139 Potassium 2.9 L Chloride 107 Carbon Dioxide 23 BUN 24 H Creatinine 0.62 Glucose 118 H Calcium 8.8 - ABG Interpretation ABG results: PT/INR, D-dimer PT 12.4 Seconds (9.4-12.1) H 06/16/18 02:26 - Attending Attestation I examined this patient and my medical decision-making was reviewed with the Resident Physician. I agree with the documented findings, disposition and treatment plan as described except to the extent set forth below. <Denny Walters - Last Filed: 06/17/18 14:54> (3) Urinary tract infection Qualifiers: Urinary tract infection type: site unspecified Hematuria presence: without hematuria Qualified Code(s): N39.0 - Urinary tract infection, site not specified <Adeel Sanderson - Last Filed: 06/17/18 15:54> (3) Urinary tract infection Qualifiers: Urinary tract infection type: site unspecified Hematuria presence: without hematuria Qualified Code(s): N39.0 - Urinary tract infection, site not sp ecified
--- NOTE | 2018-06-17 12:42 | Cardiology Progress Note ---
Date of Encounter: 06/17/18 Time of Encounter: 11:00 Assessment and Plan (1) NSTEMI (non-ST elevated myocardial infarction) Current Visit: Yes Status: Acute Per cardiology: -Troponins 0.85, 4.46, 3.14, 2.26. -Non-specific St and T wave abnormalities noted on ECG. -TTE with LVEF 50-55%, mild concentric LVH, mild diastolic dysfunction, mild MR, no wall motion abnormalities noted. -Admitted to intermittent chest pain at home, denies current. Had episode of chest pain this am, currently pain free. -ON heparin drip, asa, statin, BB. -Continue heparin drip. -Discussed LHC with patient, states she is agreeable. Of note, patient reports frequently forgetting medications at home. Concerning with potential need for dual anti-platelet therapy. Consider dialysis social worker consult. If proceeds with LHC, consider bare metal stent. -I personally attempted to call patient's daughter at home and cell phone number listed without success. Need to discuss medication assistance prior to proceeding with LHC. Patient states she cannot remember to take any of her medications. -Will make NPO after midnight for possible LHC tomorrow. -If has recurrence of chest pain, not relieved by SL nitro, would recommend nitro drip. (2) SVT (supraventricular tachycardia) Current Visit: Yes Status: Chronic Per cardiology: -Known history of SVT, was on rhythmol, CCB, and BB at home, however was not taking. -SVT noted this admission, broke with 6mg of adenosine. -Recurrence overnight, however intervention was not needed. -Will increase BB and CCB -Can consider outpatient EP referral for potential SVT ablation. (3) HTN (hypertension) Current Visit: No Status: Chronic Per cardiology: -Known HTN, -BP 170-200s systolic. -On leyla inhibitotr, CCB, BB. -WIll increase BB and CCB. -Continue to monitor BP. Qualifiers: Hypertension type: essential hypertension Qualified Code(s): I10 - Essential (primary) hypertension Discussion w patient/family: The assessment and plan as outlined above was discussed with the patient who expressed understanding and agreement. All questions were answered. Thank you for involving us in the care of your patient. Please call with any questions. Discussed and reviewed with Dr.Krystal Estrada. Subjective Principal diagnosis: NSTEMI, SVT Interval history: Patient reports episode of chest pain this morning, relieved by one nitro. Currently chest pain free. Objective Vital Signs, Last 4 Hours Temp Pulse Resp BP Pulse Ox 06/17/18 10:56 97.8 F 67 20 165/89 97 06/17/18 10:13 16 98 General: Conversant, No Apparent Distress HEENT: Atraumatic, Normocephaly, Mucus Membranes Moist Neck: No JVD, Normal carotid pulses Cardiac: Reg Rate and Rhythm, Normal S1 and S2, No Murmur Lungs: Normal Breath Sounds, No Wheeze, Rales, Rhonchi Neuro: Alert and responsive, No focal deficits noted Abdomen: Soft, Non-Tender Skin: No rashes noted on visualized skin Musculoskeletal: No Chest Wall Tenderness, Other (Involuntary movements of face, arms, legs noted. ) Extremities: No Clubbing, No Cyanosis, No Edema, Normal Pulses Results 06/17/18 03:10 06/17/18 03:10 Lab Results Impressions Echocardiogram 06/16/18 22:45 Impressions: LVEF 50-55%. Mild concentric left ventricular hypertrophy. Mild left ventricular diastolic dysfunction. Normal right ventricular structure and function. Mild mitral regurgitation. Unable to estimate RVSP due to lack of TR jet. Left Ventricular Wall Motion: Rest Echo Findings All wall segments showed normal motion. Findings: Study Quality * Technically adequate exam. ECG Findings * Normal sinus rhythm. Left Ventricle * LVEF 50-55%. * Normal LV chamber size and systolic function. * Mild concentric left ventricular hypertrophy. * Mild left ventricular diastolic dysfunction. Right Ventricle * Normal right ventricular structure and function. Left Atrium * Normal left atrial size. Right Atrium * Normal right atrial size. Interatrial Septum * Interatrial septum not well evaluated. * No evidence of PFO by color Doppler. Aortic Valve * Trileaflet aortic valve. * No aortic stenosis. * Trace aortic regurgitation. Mitral Valve * Normal mitral valve structure. * No mitral stenosis. * Mild mitral regurgitation. Tricuspid Valve * Normal tricuspid valve structure. * No tricuspid stenosis. * Trace tricuspid regurgitation. * Unable to estimate RVSP due to lack of TR jet. * Estimated RA pressure is 15 mmHg. Pulmonic Valve * Pulmonic valve is not well visualized. * No pulmonic stenosis. * No pulmonic regurgitation. Aorta * Normally sized aortic root. Pericardium * The pericardium appears normal. IVC * The IVC is dilated. * < 50% respiratory change. Active Medications Albuterol Sulfate (Albuterol Inhaler) 2 puff IH Q4H PRN PRN Reason: Shortness Of Breath Stop: 12/17/18 08:44 Aripiprazole (Abilify) 5 mg PO DAILY [facility] Stop: 12/18/18 09:01 Aspirin (Aspirin Ec) 81 mg PO DAILY [facility] Stop: 12/16/18 13:31 Last Admin: 06/17/18 08:53 Dose: 81 mg Atorvastatin Calcium (Lipitor) 40 mg PO HS [facility] Stop: 12/16/18 21:01 Last Admin: 06/16/18 20:23 Dose: 40 mg Atorvastatin Calcium (Lipitor) 10 mg PO HS [facility] Stop: 12/17/18 21:01 Budesonide/Formoterol Fumarate (Symbicort) 2 puff IH BIDR [facility]; Protocol Stop: 12/17/18 10:01 Last Admin: 06/17/18 10:13 Dose: 2 puff Citalopram Hydrobromide (Celexa) 40 mg PO DAILY [facility] Stop: 12/18/18 09:01 Diltiazem HCl (Cardizem Cd) 240 mg PO DAILY [facility] Stop: 12/18/18 09:01 Fenofibrate (Tricor) 162 mg PO DAILY [facility] Stop: 12/17/18 09:01 Last Admin: 06/17/18 11:02 Dose: 162 mg Heparin Sodium (Porcine) (Heparin) 4,000 unit IVP Q6HR PRN PRN Reason: SEE COMMENTS Stop: 12/15/18 18:17 Heparin Sodium (Porcine) (Heparin) 2,000 unit IVP Q6H PRN PRN Reason: SEE COMMENTS Stop: 12/15/18 18:17 Last Admin: 06/17/18 03:58 Dose: 2,000 unit Heparin Sodium/Dextrose (Heparin 25,000 Unit/250 Ml D5w) 25,000 unit in 250 mls @ 8.665 mls/hr IVC .Q24H [facility]; Protocol Stop: 12/15/18 18:31 Last Titration: 06/17/18 03:53 Dose: 14.05 unit/kg/hr, 10.1 mls/hr Ceftriaxone Sodium 1,000 mg/ (Sterile Water) 10 mls @ 600 mls/hr IVPB Q24H [facility] Stop: 12/16/18 09:01 Last Infusion: 06/17/18 09:18 Dose: Infused Lisinopril (Zestril) 20 mg PO BID [facility]; Protocol Stop: 12/17/18 09:01 Last Admin: 06/17/18 11:02 Dose: 20 mg Lorazepam (Ativan) 1 mg PO HS PRN PRN Reason: Insomnia Stop: 12/15/18 23:32 Last Admin: 06/16/18 20:23 Dose: 1 mg Melatonin (Melatonin) 3 mg PO HS PRN PRN Reason: Insomnia Stop: 12/16/18 02:10 Last Admin: 06/16/18 02:26 Dose: 3 mg Metformin HCl (Glucophage) 500 mg PO BIDWM [facility]; Protocol Stop: 12/17/18 17:01 Metoprolol Tartrate (Lopressor) 5 mg IVP Q6H PRN PRN Reason: Tachyarrhythmias Stop: 12/16/18 03:29 Last Admin: 06/16/18 10:47 Dose: 5 mg Metoprolol Tartrate (Lopressor) 50 mg PO BID [facility] Stop: 12/17/18 21:01 Naloxone HCl (Narcan) 0.4 mg IVP Q2M PRN PRN Reason: SEE COMMENTS Stop: 12/15/18 20:17 Nitroglycerin (Nitroglycerin) 0.4 mg SL Q5M PRN PRN Reason: Chest Pain Stop: 12/16/18 02:41 Last Admin: 06/17/18 10:55 Dose: 0.4 mg Omeprazole (Prilosec) 40 mg PO DAILY@0630 [facility] Stop: 12/17/18 10:31 Last Admin: 06/17/18 11:02 Dose: 40 mg Oxybutynin Chloride (Ditropan) 5 mg PO BID [facility] Stop: 12/17/18 09:01 Last Admin: 06/17/18 11:03 Dose: 5 mg Thiamine HCl (Vitamin B-1) 100 mg PO DAILY [facility] Stop: 12/17/18 09:01 Last Admin: 06/17/18 11:02 Dose: 100 mg Tramadol HCl (Ultram) 50 mg PO Q6H PRN PRN Reason: Analgesia Stop: 12/15/18 23:33 Last Admin: 04/14/19 08:52 Dose: 50 mg Vitamin E (Vitamin E) 1,000 unit PO DAILY [facility] Stop: 12/17/18 09:01 Last Admin: 06/17/18 11:02 Dose: 1,000 unit Laboratory Tests 06/17/18 06/17/18 03:10 03:10 Hgb 12.7 Potassium 2.9 L Creatinine 0.62 - Imaging and Cardiology Chest Xray: report reviewed Echo: report reviewed - EKG Interpretation EKG results cardiology: other (Telemetry reviewed with average HR previous 12 hours noted to be 70, SR. PVCs, PACs noted. SVT noted.) Consult Discharge Plan - Plan Referrals: NONE,PCP [Primary Care Provider] -
[2018-06-17 15:41] LABS: Hematocrit 40.4 % (35.3-44.9); Hemoglobin 13.2 g/dL (11.5-15.4)
[2018-06-17] MEDS: *HR* Metoprolol 5 MG/5 ML VIAL IVP PRN (16:18)
[2018-06-17] MEDS ORDERED: *HR* Metformin 500 MG TABLET PO SCH (17:00)
[2018-06-17] MEDS: *HR* LORazepam 1 MG TABLET PO PRN (20:17)
[2018-06-18] MEDS: Heparin 25,000 UNIT/250 ML D5W 25,000 UNIT/250 ML IV.SOLN IVC SCH (01:06)
--- NOTE | 2018-06-18 01:37 | Event Note ---
Date of Encounter: 06/17/18 Time of Encounter: 21:31 Alerted by patient's nurse María Elena that patient had gone back into SVT again today and was managed with when necessary metoprolol. Patient again went into SVT at approximately 21:16 and lasted approximately 4 minutes before converting back to sinus rhythm by herself. Heart rate running low 70s. Went to see pt. who was resting. Given SVT run from the previous night requiring adenosine push, nurse instructed to continue monitoring pt. very closely and alert me immediately of any new or adverse changes.
[2018-06-18] MEDS: Budesonide/Formoterol 160/4.5 1 PUFF INH IH SCH ×2 (07:23→20:16)
[2018-06-18 07:36] LABS: Basophils % 0.2 %; Eosinophils # 0.2 K/mcL (0.0-0.6); Eosinophils % 2.8 %; Hematocrit 37.2 % (35.3-44.9); Hemoglobin 12.1 g/dL (11.5-15.4); Immature Granulocytes % 0.6 % (0-4); Lymphocytes # 1.4 K/mcL (0.6-4.6); Mean Corpuscular HGB Conc 32.5 g/dL (31.6-35.5); Mean Corpuscular Hemoglobin 28.9 pg (28.0-33.3); Mean Platelet Volume 10.9 fL (9.4-12.4); Monocytes # 0.5 K/mcL (0.0-1.3); Monocytes % 9.1 %; Neutrophils # 3.3 K/mcL (1.6-8.9); Platelet Count 266 K/mcL (140-400); Red Blood Count 4.18 M/mcL (3.82-4.97); Red Cell Distribution Width 13.9 % (11.5-14.5); Segmented Neutrophils % 61.3 %
[2018-06-18 07:49] LABS: BUN/Creatinine Ratio 28 (6-26); Blood Urea Nitrogen 21 mg/dL (8-23); Calcium 8.9 mg/dL (8.6-10.3); Carbon Dioxide 26 mEq/L (23-29); Chloride 107 mEq/L (98-107); Glucose 159 mg/dL (70-105); Osmolality,Calculated 296 (280-300); Potassium 3.3 mEq/L (3.5-5.1); Sodium 140 mEq/L (136-145); eGFR For Non-African Americans > 60 (> 60)
[2018-06-18] MEDS ORDERED: Potassium Chloride Elixir 20 MEQ/15 ML UDC PO ONE (08:17)
--- NOTE | 2018-06-18 08:56 | Electrocardiograph Report ---
[place] [id number] Test Date: 2018-06-15 Pat Name: Niurka Lemon Department: [id number] Room: 2A44 Gender: F Frankfurter Inspector: : [id number] Requested By: Miguel Kessler Order Number: [id number] Reading MD: Saurabh Downey Measurements Intervals Constantia Rate: 102 P: 67 SD: 140 QRS: 43 QRSD: 89 T: QT: 351 QTc: 458 Interpretive Statements Sinus tachycardia Nonspecific ST and T-wave changes Electronically Signed On 06-18-2018 8:55:22 EDT by Saurabh Downey
[2018-06-18] MEDS ORDERED: ARIPiprazole 5 MG TABLET PO SCH (09:00)
[2018-06-18] MEDS: cefTRIAXone 1,000 MG in Water for inj. (sterile) 20 ML 10 ML IVP SCH (09:26)
--- NOTE | 2018-06-18 09:35 | Internal Med Progress Note ---
Addendum entered and electronically signed by Javed Castellanos 06/18/18 13:14: Cardiology has been unable to reach daughter, so [facility] will not proceed today. ?compliance with meds and will consult PTOT for evaluation possible ECF placement. Original Note: <Javed Castellanos - Last Filed: 06/18/18 11:05> Hospitalist Progress Note - Encounter Date of Encounter: 06/18/18 Time of Encounter: 09:35 - Subjective Interval History: Pt is seen at bedside. She had overnight SVT, which resolved on its own after 4 mins. She is resting in bed without complaint. - Exam Vitals: Temp Pulse Resp BP Pulse Ox 97.6 F 54 20 145/61 100 06/18/18 06:43 06/18/18 06:43 06/18/18 07:25 06/18/18 06:43 06/18/18 07:25 Exam: General: Conversant, hard of hearing, no acute distress Head: atraumatic, normocephalic Eye: PERRL, EOMI, conjuntiva pink, sclera anicteric Neck: Supple, trachea midline; No lymphadenopathy Respiratory: CTAB. No accessory muscle use, wheezes, rales, or rhonchi Cardiovascular: RRR, +S1, +S2; no murmurs, rubs, gallops Abdomen: Soft, nontender Extremities: warm, radial pulses palpable and symmetrical Psychiatric: Normal affect, normal mood Skin: Dry, intact - Assessment and Plan (1) NSTEMI (non-ST elevated myocardial infarction) Current Visit: Yes Status: Acute Assessment and Plan: Patient presented with AMS and was found to have an elevated troponin on arrival - pt reported chest pain x 1 week that came and went Troponin levels: 0.85, 4.46, 3.14, 2.26 ECHO LVEF 50-55%, LVH, diastolic dysfxn Plan: - Per cardiology recommendations, continue heparin drip - NPO for LHC - SL nitro and if intractable, nitro drip as per cardiology - telemetry monitoring - cardiology consulted concern for QT prolongation --> holding Rythmol, Abilify, and Celexa awaiting cardiology recommendations for restarting rhythmol - FEN: NPO - dispo: [facility] today, cardiology recommendations, psych says ok to restart abilify/celexa on d/c, likely d/c tomorrow (2) HTN (hypertension) Current Visit: No Status: Chronic Assessment and Plan: chronic, continue home meds (3) DVT prophylaxis Current Visit: No Status: Acute Assessment and Plan: heparin drip (4) Urinary tract infection Current Visit: Yes Status: Acute Assessment and Plan: On admission pt was altered and confused UA positive for nitrites, leuk esterase, and WBC Plan: - continue rocephin day 3 - urine cx pending (5) Major depression Current Visit: Yes Status: Acute Assessment and Plan: Pt on celexa and abilify - psych consulted - psych meds held due to QTc prolongation (6) SVT (supraventricular tachycardia) Current Visit: Yes Status: Chronic Assessment and Plan: Pt had run of SVT overnight x 4 min, converted back to sinus herself. Continue telemetry monitoring. (7) Acute metabolic encephalopathy Current Visit: Yes Status: Acute Assessment and Plan: Was likely secondary to infxn vs ACS - has known hx of MDD - c/o active hallucinations on admission UDS negative for drugs UA positive for infxn as above Plan: - abilify, celexa held due to QTc prolongation - psych consulted on discharge psych says ok to restart rx - Time Spent with Patient Total time spent is greater than 50% in coordination of care (as documented) at patient's floor/unit and/or counseling patient: less than 15 minutes Plan of Care Discussed with: patient Internal Medicine: Result - Labs CBC & Chem 7: 06/18/18 06:26 06/18/18 06:26 Labs: Short CBC 06/17/18 06/18/18 Range/Units 15:31 06:26 WBC 5.4 (4.3-11.1) K/mcL Hgb 13.2 12.1 (11.5-15.4) g/dL Hct 40.4 37.2 (35.3-44.9) % Plt Count 266 (140-400) K/mcL Neutrophils # 3.3 (1.6-8.9) K/mcL BMP 06/18/18 06:26 Sodium 140 Potassium 3.3 L Chloride 107 Carbon Dioxide 26 BUN 21 Creatinine 0.75 Glucose 159 H Calcium 8.9 - ABG Interpretation ABG results: PT/INR, D-dimer PT 12.4 Seconds (9.4-12.1) H 06/16/18 02:26 Consult Discharge Plan - Plan Referrals: NONE,PCP [Primary Care Provider] - <Adeel Sanderson - Last Filed: 06/18/18 19:04> Hospitalist Progress Note - Encounter Date of Encounter: 06/18/18 - Exam Vitals: Temp Pulse Resp BP Pulse Ox 97.8 F 60 18 126/69 99 06/18/18 15:39 06/18/18 15:39 06/18/18 15:39 06/18/18 15:39 06/18/18 15:39 - Assessment and Plan (1) Acute metabolic encephalopathy Current Visit: Yes Status: Acute (2) NSTEMI (non-ST elevated myocardial infarction) Current Visit: Yes Status: Acute (3) Urinary tract infection Current Visit: Yes Status: Acute (4) Hematuria Current Visit: Yes Status: Acute - Time Spent with Patient Total time spent is greater than 50% in coordination of care (as documented) at patient's floor/unit and/or counseling patient: Internal Medicine: Result - Labs CBC & Chem 7: 06/18/18 06:26 06/18/18 06:26 Labs: Short CBC 06/18/18 Range/Units 06:26 WBC 5.4 (4.3-11.1) K/mcL Hgb 12.1 (11.5-15.4) g/dL Hct 37.2 (35.3-44.9) % Plt Count 266 (140-400) K/mcL Neutrophils # 3.3 (1.6-8.9) K/mcL BMP 06/18/18 06:26 Sodium 140 Potassium 3.3 L Chloride 107 Carbon Dioxide 26 BUN 21 Creatinine 0.75 Glucose 159 H Calcium 8.9 - ABG Interpretation ABG results: PT/INR, D-dimer PT 12.4 Seconds (9.4-12.1) H 06/16/18 02:26 - Attending Attestation I examined this patient and my medical decision-making was reviewed with the Resident Physician. I agree with the documented findings, disposition and treatment plan as described except to the extent set forth below. <Adeel Sanderson - Last Filed: 06/18/18 19:04> (3) Urinary tract infection Qualifiers: Urinary tract infection type: site unspecified Hematuria presence: without hematuria Qualified Code(s): N39.0 - Urinary tract infection, site not specified
--- NOTE | 2018-06-18 10:59 | Psychiatry Progress Note ---
Addendum entered and electronically signed by Raisa Lew 06/20/18 12:32: Patient received her cardiac catheterization which showed single-vessel coronary artery disease with 20-25% occlusion. There is concern by medical to put patient back on her antipsychotic medications. It appears that she is on aripiprazole for major depressive disorder, and with the degree of tardive dyskinesia she is currently experiencing, the risks likely outweigh the benefits for starting this medication again. As such, we recommend not starting this medication at this time. Primary team's plan is to have patient seek psychiatric services outpatient, which we agree with. In addition, we recommend continuing the patient on her vitamin E and seeking additional treatment for her tardive dyskinesia while outpatient. She follows up with [facility]. Original Note: Date of Encounter: 06/18/18 Time of Encounter: 09:15 Subjective Interval history: She was seen today in her room. She moderate tardive movements in her legs, waist, and perioral region. She reports that she is "okay." She denies significant issues of depression and anxiety. She denies issues with sleep. She does report a low appetite recently. She denies side effects to medication currently. She denies SI, HI, AH, and VH. Patient reports that the leg and hip movements of her tardive dyskinesia started about 4 months ago, when she stopped aripiprazole. She reports that the mouth and tongue movement started 2 months ago, reporting that started when she stopped Percocet. She explains that these movements stop when she sleeps. She explains that the movements bother her, stating that she has has pain with the movements. Review of Systems Neurological: Reports: other (Tardive movements in her legs, trunk, and perioral region) Psychiatric: Reports: change in appetite. Denies: depression, anxiety, abnormal sleep pattern, suicidal ideation, homicidal ideation, auditory hallucinations, visual hallucinations Results - Vital Signs Vital Signs: Temp Pulse Resp BP Pulse Ox 97.6 F 54 20 145/61 100 06/18/18 06:43 06/18/18 06:43 06/18/18 07:25 06/18/18 06:43 06/18/18 07:25 - Drug Levels and Toxicology Drug Levels and Toxicology: None noted this am - Labs Labs: Laboratory Results - last 24 hr 06/17/18 06/17/18 06/17/18 04:58 15:31 15:31 WBC RBC Hgb 13.2 Hct 40.4 MCV MCH MCHC RDW Plt Count MPV Immature Gran % Seg Neutrophils % Lymphocytes % Monocytes % Eosinophils % Basophils % Neutrophils # Lymphocytes # Monocytes # Eosinophils # Basophils # Heparin Anti-Xa, Unfract 0.31 Sodium Potassium Chloride Carbon Dioxide BUN Creatinine Est GFR ( Amer) Est GFR (Non-Af Amer) BUN/Creatinine Ratio Glucose POC Glucose 100 H Calculated Osmolality Calcium 06/18/18 06/18/18 06/18/18 00:02 05:14 06:26 WBC 5.4 RBC 4.18 Hgb 12.1 Hct 37.2 MCV 89.0 MCH 28.9 MCHC 32.5 RDW 13.9 Plt Count 266 MPV 10.9 Immature Gran % 0.6 Seg Neutrophils % 61.3 Lymphocytes % 26.0 Monocytes % 9.1 Eosinophils % 2.8 Basophils % 0.2 Neutrophils # 3.3 Lymphocytes # 1.4 Monocytes # 0.5 Eosinophils # 0.2 Basophils # 0.0 Heparin Anti-Xa, Unfract Sodium Potassium Chloride Carbon Dioxide BUN Creatinine Est GFR ( Amer) Est GFR (Non-Af Amer) BUN/Creatinine Ratio Glucose POC Glucose 248 H 139 H Calculated Osmolality Calcium 06/18/18 06:26 WBC RBC Hgb Hct MCV MCH MCHC RDW Plt Count MPV Immature Gran % Seg Neutrophils % Lymphocytes % Monocytes % Eosinophils % Basophils % Neutrophils # Lymphocytes # Monocytes # Eosinophils # Basophils # Heparin Anti-Xa, Unfract Sodium 140 Potassium 3.3 L Chloride 107 Carbon Dioxide 26 BUN 21 Creatinine 0.75 Est GFR ( Amer) > 60 Est GFR (Non-Af Amer) > 60 BUN/Creatinine Ratio 28 H Glucose 159 H POC Glucose Calculated Osmolality 296 Calcium 8.9 - Impressions ITS Impressions Chest X-Ray 06/15/18 16:08 IMPRESSION: No acute cardiopulmonary process identified. D/ / Cory Starks MD / Cory Starks MD Interpreting Provider: Coyr Starks MD Head CT 06/15/18 16:08 IMPRESSION: No acute intracranial abnormality detected. Mild to moderate motion degradation. Mucosal thickening and air-fluid level within the right maxillary sinus, which suggests possible acute on chronic sinusitis. D/ / Matias Tai MD / Matias Tai MD Interpreting Provider: Matias Tai MD Echocardiogram 06/16/18 22:45 Impressions: LVEF 50-55%. Mild concentric left ventricular hypertrophy. Mild left ventricular diastolic dysfunction. Normal right ventricular structure and function. Mild mitral regurgitation. Unable to estimate RVSP due to lack of TR jet. Left Ventricular Wall Motion: Rest Echo Findings All wall segments showed normal motion. Findings: Study Quality * Technically adequate exam. ECG Findings * Normal sinus rhythm. Left Ventricle * LVEF 50-55%. * Normal LV chamber size and systolic function. * Mild concentric left ventricular hypertrophy. * Mild left ventricular diastolic dysfunction. Right Ventricle * Normal right ventricular structure and function. Left Atrium * Normal left atrial size. Right Atrium * Normal right atrial size. Interatrial Septum * Interatrial septum not well evaluated. * No evidence of PFO by color Doppler. Aortic Valve * Trileaflet aortic valve. * No aortic stenosis. * Trace aortic regurgitation. Mitral Valve * Normal mitral valve structure. * No mitral stenosis. * Mild mitral regurgitation. Tricuspid Valve * Normal tricuspid valve structure. * No tricuspid stenosis. * Trace tricuspid regurgitation. * Unable to estimate RVSP due to lack of TR jet. * Estimated RA pressure is 15 mmHg. Pulmonic Valve * Pulmonic valve is not well visualized. * No pulmonic stenosis. * No pulmonic regurgitation. Aorta * Normally sized aortic root. Pericardium * The pericardium appears normal. IVC * The IVC is dilated. * < 50% respiratory change. Assessment and Plan (1) Major depressive disorder, recurrent episode, in partial remission Current visit: Yes Status: Acute Plan: Continue hospitalization Additional Plan: -As patient is having current cardiac issues and will be having a cardiac c atheter today, no medications will be started at this time. However, if patient is cleared by cardiology, we will restart citalopram and buspirone. However, it may be better to start patient on an antipsychotic with lower D2 binding potential, which may assist with the tardive movements. Quetiapine might be an option. Restarting aripiprazole may improve the tardive movements in the short- term but will overall exacerbate them. In addition, a medication for the tardive movements, such as Valbenazine or Vitamin E may be helpful. We will make a better decision on medications after further cardiac evaluation -Continue to follow Risks, benefits, side effects, alternatives discussed w/pt: No (New changes today) Patient agreeable to treatment: Yes Consult Discharge Plan - Plan Referrals: NONE,PCP [Primary Care Provider] - - Attending Attestation I examined this patient and my medical decision-making was reviewed with the Resident Physician. I agree with the documented findings, disposition and treatment plan as described except to the extent set forth below. Psychiatry Exam - Constitutional Vitals: Temp Pulse Resp BP Pulse Ox 97.6 F 54 20 145/61 100 06/18/18 06:43 06/18/18 06:43 06/18/18 07:25 06/18/18 06:43 06/18/18 07:25 General appearance: age & developmentally appropriate, well-groomed, well- nourished, average - Musculoskeletal Gait: other (Not assessed) Station: other (Tardive dyskinetic movements in the legs, trunk, perioral region, and tongue. Aims = 23), relaxed Strength & Tone: normal for patient (Grossly) - Psychiatric Patient Orientation: Yes Person, Yes Time, Yes Place, Yes Circumstance Level of alertness: Alert, Follows commands Behavior: calm, cooperative Psychomotor activity: Normal Eye Contact: Maintains Eye Contact Mood Description: Euthymic/stable Patient description of mood: "Okay" Affect description: congruent with mood, full range Speech Volume: Normal Speech pattern: normal rate, normal rhythm, normal tone, fluent, spontaneous Language & Vocabulary: consistent with education Thought Process: Logical, Linear, Goal Oriented Thought Content: No Suicidal ideation, No Homicidal ideation, No Overt delusions Perceptual Disturbances: No Reacting to internal stimuli, No Auditory hallucinations, No Visual hallucinations Attention Span Ability: Capable of Focused Attention Memory Description: Grossly Intact Patient Reliability: Reliable Historian Fund of knowledge: Yes aware of current events Intelligence Estimate: Average Judgment: Good Insight: Full
--- NOTE | 2018-06-18 11:28 | Electrocardiograph Report ---
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
[2018-06-18] MEDS: Lisinopril 20 MG TABLET PO SCH ×2 (12:10→20:54)
[2018-06-18] MEDS: Thiamine (B-1) 100 MG TABLET PO SCH (12:11)
[2018-06-18] MEDS: Aspirin Enteric Coated 81 MG Tablet PO SCH (12:11)
[2018-06-18] MEDS: Fenofibrate 54 MG TABLET PO SCH (12:11)
[2018-06-18] MEDS: Diltiazem CD (24hr) 240 MG CAPSULE PO SCH (12:11)
--- NOTE | 2018-06-18 13:28 | Cardiology Progress Note ---
Addendum entered and electronically signed by Lexy William MD 06/18/18 17:13: Patient was seen and evaluated independently by me. Findings, assessment and plan were discussed in detail with patient, questions answered. Agree with nurse practitioner's. Addition as follows, Tele review with GRAPPLER, single episode of NSVT 06/15 3am. Patient's NSTEMI with diffuse significant STD even with mild tachycardia, new c/w 2017. Suspected underlying severe CAD and ideally need LHC with plan for revascularization. Months of nondisrupted DAPT is necessary in case of PCI. However, medication administration/compliance has been a major concern given unclear social support and probable delirium/sundowning. - If medication compliance can be assured (eg SNF), will persue LHC with possible PCI/CABG - If medication non-compliance issue remains, it's not clear risk of stent thr ombosis due to lack of DAPT and risk of LHC could be justified over medical management Lexy William MD, PhD Original Note: Date of Encounter: 06/18/18 Time of Encounter: 11:30 Assessment and Plan (1) NSTEMI (non-ST elevated myocardial infarction) Current Visit: Yes Status: Acute Per cardiology: -Troponins 0.85, 4.46, 3.14, 2.26. -Non-specific St and T wave abnormalities noted on ECG. -TTE with LVEF 50-55%, mild concentric LVH, mild diastolic dysfunction, mild MR, no wall motion abnormalities noted. -Admitted to intermittent chest pain at home, denies current chest pain. -ON heparin drip, asa, statin, BB. -Continue heparin drip. -Discussed LHC with patient, states she is agreeable. Of note, patient reports frequently forgetting medications at home. Concerning with potential need for dual anti-platelet therapy. Social service consult pending. If proceeds with LHC, consider bare metal stent. Potential placement in extended care facility. Discussed and reviewed with , if placement in facility, will proceed with LHC. If patient is not to be placed in facility, recommend medical management. -I personally attempted to call patient's daughter at home and cell phone number listed without success x3. -If has recurrence of chest pain, not relieved by SL nitro, would recommend nitro drip. (2) SVT (supraventricular tachycardia) Current Visit: Yes Status: Chronic Per cardiology: -Known history of SVT, was on rhythmol, CCB, and BB at home, however was not taking. -SVT noted this admission, broke with 6mg of adenosine. -Short runs of atrial tachycardia noted. -Continue BB and CCB. -Rhythmol is contraindicated now with presumed CAD -Can consider outpatient EP referral for potential SVT ablation. (3) HTN (hypertension) Current Visit: No Status: Chronic Per cardiology: -Known HTN, -On leyla inhibitotr, CCB, BB. -Now improved 120-140s systolic. -Continue to monitor BP. Qualifiers: Hypertension type: essential hypertension Qualified Code(s): I10 - Essential (primary) hypertension Discussion w patient/family: The assessment and plan as outlined above was discussed with the patient who expressed understanding and agreement. All questions were answered. Thank you for involving us in the care of your patient. Please call with any questions. Discussed and reviewed with Subjective Principal diagnosis: NSTEMI, SVT Interval history: Patient denies chest pain. Objective Vital Signs, Last 4 Hours Temp Pulse Resp BP Pulse Ox 06/18/18 11:09 97.6 F 55 18 120/58 96 General: Conversant, No Apparent Distress HEENT: Atraumatic, Normocephaly, Mucus Membranes Moist Neck: No JVD, Normal carotid pulses Cardiac: Reg Rate and Rhythm, Normal S1 and S2, No Murmur Lungs: Normal Breath Sounds, No Wheeze, Rales, Rhonchi Neuro: Alert and responsive, No focal deficits noted Abdomen: Soft, Non-Tender Skin: No rashes noted on visualized skin Musculoskeletal: No Chest Wall Tenderness, Other (Involuntary movements noted. ) Extremities: No Clubbing, No Cyanosis, No Edema, Normal Pulses Results 06/18/18 06:26 06/18/18 06:26 Lab Results Active Medications Albuterol Sulfate (Albuterol Inhaler) 2 puff IH Q4H PRN PRN Reason: Shortness Of Breath Stop: 12/17/18 08:44 Aspirin (Aspirin Ec) 81 mg PO DAILY LEONILA Stop: 12/16/18 13:31 Last Admin: 06/18/18 12:11 Dose: 81 mg Atorvastatin Calcium (Lipitor) 10 mg PO HS LEONILA Stop: 12/17/18 21:01 Last Admin: 06/17/18 20:17 Dose: 10 mg Budesonide/Formoterol Fumarate (Symbicort) 2 puff IH BIDR [facility]; Protocol Stop: 12/17/18 10:01 Last Admin: 06/18/18 07:23 Dose: 2 puff Diltiazem HCl (Cardizem Cd) 240 mg PO DAILY [facility] Stop: 12/18/18 09:01 Last Admin: 06/18/18 12:11 Dose: 240 mg Fenofibrate (Tricor) 162 mg PO DAILY [facility] Stop: 12/17/18 09:01 Last Admin: 06/18/18 12:11 Dose: 162 mg Heparin Sodium (Porcine) (Heparin) 4,000 unit IVP Q6HR PRN PRN Reason: SEE COMMENTS Stop: 12/15/18 18:17 Heparin Sodium (Porcine) (Heparin) 2,000 unit IVP Q6H PRN PRN Reason: SEE COMMENTS Stop: 12/15/18 18:17 Last Admin: 06/17/18 03:58 Dose: 2,000 unit Hydroxyzine HCl (Hydroxyzine) 10 mg PO TID PRN PRN Reason: Itching Stop: 12/17/18 15:58 Last Admin: 06/17/18 16:19 Dose: 10 mg Heparin Sodium/Dextrose (Heparin 25,000 Unit/250 Ml D5w) 25,000 unit in 250 mls @ 8.665 mls/hr IVC .Q24H [facility]; Protocol Stop: 12/15/18 18:31 Last Admin: 06/18/18 01:06 Dose: 13.99 unit/kg/hr, 10.1 mls/hr Ceftriaxone Sodium 1,000 mg/ (Sterile Water) 10 mls @ 600 mls/hr IVP DAILY [facility] Stop: 12/18/18 09:01 Last Admin: 06/18/18 09:26 Dose: 600 mls/hr Lisinopril (Zestril) 20 mg PO BID [facility]; Protocol Stop: 12/17/18 09:01 Last Admin: 06/18/18 12:10 Dose: 20 mg Lorazepam (Ativan) 1 mg PO HS PRN PRN Reason: Insomnia Stop: 12/15/18 23:32 Last Admin: 06/17/18 20:17 Dose: 1 mg Melatonin (Melatonin) 3 mg PO HS PRN PRN Reason: Insomnia Stop: 12/16/18 02:10 Last Admin: 06/16/18 02:26 Dose: 3 mg Metoprolol Tartrate (Lopressor) 5 mg IVP Q6H PRN PRN Reason: Tachyarrhythmias Stop: 12/16/18 03:29 Last Admin: 06/17/18 16:18 Dose: 5 mg Metoprolol Tartrate (Lopressor) 50 mg PO BID [facility] Stop: 12/17/18 21:01 Last Admin: 06/18/18 09:26 Dose: 50 mg Naloxone HCl (Narcan) 0.4 mg IVP Q2M PRN PRN Reason: SEE COMMENTS Stop: 12/15/18 20:17 Nitroglycerin (Nitroglycerin) 0.4 mg SL Q5M PRN PRN Reason: Chest Pain Stop: 12/16/18 02:41 Last Admin: 06/17/18 10:55 Dose: 0.4 mg Omeprazole (Prilosec) 40 mg PO DAILY@0630 [facility] Stop: 12/17/18 10:31 Last Admin: 06/18/18 05:25 Dose: Not Given Oxybutynin Chloride (Ditropan) 5 mg PO BID [facility] Stop: 12/17/18 09:01 Last Admin: 06/18/18 12:11 Dose: 5 mg Thiamine HCl (Vitamin B-1) 100 mg PO DAILY [facility] Stop: 12/17/18 09:01 Last Admin: 06/18/18 12:11 Dose: 100 mg Tramadol HCl (Ultram) 50 mg PO Q6H PRN PRN Reason: Analgesia Stop: 12/15/18 23:33 Last Admin: 06/17/18 20:17 Dose: 50 mg Vitamin E (Vitamin E) 1,000 unit PO DAILY [facility] Stop: 12/17/18 09:01 Last Admin: 06/18/18 12:10 Dose: 1,000 unit Laboratory Tests 06/18/18 06/18/18 06:26 06:26 Hgb 12.1 Creatinine 0.75 - Imaging and Cardiology Chest Xray: report reviewed Echo: report reviewed - EKG Interpretation EKG results cardiology: other (Telemetry reviewed with average HR previous 12 hours noted to be 60, SR. PVCs, PACS noted. Short a.tach noted.) Consult Discharge Plan - Plan Referrals: NONE,PCP [Primary Care Provider] -
[2018-06-18 14:24] LABS: Magnesium 1.8 mg/dL (1.6-2.6)
--- NOTE | 2018-06-18 16:39 | Electrocardiograph Report ---
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
[2018-06-18] MEDS: Magnesium Oxide 400 MG TABLET PO SCH (16:45)
[2018-06-18] MEDS: *HR* Heparin 5,000 UNIT/ML VIAL IVP PRN (16:47)
[2018-06-18] MEDS: ALPRAZolam 0.5 MG TABLET PO SCH (20:53)
[2018-06-18] MEDS: traMADol 50 MG TABLET PO PRN (20:53)
[2018-06-18] MEDS: *HR* LORazepam 1 MG TABLET PO PRN (20:53)
[2018-06-18] MEDS: Melatonin 3 MG TABLET PO PRN (20:53)
[2018-06-19] MEDS: Heparin 25,000 UNIT/250 ML D5W 25,000 UNIT/250 ML IV.SOLN IVC SCH (01:17)
[2018-06-19 06:47] LABS: BUN/Creatinine Ratio 29 (6-26); Blood Urea Nitrogen 18 mg/dL (8-23); Calcium 8.8 mg/dL (8.6-10.3); Carbon Dioxide 24 mEq/L (23-29); Chloride 109 mEq/L (98-107); Glucose 122 mg/dL (70-105); Osmolality,Calculated 297 (280-300); Potassium 3.8 mEq/L (3.5-5.1); Sodium 142 mEq/L (136-145); eGFR For Non-African Americans > 60 (> 60)
--- NOTE | 2018-06-19 07:07 | Internal Med Progress Note ---
<Javed Castellanos S - Last Filed: 06/19/18 11:23> Hospitalist Progress Note - Encounter Date of Encounter: 06/19/18 Time of Encounter: 08:46 - Subjective Interval History: Pt is seen at bedside. She reports some chest pain overnight that has now resolved. Denies any other complaints or concerns. - Exam Vitals: Temp Pulse Resp BP Pulse Ox 98.7 F 52 18 173/76 95 06/19/18 06:50 06/19/18 06:50 06/19/18 06:50 06/19/18 06:50 06/19/18 06:50 Exam: General: Conversant, hard of hearing, no acute distress Head: atraumatic, normocephalic Eye: PERRL, EOMI, conjuntiva pink, sclera anicteric Neck: Supple, trachea midline; No lymphadenopathy Respiratory: CTAB. No accessory muscle use, wheezes, rales, or rhonchi Cardiovascular: RRR, +S1, +S2; no murmurs, rubs, gallops Abdomen: Soft, nontender Extremities: warm, radial pulses palpable and symmetrical Psychiatric: Normal affect, normal mood Skin: Dry, intact - Assessment and Plan (1) NSTEMI (non-ST elevated myocardial infarction) Current Visit: Yes Status: Acute Assessment and Plan: Patient presented with AMS and was found to have an elevated troponin on arrival - pt reported chest pain x 1 week that came and went - does report some chest pain overnight (06/19/18) Troponin levels: 0.85, 4.46, 3.14, 2.26 ECHO LVEF 50-55%, LVH, diastolic dysfxn Plan: - Per cardiology recommendations, continue heparin drip - NPO for [facility] today - SL nitro and if intractable, nitro drip as per cardiology - telemetry monitoring - cardiology consulted concern for QT prolongation --> holding Rythmol, Abilify, and Celexa awaiting cardiology recommendations for restarting rhythmol awaiting cardiology recommendations for if proceeding with cath vs medical management - FEN: NPO, can have cardiac diet post procedure - dispo: [facility] today, cardiology recommendations, psych says ok to restart keisha lify/celexa on d/c, likely to be placed in ECF (2) HTN (hypertension) Current Visit: No Status: Chronic Assessment and Plan: chronic, continue home meds (3) Urinary tract infection Current Visit: Yes Status: Acute Assessment and Plan: On admission pt was altered and confused UA positive for nitrites, leuk esterase, and WBC urine cx resulted with E coli, pansensitive except to ampicillin/unasyn Plan: - continue rocephin day 07/10 (4) Major depression Current Visit: Yes Status: Acute Assessment and Plan: Pt on celexa and abilify - psych consulted - psych meds held due to QTc prolongation (5) SVT (supraventricular tachycardia) Current Visit: Yes Status: Chronic Assessment and Plan: Pt had run of SVT on 06/17/18 x 4 min, converted back to sinus herself. Continue telemetry monitoring. (6) Acute metabolic encephalopathy Current Visit: Yes Status: Acute Assessment and Plan: Was likely secondary to infxn vs ACS - has known hx of MDD - c/o active hallucinations on admission UDS negative for drugs UA positive for infxn as above Plan: - abilify, celexa held due to QTc prolongation - psych consulted on discharge psych says ok to restart rx (7) DVT prophylaxis Current Visit: No Status: Acute Assessment and Plan: heparin drip DVT Prophylaxis: heparin drip - Time Spent with Patient Total time spent is greater than 50% in coordination of care (as documented) at patient's floor/unit and/or counseling patient: less than 15 minutes Plan of Care Discussed with: nurse Internal Medicine: Result - Labs CBC & Chem 7: 06/18/18 06:26 06/19/18 05:41 Labs: Short CBC 06/18/18 Range/Units 06:26 WBC 5.4 (4.3-11.1) K/mcL Hgb 12.1 (11.5-15.4) g/dL Hct 37.2 (35.3-44.9) % Plt Count 266 (140-400) K/mcL Neutrophils # 3.3 (1.6-8.9) K/mcL BMP 06/18/18 06/19/18 06:26 05:41 Sodium 140 142 Potassium 3.3 L 3.8 Chloride 107 109 H Carbon Dioxide 26 24 BUN 21 18 Creatinine 0.75 0.63 Glucose 159 H 122 H Calcium 8.9 8.8 - ABG Interpretation ABG results: PT/INR, D-dimer PT 12.4 Seconds (9.4-12.1) H 06/16/18 02:26 Consult Discharge Plan - Plan Referrals: NONE,PCP [Primary Care Provider] - <Adeel Sanderson - Last Filed: 06/19/18 21:30> Hospitalist Progress Note - Encounter Date of Encounter: 06/19/18 - Exam Vitals: Temp Pulse Resp BP Pulse Ox 98.0 F 71 16 133/72 98 06/19/18 19:06 06/19/18 19:06 06/19/18 20:14 06/19/18 19:06 06/19/18 20:14 - Assessment and Plan (1) Acute metabolic encephalopathy Current Visit: Yes Status: Acute (2) NSTEMI (non-ST elevated myocardial infarction) Current Visit: Yes Status: Acute (3) Urinary tract infection Current Visit: Yes Status: Acute (4) Hematuria Current Visit: Yes Status: Acute - Time Spent with Patient Total time spent is greater than 50% in coordination of care (as documented) at patient's floor/unit and/or counseling patient: Internal Medicine: Result - Labs CBC & Chem 7: 06/18/18 06:26 06/19/18 05:41 Labs: BMP 06/19/18 05:41 Sodium 142 Potassium 3.8 Chloride 109 H Carbon Dioxide 24 BUN 18 Creatinine 0.63 Glucose 122 H Calcium 8.8 - ABG Interpretation ABG results: PT/INR, D-dimer PT 12.4 Seconds (9.4-12.1) H 06/16/18 02:26 - Attending Attestation I examined this patient and my medical decision-making was reviewed with the Resident Physician. I agree with the documented findings, disposition and treatment plan as described except to the extent set forth below. <Javed Castellanos - Last Filed: 06/19/18 11:23> (2) HTN (hypertension) Qualifiers: Hypertension type: essential hypertension Qualified Code(s): I10 - Essential (primary) hypertension (3) Urinary tract infection Qualifiers: Urinary tract infection type: site unspecified Hematuria presence: without hematuria Qualified Code(s): N39.0 - Urinary tract infection, site not specified (4) Major depression Qualifiers: Major depression recurrence: unspecified whether recurrent Active/Remission status: remission status unspecified Qualified Code(s): F32.9 - Major depressive disorder, single episode, unspecified <Adeel Sanderson - Last Filed: 06/19/18 21:30> (3) Urinary tract infection Qualifiers: Urinary tract infection type: site unspecified Hematuria presence: without hematuria Qualified Code(s): N39.0 - Urinary tract infection, site not specified
[2018-06-19] MEDS: Budesonide/Formoterol 160/4.5 1 PUFF INH IH SCH ×2 (07:35→20:14)
[2018-06-19] MEDS: Fenofibrate 54 MG TABLET PO SCH (08:39)
[2018-06-19] MEDS: ALPRAZolam 0.5 MG TABLET PO SCH ×3 (08:39→20:22)
[2018-06-19] MEDS: Lisinopril 20 MG TABLET PO SCH ×2 (08:39→20:23)
[2018-06-19] MEDS: Magnesium Oxide 400 MG TABLET PO SCH (08:39)
[2018-06-19] MEDS: Aspirin Enteric Coated 81 MG Tablet PO SCH (08:39)
[2018-06-19] MEDS: Thiamine (B-1) 100 MG TABLET PO SCH (08:39)
[2018-06-19] MEDS: cefTRIAXone 1,000 MG in Water for inj. (sterile) 20 ML 10 ML IVP SCH (08:40)
[2018-06-19] MEDS ORDERED: NON-FORMULARY MEDICATION 1 EACH EACH (Fenofibrate Nanocrystallized [Fenofibrate] 160 MG) PO SCH (09:00)
[2018-06-19] MEDS ORDERED: DILTIAZEM HCL 120 MG PO SCH (09:00)
--- NOTE | 2018-06-19 11:05 | Event Note ---
Date of Encounter: 06/19/18 Time of Encounter: 10:00 - Cardiology Event Note Plan for ECF placement upon discharge. With planned ECF placement, will proceed with LHC today. Risks versus benefits of LHC explained to patient who states understanding and agreeable to proceed. Patient is alert and oriented x3. If PCI needed, plan for BMS with plan for shortn term ECF placement. Further recs pending C today. Discussed and reviewed with and Dr.Jennifer Estrada.
[2018-06-19] MEDS ORDERED: *HR* Heparin 10,000 UNIT/10 ML VIAL ONE (11:55)
[2018-06-19] MEDS ORDERED: 0.9 % Sodium Chloride 2,000 ML ONE (11:55)
[2018-06-19] MEDS ORDERED: Heparin 1,000 UNITS/500 mL 500 ML ONE (11:55)
[2018-06-19] MEDS ORDERED: Nitroglycerin 1,000 MCG/10 ML VIAL IV ONE (11:56)
[2018-06-19] MEDS ORDERED: ISOVUE-370 200 ML INFUS..BTL ONE (11:56)
[2018-06-19] MEDS ORDERED: *HR* Midazolam HCl 5 MG/5 ML VIAL IVP ONE (12:07)
[2018-06-19] MEDS ORDERED: *HR* FentaNYL (PF) 100 MCG/2 ML VIAL ONE (12:07)
--- NOTE | 2018-06-19 12:10 | Pre-Sedation Evaluation ---
Pre-sedation evaluation - Pre-sedation checklist Date of procedure: 06/19/18 Procedure: [facility] Recent Vitals: Last Vital Signs Temp 97.9 F 06/19/18 10:34 Pulse 50 06/19/18 10:34 Resp 16 06/19/18 10:34 BP 155/67 06/19/18 10:34 Pulse Ox 98 06/19/18 10:34 H&P (including ROS) documented in medical record: Yes Previous reaction to sedatives/anesthetics: Unknown Dietary Status: NPO after Midnight Airway Assessment: Patient can open mouth completely, TMJ function normal, Micrognathia (under-bite, receding chin) absent, Neck with adequate range of motion Dentition: No loose teeth or bridges Possible difficult airway: No ASA Classification *see protocol: CLASS II-Mild systemic disease Plan of Care: Pt appropriate candidate for procedure/moderate/conscious sedation, Risks/benefits of procedure/sedation discussed w/ patient/family Cardiac Registry (Cardio Only) - Functional Capacity Functional Capacity: < 4 METS - Clincal Frailty Scale Clinical Frailty Scale: Mildly Frail
--- NOTE | 2018-06-19 12:53 | Event Note ---
Date of Encounter: 06/19/18 Time of Encounter: 12:49 - Cardiology Event Note Discussed and reviewed with Dr.Jennifer Estrada, [facility] without intervention. 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 Continue asa, statin, BB. Starting plavix. Regarding SVT, continue BB and CCB. No recurrence of SVT noted overnight. Discussed with Dusty Fortune, can consider outpatient SVT ablation. Cardiology will sign off, will arrange outpatient follow up.
--- NOTE | 2018-06-19 13:07 | Invasive Diagnostic Lab Proc ---
Name: Niurka Lemon Date of Study: 06/19/2018 Date: 1945 Ht: 70.1in Medical Record#: [id number] Age: 73 Wt: 160.94lb Gender: Female BSA: 1.9 Order #: [id number] BMI: 23.04 Physicians Procedure Physician: Krystal Estrada MD, [facility] Referring MD: Referring MD: Staff Name Position Time In Nikki Moura RN Monitor 12:18 PM Nikki oMura RN Monitor 12:20 PM Adama Marquez RN Medical Billing Supervisor 12:20 PM Mindi Nunez RT (R) Scrub 12:20 PM Indications Indication Non-Stemi Procedures Performed Procedure L HRT ARTERY/VENTRICLE ANGIO Pre-Procedure Checklist Informed consent is complete signed and on chart. H&P is on chart. ID band is on and ID verified with patient. Patient NPO for procedure The procedure was described for the patient and questions were answered. Blood Pressure: 179/89 ECG is on chart. Rhythm: NSR Plan of Care Patient will tolerate the procedure without complications. Adequate level of comfort will be maintained. Hemodynamics will remain stable Patient will recover from procedure without complications. Respiratory function will be maintained. Cardiac rhythm will remain stable. Patient temperature will be maintained. Patient and/or family have verbalized understanding of the procedure. Patient Education Intravenous Access Time IV Size Location DC'd Fluid/Drip Rate Units RN 12:18 PM 20g 1 /" Patent On Arrival Lt Arm 0.9NaCl 25 ml/hr Adama Marquez RN Allergies methadone Zolpidem gabapentin morphine Vital Signs Time BP (mmHg) HR (bpm) O2 Sat. RR (bpm) LOC 12:18 PM / % 5 = Fully awake and oriented or at pre-proc level 12:18 PM / % 4 = Oriented but drowsy 12:16 PM 179 / 89 53 100 % 12:20 PM 168 / 88 51 96 % 17 12:25 PM 174 / 81 51 98 % 10 12:30 PM 184 / 88 63 97 % 16 12:35 PM 177 / 96 63 100 % 12 12:41 PM 199 / 47 61 100 % 12:33 PM / % 4 = Oriented but drowsy Procedural Medications Time Medication Dose Units Method Given By 12:19 PM Oxygen 4 L/min Oxy Mask Adama Marquez RN 12:20 PM Versed 2 mg Intravenous Adama Marquez RN 12:20 PM Fentanyl 50 mcg Intravenous Adama Marquez RN 12:24 PM Lidocaine 2% 18 ml Subcutaneous Krystal Estrada MD, [facility] ASA Classification: CLASS II- Mild systemic disease (i.e. well-controlled diabetes, hypertension, asthma, cigarette smoking) Rehana Score Preprocedure Postprocedure Activity 2- Moves 4 extremities sustained head lift Activity 2- Moves 4 extremities sustained head lift Circulation 2- SBP +/= 20 points of pre-anesthetic level Circulation 2- SBP +/= 20 points of pre-anesthetic level Consciousness 2- Awake and alert oriented x 3 Consciousness 2- Awake and alert oriented x 3 O2 Saturation 2- Able to maintain O2 satruation of 92% on room air O2 Saturation 2- Able to maintain O2 satruation of 92% on room air Respiratory 2- Able to deep breathe and cough well Respiratory 2- Able to deep breathe and cough well Total Score 10 Total Score 10 Contrast Agent: Isovue Diagnostic Contrast: 48 ml Total Contrast: 48 ml Fluoro Dose: 9 mGy Procedure Log Time Note Enter By 11:56 AM 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 Informed consent was obtained. scoates 12:18 PM Procedure start 12:18 scoates 12:18 PM Time: 12:18 Patient comfortable and pain free: Yes scoates 12:18 PM Time: 12:18LOC: 5 = Fully awake and oriented or at pre-proc level scoates 12:18 PM Nikki Moura RN Position: Monitor Time in: 12:18 scoates 12:18 PM Patient charges- Angio tray pack, Navilyst 3mm J, Pulse Oximetry and ACIST tubing and transducer scoates 12:18 PM Case Delayed no scoates 12:19 PM Hair removed from procedure site in procedure lab using clippers. Bilateral groin prepped with Chloraprep by Nikki Moura RN, then patient was draped. Skin intact. scoates 12:19 PM Time: 12:19 Oxygen on at 4 L/min per Oxy Mask by Adama Marquez RN scoates 12:20 PM Time: 12:20 Versed 2 mg Intravenous Given by Adama Marquez RN scoates 12:20 PM Time: 12:20 Fentanyl 50 mcg Intravenous Given by Adama Marquez RN scoates 12:20 PM Nikki Moura RN Position: Monitor Time in: 12:20 scoates 12:20 PM Adama Marquez RN Position: Medical Billing Supervisor Time in: 12:20 scoates 12:20 PM Mindi Nunez RT (R) Position: Scrub Time in: 12:20 scoates 12:20 PM HR=51 bpm, XBPQ=619/88 mmhg, SpO2=96.0 %, Resp=17 B/min, Comment=nsr 12:20 PM ASA Class CLASS II- Mild systemic disease (i.e. well-controlled diabetes, hypertension, asthma, cigarette smoking) scoates 12:21 PM Time out was performed according to hospital policy. Conscious sedation and anesthesia was achieved (see medication log with in this report above) scoates 12:23 PM Pressure channel 1 zeroed. 12:24 PM Time: 12:24 18 ml Lidocaine 2% to right groin Subcutaneous Given by Krystal Estrada MD, [facility] scoates 12:24 PM Access obtained by percutaneous puncture. 5Fr 10cm Terumo [place] sheath placed in right Femoral artery. [id number] scoates 12:25 PM HR=51 bpm, SIFN=860/81 mmhg, SpO2=98.0 %, Resp=10 B/min, Comment=nsr 12:26 PM Recorded Pressure: Ao, HR=55, Condition=Condition 1 (Aorta) Ao 163/79/113 12:26 PM 5Fr FL 4 catheter inserted over the wire DN scoates 12:26 PM LCA angiography performed in multiple views. scoates 12:27 PM Catheter removed scoates 12:27 PM 5Fr FR 4 catheter inserted over the wire DN scoates 12:27 PM RCA angiography performed in multiple views. scoates 12:28 PM Recorded Pressure: Ao, HR=63, Condition=Condition 1 (Aorta) Ao 170/81/119 12:29 PM Catheter removed scoates 12:29 PM Coronary Dominance: right scoates 12:29 PM 5Fr Pigtail catheter inserted over the wire DNC scoates 12:30 PM HR=63 bpm, ZIXB=828/88 mmhg, SpO2=97.0 %, Resp=16 B/min, Comment=nsr 12:30 PM Pressure channel 1 zeroed. 12:31 PM Recorded Pressure: LV, HR=63, Condition=Condition 1 (Left Ventricle) LV 174/-1/25 12:31 PM Catheter crossed the aortic valve and was selectively placed in the left ventricle. Pressures recorded on pullback for left heart catheterization. scoates 12:31 PM Recorded Pressure: LV, Ao, HR=65, Condition=Condition 1 (Left Ventricle) LV 149/27/29, (Aorta) Ao 153/74/110 12:31 PM Bolus angiogram of left Ventricle complete: 8 ml/sec for a total of 24 mls scoates 12:32 PM physician reviewing films scoates 12:32 PM Bolus angiogram of right Femoral complete: 4 ml/sec for a total of 7 mls scoates 12:33 PM Time: 12:18 Patient comfortable and pain free: Yes scoates 12:33 PM Time: 12:18LOC: 4 = Oriented but drowsy scoates 12:33 PM Procedure completed at 12:33 06/19/2018 scoates 12:33 PM Did you address LATRICE flow and Dominance? Yes scoates 12:34 PM Sign out completed: Radiation Dose 99 mGy, 8.63 Gy/cm2 Fluoro Time: 1.5 Isovue 370 - 200ml contrast 48 ml given by Krystal Estrada MD, [facility]. Complications: None. The patient was discharged out of the laborer hoisting in stable condition. Sedation minutes 14. Cardiac Rehab Consult needed: No. Confirmed administered medications: Yes scoates 12:34 PM Isovue 370 - 200ml,1 Bottle(s) used. scoates 12:35 PM Arterial sheath pulled, Mynx closure device used and was Successful [id number] S/N. scoates 12:35 PM HR=63 bpm, YSOB=498/96 mmhg, LcM9=210.0 %, Resp=12 B/min 12:37 PM Estimated Blood Loss: minimal scoates 12:37 PM Post ECG NSR scoates 12:37 PM Post Blood Pressure 177/96 scoates 12:40 PM 12:40 Post Pulses Bilateral DP & PT 1+ scoates 12:41 PM HR=61 bpm, RPDM=586/47 mmhg, BqR7=073 % 12:44 PM Information taught Cardiac Cath and Mynx scoates 12:44 PM Education needs Procedure, Plan of Care, and Responsibilities of Patient in Care scoates 12:45 PM Learning barriers :None scoates 12:45 PM Education Methods Verbal scoates 12:45 PM Education evaluation Able to repeat information scoates 12:45 PM Site status No bleeding/hematoma - Rt Groin as reported by Mindi Nunez RT (R) at 12:45 scoates 12:45 PM Opsite applied scoates 12:45 PM Plavix, Effient or Brilinta given No scoates 12:45 PM Delay to floor No scoates 12:45 PM Patient out of room: 12:45 scoates 12:45 PM no family here at this time. RAIL MANAGER will call daughter scoates 12:47 PM Complications: None scoates 12:48 PM Time: 12:33LOC: 4 = Oriented but drowsy scoates 12:48 PM Time: 12:33 Patient comfortable and pain free: Yes scoates 12:49 PM Report given to Lori SINGH Pt taken to 2A Room #44. 12:49 scoates 12:49 PM Coronary Dominance: right scoates 12:49 PM Lesion found in Proximal RCA. Pre Stenosis: 15 Pre LATRICE Flow: scoates 12:49 PM Lesion found in Mid RCA. Pre Stenosis: 30 Pre LATRICE Flow: scoates 12:49 PM Lesion found in Distal LMCA. Pre Stenosis: 20 Pre LATRICE Flow: scoates 12:50 PM Lesion found in Proximal LAD. Pre Stenosis: 25 Pre LATRICE Flow: scoates 12:50 PM Lesion found in 1st Marginal. Pre Stenosis: 100 Pre LATRICE Flow: scoates 12:50 PM Left Main Coronary Artery with 20% stenosis scoates 12:50 PM Proximal Left Anterior Descending Coronary Artery with 25% stenosis. If graft is supplying this territory, 0 % stenosis. scoates 12:50 PM Circumflex, Obtuse Marginal, Left Posterior Descending, and Left Posterolateral Coronary Arteries with 100 % stenosis. If graft is supplying this area, 0 % stenosis scoates Complications Complication None None Hemodynamics Pressures Site Systolic/A Wave Diastolic/V Wave Mean AO 163 79 113 AO 170 81 119 LV 174 -1 25 LV 149 27 29 AO 153 74 110 Post Procedure Information Blood Pressure: 177/96 mmHg Rhythm: NSR Post procedural instructions were given Closure Device Time Device Success/Fail 06/19/2018 12:47:00 PM MynxGrip Successful Site Checks Time Location Status Staff Sheath In? Note 12:45 PM Rt Groin No bleeding/hematoma Mindi Nunez RT (R) Pulses Time Site Pre-Procedure Post-Procedure Note 12:40:00 PM Bilateral DP & PT 1+ 06/19/2018 12:18:00 PM Bilateral DP & PT 1+ Updated by Nikki Cedeno RN on 06/19/2018 12:54:37 PM electronically signed on 06/19/2018 12:55:23 PM with status of Final
[2018-06-19] MEDS: Diltiazem CD (24hr) 240 MG CAPSULE PO SCH (14:04)
[2018-06-19] MEDS ORDERED: Diltiazem SR (12hr) 60 MG CAPSULE PO ONE (15:18)
[2018-06-19] MEDS: traMADol 50 MG TABLET PO PRN ×2 (16:43→23:12)
[2018-06-19] MEDS: *HR* LORazepam 1 MG TABLET PO PRN (23:12)
[2018-06-19] MEDS: Melatonin 3 MG TABLET PO PRN (23:12)
[2018-06-20 04:17] LABS: Hematocrit 35.7 % (35.3-44.9); Hemoglobin 11.5 g/dL (11.5-15.4)
[2018-06-20 04:36] LABS: BUN/Creatinine Ratio 21 (6-26); Blood Urea Nitrogen 15 mg/dL (8-23); Carbon Dioxide 26 mEq/L (23-29); Chloride 107 mEq/L (98-107); Glucose 120 mg/dL (70-105); Osmolality,Calculated 292 (280-300); Potassium 3.8 mEq/L (3.5-5.1); Sodium 140 mEq/L (136-145); eGFR For Non-African Americans > 60 (> 60)
[2018-06-20] MEDS: Budesonide/Formoterol 160/4.5 1 PUFF INH IH SCH ×2 (07:37→21:27)
--- NOTE | 2018-06-20 07:48 | Physician Discharge Referral ---
<Javed Castellanos S - Last Filed: 06/20/18 11:08> [facility]Care Referral Info [facility] Provider in Charge after Transfer: PCP Institutional Level of Care: Skilled - Diagnosis (1) NSTEMI (non-ST elevated myocardial infarction) Priority: Primary Status: Acute (2) HTN (hypertension) Priority: Secondary Status: Chronic (3) Urinary tract infection Priority: Secondary Status: Acute (4) Major depression Priority: Secondary Status: Acute (5) SVT (supraventricular tachycardia) Priority: Secondary Status: Chronic (6) Acute metabolic encephalopathy Priority: Secondary Status: Acute (7) DVT prophylaxis Priority: Secondary Status: Acute Prognosis: Fair Aware of Diagnosis: Patient, Family Aware of Prognosis: Patient, Family - Transfer Medications Prescriptions: Atorvastatin [Lipitor] 40 mg PO HS 30 Days #30 tablet Cephalexin [Keflex] 500 mg PO BID 1 Days #2 capsule Clopidogrel [Plavix] 75 mg PO DAILY 30 Days #30 tablet Diltiazem CD (24hr) [Cardizem CD] 120 mg PO DAILY 30 Days #30 cap.er.24h Metoprolol [Lopressor] 12.5 mg PO BID 30 Days #60 tablet Home Medications: Folic Acid 1 mg PO DAILY 07/23/15 [History] GuaiFENesin ER [Mucinex] 600 mg PO Q12H PRN 07/23/15 [History] Lisinopril [Zestril] 20 mg PO BID 07/23/15 [History] Solifenacin Succinate [Vesicare] 5 mg PO DAILY 07/23/15 [History] metFORMIN [Glucophage] 500 mg PO BIDWM 07/23/15 [History] Albuterol Sulfate [Ventolin Hfa] 2 puff IH Q4H PRN 03/14/16 [History] Brimonidine Tartrate/Timolol [Combigan 0.2%-0.5% Eye Drops] 1 drop BOTH EYES BID 03/14/16 [History] Budesonide/Formoterol 160/4.5 [Symbicort 160/4.5] 2 puff IH BID 03/14/16 [History] Cholecalciferol (D-3) [Vitamin D] 5,000 unit PO DAILY 03/14/16 [History] Multivitamin/Iron/Folic Acid [Cerovite Advanced Form Tab] 1 each PO DAILY 03/14/16 [History] Omeprazole [PriLOSEC] 40 mg PO DAILY 03/14/16 [History] Thiamine Mononitrate [Vitamin B-1] 100 mg PO DAILY 03/14/16 [History] Vitamin E 1,000 unit PO DAILY 03/14/16 [History] Oxygen 3 l IN CONT #1 each 03/21/16 [Rx] ALPRAZolam [Xanax 0.5 MG Tablet] 0.5 mg PO TID #30 tablet 07/18/16 [Rx] Fenofibrate Nanocrystallized [Fenofibrate] 160 mg PO DAILY 06/17/18 [History] Atorvastatin [Lipitor] 40 mg PO HS 30 Days #30 tablet 06/20/18 [Rx] Cephalexin [Keflex] 500 mg PO BID 1 Days #2 capsule 06/20/18 [Rx] Clopidogrel [Plavix] 75 mg PO DAILY 30 Days #30 tablet 06/20/18 [Rx] Diltiazem CD (24hr) [Cardizem CD] 120 mg PO DAILY 30 Days #30 cap.er.24h [Rx] Metoprolol [Lopressor] 12.5 mg PO BID 30 Days #60 tablet 06/20/18 [Rx] Allergies/Adverse Reactions: Allergy/AdvReac Type Severity Reaction Status Date / Time gabapentin AdvReac Confusion Verified 03/14/16 20:23 methadone [Methadone] AdvReac Confusion Verified 03/14/16 20:23 morphine AdvReac Confusion Verified 03/14/16 20:23 Zolpidem [From Ambien] AdvReac Confusion Verified 03/14/16 20:23 - Respiratory Orders Oxygen / L per min Smoking Cessation: Smoking cessation has been advised. For more information, call the [place] Tobacco Quit Line at 1-761-QNIR-NOW. - Advance Directives Code Status: Full Code - Mobility Orders Chair - Rehabiliation Orders Rehab Potential: Fair Rehab Orders: ROM Exercises, Evaluation for Physical Therapy, Evaluation for Occupational Therapy - Diet Orders Cardiac CERTIFICATION: I certify that the transfer of the above named patient to an Extended Care Facility is necessary for the continuing treatment of the diagnosis listed. The above information is true and accurate reflection of patient's current condition. Confidential - Redisclosure prohibited without a patient's written consent. <No Vitale - Last Filed: 06/20/18 12:36> - Diagnosis (1) Acute metabolic encephalopathy Status: Acute (2) NSTEMI (non-ST elevated myocardial infarction) Status: Acute (3) Urinary tract infection Status: Acute (4) Hematuria Status: Acute - Respiratory Orders Smoking Cessation: Smoking cessation has been advised. For more information, call the [employer] Tobacco Quit Line at 9-119-DXUT-NOW. - Treatments List/Other: Resume home metformin dosing 06/22 (as had left heart cath 3 days prior) - Diet Orders No Added Salt (GUADALUPE), No Concentrated Sweets CERTIFICATION: I certify that the transfer of the above named patient to an Extended Care Facility is necessary for the continuing treatment of the diagnosis listed. The above information is true and accurate reflection of patient's current condition. Confidential - Redisclosure prohibited without a patient's written consent.
--- NOTE | 2018-06-20 07:48 | Discharge Summary ---
<Javed Castellanos S - Last Filed: 06/20/18 11:21> - NOTES TO OUTPATIENT PROVIDER Notes to Outpatient Provider: Follow up with PCP in 1 week. Continue keflex x 1 more day. Cardiology changed metoprolol 12.5mg BID and cardizem 120mg. Plavix started. Psych meds held as pt hasn't taken them in over 2 mos, recommending f/u with Dr Zamora as pt is known to her and hasn't seen her in 6mos. Appointments made with PCP, psychiatrist and with Dr. Dusty Estrada for possible SVT ablation. Date of Encounter: 06/20/18 Time of Encounter: 09:08 - Discharge Diagnosis (1) NSTEMI (non-ST elevated myocardial infarction) Priority: Primary Status: Acute (2) HTN (hypertension) Priority: Secondary Status: Chronic Qualifiers: Hypertension type: essential hypertension Qualified Code(s): I10 - Essential (primary) hypertension (3) Urinary tract infection Priority: Secondary Status: Acute Qualifiers: Urinary tract infection type: site unspecified Hematuria presence: without hematuria Qualified Code(s): N39.0 - Urinary tract infection, site not specified (4) Major depression Priority: Secondary Status: Acute Qualifiers: Major depression recurrence: unspecified whether recurrent Active/Remission status: remission status unspecified Qualified Code(s): F32.9 - Major depressive disorder, single episode, unspecified (5) SVT (supraventricular tachycardia) Priority: Secondary Status: Chronic (6) Acute metabolic encephalopathy Priority: Secondary Status: Acute (7) DVT prophylaxis Priority: Secondary Status: Acute Hospital course: Ms. Lemon is a 73 year old female with a past medical history of diabetes, hypertension, hx of OD, COPD, SVT, and anxiety who presented to the ED due to confusion. Patient is a poor historian and much of the history were obtained from records and ED report. Family reported that she had increasing confused over the last few months. Patient had been previously taking Celexa, Percocet and Abilify but her prescription ran out and is followed Dr Daily in 6 months. On arrival patient was afebrile, hemodynamically stable. Labs were relatively unremarkable aside from an elevated troponin of 0.85 and UA suggestive of UTI. CT head negative for acute abnromality. XR chest negative for acute cardiopulmonary process. EKG showed mild global ST depressions. Cardiology was consulted and recommended heparin drip. Repeat troponin elevated at 4.46 and then declined to 2.26. Overnight on 06/18 the pt had SVT, which self resolved back to sinus. Cardiology recommended outpt followup for possible ablation. 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 Pt to follow up as an outpt for possible SVT ablation. D/C rhythmol per surgery. Psych did see the pt, however, did not start new meds. Holding celexa and abilify, recommending psych followup. She hasn't seen psych in over 6 mos nor has she taken celexa or abilify in >2mos. Cardiology - metoprolol 12.5 mg PO BID and cardizem 120mg PO daily. Plavix added 75mg PO daily. She received 6 days of rocephin, will send her with one more day of keflex 500mg PO BID. These prescriptions have been written and sent to pharmacy. Pt to be d[facility]. Discharge discussed with: patient, nurse Time spent discussing smoking cessation with patient: 3 to 10 minutes - Time Spent with Patient Total time spent providing and/or coordinating discharge services: Time spent: Less than 30 minutes - Discharge Medications Prescriptions: New Atorvastatin [Lipitor] 40 mg PO HS 30 Days #30 tablet Clopidogrel [Plavix] 75 mg PO DAILY 30 Days #30 tablet Diltiazem CD (24hr) [Cardizem CD] 120 mg PO DAILY 30 Days #30 cap.er.24h Metoprolol [Lopressor] 12.5 mg PO BID 30 Days #60 tablet Cephalexin [Keflex] 500 mg PO BID 1 Days #2 capsule Continue metFORMIN [Glucophage] 500 mg PO BIDWM Solifenacin Succinate [Vesicare] 5 mg PO DAILY Lisinopril [Zestril] 20 mg PO BID GuaiFENesin ER [Mucinex] 600 mg PO Q12H PRN PRN Reason: Congestion Folic Acid 1 mg PO DAILY Vitamin E 1,000 unit PO DAILY Thiamine Mononitrate [Vitamin B-1] 100 mg PO DAILY Multivitamin/Iron/Folic Acid [Cerovite Advanced Form Tab] 1 each PO DAILY Albuterol Sulfate [Ventolin Hfa] 2 puff IH Q4H PRN PRN Reason: Shortness Of Breath Omeprazole [PriLOSEC] 40 mg PO DAILY Cholecalciferol (D-3) [Vitamin D] 5,000 unit PO DAILY Budesonide/Formoterol 160/4.5 [Symbicort 160/4.5] 2 puff IH BID Brimonidine Tartrate/Timolol [Combigan 0.2%-0.5% Eye Drops] 1 drop BOTH EYES BID Oxygen 3 l IN CONT #1 each ALPRAZolam [Xanax 0.5 MG Tablet] 0.5 mg PO TID #30 tablet Fenofibrate Nanocrystallized [Fenofibrate] 160 mg PO DAILY Discontinued Atorvastatin [Lipitor] 10 mg PO DAILY Citalopram Hydrobromide [Celexa] 40 mg PO DAILY Aripiprazole [Abilify] 5 mg PO DAILY #30 tablet Propafenone HCl [Rythmol Sr] 225 mg PO Q8H Diltiazem HCl [Diltiazem ER] 120 mg PO DAILY Home Medications: Folic Acid 1 mg PO DAILY 07/23/15 [History] GuaiFENesin ER [Mucinex] 600 mg PO Q12H PRN 07/23/15 [History] Lisinopril [Zestril] 20 mg PO BID 07/23/15 [History] Solifenacin Succinate [Vesicare] 5 mg PO DAILY 07/23/15 [History] metFORMIN [Glucophage] 500 mg PO BIDWM 07/23/15 [History] Albuterol Sulfate [Ventolin Hfa] 2 puff IH Q4H PRN 03/14/16 [History] Brimonidine Tartrate/Timolol [Combigan 0.2%-0.5% Eye Drops] 1 drop BOTH EYES BID 03/14/16 [History] Budesonide/Formoterol 160/4.5 [Symbicort 160/4.5] 2 puff IH BID 03/14/16 [History] Cholecalciferol (D-3) [Vitamin D] 5,000 unit PO DAILY 03/14/16 [History] Multivitamin/Iron/Folic Acid [Cerovite Advanced Form Tab] 1 each PO DAILY 03/14/16 [History] Omeprazole [PriLOSEC] 40 mg PO DAILY 03/14/16 [History] Thiamine Mononitrate [Vitamin B-1] 100 mg PO DAILY 03/14/16 [History] Vitamin E 1,000 unit PO DAILY 03/14/16 [History] Oxygen 3 l IN CONT #1 each 03/21/16 [Rx] ALPRAZolam [Xanax 0.5 MG Tablet] 0.5 mg PO TID #30 tablet 07/18/16 [Rx] Fenofibrate Nanocrystallized [Fenofibrate] 160 mg PO DAILY 06/17/18 [History] Atorvastatin [Lipitor] 40 mg PO HS 30 Days #30 tablet 06/20/18 [Rx] Cephalexin [Keflex] 500 mg PO BID 1 Days #2 capsule 06/20/18 [Rx] Clopidogrel [Plavix] 75 mg PO DAILY 30 Days #30 tablet 06/20/18 [Rx] Diltiazem CD (24hr) [Cardizem CD] 120 mg PO DAILY 30 Days #30 cap.er.24h 06/20/18 [Rx] Metoprolol [Lopressor] 12.5 mg PO BID 30 Days #60 tablet 06/20/18 [Rx] Allergies/Adverse Reactions: Allergy/AdvReac Type Severity Reaction Status Date / Time gabapentin AdvReac Confusion Verified 03/14/16 20:23 methadone [Methadone] AdvReac Confusion Verified 03/14/16 20:23 morphine AdvReac Confusion Verified 03/14/16 20:23 Zolpidem [From Ambien] AdvReac Confusion Verified 03/14/16 20:23 Date of admission: 06/15/18 22:05 Primary care physician: PCP NONE Consults: 06/15/18 20:21 Consult to Psychiatry [CONS] Stat Consulting Provider: Psychiatry Shannan Reason consult: Confusion Other reason and/or additional details: Psych medication requires evaluation and has been off several for the past few months Call Completed: No 06/15/18 22:46 Consult to Cardiology [CONS] Routine Comment: Consulting Provider: Cardiology Shannan Reason for Consult: Patient presenting with confusion noted to have initial troponin of 0.[address] depressions on EKG. Currently on heparin drip Call Completed: No 06/15/18 23:15 Consult to Nutrition [CONS] Routine Comment: Consulting Provider: NUTRITION Reason for Dietary Consult: MST Score Consult to Senior Analyst [CONS] Routine Reason for SW Consult: no home health, may benefit 06/18/18 12:08 Consult to Physical Therapy [CONS] Routine Comment: Evaluate, develop and implement POC Reason for Consult: Falls, weakness Does patient have active BEDREST order?: No Is patient medically & hemodynamically stable?: Yes Patient assessed for mobility or mobilized this visit?: No 06/18/18 12:09 Consult to Occupational Therapy [CONS] Routine Comment: Evaluate, develop and implement POC Reason for Consult: falls, weakness. Does patient have active BEDREST order?: No Is patient medically & hemodynamically stable?: Yes Patient assessed for mobility or mobilized this visit?: No 06/19/18 08:39 Consult to Cardiac Rehabilitation-Phase1 [CONS] Routine Comment: Reason for Consult: NSTEMI Call Completed: No Discharging clinician: Javed Castellanos Anticipated date of discharge: 06/20/18 - Constitutional Vitals: Temp Pulse Resp BP Pulse Ox 97.8 F 55 16 158/75 98 06/20/18 06:42 06/20/18 06:42 06/20/18 06:42 06/20/18 06:42 06/20/18 06:42 Exam: General: Conversant, hard of hearing, no acute distress Head: atraumatic, normocephalic Eye: PERRL, EOMI, conjuntiva pink, sclera anicteric Neck: Supple, trachea midline; No lymphadenopathy Respiratory: CTAB. No accessory muscle use, wheezes, rales, or rhonchi Cardiovascular: RRR, +S1, +S2; no murmurs, rubs, gallops Abdomen: Soft, nontender Extremities: warm, radial pulses palpable and symmetrical Psychiatric: Normal affect, normal mood Skin: Dry, intact - Patient Status Disposition: Transfer SNF Condition: Good Functional capacity at discharge: uses cane/walker Overall status at discharge: patient is progressing back to baseline - Discharge Instructions Follow Up With: Dusty Estrada MD [Partnered Physician] - Farhad Saleh DO [Partnered Physician] - (Patient peace follow up with F) - Diet and Activity Activity: as per physical therapy, increase activity as tolerated Diet: low fat, low cholesterol, low salt diet, other (cardiac) <No Vitale - Last Filed: 06/20/18 12:35> Date of Encounter: 06/20/18 - Discharge Diagnosis (1) Acute metabolic encephalopathy Status: Acute (2) NSTEMI (non-ST elevated myocardial infarction) Status: Acute (3) Urinary tract infection Status: Acute Qualifiers: Urinary tract infection type: site unspecified Hematuria presence: without hematuria Qualified Code(s): N39.0 - Urinary tract infection, site not specified (4) Hematuria Status: Acute Hospital course: Ms. Lemon is a 73 year old female - Time Spent with Patient Total time spent providing and/or coordinating discharge services: Time spent: Greater than 30 minutes (40 min) Date of admission: 06/15/18 22:05 Primary care physician: PCP NONE Consults: 06/15/18 20:21 Consult to Psychiatry [CONS] Stat Consulting Provider: Psychiatry Shannan Reason consult: Confusion Other reason and/or additional details: Psych medication requires evaluation and has been off several for the past few months Call Completed: No 06/15/18 22:46 Consult to Cardiology [CONS] Routine Comment: Consulting Provider: Cardiology Golden Reason for Consult: Patient presenting with confusion noted to have initial troponin of 0.[address] depressions on EKG. Currently on heparin drip Call Completed: No 06/15/18 23:15 Consult to Nutrition [CONS] Routine Comment: Consulting Provider: NUTRITION Reason for Dietary Consult: MST Score Consult to Senior Analyst [CONS] Routine Reason for SW Consult: no home health, may benefit 06/18/18 12:08 Consult to Physical Therapy [CONS] Routine Comment: Evaluate, develop and implement POC Reason for Consult: Falls, weakness Does patient have active BEDREST order?: No Is patient medically & hemodynamically stable?: Yes Patient assessed for mobility or mobilized this visit?: No 06/18/18 12:09 Consult to Occupational Therapy [CONS] Routine Comment: Evaluate, develop and implement POC Reason for Consult: falls, weakness. Does patient have active BEDREST order?: No Is patient medically & hemodynamically stable?: Yes Patient assessed for mobility or mobilized this visit?: No 06/19/18 08:39 Consult to Cardiac Rehabilitation-Phase1 [CONS] Routine Comment: Reason for Consult: NSTEMI Call Completed: No - Constitutional Vitals: Temp Pulse Resp BP Pulse Ox 97.9 F 53 18 147/62 99 06/20/18 10:52 06/20/18 10:52 06/20/18 10:52 06/20/18 10:52 06/20/18 10:52 - Diet and Activity Diet: diabetic diet, other - Attending Attestation I examined this patient and my medical decision-making was reviewed with the Resident Physician Dr Castellanos. I agree with the documented findings, disposition and treatment plan as described except to the extent set forth below. Ms eLmon was admitted for NSTEMI, SVT and found to have UTI. Cardiology followed her this admission with C preformed and no obstructive lesions requiring intervention identified. Medication adjustments were made. She is recommended outpt fu for possible SVT ablation in outpt setting. She remains hemodynamically stable. UTI was treated with rocephin and she will transition to oral abx on dc. Psychiatry evalauted her regarding her home psychiatric medicaitons and it was confirmed she had not been taking most for some time. Awake, RN at bedside. She denies cp, pressure, sob, palpitations. no lightheadedness or dizziness. aware she will dc to snf today and discharge plan discussed. no family present. gen- alert, awake,appears stated age eyes- pupils equal round cv- reg rate and rhythm, normal s1,s2, no murmurs appreciated, no le edema lungs- ctabl, no wheezing, rhonchi or crackles, normal resp effort abd- soft, non tender, non distended neuro- AAOxperson, hospital, situation, CN grossly intact, no focal deficits NSTEMI -[facility] without obstructive lesion, no intervention required -cont current medication regimen upon dc- asa, statin, BB, acei SVT -appreciate cards input- cont current regimen upon discharge and fu outpt to discuss possible outpt ablation- CCB, BB HTN, stable- fu with cards outpt, meds as above MDD -fu with outpt psychiatry, resume prior meds as appropriate in outpt setting and after cards follow up -cont home benzo, vit e DM- resume metformin in 3days (post [facility]) UTI- complete course of abx oral upon dc Further diagnoses and plan as noted by resident Time spent on dc 40 min
[2018-06-20] MEDS: cefTRIAXone 1,000 MG in Water for inj. (sterile) 20 ML 10 ML IVP SCH (09:14)
[2018-06-20] MEDS: Lisinopril 20 MG TABLET PO SCH ×2 (09:15→19:57)
[2018-06-20] MEDS: Magnesium Oxide 400 MG TABLET PO SCH (09:15)
[2018-06-20] MEDS: Thiamine (B-1) 100 MG TABLET PO SCH (09:15)
[2018-06-20] MEDS: ALPRAZolam 0.5 MG TABLET PO SCH ×3 (09:15→19:57)
[2018-06-20] MEDS: Aspirin Enteric Coated 81 MG Tablet PO SCH (09:15)
[2018-06-20] MEDS: Fenofibrate 54 MG TABLET PO SCH (09:15)
[2018-06-20] MEDS: Diltiazem CD (24hr) 120 MG CAPSULE PO SCH (11:10)
--- NOTE | 2018-06-20 17:40 | Electrocardiograph Report ---
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
[2018-06-20] MEDS: traMADol 50 MG TABLET PO PRN (19:57)
[2018-06-20] MEDS: Melatonin 3 MG TABLET PO PRN (19:57)
[2018-06-21 07:24] VITALS: BP 165/72
[2018-06-21] MEDS: Budesonide/Formoterol 160/4.5 1 PUFF INH IH SCH (07:48)
[2018-06-21] MEDS: cefTRIAXone 1,000 MG in Water for inj. (sterile) 20 ML 10 ML IVP SCH (09:10)
[2018-06-21] MEDS: ALPRAZolam 0.5 MG TABLET PO SCH (09:12)
[2018-06-21] MEDS: Fenofibrate 54 MG TABLET PO SCH (09:12)
[2018-06-21] MEDS: Diltiazem CD (24hr) 120 MG CAPSULE PO SCH (09:12)
[2018-06-21] MEDS: Aspirin Enteric Coated 81 MG Tablet PO SCH (09:12)
[2018-06-21] MEDS: Thiamine (B-1) 100 MG TABLET PO SCH (09:12)
[2018-06-21] MEDS: Lisinopril 20 MG TABLET PO SCH (09:12)
[2018-06-21] MEDS: Magnesium Oxide 400 MG TABLET PO SCH (09:12)
[2018-06-21] MEDS: traMADol 50 MG TABLET PO PRN (09:27)
--- NOTE | 2018-06-21 15:16 | Internal Med Progress Note ---
<Denny Walters - Last Filed: 06/21/18 15:34> Hospitalist Progress Note - Encounter Date of Encounter: 06/21/18 Time of Encounter: 08:15 - Subjective Interval History: Patient seen and examined at bedside; She states that she is feeling well and has no complaints. [facility]; will be leaving later today. Denies having any chest pain, anxiety, palpitations, dizziness, or lightheadedness. No complaints at this time. Patient will be following up in the outpatient setting with both cardiology and psychiatry. - Exam Vitals: Temp Pulse Resp BP Pulse Ox 97.4 F L 56 16 165/72 94 06/21/18 07:19 06/21/18 07:19 06/21/18 07:48 06/21/18 07:19 06/21/18 12:05 Exam: General: Conversant, hard of hearing, no acute distress Head: atraumatic, normocephalic Eye: PERRL, EOMI, conjuntiva pink, sclera anicteric Neck: Supple, trachea midline; No lymphadenopathy Respiratory: CTAB. No accessory muscle use, wheezes, rales, or rhonchi Cardiovascular: RRR, +S1, +S2; no murmurs, rubs, gallops Abdomen: Soft, nontender Extremities: warm, radial pulses palpable and symmetrical Psychiatric: Normal affect, normal mood Skin: Dry, intact - Assessment and Plan (1) NSTEMI (non-ST elevated myocardial infarction) Status: Acute Assessment and Plan: - Initially presented with altered mental status - Found to have elevated troponin on arrival - Troponin levels: 0.85, 4.46, 3.14, 2.26 - Patient developed multiple episodes of tachycardia with chest pain during her stay in the hospital - Audiology was initially consulted for the possibility of LHC; consent could not be obtained - Urology recommends medical management with outpatient follow-up for possible ablation and modification of patients current regimen - Physical exam unremarkable; no complaints today (2) Urinary tract infection Status: Acute Assessment and Plan: - Patient initially presented with altered mental status - Urinalysis was suggestive for urinary tract infection - Was treated with Rocephin in the inpatient setting - Patient will be discharged with one more day of Keflex for a total antibiotic course of 7 days (3) Hypertension Status: Acute Assessment and Plan: - chronic, continue home meds (4) Major depression Status: Acute Assessment and Plan: - She will follow-up in the outpatient setting with psychiatry - Time Spent with Patient Total time spent is greater than 50% in coordination of care (as documented) at patient's floor/unit and/or counseling patient: less than 15 minutes Internal Medicine: Result - Labs CBC & Chem 7: 06/20/18 03:39 06/20/18 03:39 - ABG Interpretation ABG results: PT/INR, D-dimer PT 12.4 Seconds (9.4-12.1) H 06/16/18 02:26 Consult Discharge Plan - Plan Instructions: Urinary Tract Infection in Women (DC) Referrals: Dusty Estrada MD [Partnered Physician] - (Discharing to [facility]; Cardiology to call [facility] to schedule follow-up appointment ) Farhad Saleh DO [Partnered Physician] - (Discharing to [facility] ) Prescriptions: Atorvastatin [Lipitor] 40 mg PO HS 30 Days #30 tablet Clopidogrel [Plavix] 75 mg PO DAILY 30 Days #30 tablet Diltiazem CD (24hr) [Cardizem CD] 120 mg PO DAILY 30 Days #30 cap.er.24h Metoprolol [Lopressor] 12.5 mg PO BID 30 Days #60 tablet <No Vitale - Last Filed: 06/21/18 15:45> Hospitalist Progress Note - Encounter Date of Encounter: 06/21/18 - Exam Vitals: Temp Pulse Resp BP Pulse Ox 97.4 F L 56 16 165/72 94 06/21/18 07:19 06/21/18 07:19 06/21/18 07:48 06/21/18 07:19 06/21/18 12:05 - Assessment and Plan (1) NSTEMI (non-ST elevated myocardial infarction) Status: Acute (2) Urinary tract infection Status: Acute (3) Hypertension Status: Acute (4) Major depression Status: Acute - Time Spent with Patient Total time spent is greater than 50% in coordination of care (as documented) at patient's floor/unit and/or counseling patient: Internal Medicine: Result - Labs CBC & Chem 7: 06/20/18 03:39 06/20/18 03:39 - ABG Interpretation ABG results: PT/INR, D-dimer PT 12.4 Seconds (9.4-12.1) H 06/16/18 02:26 - Attending Attestation I examined this patient and my medical decision-making was reviewed with the Resident Physician Dr Walters. I agree with the documented findings, disposition and treatment plan as described except to the extent set forth below. Ms Lemon was admitted for NSTEMI, SVT and found to have UTI. Cardiology followed her this admission with [facility] preformed and no obstructive lesions requiring intervention identified. Medication adjustments were made. She is recommended outpt fu for possible SVT ablation in outpt setting. She remains hemodynamically stable. UTI was treated with rocephin and she will transition to oral abx on dc. Psychiatry evaluated her regarding her home psychiatric medications and it was confirmed she had not been taking most for some time. Awake, eating breakfast, pleasant and no complaints. no cp, pressure, palpitations or sob gen- alert, awake,appears stated age cv- reg rate and rhythm, normal s1,s2, no murmurs appreciated, no le edema lungs- ctabl, no wheezing, rhonchi or crackles, normal resp effort abd- soft, non tender, non distended, + bs neuro- AAOxperson, hospital, situation NSTEMI -[facility] without obstructive lesion, no intervention required -cont current medication regimen upon dc- asa, statin, BB, acei SVT -appreciate cards input- cont current regimen upon discharge and fu outpt to discuss possible outpt ablation- CCB, BB HTN, stable- fu with cards outpt, meds as above MDD -fu with outpt psychiatry, resume prior meds as appropriate in outpt setting and after cards follow up -cont home benzo, vit e DM- resume metformin in 3days post [facility] UTI- complete course of abx oral upon dc Further diagnoses and plan as noted by resident <Denny Walters - Last Filed: 06/21/18 15:34> (2) Urinary tract infection Qualifiers: Urinary tract infection type: site unspecified Hematuria presence: without hematuria Qualified Code(s): N39.0 - Urinary tract infection, site not specified <No Vitale - Last Filed: 06/21/18 15:45> (2) Urinary tract infection Qualifiers: Urinary tract infection type: site unspecified Hematuria presence: without hematuria Qualified Code(s): N39.0 - Urinary tract infection, site not specified
== END 2018-06-21 12:35 | DRG 190 ==
LOC: EMEROOARM 15:51 → 2ANU 15:51 → OBSVTOIN 22:05 → SUATTDRO 22:05 → 2ANU 22:58
PROVIDERS: ADMIT Internal Medicine; ATTEND Internal Medicine

== ENCOUNTER 2018-08-09 11:18 | Observation (INO) ==
--- NOTE | 2018-08-09 11:26 | Emergency Department Note ---
Disposition Clinical Impression: SVT (supraventricular tachycardia), Elevated troponin Chest pain Qualifiers: Chest pain type: unspecified Qualified Code(s): R07.9 - Chest pain, unspecified Disposition: Admitted As Inpatient Condition: Fair Time of Disposition: 16:08 General Adult HPI - General Stated complaint: chest pain Time Seen by Provider: 08/09/18 11:23 Nursing Notes Reviewed: Yes Vital Signs Reviewed: Yes - Related Data Home Medications Medication Instructions Recorded Confirmed Lisinopril [Zestril] 20 mg PO BID 07/23/15 08/09/18 metFORMIN [Glucophage] 500 mg PO BIDWM 07/23/15 08/09/18 Albuterol Sulfate [Ventolin Hfa] 2 puff IH Q4H PRN 03/14/16 08/09/18 Budesonide/Formoterol 160/4.5 2 puff IH BID 03/14/16 08/09/18 [Symbicort 160/4.5] Omeprazole [PriLOSEC] 40 mg PO DAILY 03/14/16 08/09/18 Thiamine Mononitrate [Vitamin B-1] 100 mg PO DAILY 03/14/16 08/09/18 Vitamin E 1,000 unit PO DAILY 03/14/16 08/09/18 Fenofibrate Nanocrystallized 160 mg PO DAILY 06/17/18 08/09/18 [Fenofibrate] Atorvastatin Calcium [Lipitor] 40 mg PO HS 08/09/18 08/09/18 Clopidogrel [Plavix] 75 mg PO DAILY 08/09/18 08/09/18 Escitalopram [Lexapro] 10 mg PO DAILY 08/09/18 08/09/18 Levothyroxine Sodium [Levoxyl] 25 mcg PO QAM 08/09/18 08/09/18 Previous Rx's Medication Instructions Recorded Acetaminophen [Tylenol] 650 mg PO Q6HR PRN tablet 06/28/18 Aspirin Enteric Coated [Aspirin EC] 81 mg PO DAILY tablet. 06/28/18 Melatonin 3 mg PO HS PRN tablet 06/28/18 Metoprolol [Lopressor] 37.5 mg PO BID tablet 07/02/18 Potassium Chloride 20 meq PO BID tab.er.prt 07/02/18 Allergies Allergy/AdvReac Type Severity Reaction Status Date / Time gabapentin AdvReac Confusion Verified 06/29/18 00:33 methadone [Methadone] AdvReac Confusion Verified 06/29/18 00:33 morphine AdvReac Confusion Verified 06/29/18 00:33 Zolpidem [From Ambien] AdvReac Confusion Verified 06/29/18 00:33 Past Medical History - Past Medical History Medical history: Reports: arthritis, COPD, coronary artery disease, diabetes, hyperlipidemia, hypertension, myocardial infarction, osteoporosis, SVT Surgical history: Reports: hysterectomy Psychiatric history: Reports: depression. Denies: prior suicide attempt - Social History Smoking Status: Former smoker Smokeless Tobacco Status: No Alcohol use: Reports: none Drug use: Reports: none Course Vital Signs Temperature 97.8 F 08/09/18 11:23 Pulse Rate 96 08/09/18 11:23 Respiratory Rate 26 08/09/18 11:23 Blood Pressure 119/56 08/09/18 11:23 O2 Sat by Pulse Oximetry 100 08/09/18 11:23 Temperature 98.1 F 08/09/18 15:15 Pulse Rate 95 08/09/18 15:15 Respiratory Rate 18 08/09/18 15:15 Blood Pressure 167/75 08/09/18 15:15 O2 Sat by Pulse Oximetry 98 08/09/18 15:15 Oxygen Delivery Oxygen Delivery Room Air Medical Decision Making - MDM Narrative Medical decision making narrative: Chest X-Ray 08/09/18 11:24 IMPRESSION: No acute cardiopulmonary disease. D/ / Victorino Conti MD / Victorino Conti MD Interpreting Provider: Victorino Conti MD 1239 hrs.: Patient is doing better she has no leg troponin with her prolonged SVT and her chest pain rest speak with cardiology about that and then admit. I reviewed the residents documentation and agree with the residents assessment and plan of care. I have personally had face to face time with the patient. (Brief History, Brief Exam, and MDM) I personally supervised and was present for the plunkett/critical portions of the following procedures completed by the resident: (add procedures performed here). EKG was interpreted by Dr. Ortiz I agree with his interpretation and supervised the reading. - Lab Data Result diagrams: 08/09/18 11:35 08/09/18 11:35 Lab Results 08/09/18 08/09/18 08/09/18 Range/Units 11:35 11:35 13:00 WBC 6.6 (4.3-11.1) K/mcL RBC 4.51 (3.82-4.97) M/mcL Hgb 13.0 (11.5-15.4) g/dL Hct 40.4 (35.3-44.9) % MCV 89.6 (83.0-100.0) fL MCH 28.8 (28.0-33.3) pg MCHC 32.2 (31.6-35.5) g/dL RDW 13.5 (11.5-14.5) % Plt Count 279 (140-400) K/mcL MPV 10.6 (9.4-12.4) fL Immature Gran % 0.8 (0-4) % Seg Neutrophils % 81.8 % Lymphocytes % 12.8 % Monocytes % 3.8 % Eosinophils % 0.5 % Basophils % 0.3 % Neutrophils # 5.4 (1.6-8.9) K/mcL Lymphocytes # 0.8 (0.6-4.6) K/mcL Monocytes # 0.3 (0.0-1.3) K/mcL Eosinophils # 0.0 (0.0-0.6) K/mcL Basophils # 0.0 (0.0-0.2) K/mcL Sodium 143 (136-145) mEq/L Potassium 4.0 (3.5-5.1) mEq/L Chloride 115 H (98-107) mEq/L Carbon Dioxide 19 L (23-29) mEq/L BUN 40 H (8-23) mg/dL Creatinine 0.86 (0.60-1.20) mg/dL Est GFR ( Amer) > 60 (> 60) Est GFR (Non-Af Amer) > 60 (> 60) BUN/Creatinine Ratio 47 H (6-26) Glucose 180 H (70-105) mg/dL Calculated Osmolality 310 H (280-300) Calcium 8.9 (8.6-10.3) mg/dL Troponin I 0.08 H* (< 0.04) ng/mL TSH 3.566 (0.340-5.600) mcIU/mL Ur Specimen Adequacy See below A Urine Color Yellow (Yellow) Urine Clarity Cloudy A (Clear) Urine pH 6.0 (5.0-8.0) pH Units Ur Specific [place] 1.019 (1.010-1.025) Urine Protein 30 H (Neg-Trace) mg/dL Urine Glucose (UA) Normal (Normal) mg/dL Urine Ketones Negative (Negative) mg/dL Urine Blood Negative (Negative) Urine Nitrite Positive A (Negative) Urine Bilirubin Negative (Negative) Urine Urobilinogen Normal (Normal) mg/dL Ur Leukocyte Esterase Moderate H (Negative) Urine Microscopic RBC 30-50 H (0-3) per hpf Urine Microscopic WBC 15-30 H (0-3) per hpf Ur Squamous Epith Cells Moderate H (None-Few) per lpf Urine Bacteria Many H (None-Few) per hpf Hyaline Casts Few (None-Few) per lpf Ur Culture Indicated? YES A (NO) Attestation Statement - Attestation Attestation: This documentation is done with the assistance of Dragon dictation. Despite efforts made to ensure accuracy, there may be inaccuracies in policyholder information clerk or spelling and typographical errors. I examined this patient and my medical decision-making was reviewed with the Resident Physician. I agree with the documented findings, disposition and treatment plan as described except to the extent set forth below. Patient seen and evaluated on arrival by Dr. Mcrae and myself, agree with his evaluation and management plan, supervise care the patient's stay. Patient had a SVT at home called EMS and they gave her adenosine which brought her out of SVT. History of SVT in the past. She feels better at this time. No chest pain at this time. We will do a workup and reassess.
--- NOTE | 2018-08-09 11:30 | Emergency Department Note ---
Disposition Clinical Impression: SVT (supraventricular tachycardia), Elevated troponin Chest pain Qualifiers: Chest pain type: unspecified Qualified Code(s): R07.9 - Chest pain, unspecified Disposition: Admitted As Inpatient Condition: Fair Time of Disposition: 14:18 Arrhythmia/Palpitations HPI - General Chief Complaint: ED Arrhythmia/Palpitations Stated Complaint: chest pain Time Seen by Provider: 08/09/18 11:23 Source: patient, EMS Mode of arrival: EMS Limitations: no limitations Nursing Notes Reviewed: Yes Vital Signs Reviewed: Yes - History of Present Illness HPI Narrative: 73 year old female w/ a PMHx of recurrent SVT, CAD, HTN, Tardive dyskinesia who presents via EMS d/t chest pain and SVT. Chest pain began at 7AM today. [place] like previous SVT. Patient was found to be in SVT by EMS and was given 6mg Adenosine in route with conversion to sinus rhythm. Her symptoms have resolved. She denies chest pain, dyspnea, abdominal pain, n/v. No hx of cardiac stents, DVT or PE. Pt Subjective Complaint: rapid heart beat Onset (ago): hour(s) Duration: now resolved Context: occurred during rest Arrhythmia History: SVT Associated symptoms: Reports: denies other symptoms Treatments prior to arrival: adenosine - Related Data Home Medications Medication Instructions Recorded Confirmed Lisinopril [Zestril] 20 mg PO BID 07/23/15 08/09/18 metFORMIN [Glucophage] 500 mg PO BIDWM 07/23/15 08/09/18 Albuterol Sulfate [Ventolin Hfa] 2 puff IH Q4H PRN 03/14/16 08/09/18 Budesonide/Formoterol 160/4.5 2 puff IH BID 03/14/16 08/09/18 [Symbicort 160/4.5] Omeprazole [PriLOSEC] 40 mg PO DAILY 03/14/16 08/09/18 Thiamine Mononitrate [Vitamin B-1] 100 mg PO DAILY 03/14/16 08/09/18 Vitamin E 1,000 unit PO DAILY 03/14/16 08/09/18 Fenofibrate Nanocrystallized 160 mg PO DAILY 06/17/18 08/09/18 [Fenofibrate] Atorvastatin Calcium [Lipitor] 40 mg PO HS 08/09/18 08/09/18 Clopidogrel [Plavix] 75 mg PO DAILY 08/09/18 08/09/18 Escitalopram [Lexapro] 10 mg PO DAILY 08/09/18 08/09/18 Levothyroxine Sodium [Levoxyl] 25 mcg PO QAM 08/09/18 08/09/18 Previous Rx's Medication Instructions Recorded Acetaminophen [Tylenol] 650 mg PO Q6HR PRN tablet 06/28/18 Aspirin Enteric Coated [Aspirin EC] 81 mg PO DAILY tablet. 06/28/18 Melatonin 3 mg PO HS PRN tablet 06/28/18 Metoprolol [Lopressor] 37.5 mg PO BID tablet 07/02/18 Potassium Chloride 20 meq PO BID tab.er.prt 07/02/18 Allergies Allergy/AdvReac Type Severity Reaction Status Date / Time gabapentin AdvReac Confusion Verified 06/29/18 00:33 methadone [Methadone] AdvReac Confusion Verified 06/29/18 00:33 morphine AdvReac Confusion Verified 06/29/18 00:33 Zolpidem [From Ambien] AdvReac Confusion Verified 06/29/18 00:33 All systems ED: reviewed and negative except as stated. Constitutional: Denies: fever Cardiovascular: Reports: chest pain (now resolved), palpitations Respiratory: Denies: cough, dyspnea Gastrointestinal: Denies: abdominal pain, nausea, vomiting Past Medical History - Past Medical History Attestation: Yes The following information was validated with the patient. Source: patient, old records reviewed Medical history: Reports: arthritis, COPD, coronary artery disease, diabetes, hyperlipidemia, hypertension, myocardial infarction, osteoporosis, SVT Surgical history: Reports: hysterectomy Psychiatric history: Reports: depression. Denies: prior suicide attempt - Social History Smoking Status: Former smoker Smokeless Tobacco Status: No Alcohol use: Reports: none Drug use: Reports: none Physical Exam - General Limitations: no limitations General appearance: alert, in no apparent distress - Head Head exam: atraumatic, normocephalic, normal inspection - Eye Eye exam: Present: normal appearance - ENT ENT exam: normal exam, other (Demonstrates tardive dyskinesia) - Neck Neck exam: Present: normal inspection - Chest Chest inspection: Present: normal inspection, symmetric chest wall rise - Respiratory Respiratory exam: Present: normal lung sounds bilaterally - Cardiovascular Cardiovascular exam: Present: normal rhythm, tachycardia, irregular rhythm - Abdominal Exam Abdominal exam: Present: soft, Non-Tender. Absent: tenderness, distention, rigidity - Extremities Exam Extremities exam: Present: normal inspection, full ROM - Expanded Upper Extremity Exam Shoulder exam: Present: normal inspection, full ROM Arm exam: Present: normal inspection, full ROM Elbow exam: Present: normal inspection, full ROM Forearm/Wrist exam: Present: normal inspection, full ROM Hand exam: Present: normal inspection, full ROM - Expanded Lower Extremity Exam Hip/Pelvis exam: Present: normal inspection, full ROM Upper leg exam: Present: normal inspection, full ROM Knee exam: Present: normal inspection, full ROM Lower leg exam: Present: normal inspection, full ROM Ankle exam: Present: normal inspection, full ROM Foot/toe exam: Present: normal inspection, full ROM - Skin Skin exam: Present: warm, dry Course Course Narrative: Seen and examined. Currently asymptomatic. Reviewed rhythm strip demonstrating EKG. Plan for repeat EKG, CXR, labs. Will start mIVF. Reviewed previous admissio n at which point they increased her lopressor to 37.5mg BID. Plan for admission for observation and telemetry. - Reevaluation(s) Reevaluation #1: Labs reviewed. Troponin of 0.08. Chest pain free. Given ASA. Plan to admit to hospitalist. - Consultations Consultation #1: I spoke with the import coordination and production head braille coder Dr. Henning. Discussed the patient's previous history, rhythm strip, EKG and labs. Patient is currently asymptomatic. Troponin of 0.08. Agree no reason to heparanize the patient at this time. Their recommendation is an increase in his Lopressor. Previous dose was 37.5mg BID, recommend to increase to 50mg BID. They will see her as an outpatient. Vital Signs Temperature 97.8 F 08/09/18 11:23 Pulse Rate 96 08/09/18 11:23 Respiratory Rate 26 08/09/18 11:23 Blood Pressure 119/56 08/09/18 11:23 O2 Sat by Pulse Oximetry 100 08/09/18 11:23 Temperature 97.8 F 08/09/18 11:23 Pulse Rate 77 08/09/18 13:37 Respiratory Rate 26 08/09/18 13:37 Blood Pressure 140/105 08/09/18 13:37 O2 Sat by Pulse Oximetry 100 08/09/18 13:37 Oxygen Delivery Oxygen Delivery Room Air Arrhythmia/Palpitations - MDM Narrative Medical decision making narrative: 73 year old female presenting with what appears to be recurrent SVT. Converted prior to arrival. EKG here is essentially non-ischemic. Labs are grossly unremarkable with exception of an elevated troponin of 0.08. She is asymptomatic at this point. Plan to admit to the hospitalist for chest pain, elevated troponin and SVT. - Lab Data Lab results reviewed: Yes I reviewed the patient's lab results. Result diagrams: 08/09/18 11:35 08/09/18 11:35 Lab Results 08/09/18 08/09/18 08/09/18 Range/Units 11:35 11:35 13:00 WBC 6.6 (4.3-11.1) K/mcL RBC 4.51 (3.82-4.97) M/mcL Hgb 13.0 (11.5-15.4) g/dL Hct 40.4 (35.3-44.9) % MCV 89.6 (83.0-100.0) fL MCH 28.8 (28.0-33.3) pg MCHC 32.2 (31.6-35.5) g/dL RDW 13.5 (11.5-14.5) % Plt Count 279 (140-400) K/mcL MPV 10.6 (9.4-12.4) fL Immature Gran % 0.8 (0-4) % Seg Neutrophils % 81.8 % Lymphocytes % 12.8 % Monocytes % 3.8 % Eosinophils % 0.5 % Basophils % 0.3 % Neutrophils # 5.4 (1.6-8.9) K/mcL Lymphocytes # 0.8 (0.6-4.6) K/mcL Monocytes # 0.3 (0.0-1.3) K/mcL Eosinophils # 0.0 (0.0-0.6) K/mcL Basophils # 0.0 (0.0-0.2) K/mcL Sodium 143 (136-145) mEq/L Potassium 4.0 (3.5-5.1) mEq/L Chloride 115 H (98-107) mEq/L Carbon Dioxide 19 L (23-29) mEq/L BUN 40 H (8-23) mg/dL Creatinine 0.86 (0.60-1.20) mg/dL Est GFR ( Amer) > 60 (> 60) Est GFR (Non-Af Amer) > 60 (> 60) BUN/Creatinine Ratio 47 H (6-26) Glucose 180 H (70-105) mg/dL Calculated Osmolality 310 H (280-300) Calcium 8.9 (8.6-10.3) mg/dL Troponin I 0.08 H* (< 0.04) ng/mL TSH 3.566 (0.340-5.600) mcIU/mL Ur Specimen Adequacy See below A Urine Color Yellow (Yellow) Urine Clarity Cloudy A (Clear) Urine pH 6.0 (5.0-8.0) pH Units Ur Specific [place] 1.019 (1.010-1.025) Urine Protein 30 H (Neg-Trace) mg/dL Urine Glucose (UA) Normal (Normal) mg/dL Urine Ketones Negative (Negative) mg/dL Urine Blood Negative (Negative) Urine Nitrite Positive A (Negative) Urine Bilirubin Negative (Negative) Urine Urobilinogen Normal (Normal) mg/dL Ur Leukocyte Esterase Moderate H (Negative) Urine Microscopic RBC 30-50 H (0-3) per hpf Urine Microscopic WBC 15-30 H (0-3) per hpf Ur Squamous Epith Cells Moderate H (None-Few) per lpf Urine Bacteria Many H (None-Few) per hpf Hyaline Casts Few (None-Few) per lpf Ur Culture Indicated? YES A (NO) - Radiology Data Radiology results reviewed: Yes I reviewed the patient's radiology results. Chest X-Ray 08/09/18 11:24 IMPRESSION: No acute cardiopulmonary disease. D/ / Victorino Conti MD / Victorino Conti MD Interpreting Provider: Victorino Conti MD - EKG Data EKG attestation: Yes I reviewed and interpreted this EKG. EKG results narrative: EKG demonstrates sinus rhythm with a rate of 87 beats per minute. Normal axis. Normal intervals. Normal R wave progression. No gross ST elevations or depressions. No acute ischemic findings. S.B.A.R. - S.B.A.R. Situation: Demographics, MOA Background: Presenting Complaint, Relevant PMH, Meds, & Allergies Assessment: Course and respsone to treatment, Exam Concerns, Patient/Family Expectation, Pertinant Lab Results Recommendation: Barrier(s) to disposition, Recommendation based on pending studies, treatments, or consults [facility] Report Given to: Dr. Xiomara Jerome Repor Time: 13:15
[2018-08-09 11:46] LABS: Basophils % 0.3 %; Eosinophils % 0.5 %; Hematocrit 40.4 % (35.3-44.9); Immature Granulocytes % 0.8 % (0-4); Lymphocytes # 0.8 K/mcL (0.6-4.6); Lymphocytes % 12.8 %; Mean Corpuscular HGB Conc 32.2 g/dL (31.6-35.5); Mean Corpuscular Hemoglobin 28.8 pg (28.0-33.3); Mean Corpuscular Volume 89.6 fL (83.0-100.0); Mean Platelet Volume 10.6 fL (9.4-12.4); Monocytes # 0.3 K/mcL (0.0-1.3); Monocytes % 3.8 %; Neutrophils # 5.4 K/mcL (1.6-8.9); Platelet Count 279 K/mcL (140-400); Red Blood Count 4.51 M/mcL (3.82-4.97); Red Cell Distribution Width 13.5 % (11.5-14.5); Segmented Neutrophils % 81.8 %; White Blood Count 6.6 K/mcL (4.3-11.1)
[2018-08-09 12:08] LABS: BUN/Creatinine Ratio 47 (6-26); Blood Urea Nitrogen 40 mg/dL (8-23); Calcium 8.9 mg/dL (8.6-10.3); Carbon Dioxide 19 mEq/L (23-29); Chloride 115 mEq/L (98-107); Glucose 180 mg/dL (70-105); Osmolality,Calculated 310 (280-300); Sodium 143 mEq/L (136-145); eGFR For African Americans > 60 (> 60); eGFR For Non-African Americans > 60 (> 60)
[2018-08-09] MEDS: 0.9 % Sodium Chloride 1,000 ML IVC SCH ×2 (12:11→15:30)
[2018-08-09 12:20] LABS: Troponin I 0.08 ng/mL (< 0.04)
[2018-08-09 12:25] LABS: Thyroid Stimulating Hormone 3.566 mcIU/mL (0.340-5.600)
[2018-08-09] MEDS ORDERED: Aspirin 325 MG TABLET PO ONE (12:27)
[2018-08-09 13:22] LABS: Bilirubin,Urine Negative (Negative); Blood,Urine Negative (Negative); Clarity,Urine Cloudy (Clear); Color,Urine Yellow (Yellow); Glucose,Urine (UA) Normal (Normal); Ketones,Urine Negative (Negative); Leukocyte Esterase,Urine Moderate (Negative); Nitrite,Urine Positive (Negative); Protein,Urine 30 mg/dL (Neg-Trace); Specific Gravity,Urine 1.019 (1.010-1.025); Urobilinogen,Urine Normal (Normal)
[2018-08-09] MEDS ORDERED: Melatonin 3 MG TABLET PO PRN (13:30)
[2018-08-09 13:31] LABS: Bacteria,Urine Many per hpf (None-Few); Hyaline Casts,Urine Few per lpf (None-Few); RBC,Urine 30-50 per hpf (0-3); Squamous Epithelial Cell,Urine Moderate per lpf (None-Few); WBC,Urine 15-30 per hpf (0-3)
[2018-08-09] MEDS ORDERED: D5% in Water 1,000 ML IVC PRN (13:31)
[2018-08-09] MEDS ORDERED: Dextrose Gel 15 GM/37.5 ML TUBE PO PRN ×2 (13:31)
[2018-08-09] MEDS ORDERED: *HR* Dextrose 50 % in Water (Syg) 50 ML SYRINGE IVP PRN (13:31)
--- NOTE | 2018-08-09 13:53 | Internal Med History&Physical ---
Date of Encounter: 08/09/18 Time of Encounter: 13:15 Internal Medicine - H&P: HPI Chief complaint: Palpitation Admitted From: Long-term Nursing Facility History of present illness: Ms. Lemon is a 73 year old female with history of COPD, diabetes, hypertension, CAD, recurrent SVT requiring adenosine on multiple occasions, who presented to the ED with palpitation. She is a poor historian hence only limited information was obtained. She basically described the sensation as "her SVT coming back" rather than chest pain. Started this morning, no radiation, no aggravating or relieving factors. No N/V, diaphoresis, orthopnea, PND, or leg swelling. Denies any GI/ symptoms. States that she sees cardiology as an outpatient and opted for medical management for recurrent SVT at that time. En route to the ED, she was noted to be in SVT which was aborted after 6mg of adenosine and since then remained in NSR. On arrival to the ED, she was afebrile and hemodynamically stable. Workup was essentially unremarkable except for troponin of 0.08. CXR without acute cardiopulmonary process and EKG showed normal sinus rhythm without ST-T changes. Discussion was made between the ED physician and balance sheet analyst rotational moulding operator who did not feel that heparin gtt was indicated. Patient will be admitted for overnight monitoring. Past Med Surg Social Fam HX - Past Medical History Medical history: arthritis, COPD, coronary artery disease, diabetes, hyperlipidemia, hypertension, myocardial infarction, osteoporosis, SVT Additional medical history: CHRONIC UTI, tardive dyskinesia Psychiatric history: depression - Past Surgical History Surgical History: hysterectomy - Social History Smoking Status: Former smoker Smokeless Tobacco Status: No Alcohol use: none Drug use: none - Family History Father Living Status: Hx Family Cardiac Disorders: Yes Internal Medicine - H&P: Meds Lisinopril [Zestril] 20 mg PO BID 07/23/15 [History] metFORMIN [Glucophage] 500 mg PO BIDWM 07/23/15 [History] Albuterol Sulfate [Ventolin Hfa] 2 puff IH Q4H PRN 03/14/16 [History] Budesonide/Formoterol 160/4.5 [Symbicort 160/4.5] 2 puff IH BID 03/14/16 [History] Omeprazole [PriLOSEC] 40 mg PO DAILY 03/14/16 [History] Thiamine Mononitrate [Vitamin B-1] 100 mg PO DAILY 03/14/16 [History] Vitamin E 1,000 unit PO DAILY 03/14/16 [History] Fenofibrate Nanocrystallized [Fenofibrate] 160 mg PO DAILY 06/17/18 [History] Acetaminophen [Tylenol] 650 mg PO Q6HR PRN tablet 06/28/18 [Rx] Aspirin Enteric Coated [Aspirin EC] 81 mg PO DAILY tablet.dr 06/28/18 [Rx] Melatonin 3 mg PO HS PRN tablet 06/28/18 [Rx] Oxybutynin [Ditropan] 5 mg PO BID tablet 06/28/18 [Rx] Metoprolol [Lopressor] 37.5 mg PO BID tablet 07/02/18 [Rx] Potassium Chloride 20 meq PO BID tab.er.prt 07/02/18 [Rx] Atorvastatin Calcium [Lipitor] 40 mg PO HS 08/09/18 [History] Clopidogrel [Plavix] 75 mg PO DAILY 08/09/18 [History] Escitalopram [Lexapro] 10 mg PO DAILY 08/09/18 [History] Levothyroxine Sodium [Levoxyl] 25 mcg PO 08/09/18 [History] Allergy/AdvReac Type Severity Reaction Status Date / Time gabapentin AdvReac Confusion Verified 06/29/18 00:33 methadone [Methadone] AdvReac Confusion Verified 06/29/18 00:33 morphine AdvReac Confusion Verified 06/29/18 00:33 Zolpidem [From Ambien] AdvReac Confusion Verified 06/29/18 00:33 All Systems PM: A 10-system review of systems was performed and is negative for pertinent findings except as documented above in the HPI. - Constitutional Vitals: Temp Pulse Resp BP Pulse Ox 97.8 F 77 26 140/105 100 08/09/18 11:23 08/09/18 13:37 08/09/18 13:37 08/09/18 13:37 08/09/18 13:37 Exam: General: Alert and oriented, not in acute distress. HEENT:EOMI, pupils equal, round and reactive. Cardiovascular:Normal S1 & S2, No JVD. Pulse regular and normal rate Lungs: clear to auscultation, no wheezes/rales Abdomen:Soft, non-tender, no rigidity. : No CVA tenderness Extremities:No deformity or swelling Neurological: tardive dyskinesia noted, grossly non-focal otherwise Skin:Normal color, no rash, no lesions. Pulses:Carotid and radial pulses normal +2. Rest of the physical exam is non contributory Internal Med - H&P Results - Labs CBC & Chem 7: 08/09/18 11:35 08/09/18 11:35 Labs: Short CBC 08/09/18 Range/Units 11:35 WBC 6.6 (4.3-11.1) K/mcL Hgb 13.0 (11.5-15.4) g/dL Hct 40.4 (35.3-44.9) % Plt Count 279 (140-400) K/mcL Neutrophils # 5.4 (1.6-8.9) K/mcL BMP 08/09/18 11:35 Sodium 143 Potassium 4.0 Chloride 115 H Carbon Dioxide 19 L BUN 40 H Creatinine 0.86 Glucose 180 H Calcium 8.9 Cardiac Enzymes 08/09/18 Range/Units 11:35 Troponin I 0.08 H* (< 0.04) ng/mL Urine 08/09/18 Range/Units 13:00 Urine Color Yellow (Yellow) Urine Clarity Cloudy A (Clear) Urine pH 6.0 (5.0-8.0) pH Units Ur Specific [place] 1.019 (1.010-1.025) Urine Protein 30 H (Neg-Trace) mg/dL Urine Glucose (UA) Normal (Normal) mg/dL - Impressions ITS Impressions Chest X-Ray 08/09/18 11:24 IMPRESSION: No acute cardiopulmonary disease. D/ / Victorino Conti MD / Victorino Conti MD Interpreting Provider: Victorino Conti MD - Assessment and Plan (1) SVT (supraventricular tachycardia) Current Visit: Yes Status: Acute Assessment and plan: Recurrent, follows with EP as an outpatient and opted for medical management at the time aborted with adenosine given by EMS discussion made between ED physician and cardiology, for overnight monitoring with uptitration of bb and follow up with cardiology as outpatient Increase beta rahul to 50 mg twice a day If SVT recurs, can use adenosine 6 mg recent echocardiogram and ischemic workup in 06/2018, will not pursue further unless there is a change in her clinical course (2) Elevated troponin Current Visit: Yes Status: Acute Assessment and plan: Likely demand ischemia in the setting of SVT [facility] 06/2018: 100% stenosis in the 1st marginal with collaterals and otherwise mild, non-obstructive CAD EKG showed NSR without ST-T changes will continue to trend (3) CAD (coronary artery disease) Current Visit: No Status: Chronic Assessment and plan: Resume home meds Qualifiers: Coronary Disease-Associated Artery/Lesion type: [place] artery [place] vs. transplanted heart: [place] heart Associated angina: with stable angina Qualified Code(s): I25.118 - Atherosclerotic heart disease of [place] coronary artery with other forms of angina pectoris (4) Tardive dyskinesia Current Visit: Yes Status: Chronic Assessment and plan: known chronic problem (5) Generalized anxiety disorder Current Visit: No Status: Chronic Assessment and plan: continue home meds (6) Hypertension Current Visit: No Status: Chronic Assessment and plan: resume home meds Qualifiers: Hypertension type: essential hypertension Qualified Code(s): I10 - Essential (primary) hypertension (7) COPD (chronic obstructive pulmonary disease) Current Visit: No Status: Chronic Assessment and plan: not in exacerbation, PRN albuterol Qualifiers: Emphysema type: unspecified Qualified Code(s): J43.9 - Emphysema, unspecified (8) DM2 (diabetes mellitus, type 2) Current Visit: No Status: Chronic Assessment and plan: hold off on metformin, low-dose sliding scale Qualifiers: Diabetes mellitus retirement insulin use: without automobile spring repairer use Diabetes mellitus complication status: with unspecified complications Qualified Code(s): E11.8 - Type 2 diabetes mellitus with unspecified complications (9) DVT prophylaxis Current Visit: No Status: Acute Assessment and plan: SQ hep - Time Spent With Patient Total time spent is greater than 50% in coordination of care (as documented) at patient's floor/unit and/or counseling patient: 25 - 35 minutes
[2018-08-09] MEDS ORDERED: Naloxone 0.4 MG/ML INJ IVP PRN (14:08)
--- NOTE | 2018-08-09 14:57 | Electrocardiograph Report ---
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
[2018-08-09] MEDS: Acetaminophen 325 MG TABLET PO PRN (15:23)
[2018-08-09] MEDS ORDERED: *HR* Heparin 5,000 UNIT/ML VIAL SQ SCH (18:00)
[2018-08-09] MEDS: Insulin LISPRO 300 UNITS/3 ML VIAL SQ SCH ×2 (18:04→20:21)
[2018-08-09] MEDS ORDERED: tiZANidine 4 MG TABLET PO ONE (19:54)
[2018-08-09] MEDS: Budesonide/Formoterol 160/4.5 1 PUFF INH IH SCH (19:58)
[2018-08-09] MEDS: Lisinopril 20 MG TABLET PO SCH (20:17)
[2018-08-09] MEDS ORDERED: *HR* Heparin 5,000 UNIT/ML VIAL IVP ONE (21:13)
[2018-08-09] MEDS ORDERED: *HR* Heparin 5,000 UNIT/ML VIAL IVP PRN ×2 (21:13)
[2018-08-09] MEDS ORDERED: Heparin 25,000 UNIT/250 ML D5W 25,000 UNIT/250 ML IV.SOLN IVC SCH (21:15)
[2018-08-09 21:59] LABS: Hematocrit 34.7 % (35.3-44.9); Mean Corpuscular HGB Conc 32.6 g/dL (31.6-35.5); Mean Corpuscular Hemoglobin 29.5 pg (28.0-33.3); Mean Corpuscular Volume 90.6 fL (83.0-100.0); Mean Platelet Volume 10.7 fL (9.4-12.4); Platelet Count 264 K/mcL (140-400); Red Blood Count 3.83 M/mcL (3.82-4.97); Red Cell Distribution Width 13.5 % (11.5-14.5); White Blood Count 6.3 K/mcL (4.3-11.1)
[2018-08-09 22:00] LABS: Hemoglobin 11.3 g/dL (11.5-15.4)
[2018-08-09 22:06] LABS: Heparin anti-factor XA UFH 0.05 IU/mL (0.30-0.70)
[2018-08-09 22:07] LABS: INR 1.1; Prothrombin Time 12.3 Seconds (9.4-12.1)
[2018-08-10] MEDS: 0.9 % Sodium Chloride 1,000 ML IVC SCH ×2 (01:35→10:36)
[2018-08-10 03:00] LABS: BUN/Creatinine Ratio 46 (6-26); Blood Urea Nitrogen 32 mg/dL (8-23); Calcium 8.4 mg/dL (8.6-10.3); Carbon Dioxide 18 mEq/L (23-29); Chloride 114 mEq/L (98-107); Glucose 96 mg/dL (70-105); Magnesium 1.9 mg/dL (1.6-2.6); Osmolality,Calculated 295 (280-300); Potassium 3.9 mEq/L (3.5-5.1); Sodium 139 mEq/L (136-145); eGFR For African Americans > 60 (> 60); eGFR For Non-African Americans > 60 (> 60)
[2018-08-10 03:01] LABS: Basophils % 0.3 %; Eosinophils # 0.1 K/mcL (0.0-0.6); Eosinophils % 1.4 %; Hematocrit 37.9 % (35.3-44.9); Hemoglobin 11.5 g/dL (11.5-15.4); Immature Granulocytes % 0.3 % (0-4); Lymphocytes # 2.2 K/mcL (0.6-4.6); Lymphocytes % 34.1 %; Mean Corpuscular HGB Conc 30.3 g/dL (31.6-35.5); Mean Corpuscular Hemoglobin 29.3 pg (28.0-33.3); Mean Corpuscular Volume 96.4 fL (83.0-100.0); Monocytes # 0.5 K/mcL (0.0-1.3); Monocytes % 8.1 %; Neutrophils # 3.5 K/mcL (1.6-8.9); Platelet Count 230 K/mcL (140-400); Red Blood Count 3.93 M/mcL (3.82-4.97); Red Cell Distribution Width 13.4 % (11.5-14.5); Segmented Neutrophils % 55.8 %; White Blood Count 6.3 K/mcL (4.3-11.1)
[2018-08-10 03:11] LABS: Troponin I 1.04 ng/mL (< 0.04)
[2018-08-10] MEDS: Levothyroxine 25 MCG TABLET PO SCH (05:19)
[2018-08-10] MEDS: Insulin LISPRO 300 UNITS/3 ML VIAL SQ SCH ×4 (08:38→22:10)
--- NOTE | 2018-08-10 09:01 | Internal Med Progress Note ---
Hospitalist Progress Note - Encounter Date of Encounter: 08/10/18 Time of Encounter: 09:01 - Exam Vitals: Temp Pulse Resp BP Pulse Ox 97.6 F 57 16 180/70 98 08/10/18 08:15 08/10/18 08:15 08/10/18 08:15 08/10/18 08:15 08/10/18 08:15 - Assessment and Plan (1) DM2 (diabetes mellitus, type 2) Current Visit: No Status: Chronic (2) DVT prophylaxis Current Visit: No Status: Acute (3) SVT (supraventricular tachycardia) Current Visit: Yes Status: Acute (4) Hypertension Current Visit: No Status: Chronic (5) CAD (coronary artery disease) Current Visit: No Status: Chronic (6) Elevated troponin Current Visit: Yes Status: Acute (7) COPD (chronic obstructive pulmonary disease) Current Visit: No Status: Chronic (8) Generalized anxiety disorder Current Visit: No Status: Chronic (9) Tardive dyskinesia Current Visit: Yes Status: Chronic - Time Spent with Patient Total time spent is greater than 50% in coordination of care (as documented) at patient's floor/unit and/or counseling patient: Internal Medicine: Result - Labs CBC & Chem 7: 08/10/18 02:19 08/10/18 02:19 Labs: Short CBC 08/09/18 08/09/18 08/10/18 Range/Units 11:35 21:29 02:19 WBC 6.6 6.3 6.3 (4.3-11.1) K/mcL Hgb 13.0 11.3 L D 11.5 (11.5-15.4) g/dL Hct 40.4 34.7 L 37.9 (35.3-44.9) % Plt Count 279 264 230 (140-400) K/mcL Neutrophils # 5.4 3.5 (1.6-8.9) K/mcL BMP 08/09/18 08/10/18 11:35 02:19 Sodium 143 139 Potassium 4.0 3.9 Chloride 115 H 114 H Carbon Dioxide 19 L 18 L BUN 40 H 32 H Creatinine 0.86 0.69 Glucose 180 H 96 Calcium 8.9 8.4 L Cardiac Enzymes 08/09/18 08/09/18 08/10/18 Range/Units 11:35 20:02 02:19 Troponin I 0.08 H* 1.60 H* 1.04 H* (< 0.04) ng/mL 08/10/18 Range/Units 07:16 Troponin I 0.82 H* (< 0.04) ng/mL Urine 08/09/18 Range/Units 13:00 Urine Color Yellow (Yellow) Urine Clarity Cloudy A (Clear) Urine pH 6.0 (5.0-8.0) pH Units Ur Specific [place] 1.019 (1.010-1.025) Urine Protein 30 H (Neg-Trace) mg/dL Urine Glucose (UA) Normal (Normal) mg/dL - ABG Interpretation ABG results: PT/INR, D-dimer PT 12.3 Seconds (9.4-12.1) H 08/09/18 21:29 - Impressions Impressions Chest X-Ray 08/09/18 11:24 IMPRESSION: No acute cardiopulmonary disease. D/ / Victorino Conti MD / Victorino Conti MD Interpreting Provider: Victorino Conti MD Consult Discharge Plan - Plan Referrals: Noah Clark MD [Primary Care Provider] - (1) DM2 (diabetes mellitus, type 2) Qualifiers: Diabetes mellitus penitentiary insulin use: without penitentiary use Diabetes mellitus complication status: with unspecified complications (4) Hypertension Qualifiers: Hypertension type: essential hypertension Qualified Code(s): I10 - Essential (primary) hypertension (5) CAD (coronary artery disease) Qualifiers: Coronary Disease-Associated Artery/Lesion type: [place] artery [place] vs. transplanted heart: [place] heart Associated angina: with stable angina Qualified Code(s): I25.118 - Atherosclerotic heart disease of [place] coronary artery with other forms of angina pectoris (7) COPD (chronic obstructive pulmonary disease) Qualifiers: Emphysema type: unspecified Qualified Code(s): J43.9 - Emphysema, unspecified
[2018-08-10] MEDS: Fenofibrate 54 MG TABLET PO SCH (09:51)
[2018-08-10] MEDS: Acetaminophen 325 MG TABLET PO PRN (09:51)
[2018-08-10] MEDS: Aspirin Enteric Coated 81 MG Tablet PO SCH (09:51)
[2018-08-10] MEDS: Lisinopril 20 MG TABLET PO SCH ×2 (09:52→21:21)
[2018-08-10] MEDS: Budesonide/Formoterol 160/4.5 1 PUFF INH IH SCH ×2 (09:58→20:58)
--- NOTE | 2018-08-10 11:19 | Cardiology Consult Note ---
<Suzi Murphy Ivan - Last Filed: 08/10/18 11:15> Date of Encounter: 08/10/18 Time of Encounter: 11:00 Assessment and Plan (1) Elevated troponin Status: Acute Peak troponin 1.6 with downward trend in the setting of SVT, rate 185 BPM. Non-specific ECG changes on ECG, no chest pain. Suspect secondary to demand ischemia, NSTEMI II. No indication for cardiac rehab. Continue asa, statin, and BB. Recent [facility] 06/2018--occluded OM with collaterals otherwise non-obstructive CAD. EF preserved. 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 Hx of SVT >10 years, recent EP evaluation, declined ablation and opted to continue medical therapy. She is now willing to reconsider. Agree with increase of BB. No recurrent episodes overnight. Avg HR=59 SB/SR. Will coordinate outpatient follow-up with EP Discussion w patient/family: The assessment and plan as outlined above was discussed with the patient and/or family members who expressed understanding and agreement. All questions were answered. Thank you for involving us in the care of your patient. Please call with any questions. The patient will be discussed and reviewed with Dr. Montoya, changes to be made accordingly. History of Present Illness Consult date: 08/10/18 Requesting physician: Raquel Avila Consult reason: elevated troponin Chief complaint: Palpitations History of present illness: Ms. Lemon is a 73 year old female with PMHx significant of SVT, CAD, tarditive dyskinesia, and HTN who presented to the ED with complaints of palpitations; she was transferred from [facility] ED to [facility] for further evaluation. Strips reviewed from ED and are consistent with AVNRT, rate 185 BPM. She was given IV adenosine and converted to NSR. Patient was seen by EP 2 weeks ago and was offered SVT ablation, however opted to continue medical therapy. BB increased upon admission, no recurrent SVT noted per telemetry review. Troponin peaked at 1.6 with downward trend. Nonspecific ST-T wave abnormalities noted. Past Med Surg Social Fam HX - Past Medical History Attestation: Yes The following information was validated with the patient. Source: patient Medical history: COPD, diabetes, hypertension Additional medical history: CHRONIC UTI, tardive dyskinesia, svt Psychiatric history: depression - Past Surgical History Surgical History: hysterectomy - Social History Smoking Status: Former smoker Smokeless Tobacco Status: No Alcohol use: none Drug use: none - Family History Father Living Status: Hx Family Cardiac Disorders: Yes Mother History Unknown: Yes Medications and Allergies Lisinopril [Zestril] 20 mg PO BID 07/23/15 [History] metFORMIN [Glucophage] 500 mg PO BIDWM 07/23/15 [History] Albuterol Sulfate [Ventolin Hfa] 2 puff IH Q4H PRN 03/14/16 [History] Budesonide/Formoterol 160/4.5 [Symbicort 160/4.5] 2 puff IH BID 03/14/16 [History] Omeprazole [PriLOSEC] 40 mg PO DAILY 03/14/16 [History] Thiamine Mononitrate [Vitamin B-1] 100 mg PO DAILY 03/14/16 [History] Vitamin E 1,000 unit PO DAILY 03/14/16 [History] Fenofibrate Nanocrystallized [Fenofibrate] 160 mg PO DAILY 06/17/18 [History] Acetaminophen [Tylenol] 650 mg PO Q6HR PRN tablet 06/28/18 [Rx] Aspirin Enteric Coated [Aspirin EC] 81 mg PO DAILY tablet.dr 06/28/18 [Rx] Melatonin 3 mg PO HS PRN tablet 06/28/18 [Rx] Potassium Chloride 20 meq PO BID tab.er.prt 07/02/18 [Rx] Atorvastatin Calcium [Lipitor] 40 mg PO HS 08/09/18 [History] Clopidogrel [Plavix] 75 mg PO DAILY 08/09/18 [History] Escitalopram [Lexapro] 10 mg PO DAILY 08/09/18 [History] Levothyroxine Sodium [Levoxyl] 25 mcg PO QAM 08/09/18 [History] ALPRAZolam [Xanax 0.5 MG Tablet] 0.5 mg PO Q8H PRN 08/10/18 [History] Cefdinir [Omnicef] 300 mg PO BID 3 Days #6 capsule 08/10/18 [Rx] Diphenhydramine HCl [Diphedryl] 12.5 mg PO TID PRN 08/10/18 [History] Metoprolol [Lopressor] 50 mg PO BID #60 tablet 08/10/18 [Rx] Solifenacin Succinate [Vesicare] 5 mg PO DAILY 08/10/18 [History] Tramadol HCl [Ultram] 50 mg PO Q8H PRN 08/10/18 [History] Allergy/AdvReac Type Severity Reaction Status Date / Time gabapentin AdvReac Confusion Verified 06/29/18 00:33 methadone [Methadone] AdvReac Confusion Verified 06/29/18 00:33 morphine AdvReac Confusion Verified 06/29/18 00:33 Zolpidem [From Ambien] AdvReac Confusion Verified 06/29/18 00:33 All Systems Review: The remainder of the systems were reviewed and are negative - Cardiovascular Cardiovascular: as per HPI Physical Examination Vital Signs, Last 4 Hours Temp Pulse Resp BP Pulse Ox 08/10/18 09:59 16 98 08/10/18 08:15 97.6 F 57 16 180/70 98 General: Conversant, Other (tarditive dyskinesia) HEENT: Atraumatic, Normocephaly Cardiac: Reg Rate and Rhythm, Normal S1 and S2 Lungs: Normal Breath Sounds Neuro: Alert and responsive Abdomen: Soft Skin: No rashes noted on visualized skin Musculoskeletal: No Chest Wall Tenderness Extremities: No Edema, Normal Pulses Results 08/10/18 02:19 08/10/18 02:19 Lab Results 08/09/18 08/09/18 08/09/18 11:35 11:35 20:02 WBC 6.6 Hgb 13.0 Hct 40.4 Plt Count 279 INR Sodium 143 Potassium 4.0 Chloride 115 H Carbon Dioxide 19 L BUN 40 H Creatinine 0.86 Glucose 180 H Calcium 8.9 Magnesium Troponin I 0.08 H* 1.60 H* TSH 3.566 08/09/18 08/09/18 08/10/18 21:29 21:29 02:19 WBC 6.3 6.3 Hgb 11.3 L D 11.5 Hct 34.7 L 37.9 Plt Count 264 230 INR 1.1 Sodium Potassium Chloride Carbon Dioxide BUN Creatinine Glucose Calcium Magnesium Troponin I TSH 08/10/18 08/10/18 02:19 07:16 WBC Hgb Hct Plt Count INR Sodium 139 Potassium 3.9 Chloride 114 H Carbon Dioxide 18 L BUN 32 H Creatinine 0.69 Glucose 96 Calcium 8.4 L Magnesium 1.9 Troponin I 1.04 H* 0.82 H* TSH Active Medications Acetaminophen (Tylenol) 650 mg PO Q6HR PRN PRN Reason: Mild Pain/Fever Stop: 02/08/19 13:31 Last Admin: 08/10/18 09:51 Dose: 650 mg Documented by: Albuterol Sulfate (Albuterol Inhaler) 2 puff IH Q4H PRN PRN Reason: Shortness Of Breath Stop: 02/08/19 13:31 Aspirin (Aspirin Ec) 81 mg PO DAILY [facility] Stop: 02/09/19 09:01 Last Admin: 08/10/18 09:51 Dose: 81 mg Documented by: Atorvastatin Calcium (Lipitor) 40 mg PO HS [facility] Stop: 02/08/19 21:01 Last Admin: 08/09/18 20:17 Dose: 40 mg Documented by: Budesonide/Formoterol Fumarate (Symbicort) 2 puff IH BID [facility]; Protocol Stop: 02/08/19 21:01 Last Admin: 08/10/18 09:58 Dose: 2 puff Documented by: Clopidogrel Bisulfate (Plavix) 75 mg PO DAILY [facility] Stop: 02/09/19 09:01 Last Admin: 08/10/18 09:50 Dose: 75 mg Documented by: Dextrose/Water (Dextrose 50% (Syg)) 25 ml IVP AD PRN PRN Reason: Hypoglycemia Stop: 02/08/19 13:32 Escitalopram Oxalate (Lexapro) 10 mg PO DAILY [facility] Stop: 02/09/19 09:01 Last Admin: 08/10/18 09:52 Dose: 10 mg Documented by: Fenofibrate (Tricor) 162 mg PO DAILY [facility] Stop: 02/09/19 09:01 Last Admin: 08/10/18 09:51 Dose: 162 mg Documented by: Glucagon (Glucagen) 1 mg IM ONCE PRN PRN Reason: Hypoglycemia Stop: 02/08/19 13:32 Glucose (Gluctose) 15 gm PO ONCE PRN PRN Reason: Hypoglycemia Stop: 02/08/19 13:32 Glucose (Gluctose) 30 gm PO ONCE PRN PRN Reason: Hypoglycemia Stop: 02/08/19 13:32 Heparin Sodium (Porcine) (Heparin) 3,800 unit 60 unit/kg (3800 unit) IVP Q6HR PRN PRN Reason: SEE COMMENTS Stop: 02/08/19 21:14 Heparin Sodium (Porcine) (Heparin) 1,900 unit 30 unit/kg (1900 unit) IVP Q6H PRN PRN Reason: SEE COMMENTS Stop: 02/08/19 21:14 Sodium Chloride (0.9 % Sodium Chloride) 1,000 mls @ 100 mls/hr IVC .Q10H [facility]ON[facility] Stop: 02/08/19 11:31 Last Admin: 08/10/18 10:36 Dose: 100 mls/hr Documented by: Dextrose (Dextrose 5%) 1,000 mls @ 100 mls/hr IVC .Q10H PRN PRN Reason: HYPOGLYCEMIA Stop: 02/08/19 13:32 Heparin Sodium/Dextrose (Heparin 25,000 Unit/250 Ml D5w) 25,000 unit in 250 mls @ 7.62 mls/hr IVC .Q24H LEONILA; Protocol Stop: 02/08/19 21:16 Last Titration: 08/10/18 08:08 Dose: 11.97 unit/kg/hr, 7.6 mls/hr Documented by: Insulin Human Lispro (Humalog) 0 units SQ TIDAC [facility]; Protocol Stop: 02/08/19 16:31 Last Admin: 08/10/18 08:38 Dose: Not Given Documented by: Insulin Human Lispro (Humalog) 0 units SQ HS [facility]; Protocol Stop: 02/08/19 21:01 Last Admin: 08/09/18 20:21 Dose: Not Given Documented by: Levothyroxine Sodium (Synthroid) 25 mcg PO 0630 [facility]ON[facility] Stop: 02/09/19 06:31 Last Admin: 08/10/18 05:19 Dose: 25 mcg Documented by: Lisinopril (Zestril) 20 mg PO BID [facility]; Protocol Stop: 02/08/19 21:01 Last Admin: 08/10/18 09:52 Dose: 20 mg Documented by: Melatonin (Melatonin) 3 mg PO HS PRN PRN Reason: Insomnia Stop: 02/08/19 13:31 Last Admin: 08/09/18 23:40 Dose: 3 mg Documented by: Metoprolol Tartrate (Lopressor) 50 mg PO BID [facility] Stop: 02/08/19 13:31 Last Admin: 08/10/18 09:52 Dose: 50 mg Documented by: Naloxone HCl (Narcan) 0.4 mg IVP Q2MPRN PRN PRN Reason: SEE COMMENTS Stop: 02/08/19 14:09 Omeprazole (Prilosec) 40 mg PO 0630 [facility] Stop: 02/09/19 06:31 Last Admin: 08/10/18 05:19 Dose: 40 mg Documented by: Potassium Chloride (Potassium Chloride) 20 meq PO BID [facility] Stop: 02/08/19 21:01 Last Admin: 08/10/18 09:52 Dose: 20 meq Documented by: - Imaging and Cardiology Echo: report reviewed Other Results: 12 hour tele: avg HR-59 SR/SB. - EKG Interpretation EKG results cardiology: personally reviewed Consult Discharge Plan - Plan Instructions: Metoprolol (By mouth), Cefdinir (By mouth), Supraventricular Tachycardia (GEN), Chest Pain (DC) Additional Instructions: A Bedside Commode and a rollator walker have been ordered through [employer]. Call them when you get home to have equipment delivered. Also, please tell them about the hospital bed not working, so they can have someone come out to fix it. They also know you need a new mattress. Their number is #[phone]. Referrals: Noah Clark MD [Primary Care Provider] - (An appointment has been requested. They should be calling you to schedule an appointment. If you do not hear from them, please call and schedule an appointment. ) Prescriptions: Metoprolol [Lopressor] 50 mg PO BID #60 tablet Cefdinir [Omnicef] 300 mg PO BID 3 Days #6 capsule <Channing Montoya A - Last Filed: 08/11/18 21:23> Date of Encounter: 08/11/18 - Attending Attestation I have personally performed a face to face evaluation on this patient. I have reviewed and agree with the documented findings and care plan as documented by the USER SUPPORT ANALYST SUPERVISOR. History and Exam by me shows: Patient with AVNRT. Will benefit from catheter ablation if agreeable. Otherwise continue B rahul. Thanks, Channing Montoya MD [facility] Assessment and Plan Discussion w patient/family: The assessment and plan as outlined above was discussed with the patient and/or family members who expressed understanding and agreement. All questions were answered. Thank you for involving us in the care of your patient. Please call with any questions. History of Present Illness History of present illness: Ms. Lemon is a 73 year old female All Systems Review: The remainder of the systems were reviewed and are negative Results 08/10/18 02:19 08/10/18 02:19
[2018-08-10] MEDS: traMADol 50 MG TABLET PO PRN (15:26)
[2018-08-10] MEDS: ALPRAZolam 0.5 MG TABLET PO PRN (15:27)
[2018-08-10] MEDS: cefTRIAXone 1,000 MG in Water for inj. (sterile) 20 ML 10 ML IVP SCH (17:09)
--- NOTE | 2018-08-10 17:36 | Electrocardiograph Report ---
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
--- NOTE | 2018-08-10 17:50 | Electrocardiograph Report ---
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
--- NOTE | 2018-08-10 19:14 | Discharge Summary ---
- NOTES TO OUTPATIENT PROVIDER Notes to Outpatient Provider: Patient was noncompliant with medications went into SVT which broke with adenosine. Increased beta rahul will need a follow- up with cardiology. Also had UTI-prescribed antibiotics follow-up on culture Orders not resulted at time of discharge: Pending orders 08/09/18 13:00 Culture,Urine [RM] Stat Date of Encounter: 08/11/18 Time of Encounter: 07:39 - Discharge Diagnosis (1) DM2 (diabetes mellitus, type 2) Priority: Secondary Status: Chronic Qualifiers: Diabetes mellitus jail insulin use: without oil heaterman use Diabetes mellitus complication status: without complication Qualified Code(s): E11.9 - Type 2 diabetes mellitus without complications (2) SVT (supraventricular tachycardia) Priority: Primary Status: Acute (3) Hypertension Priority: Secondary Status: Chronic Qualifiers: Hypertension type: essential hypertension Qualified Code(s): I10 - Essential (primary) hypertension (4) CAD (coronary artery disease) Priority: Secondary Status: Chronic Qualifiers: Coronary Disease-Associated Artery/Lesion type: [place] artery [place] vs. transplanted heart: [place] heart Associated angina: with stable angina Qualified Code(s): I25.118 - Atherosclerotic heart disease of [place] coronary artery with other forms of angina pectoris (5) Elevated troponin Priority: Secondary Status: Acute (6) COPD (chronic obstructive pulmonary disease) Priority: Secondary Status: Chronic Qualifiers: COPD type: unspecified COPD Qualified Code(s): J44.9 - Chronic obstructive pulmonary disease, unspecified (7) Generalized anxiety disorder Priority: Secondary Status: Chronic (8) Tardive dyskinesia Priority: Secondary Status: Chronic Hospital course: Ms. Lemon is a 73 year old female past medical history SVT CAD tardive dyskinesia and hypertension who presented to [facility] ED with complaints of palpitations. Apparently patient was recently discharged from [facility] and family did not refill her medications. In route per EMS patient was in SVT with heart rate 187 she was given 1 dose of the dizziness and which aborted SVT and converted to normal sinus rhythm. She had previously been seen by EP 2 weeks ago was offered SVT ablation however she opted for medical therapy. During admission patient's troponin did peak at 1.6 and was initiated on a heparin drip. No EKG changes was evaluated by cardiology suspect demand ischemia from SVT. Metoprolol was increased to 50 mg twice a day. She has been in sinus bradycardia. Urinalysis did reveal UTI patient has complaint of urinary frequency. Initiated on Rocephin. Advised family that patient had to have medication before she was discharged. Family requesting that medication be called into [facility] pharmacy and that they would take the medication up on their way to take patient home. Patient was given prescription for metoprolol 50 mg twice a day as well as Omnicef. She will follow-up with cardiology and EP as outpatient as well as primary care provider. She is hemodynamically stable and ready for discharge this time. - Time Spent with Patient Total time spent providing and/or coordinating discharge services: - Discharge Medications Prescriptions: New Metoprolol [Lopressor] 50 mg PO BID #60 tablet Cefdinir [Omnicef] 300 mg PO BID 3 Days #6 capsule Continued metFORMIN [Glucophage] 500 mg PO BIDWM Lisinopril [Zestril] 20 mg PO BID Vitamin E 1,000 unit PO DAILY Thiamine Mononitrate [Vitamin B-1] 100 mg PO DAILY Albuterol Sulfate [Ventolin Hfa] 2 puff IH Q4H PRN PRN Reason: Shortness Of Breath Omeprazole [PriLOSEC] 40 mg PO DAILY Budesonide/Formoterol 160/4.5 [Symbicort 160/4.5] 2 puff IH BID Fenofibrate Nanocrystallized [Fenofibrate] 160 mg PO DAILY Acetaminophen [Tylenol] 650 mg PO Q6HR PRN tablet PRN Reason: Mild Pain/Fever Aspirin Enteric Coated [Aspirin EC] 81 mg PO DAILY tablet.dr Melatonin 3 mg PO HS PRN tablet PRN Reason: Insomnia Potassium Chloride 20 meq PO BID tab.er.prt Clopidogrel [Plavix] 75 mg PO DAILY Escitalopram [Lexapro] 10 mg PO DAILY Levothyroxine Sodium [Levoxyl] 25 mcg PO QAM Atorvastatin Calcium [Lipitor] 40 mg PO HS ALPRAZolam [Xanax 0.5 MG Tablet] 0.5 mg PO Q8H PRN PRN Reason: Anxiety Diphenhydramine HCl [Diphedryl] 12.5 mg PO TID PRN PRN Reason: ALLERGIES Solifenacin Succinate [Vesicare] 5 mg PO DAILY Tramadol HCl [Ultram] 50 mg PO Q8H PRN PRN Reason: Pain Discontinued Metoprolol [Lopressor] 37.5 mg PO BID tablet Home Medications: Lisinopril [Zestril] 20 mg PO BID 07/23/15 [History] metFORMIN [Glucophage] 500 mg PO BIDWM 07/23/15 [History] Albuterol Sulfate [Ventolin Hfa] 2 puff IH Q4H PRN 03/14/16 [History] Budesonide/Formoterol 160/4.5 [Symbicort 160/4.5] 2 puff IH BID 03/14/16 [History] Omeprazole [PriLOSEC] 40 mg PO DAILY 03/14/16 [History] Thiamine Mononitrate [Vitamin B-1] 100 mg PO DAILY 03/14/16 [History] Vitamin E 1,000 unit PO DAILY 03/14/16 [History] Fenofibrate Nanocrystallized [Fenofibrate] 160 mg PO DAILY 06/17/18 [History] Acetaminophen [Tylenol] 650 mg PO Q6HR PRN tablet 06/28/18 [Rx] Aspirin Enteric Coated [Aspirin EC] 81 mg PO DAILY tablet. 06/28/18 [Rx] Melatonin 3 mg PO HS PRN tablet 06/28/18 [Rx] Potassium Chloride 20 meq PO BID tab.er.prt 07/02/18 [Rx] Atorvastatin Calcium [Lipitor] 40 mg PO HS 08/09/18 [History] Clopidogrel [Plavix] 75 mg PO DAILY 08/09/18 [History] Escitalopram [Lexapro] 10 mg PO DAILY 08/09/18 [History] Levothyroxine Sodium [Levoxyl] 25 mcg PO QAM 08/09/18 [History] ALPRAZolam [Xanax 0.5 MG Tablet] 0.5 mg PO Q8H PRN 08/10/18 [History] Cefdinir [Omnicef] 300 mg PO BID 3 Days #6 capsule 08/10/18 [Rx] Diphenhydramine HCl [Diphedryl] 12.5 mg PO TID PRN 08/10/18 [History] Metoprolol [Lopressor] 50 mg PO BID #60 tablet 08/10/18 [Rx] Solifenacin Succinate [Vesicare] 5 mg PO DAILY 08/10/18 [History] Tramadol HCl [Ultram] 50 mg PO Q8H PRN 08/10/18 [History] Allergies/Adverse Reactions: Allergy/AdvReac Type Severity Reaction Status Date / Time gabapentin AdvReac Confusion Verified 06/29/18 00:33 methadone [Methadone] AdvReac Confusion Verified 06/29/18 00:33 morphine AdvReac Confusion Verified 06/29/18 00:33 Zolpidem [From Ambien] AdvReac Confusion Verified 06/29/18 00:33 Date of admission: 08/09/18 13:24 Primary care physician: Noah Clark MD Consults: 08/10/18 09:00 Consult to Cardiology [CONS] Routine Comment: Consulting Provider: Cardiology [place] Reason for Consult: elevated trop- cp Time Notified: 09:00 Call Completed: Yes Discharging clinician: Raquel Avila Anticipated date of discharge: 08/11/18 - Constitutional Vitals: Temp Pulse Resp BP Pulse Ox 98.1 F 62 16 170/70 98 08/10/18 15:39 08/10/18 15:39 08/10/18 15:39 08/10/18 15:39 08/10/18 15:39 Exam: General: Alert and oriented, not in acute distress. HEENT:EOMI, pupils equal, round and reactive. Cardiovascular:Normal S1 & S2, No JVD. Pulse regular and normal rate Lungs: clear to auscultation, no wheezes/rales Abdomen:Soft, non-tender, no rigidity. : No CVA tenderness Extremities:No deformity or swelling Neurological: tardive dyskinesia noted, grossly non-focal otherwise Skin:Normal color, no rash, no lesions. Pulses:Carotid and radial pulses normal +2. Rest of the physical exam is non contributory - Patient Status Disposition: Home, Self-Care Condition: Fair Functional capacity at discharge: independent ambulation Overall status at discharge: patient is back to baseline - Discharge Instructions Follow Up With: Noah Clark MD [Primary Care Provider] - Additional Instructions: A Bedside Commode and a rollator walker have been ordered through [employer] [employer]. Call them when you get home to have equipment delivered. Also, please tell them about the hospital bed not working, so they can have someone come out to fix it. They also know you need a new mattress. Their number is #[phone]. - Diet and Activity Activity: increase activity as tolerated Diet: advance to your usual diet
--- NOTE | 2018-08-10 19:20 | Internal Med Progress Note ---
Hospitalist Progress Note - Encounter Date of Encounter: 08/10/18 Time of Encounter: 19:18 - Subjective Interval History: Was seen and examined at bedside currently denies any chest pain or palpitations. Review of telemetry overnight does not show any ectopy or signs of SVT. She is currently bradycardic 40s and 50s on the monitor. Reviewed case with cardiology were okay with discharge at this time continue with metoprolol 50 mg twice a day. Discussed with family concerning discharge was like to have patient discharged in the a.m. and they will pick prescriptions up prior to taking the patient home. Advised family that we can have prescriptions filled here at the hospital however they are requesting to have prescriptions called into [facility]. Advised the patient cannot be discharged without medications they verbalized understanding. - Exam Vitals: Temp Pulse Resp BP Pulse Ox 98.1 F 62 16 170/70 98 08/10/18 15:39 08/10/18 15:39 08/10/18 15:39 08/10/18 15:39 08/10/18 15:39 Exam: General: Alert and oriented, not in acute distress. HEENT:EOMI, pupils equal, round and reactive. Cardiovascular:Normal S1 & S2, No JVD. Pulse regular and normal rate Lungs: clear to auscultation, no wheezes/rales Abdomen:Soft, non-tender, no rigidity. : No CVA tenderness Extremities:No deformity or swelling Neurological: tardive dyskinesia noted, grossly non-focal otherwise Skin:Normal color, no rash, no lesions. Pulses:Carotid and radial pulses normal +2. Rest of the physical exam is non contributory - Assessment and Plan (1) DM2 (diabetes mellitus, type 2) Current Visit: No Status: Chronic Assessment and Plan: hold off on metformin, low-dose sliding scale (2) DVT prophylaxis Current Visit: No Status: Acute Assessment and Plan: SQ hep (3) SVT (supraventricular tachycardia) Current Visit: Yes Status: Acute Assessment and Plan: Recurrent, follows with EP as an outpatient and opted for medical management at the time aborted with adenosine given by EMS discussion made between ED physician and cardiology, for overnight monitoring with uptitration of bb and follow up with cardiology as outpatient Increase beta rahul to 50 mg twice a day If SVT recurs, can use adenosine 6 mg recent echocardiogram and ischemic workup in 06/2018, will not pursue further unless there is a change in her clinical course 08/10 Patient has history of SVT and follows with EP as an outpatient she declined ablation in the past and was medically managed. According to social contact worker patient was discharged from [facility] on 08/08 family did not fill patient's prescriptio n and she did not receive any of her medication she presented to the ER last night with an episode of SVT. She was given adenosine by EMS which aborted SVT. She was placed on increased dose of beta rahul overnight her troponin did elevate and she was initiated on heparin drip. She was evaluated by cardiology who agrees with continuing increased dose of beta rahul patient is contemplating cardiac ablation at this time she will follow-up with EP as outpatient Patient did have a recent echocardiogram and ischemic workup on 06/2018-Recent [facility] 06/2018--occluded OM with collaterals otherwise non-obstructive CAD. EF preserved. (4) Hypertension Current Visit: No Status: Chronic Assessment and Plan: resume home meds (5) CAD (coronary artery disease) Current Visit: No Status: Chronic Assessment and Plan: Resume home meds (6) Elevated troponin Current Visit: Yes Status: Acute Assessment and Plan: Likely demand ischemia in the setting of SVT [facility] 06/2018: 100% stenosis in the 1st marginal with collaterals and otherwise mild, non-obstructive CAD EKG showed NSR without ST-T changes will continue to trend 08/10 Peak troponin 1.6 with downward trend after experiencing SVT with a heart rate of 185 aborted with adenosine She has not experienced any chest pain or palpitations suspect elevation secondary to demand ischemia She was evaluated by cardiology who recommends continuation of aspirin and statin and increase beta rahul. (7) COPD (chronic obstructive pulmonary disease) Current Visit: No Status: Chronic Assessment and Plan: not in exacerbation, PRN albuterol (8) Generalized anxiety disorder Current Visit: No Status: Chronic Assessment and Plan: continue home meds (9) Tardive dyskinesia Current Visit: Yes Status: Chronic Assessment and Plan: known chronic problem - Time Spent with Patient Total time spent is greater than 50% in coordination of care (as documented) at patient's floor/unit and/or counseling patient: Internal Medicine: Result - Labs CBC & Chem 7: 08/10/18 02:19 08/10/18 02:19 Labs: Short CBC 08/09/18 08/10/18 Range/Units 21:29 02:19 WBC 6.3 6.3 (4.3-11.1) K/mcL Hgb 11.3 L D 11.5 (11.5-15.4) g/dL Hct 34.7 L 37.9 (35.3-44.9) % Plt Count 264 230 (140-400) K/mcL Neutrophils # 3.5 (1.6-8.9) K/mcL BMP 08/10/18 02:19 Sodium 139 Potassium 3.9 Chloride 114 H Carbon Dioxide 18 L BUN 32 H Creatinine 0.69 Glucose 96 Calcium 8.4 L Cardiac Enzymes 08/09/18 08/10/18 08/10/18 Range/Units 20:02 02:19 07:16 Troponin I 1.60 H* 1.04 H* 0.82 H* (< 0.04) ng/mL - ABG Interpretation ABG results: PT/INR, D-dimer PT 12.3 Seconds (9.4-12.1) H 08/09/18 21:29 Consult Discharge Plan - Plan Additional Instructions: A Bedside Commode and a rollator walker have been ordered through [facility]. Call them when you get home to have equipment delivered. Also, please tell them about the hospital bed not working, so they can have someone come out to fix it. They also know you need a new mattress. Their number is #[phone]. Referrals: Noah Clark MD [Primary Care Provider] - Prescriptions: Metoprolol [Lopressor] 50 mg PO BID #60 tablet Cefdinir [Omnicef] 300 mg PO BID 3 Days #6 capsule (1) DM2 (diabetes mellitus, type 2) Qualifiers: Diabetes mellitus extermination inspector insulin use: without extermination inspector use Diabetes mellitus complication status: with unspecified complications (4) Hypertension Qualifiers: Hypertension type: essential hypertension Qualified Code(s): I10 - Essential (primary) hypertension (5) CAD (coronary artery disease) Qualifiers: Coronary Disease-Associated Artery/Lesion type: [place] artery [place] vs. transplanted heart: [place] heart Associated angina: with stable angina Qualified Code(s): I25.118 - Atherosclerotic heart disease of [place] coronary artery with other forms of angina pectoris (7) COPD (chronic obstructive pulmonary disease) Qualifiers: Emphysema type: unspecified Qualified Code(s): J43.9 - Emphysema, unspecified
[2018-08-11] MEDS: ALPRAZolam 0.5 MG TABLET PO PRN ×2 (00:03→09:03)
[2018-08-11] MEDS: traMADol 50 MG TABLET PO PRN ×2 (00:03→09:02)
[2018-08-11] MEDS: Levothyroxine 25 MCG TABLET PO SCH (05:52)
[2018-08-11] MEDS: Budesonide/Formoterol 160/4.5 1 PUFF INH IH SCH (07:30)
[2018-08-11] MEDS: Insulin LISPRO 300 UNITS/3 ML VIAL SQ SCH (07:43)
[2018-08-11 07:53] VITALS: BP 152/61
[2018-08-11] MEDS: cefTRIAXone 1,000 MG in Water for inj. (sterile) 20 ML 10 ML IVP SCH (09:01)
[2018-08-11] MEDS: Fenofibrate 54 MG TABLET PO SCH (09:02)
[2018-08-11] MEDS: Lisinopril 20 MG TABLET PO SCH (09:02)
[2018-08-11] MEDS: Aspirin Enteric Coated 81 MG Tablet PO SCH (09:03)
== END 2018-08-11 14:02 | disposition home or self-care (01) ==
LOC: EMEROOARM 11:18 → 3BNU 11:18
PROVIDERS: ADMIT Internal Medicine Nephrology; ATTEND Internal Medicine Nephrology

== ENCOUNTER 2018-12-22 00:55 | Observation (INO) ==
[2018-12-22 01:46] LABS: Basophils % 0.4 %; Eosinophils % 0.6 %; Hematocrit 37.5 % (35.3-44.9); Hemoglobin 12.3 g/dL (11.5-15.4); Immature Granulocytes % 0.3 % (0-4); Lymphocytes # 1.1 K/mcL (0.6-4.6); Lymphocytes % 15.3 %; Mean Corpuscular HGB Conc 32.8 g/dL (31.6-35.5); Mean Corpuscular Hemoglobin 28.1 pg (28.0-33.3); Mean Corpuscular Volume 85.6 fL (83.0-100.0); Mean Platelet Volume 11.1 fL (9.4-12.4); Monocytes # 0.4 K/mcL (0.0-1.3); Monocytes % 6.1 %; Neutrophils # 5.3 K/mcL (1.6-8.9); Platelet Count 247 K/mcL (140-400); Red Blood Count 4.38 M/mcL (3.82-4.97); Red Cell Distribution Width 14.5 % (11.5-14.5); Segmented Neutrophils % 77.3 %; White Blood Count 6.9 K/mcL (4.3-11.1)
[2018-12-22] MEDS ORDERED: Aspirin 81 MG TAB.CHEW PO ONE (01:48)
[2018-12-22 01:53] LABS: INR 1.2; Prothrombin Time 13.4 Seconds (9.4-12.1)
[2018-12-22 01:56] LABS: Activated Partial Thrombo Time 28.8 Seconds (26.0-36.0)
[2018-12-22 02:01] LABS: BUN/Creatinine Ratio 46 (6-26); Blood Urea Nitrogen 35 mg/dL (8-23); Calcium 8.6 mg/dL (8.6-10.3); Carbon Dioxide 21 mEq/L (23-29); Chloride 108 mEq/L (98-107); Glucose 204 mg/dL (70-105); Osmolality,Calculated 306 (280-300); Potassium 3.4 mEq/L (3.5-5.1); Sodium 141 mEq/L (136-145); Troponin I < 0.03 ng/mL (< 0.04); eGFR For African Americans > 60 (> 60); eGFR For Non-African Americans > 60 (> 60)
[2018-12-22] MEDS ORDERED: 0.9 % Sodium Chloride 1,000 ML IVC STA (02:31)
[2018-12-22] MEDS ORDERED: Potassium Chloride Elixir 20 MEQ/15 ML UDC PO ONE (02:50)
[2018-12-22] MEDS ORDERED: Naloxone 0.4 MG/ML INJ IVP PRN (05:17)
[2018-12-22] MEDS ORDERED: *HR* Dextrose 50 % in Water (Syg) 50 ML SYRINGE IVP PRN (05:21)
[2018-12-22] MEDS ORDERED: Dextrose Gel 15 GM/37.5 ML TUBE PO PRN ×2 (05:21)
[2018-12-22] MEDS ORDERED: D5% in Water 1,000 ML IVC PRN (05:21)
[2018-12-22] MEDS ORDERED: Nystatin POWDER 30 GM BOTTLE TP PRN (05:22)
[2018-12-22] MEDS ORDERED: *HR* Heparin 5,000 UNIT/ML VIAL SQ SCH (06:00)
[2018-12-22] MEDS ORDERED: Regadenoson 0.4 MG/5 ML SYRINGE IVP ONE (06:08)
[2018-12-22] MEDS ORDERED: Ipratropium/Albuterol Neb 3 ML IH PRN (07:58)
[2018-12-22] MEDS: Budesonide/Formoterol 160/4.5 1 PUFF INH IH SCH ×2 (08:21→20:32)
[2018-12-22 08:40] LABS: BUN/Creatinine Ratio 48 (6-26); Blood Urea Nitrogen 32 mg/dL (8-23); Calcium 8.6 mg/dL (8.6-10.3); Carbon Dioxide 24 mEq/L (23-29); Chloride 111 mEq/L (98-107); Glucose 135 mg/dL (70-105); Osmolality,Calculated 301 (280-300); Sodium 141 mEq/L (136-145); Troponin I 0.15 ng/mL (< 0.04); eGFR For African Americans > 60 (> 60); eGFR For Non-African Americans > 60 (> 60)
[2018-12-22] MEDS ORDERED: *HR* Heparin 5,000 UNIT/ML VIAL IVP PRN ×2 (09:14)
[2018-12-22] MEDS ORDERED: *HR* Heparin 5,000 UNIT/ML VIAL IVP ONE (09:14)
[2018-12-22] MEDS ORDERED: Heparin 25,000 UNIT/250 ML D5W 25,000 UNIT/250 ML IV.SOLN IVC SCH (09:15)
[2018-12-22] MEDS: Insulin LISPRO 300 UNITS/3 ML VIAL SQ SCH ×4 (09:17→23:19)
[2018-12-22] MEDS: Lisinopril 20 MG TABLET PO SCH (09:25)
[2018-12-22 10:18] LABS: Hematocrit 36.2 % (35.3-44.9); Mean Corpuscular HGB Conc 33.1 g/dL (31.6-35.5); Mean Corpuscular Hemoglobin 28.5 pg (28.0-33.3); Mean Platelet Volume 11.4 fL (9.4-12.4); Platelet Count 236 K/mcL (140-400); Red Blood Count 4.21 M/mcL (3.82-4.97); Red Cell Distribution Width 14.6 % (11.5-14.5); White Blood Count 6.4 K/mcL (4.3-11.1)
[2018-12-22 10:28] LABS: INR 1.1; Prothrombin Time 12.4 Seconds (9.4-12.1)
[2018-12-22] MEDS ORDERED: Isosorbide MONOnitrate (24 HR) 30 MG TAB.ER.24H PO SCH (12:10)
[2018-12-22] MEDS: ALPRAZolam 0.5 MG TABLET PO PRN ×2 (14:15→23:20)
[2018-12-22] MEDS: traMADol 50 MG TABLET PO PRN (19:34)
[2018-12-23] MEDS ORDERED: Ondansetron 4 MG/2 ML VIAL IVP ONE (05:16)
[2018-12-23 05:57] LABS: Basophils % 0.5 %; Eosinophils # 0.1 K/mcL (0.0-0.6); Eosinophils % 1.6 %; Hematocrit 37.6 % (35.3-44.9); Hemoglobin 12.2 g/dL (11.5-15.4); Immature Granulocytes % 0.3 % (0-4); Lymphocytes # 1.8 K/mcL (0.6-4.6); Lymphocytes % 27.8 %; Mean Corpuscular HGB Conc 32.4 g/dL (31.6-35.5); Mean Corpuscular Volume 86.4 fL (83.0-100.0); Mean Platelet Volume 11.4 fL (9.4-12.4); Monocytes # 0.5 K/mcL (0.0-1.3); Monocytes % 7.6 %; Platelet Count 225 K/mcL (140-400); Red Blood Count 4.35 M/mcL (3.82-4.97); Red Cell Distribution Width 14.6 % (11.5-14.5); Segmented Neutrophils % 62.2 %; White Blood Count 6.3 K/mcL (4.3-11.1)
[2018-12-23] MEDS: Acetaminophen 325 MG TABLET PO PRN ×2 (06:08→22:23)
[2018-12-23] MEDS: Levothyroxine 25 MCG TABLET PO SCH (06:08)
[2018-12-23 06:17] LABS: BUN/Creatinine Ratio 26 (6-26); Blood Urea Nitrogen 22 mg/dL (8-23); Calcium 9.2 mg/dL (8.6-10.3); Carbon Dioxide 24 mEq/L (23-29); Chloride 108 mEq/L (98-107); Glucose 130 mg/dL (70-105); Magnesium 1.6 mg/dL (1.6-2.6); Osmolality,Calculated 299 (280-300); Phosphorous 3.4 mg/dL (2.7-4.5); Potassium 3.5 mEq/L (3.5-5.1); Sodium 142 mEq/L (136-145); eGFR For African Americans > 60 (> 60); eGFR For Non-African Americans > 60 (> 60)
[2018-12-23] MEDS: Insulin LISPRO 300 UNITS/3 ML VIAL SQ SCH ×4 (07:30→22:03)
[2018-12-23] MEDS: Budesonide/Formoterol 160/4.5 1 PUFF INH IH SCH ×2 (07:58→22:29)
[2018-12-23] MEDS: Lisinopril 20 MG TABLET PO SCH (09:32)
[2018-12-23] MEDS: ALPRAZolam 0.5 MG TABLET PO PRN ×2 (09:32→18:51)
[2018-12-23] MEDS: Isosorbide MONOnitrate (24 HR) 60 MG TAB.ER.24H PO SCH (09:32)
[2018-12-23] MEDS: Aspirin Enteric Coated 81 MG Tablet PO SCH (09:32)
[2018-12-23] MEDS: traMADol 50 MG TABLET PO PRN ×2 (09:32→18:51)
[2018-12-23 10:38] LABS: Bilirubin,Urine Negative (Negative); Blood,Urine Small (Negative); Clarity,Urine Turbid (Clear); Color,Urine Yellow (Yellow); Glucose,Urine (UA) Normal (Normal); Ketones,Urine Negative (Negative); Leukocyte Esterase,Urine Moderate (Negative); Nitrite,Urine Negative (Negative); PH,Urine 7.5 pH Units (5.0-8.0); Protein,Urine Negative (Neg-Trace); Specific Gravity,Urine 1.012 (1.010-1.025); Urobilinogen,Urine Normal (Normal)
[2018-12-23 10:42] LABS: Bacteria,Urine Many per hpf (None-Few); Squamous Epithelial Cell,Urine Many per lpf (None-Few); WBC,Urine TNTC per hpf (0-3)
[2018-12-23] MEDS: cefTRIAXone 1,000 MG in Water for inj. (sterile) 10 ML IVP SCH (12:59)
[2018-12-23] MEDS: Magnesium Oxide 400 MG TABLET PO SCH ×2 (12:59→22:23)
[2018-12-23] MEDS: *HR* Heparin 5,000 UNIT/ML VIAL SQ SCH (18:41)
[2018-12-23] MEDS ORDERED: Insulin DETEMIR 100 UNIT/ML X5UNITS SQ SCH (21:00)
[2018-12-24] MEDS: ALPRAZolam 0.5 MG TABLET PO PRN (05:48)
[2018-12-24] MEDS: Levothyroxine 25 MCG TABLET PO SCH (05:48)
[2018-12-24] MEDS: traMADol 50 MG TABLET PO PRN (05:48)
[2018-12-24] MEDS: *HR* Heparin 5,000 UNIT/ML VIAL SQ SCH (05:49)
[2018-12-24] MEDS: Aspirin Enteric Coated 81 MG Tablet PO SCH (07:54)
[2018-12-24] MEDS: Magnesium Oxide 400 MG TABLET PO SCH (07:54)
[2018-12-24] MEDS: cefTRIAXone 1,000 MG in Water for inj. (sterile) 10 ML IVP SCH (07:54)
[2018-12-24] MEDS: Isosorbide MONOnitrate (24 HR) 60 MG TAB.ER.24H PO SCH (07:54)
[2018-12-24] MEDS: Insulin LISPRO 300 UNITS/3 ML VIAL SQ SCH (07:55)
[2018-12-24] MEDS: Budesonide/Formoterol 160/4.5 1 PUFF INH IH SCH (08:54)
[2018-12-24] MEDS ORDERED: Lisinopril 20 MG TABLET PO SCH (09:00)
[2018-12-24] MEDS ORDERED: Acetaminophen 325 MG TABLET PO PRN (10:42)
[2018-12-24] MEDS ORDERED: traMADol 50 MG TABLET PO PRN (10:43)
[2018-12-24] MEDS ORDERED: FLU Vac QV 19-20 (6Month+)/PF 0.5 ML SYRINGE IM ONE (10:49)
[2018-12-24 11:51] VITALS: BP 117/63
== END 2018-12-24 12:45 | disposition home or self-care (01) ==
LOC: 2ANU 00:55 → EMEROOARM 00:55 → 2ANU 03:28
PROVIDERS: ADMIT Internal Medicine; ATTEND Internal Medicine

== ENCOUNTER 2019-08-26 23:35 | Observation (INO) ==
[2019-08-27 00:20] LABS: Bacteria,Urine Few per hpf (None-Few); Bilirubin,Urine Negative (Negative); Blood,Urine Negative (Negative); Clarity,Urine Turbid (Clear); Color,Urine Yellow (Yellow); Glucose,Urine (UA) Normal (Normal); Hyaline Casts,Urine Few per lpf (None Seen); Ketones,Urine Negative (Negative); Leukocyte Esterase,Urine Large (Negative); Mucus,Urine Few per lpf (None-Few); Nitrite,Urine Negative (Negative); PH,Urine 5.5 pH Units (5.0-8.0); Protein,Urine Trace mg/dL (Neg-Trace); Specific Gravity,Urine 1.018 (1.010-1.025); Squamous Epithelial Cell,Urine Few per hpf (None-Few); Urobilinogen,Urine Normal (Normal); WBC,Urine 50-100 per hpf (0-3)
[2019-08-27 00:27] LABS: Alanine Aminotransferase 18 Units/L (7-52); Albumin 3.5 g/dL (3.5-5.7); Albumin/Globulin Ratio 1.2 (1.1-2.2); Alkaline Phosphatase 178 Units/L (34-104); Aspartate Amino Transferase 14 Units/L (13-39); BUN/Creatinine Ratio 21 (6-26); Bilirubin,Direct 0.1 mg/dL (0.0-0.2); Bilirubin,Indirect 0.4 mg/dL (0.0-1.0); Bilirubin,Total 0.5 mg/dL (0.3-1.0); Blood Urea Nitrogen 25 mg/dL (8-23); Calcium 8.6 mg/dL (8.6-10.3); Carbon Dioxide 24 mEq/L (23-29); Chloride 101 mEq/L (98-107); Glucose 285 mg/dL (70-105); Lipase 27 Units/L (11-82); Osmolality,Calculated 291 (280-300); Potassium 4.1 mEq/L (3.5-5.1); Sodium 133 mEq/L (136-145); Total Protein 6.5 g/dL (6.4-8.9); Troponin I < 0.03 ng/mL (< 0.04); eGFR For African Americans 53 (> 60); eGFR For Non-African Americans 43 (> 60)
[2019-08-27 00:37] LABS: Activated Partial Thrombo Time 31.4 Seconds (26.0-36.0); INR 1.2; Prothrombin Time 13.4 Seconds (9.4-12.1)
[2019-08-27] MEDS ORDERED: cefTRIAXone 1,000 MG in Water for inj. (sterile) 10 ML IVP ONE (00:38)
[2019-08-27] MEDS ORDERED: 0.9 % Sodium Chloride 1,000 ML IV ONE (00:38)
[2019-08-27 00:51] LABS: Basophils % 0.2 %; Eosinophils % 0.8 %; Hematocrit 40.4 % (35.3-44.9); Hemoglobin 13.1 g/dL (11.5-15.4); Immature Granulocytes % 0.4 % (0-4); Lymphocytes % 19.6 %; Mean Corpuscular HGB Conc 32.4 g/dL (31.6-35.5); Mean Corpuscular Hemoglobin 28.1 pg (28.0-33.3); Mean Corpuscular Volume 86.7 fL (83.0-100.0); Monocytes # 0.5 K/mcL (0.0-1.3); Monocytes % 9.3 %; Neutrophils # 3.6 K/mcL (1.6-8.9); Platelet Count 228 K/mcL (140-400); Red Blood Count 4.66 M/mcL (3.82-4.97); Red Cell Distribution Width 14.4 % (11.5-14.5); Segmented Neutrophils % 69.7 %; White Blood Count 5.1 K/mcL (4.3-11.1)
[2019-08-27] MEDS ORDERED: Naloxone 0.4 MG/ML INJ IVP PRN (02:30)
[2019-08-27] MEDS ORDERED: *HR* Promethazine 25 MG/ML VIAL IVP PRN (02:30)
[2019-08-27] MEDS ORDERED: D5% in Water 1,000 ML IVC PRN (03:19)
[2019-08-27] MEDS ORDERED: Dextrose Gel 15 GM/37.5 ML TUBE PO PRN ×2 (03:19)
[2019-08-27] MEDS ORDERED: *HR* Dextrose 50 % in Water (Vial) 50 ML VIAL IVP PRN (03:19)
[2019-08-27] MEDS: 0.9 % Sodium Chloride 1,000 ML IVC SCH ×2 (03:53→11:35)
[2019-08-27 05:04] LABS: Basophils % 0.4 %; Eosinophils # 0.1 K/mcL (0.0-0.6); Eosinophils % 1.3 %; Hematocrit 36.8 % (35.3-44.9); Hemoglobin 11.7 g/dL (11.5-15.4); Immature Granulocytes % 0.9 % (0-4); Lymphocytes # 1.1 K/mcL (0.6-4.6); Lymphocytes % 24.6 %; Mean Corpuscular HGB Conc 31.8 g/dL (31.6-35.5); Mean Corpuscular Hemoglobin 27.4 pg (28.0-33.3); Mean Corpuscular Volume 86.2 fL (83.0-100.0); Mean Platelet Volume 10.6 fL (9.4-12.4); Monocytes # 0.4 K/mcL (0.0-1.3); Monocytes % 9.2 %; Neutrophils # 2.9 K/mcL (1.6-8.9); Platelet Count 217 K/mcL (140-400); Red Blood Count 4.27 M/mcL (3.82-4.97); Red Cell Distribution Width 14.6 % (11.5-14.5); Segmented Neutrophils % 63.6 %; White Blood Count 4.5 K/mcL (4.3-11.1)
[2019-08-27 05:18] LABS: INR 1.1
[2019-08-27 05:40] LABS: BUN/Creatinine Ratio 25 (6-26); Blood Urea Nitrogen 23 mg/dL (8-23); Carbon Dioxide 20 mEq/L (23-29); Chloride 107 mEq/L (98-107); Glucose 186 mg/dL (70-105); Magnesium 1.6 mg/dL (1.6-2.6); Osmolality,Calculated 291 (280-300); Phosphorous 3.5 mg/dL (2.7-4.5); Sodium 136 mEq/L (136-145); eGFR For African Americans > 60 (> 60); eGFR For Non-African Americans 59 (> 60)
[2019-08-27] MEDS: *HR* Heparin 5,000 UNIT/ML VIAL SQ SCH ×3 (06:27→20:38)
[2019-08-27] MEDS: Insulin LISPRO 300 UNITS/3 ML VIAL SQ SCH ×3 (08:01→16:33)
[2019-08-27 09:28] LABS: Estimated Average Glucose 192 mg/dl; Hemoglobin A1C 8.3 %
[2019-08-27] MEDS: Acetaminophen 325 MG TABLET PO PRN (14:40)
[2019-08-27] MEDS: ALPRAZolam 0.5 MG TABLET PO PRN (16:32)
[2019-08-27] MEDS: cefTRIAXone 1,000 MG in 0.9 % Sodium Chloride Mini Bag 100 ML IVPB SCH (17:13)
[2019-08-27] MEDS: Melatonin 3 MG TABLET PO PRN (20:37)
[2019-08-27] MEDS: Nystatin POWDER 30 GM BOTTLE TP SCH (20:38)
[2019-08-28 01:18] LABS: Hematocrit 36.7 % (35.3-44.9); Mean Corpuscular HGB Conc 30.8 g/dL (31.6-35.5); Mean Corpuscular Hemoglobin 27.2 pg (28.0-33.3); Mean Corpuscular Volume 88.2 fL (83.0-100.0); Mean Platelet Volume 10.7 fL (9.4-12.4); Platelet Count 184 K/mcL (140-400); Red Blood Count 4.16 M/mcL (3.82-4.97); Red Cell Distribution Width 14.6 % (11.5-14.5); White Blood Count 3.3 K/mcL (4.3-11.1)
[2019-08-28 01:28] LABS: Hemoglobin 11.3 g/dL (11.5-15.4)
[2019-08-28 01:34] LABS: BUN/Creatinine Ratio 25 (6-26); Blood Urea Nitrogen 26 mg/dL (8-23); Calcium 8.2 mg/dL (8.6-10.3); Carbon Dioxide 24 mEq/L (23-29); Chloride 112 mEq/L (98-107); Glucose 242 mg/dL (70-105); Osmolality,Calculated 305 (280-300); Potassium 4.3 mEq/L (3.5-5.1); Sodium 141 mEq/L (136-145); eGFR For African Americans > 60 (> 60); eGFR For Non-African Americans 51 (> 60)
[2019-08-28] MEDS: *HR* Heparin 5,000 UNIT/ML VIAL SQ SCH ×3 (05:30→20:22)
[2019-08-28] MEDS: Aspirin Enteric Coated 81 MG Tablet PO SCH (07:51)
[2019-08-28] MEDS: lisinopriL 20 MG TABLET PO SCH (07:52)
[2019-08-28] MEDS: Nystatin POWDER 30 GM BOTTLE TP SCH ×2 (07:52→20:23)
[2019-08-28] MEDS: Magnesium Oxide 400 MG TABLET PO SCH (07:52)
[2019-08-28] MEDS: amLODIPine 5 MG TABLET PO SCH (07:52)
[2019-08-28] MEDS: Isosorbide MONOnitrate (24 HR) 60 MG TAB.ER.24H PO SCH (07:52)
[2019-08-28] MEDS: Insulin LISPRO 300 UNITS/3 ML VIAL SQ SCH ×3 (07:52→16:41)
[2019-08-28] MEDS: cefTRIAXone 1,000 MG in 0.9 % Sodium Chloride Mini Bag 100 ML IVPB SCH (16:30)
[2019-08-28] MEDS: ALPRAZolam 0.5 MG TABLET PO PRN ×2 (16:36→21:57)
[2019-08-28] MEDS: Insulin DETEMIR 100 UNIT/ML X5UNITS SQ SCH (20:22)
[2019-08-28] MEDS: Melatonin 3 MG TABLET PO PRN (20:23)
[2019-08-28] MEDS: Acetaminophen 325 MG TABLET PO PRN (21:57)
[2019-08-29 04:53] LABS: Hematocrit 34.8 % (35.3-44.9); Hemoglobin 11.4 g/dL (11.5-15.4); Mean Corpuscular HGB Conc 32.8 g/dL (31.6-35.5); Mean Corpuscular Hemoglobin 28.4 pg (28.0-33.3); Mean Corpuscular Volume 86.8 fL (83.0-100.0); Mean Platelet Volume 10.9 fL (9.4-12.4); Platelet Count 206 K/mcL (140-400); Red Blood Count 4.01 M/mcL (3.82-4.97); Red Cell Distribution Width 14.4 % (11.5-14.5); White Blood Count 4.4 K/mcL (4.3-11.1)
[2019-08-29 05:12] LABS: BUN/Creatinine Ratio 25 (6-26); Blood Urea Nitrogen 20 mg/dL (8-23); Calcium 9.1 mg/dL (8.6-10.3); Carbon Dioxide 25 mEq/L (23-29); Chloride 107 mEq/L (98-107); Glucose 123 mg/dL (70-105); Magnesium 1.7 mg/dL (1.6-2.6); Osmolality,Calculated 292 (280-300); Phosphorous 3.9 mg/dL (2.7-4.5); Potassium 3.9 mEq/L (3.5-5.1); Sodium 139 mEq/L (136-145); eGFR For African Americans > 60 (> 60); eGFR For Non-African Americans > 60 (> 60)
[2019-08-29] MEDS: *HR* Heparin 5,000 UNIT/ML VIAL SQ SCH ×3 (05:43→20:07)
[2019-08-29] MEDS: Insulin LISPRO 300 UNITS/3 ML VIAL SQ SCH ×3 (08:06→17:35)
[2019-08-29] MEDS: lisinopriL 20 MG TABLET PO SCH (08:12)
[2019-08-29] MEDS: Isosorbide MONOnitrate (24 HR) 60 MG TAB.ER.24H PO SCH (08:12)
[2019-08-29] MEDS: amLODIPine 5 MG TABLET PO SCH (08:12)
[2019-08-29] MEDS: Aspirin Enteric Coated 81 MG Tablet PO SCH (08:13)
[2019-08-29] MEDS: Nystatin POWDER 30 GM BOTTLE TP SCH ×2 (08:13→20:08)
[2019-08-29] MEDS: Magnesium Oxide 400 MG TABLET PO SCH (08:13)
[2019-08-29] MEDS: Acetaminophen 325 MG TABLET PO PRN (17:39)
[2019-08-29] MEDS: ALPRAZolam 0.5 MG TABLET PO PRN (17:39)
[2019-08-29] MEDS: Cefdinir 300 MG CAPSULE PO SCH (20:06)
[2019-08-29] MEDS: Melatonin 3 MG TABLET PO PRN (21:43)
[2019-08-29] MEDS: Insulin DETEMIR 100 UNIT/ML X5UNITS SQ SCH (21:44)
[2019-08-30 05:17] LABS: Hematocrit 35.8 % (35.3-44.9); Hemoglobin 11.8 g/dL (11.5-15.4); Mean Corpuscular Hemoglobin 28.3 pg (28.0-33.3); Mean Corpuscular Volume 85.9 fL (83.0-100.0); Mean Platelet Volume 10.6 fL (9.4-12.4); Platelet Count 212 K/mcL (140-400); Red Blood Count 4.17 M/mcL (3.82-4.97); Red Cell Distribution Width 14.4 % (11.5-14.5); White Blood Count 4.4 K/mcL (4.3-11.1)
[2019-08-30 05:35] LABS: BUN/Creatinine Ratio 25 (6-26); Blood Urea Nitrogen 21 mg/dL (8-23); Calcium 8.7 mg/dL (8.6-10.3); Carbon Dioxide 26 mEq/L (23-29); Chloride 107 mEq/L (98-107); Glucose 113 mg/dL (70-105); Osmolality,Calculated 292 (280-300); Potassium 3.9 mEq/L (3.5-5.1); Sodium 139 mEq/L (136-145); eGFR For African Americans > 60 (> 60); eGFR For Non-African Americans > 60 (> 60)
[2019-08-30] MEDS: *HR* Heparin 5,000 UNIT/ML VIAL SQ SCH ×3 (06:22→21:21)
[2019-08-30] MEDS: Magnesium Oxide 400 MG TABLET PO SCH (07:23)
[2019-08-30] MEDS: lisinopriL 20 MG TABLET PO SCH (07:23)
[2019-08-30] MEDS: amLODIPine 5 MG TABLET PO SCH (07:24)
[2019-08-30] MEDS: Isosorbide MONOnitrate (24 HR) 60 MG TAB.ER.24H PO SCH (07:24)
[2019-08-30] MEDS: Nystatin POWDER 30 GM BOTTLE TP SCH ×2 (07:24→21:22)
[2019-08-30] MEDS: Cefdinir 300 MG CAPSULE PO SCH ×2 (07:24→21:22)
[2019-08-30] MEDS: Aspirin Enteric Coated 81 MG Tablet PO SCH (07:24)
[2019-08-30] MEDS: Insulin LISPRO 300 UNITS/3 ML VIAL SQ SCH ×3 (08:08→18:09)
[2019-08-30] MEDS: ALPRAZolam 0.5 MG TABLET PO PRN (16:49)
[2019-08-30] MEDS: Melatonin 3 MG TABLET PO PRN (21:22)
[2019-08-30] MEDS: Insulin DETEMIR 100 UNIT/ML X5UNITS SQ SCH (21:23)
[2019-08-31] MEDS: *HR* Heparin 5,000 UNIT/ML VIAL SQ SCH ×3 (06:03→20:31)
[2019-08-31] MEDS: Magnesium Oxide 400 MG TABLET PO SCH (07:26)
[2019-08-31] MEDS: lisinopriL 20 MG TABLET PO SCH (07:26)
[2019-08-31] MEDS: Cefdinir 300 MG CAPSULE PO SCH ×2 (07:26→20:31)
[2019-08-31] MEDS: Aspirin Enteric Coated 81 MG Tablet PO SCH (07:26)
[2019-08-31] MEDS: ALPRAZolam 0.5 MG TABLET PO PRN ×2 (07:26→20:30)
[2019-08-31] MEDS: Insulin LISPRO 300 UNITS/3 ML VIAL SQ SCH ×3 (07:26→16:21)
[2019-08-31] MEDS: amLODIPine 5 MG TABLET PO SCH (07:27)
[2019-08-31] MEDS: Nystatin POWDER 30 GM BOTTLE TP SCH ×2 (07:27→20:31)
[2019-08-31] MEDS: Isosorbide MONOnitrate (24 HR) 60 MG TAB.ER.24H PO SCH (07:27)
[2019-08-31] MEDS: Acetaminophen 325 MG TABLET PO PRN (14:21)
[2019-08-31] MEDS: Insulin DETEMIR 100 UNIT/ML X5UNITS SQ SCH (20:31)
[2019-08-31] MEDS: Melatonin 3 MG TABLET PO PRN (22:13)
[2019-09-01 02:26] LABS: BUN/Creatinine Ratio 35 (6-26); Blood Urea Nitrogen 30 mg/dL (8-23); Calcium 8.7 mg/dL (8.6-10.3); Carbon Dioxide 24 mEq/L (23-29); Chloride 106 mEq/L (98-107); Glucose 205 mg/dL (70-105); Magnesium 1.8 mg/dL (1.6-2.6); Osmolality,Calculated 298 (280-300); Phosphorous 3.5 mg/dL (2.7-4.5); Potassium 4.2 mEq/L (3.5-5.1); Sodium 138 mEq/L (136-145); eGFR For African Americans > 60 (> 60); eGFR For Non-African Americans > 60 (> 60)
[2019-09-01] MEDS: *HR* Heparin 5,000 UNIT/ML VIAL SQ SCH ×3 (07:30→20:23)
[2019-09-01] MEDS: Insulin LISPRO 300 UNITS/3 ML VIAL SQ SCH ×3 (07:42→17:09)
[2019-09-01] MEDS: Cefdinir 300 MG CAPSULE PO SCH ×2 (08:28→20:23)
[2019-09-01] MEDS: amLODIPine 5 MG TABLET PO SCH (08:28)
[2019-09-01] MEDS: Aspirin Enteric Coated 81 MG Tablet PO SCH (08:28)
[2019-09-01] MEDS: Magnesium Oxide 400 MG TABLET PO SCH (08:28)
[2019-09-01] MEDS: lisinopriL 20 MG TABLET PO SCH (08:29)
[2019-09-01] MEDS: Isosorbide MONOnitrate (24 HR) 60 MG TAB.ER.24H PO SCH (08:29)
[2019-09-01] MEDS: ALPRAZolam 0.5 MG TABLET PO PRN ×2 (08:30→20:23)
[2019-09-01] MEDS: Nystatin POWDER 30 GM BOTTLE TP SCH ×2 (08:32→20:24)
[2019-09-01] MEDS: Acetaminophen 325 MG TABLET PO PRN (15:28)
[2019-09-01] MEDS: Insulin DETEMIR 100 UNIT/ML X5UNITS SQ SCH (20:24)
[2019-09-01] MEDS: Melatonin 3 MG TABLET PO PRN (22:50)
[2019-09-02] MEDS: *HR* Heparin 5,000 UNIT/ML VIAL SQ SCH ×3 (05:44→21:33)
[2019-09-02] MEDS: Isosorbide MONOnitrate (24 HR) 60 MG TAB.ER.24H PO SCH (08:06)
[2019-09-02] MEDS: lisinopriL 20 MG TABLET PO SCH (08:06)
[2019-09-02] MEDS: Aspirin Enteric Coated 81 MG Tablet PO SCH (08:06)
[2019-09-02] MEDS: Magnesium Oxide 400 MG TABLET PO SCH (08:06)
[2019-09-02] MEDS: Cefdinir 300 MG CAPSULE PO SCH (08:06)
[2019-09-02] MEDS: Nystatin POWDER 30 GM BOTTLE TP SCH ×2 (08:06→21:33)
[2019-09-02] MEDS: amLODIPine 5 MG TABLET PO SCH (08:06)
[2019-09-02] MEDS: Insulin LISPRO 300 UNITS/3 ML VIAL SQ SCH ×3 (09:24→16:10)
[2019-09-02] MEDS: Acetaminophen 325 MG TABLET PO PRN (16:10)
[2019-09-02] MEDS: Melatonin 3 MG TABLET PO PRN (21:33)
[2019-09-02] MEDS: ALPRAZolam 0.5 MG TABLET PO PRN (21:33)
[2019-09-02] MEDS: Insulin DETEMIR 100 UNIT/ML X5UNITS SQ SCH (21:33)
[2019-09-03] MEDS: Acetaminophen 325 MG TABLET PO PRN ×2 (01:25→17:02)
[2019-09-03] MEDS: *HR* Heparin 5,000 UNIT/ML VIAL SQ SCH ×3 (05:37→20:56)
[2019-09-03] MEDS: Insulin LISPRO 300 UNITS/3 ML VIAL SQ SCH ×3 (08:11→17:02)
[2019-09-03] MEDS: lisinopriL 20 MG TABLET PO SCH (08:15)
[2019-09-03] MEDS: Aspirin Enteric Coated 81 MG Tablet PO SCH (08:15)
[2019-09-03] MEDS: Isosorbide MONOnitrate (24 HR) 60 MG TAB.ER.24H PO SCH (08:15)
[2019-09-03] MEDS: Magnesium Oxide 400 MG TABLET PO SCH (08:15)
[2019-09-03] MEDS: amLODIPine 5 MG TABLET PO SCH (08:16)
[2019-09-03] MEDS: Nystatin POWDER 30 GM BOTTLE TP SCH ×2 (08:16→20:56)
[2019-09-03] MEDS: Insulin DETEMIR 100 UNIT/ML X5UNITS SQ SCH (20:56)
[2019-09-03] MEDS: ALPRAZolam 0.5 MG TABLET PO PRN (20:58)
[2019-09-04 05:17] LABS: Basophils % 0.4 %; Eosinophils # 0.1 K/mcL (0.0-0.6); Eosinophils % 1.2 %; Hematocrit 38.1 % (35.3-44.9); Immature Granulocytes % 0.8 % (0-4); Lymphocytes # 1.3 K/mcL (0.6-4.6); Lymphocytes % 27.3 %; Mean Corpuscular HGB Conc 31.5 g/dL (31.6-35.5); Mean Corpuscular Hemoglobin 27.3 pg (28.0-33.3); Mean Corpuscular Volume 86.6 fL (83.0-100.0); Mean Platelet Volume 10.6 fL (9.4-12.4); Monocytes # 0.5 K/mcL (0.0-1.3); Monocytes % 9.2 %; Platelet Count 227 K/mcL (140-400); Red Cell Distribution Width 14.8 % (11.5-14.5); Segmented Neutrophils % 61.1 %; White Blood Count 4.9 K/mcL (4.3-11.1)
[2019-09-04 05:40] LABS: BUN/Creatinine Ratio 38 (6-26); Blood Urea Nitrogen 30 mg/dL (8-23); Carbon Dioxide 23 mEq/L (23-29); Chloride 108 mEq/L (98-107); Glucose 145 mg/dL (70-105); Magnesium 1.9 mg/dL (1.6-2.6); Osmolality,Calculated 295 (280-300); Phosphorous 3.4 mg/dL (2.7-4.5); Potassium 3.7 mEq/L (3.5-5.1); Sodium 138 mEq/L (136-145); eGFR For African Americans > 60 (> 60); eGFR For Non-African Americans > 60 (> 60)
[2019-09-04] MEDS: *HR* Heparin 5,000 UNIT/ML VIAL SQ SCH ×3 (05:46→22:13)
[2019-09-04] MEDS: Magnesium Oxide 400 MG TABLET PO SCH (08:40)
[2019-09-04] MEDS: amLODIPine 5 MG TABLET PO SCH (08:40)
[2019-09-04] MEDS: Aspirin Enteric Coated 81 MG Tablet PO SCH (08:41)
[2019-09-04] MEDS: Nystatin POWDER 30 GM BOTTLE TP SCH ×2 (08:41→22:14)
[2019-09-04] MEDS: lisinopriL 20 MG TABLET PO SCH (08:41)
[2019-09-04] MEDS: Isosorbide MONOnitrate (24 HR) 60 MG TAB.ER.24H PO SCH (08:41)
[2019-09-04] MEDS: Insulin LISPRO 300 UNITS/3 ML VIAL SQ SCH ×3 (08:41→16:11)
[2019-09-04] MEDS: ALPRAZolam 0.5 MG TABLET PO PRN ×2 (10:26→22:13)
[2019-09-04] MEDS: Acetaminophen 325 MG TABLET PO PRN (17:32)
[2019-09-04] MEDS: Melatonin 3 MG TABLET PO PRN (22:13)
[2019-09-04] MEDS: Insulin DETEMIR 100 UNIT/ML X5UNITS SQ SCH (22:15)
[2019-09-05] MEDS: Acetaminophen 325 MG TABLET PO PRN (05:43)
[2019-09-05] MEDS: *HR* Heparin 5,000 UNIT/ML VIAL SQ SCH ×2 (05:43→12:19)
[2019-09-05] MEDS: Insulin LISPRO 300 UNITS/3 ML VIAL SQ SCH ×3 (07:58→17:09)
[2019-09-05] MEDS: Aspirin Enteric Coated 81 MG Tablet PO SCH (08:22)
[2019-09-05] MEDS: Isosorbide MONOnitrate (24 HR) 60 MG TAB.ER.24H PO SCH (08:22)
[2019-09-05] MEDS: Magnesium Oxide 400 MG TABLET PO SCH (08:22)
[2019-09-05] MEDS: Nystatin POWDER 30 GM BOTTLE TP SCH (08:22)
[2019-09-05] MEDS: amLODIPine 5 MG TABLET PO SCH (12:12)
[2019-09-05] MEDS: lisinopriL 20 MG TABLET PO SCH (12:12)
[2019-09-05] MEDS: ALPRAZolam 0.5 MG TABLET PO PRN (13:21)
[2019-09-05 15:40] VITALS: BP 109/72
== END 2019-09-05 18:02 | disposition home health service (06) ==
LOC: EMEROOARM 23:35 → 2ANU 23:35 → SUATTDRO 08-27 01:54 → 2ANU 08-27 02:14
PROVIDERS: ADMIT Internal Medicine; ATTEND Family Medicine

== ENCOUNTER 2019-10-02 18:43 | Observation (INO) ==
[2019-10-02 19:31] LABS: Basophils % 0.5 %; Eosinophils # 0.1 K/mcL (0.0-0.6); Eosinophils % 2.6 %; Hematocrit 39.7 % (35.3-44.9); Hemoglobin 12.7 g/dL (11.5-15.4); Immature Granulocytes % 0.2 % (0-4); Lymphocytes % 22.9 %; Mean Corpuscular Hemoglobin 27.4 pg (28.0-33.3); Mean Corpuscular Volume 85.6 fL (83.0-100.0); Mean Platelet Volume 10.7 fL (9.4-12.4); Monocytes # 0.4 K/mcL (0.0-1.3); Neutrophils # 2.7 K/mcL (1.6-8.9); Platelet Count 262 K/mcL (140-400); Red Blood Count 4.64 M/mcL (3.82-4.97); Red Cell Distribution Width 13.7 % (11.5-14.5); Segmented Neutrophils % 64.8 %; White Blood Count 4.2 K/mcL (4.3-11.1)
[2019-10-02 19:36] LABS: INR 1.2; Prothrombin Time 13.2 Seconds (9.4-12.1)
[2019-10-02 19:39] LABS: Activated Partial Thrombo Time 33.6 Seconds (26.0-36.0)
[2019-10-02 19:53] LABS: Alanine Aminotransferase 15 Units/L (7-52); Albumin 3.5 g/dL (3.5-5.7); Albumin/Globulin Ratio 1.3 (1.1-2.2); Alkaline Phosphatase 180 Units/L (34-104); Aspartate Amino Transferase 14 Units/L (13-39); BUN/Creatinine Ratio 23 (6-26); Bilirubin,Direct 0.1 mg/dL (0.0-0.2); Bilirubin,Indirect 0.4 mg/dL (0.0-1.0); Bilirubin,Total 0.5 mg/dL (0.3-1.0); Blood Urea Nitrogen 21 mg/dL (8-23); Calcium 9.2 mg/dL (8.6-10.3); Carbon Dioxide 22 mEq/L (23-29); Chloride 106 mEq/L (98-107); Globulin 2.8 g/dL (2.4-3.5); Glucose 176 mg/dL (70-105); Osmolality,Calculated 295 (280-300); Sodium 139 mEq/L (136-145); Total Protein 6.3 g/dL (6.4-8.9); Troponin I < 0.03 ng/mL (< 0.04); eGFR For African Americans > 60 (> 60); eGFR For Non-African Americans > 60 (> 60)
[2019-10-02 20:04] LABS: Thyroid Stimulating Hormone 6.272 mcIU/mL (0.340-5.600)
[2019-10-02 20:30] LABS: Bacteria,Urine Many per hpf (None-Few); Bilirubin,Urine Negative (Negative); Blood,Urine Negative (Negative); Clarity,Urine Turbid (Clear); Color,Urine Yellow (Yellow); Glucose,Urine (UA) Normal (Normal); Hyaline Casts,Urine Few per lpf (None Seen); Ketones,Urine Negative (Negative); Leukocyte Esterase,Urine Trace (Negative); Mucus,Urine Few per lpf (None-Few); Nitrite,Urine Negative (Negative); PH,Urine 5.5 pH Units (5.0-8.0); Protein,Urine Negative (Neg-Trace); RBC,Urine 0-3 per hpf (0-3); Specific Gravity,Urine 1.017 (1.010-1.025); Urobilinogen,Urine Normal (Normal)
[2019-10-02] MEDS ORDERED: cefTRIAXone 1,000 MG in 0.9 % Sodium Chloride Mini Bag 100 ML IVPB ONE (20:37)
[2019-10-02] MEDS: 0.9 % Sodium Chloride 1,000 ML IVC SCH (20:53)
[2019-10-02] MEDS ORDERED: Naloxone 0.4 MG/ML INJ IVP PRN (22:49)
[2019-10-02] MEDS ORDERED: 0.9 % Sodium Chloride 1,000 ML IVC SCH (23:00)
[2019-10-02] MEDS ORDERED: Melatonin 3 MG TABLET PO PRN (23:40)
[2019-10-03] MEDS ORDERED: D5% in Water 1,000 ML IVC PRN (00:02)
[2019-10-03] MEDS ORDERED: Dextrose Gel 15 GM/37.5 ML TUBE PO PRN ×2 (00:02)
[2019-10-03] MEDS ORDERED: *HR* Dextrose 50 % in Water (Vial) 50 ML VIAL IVP PRN (00:02)
[2019-10-03 02:03] LABS: Hematocrit 38.9 % (35.3-44.9); Hemoglobin 12.2 g/dL (11.5-15.4); Mean Corpuscular HGB Conc 31.4 g/dL (31.6-35.5); Mean Corpuscular Hemoglobin 27.7 pg (28.0-33.3); Mean Corpuscular Volume 88.4 fL (83.0-100.0); Mean Platelet Volume 10.7 fL (9.4-12.4); Platelet Count 225 K/mcL (140-400); Red Cell Distribution Width 13.6 % (11.5-14.5); White Blood Count 4.7 K/mcL (4.3-11.1)
[2019-10-03 02:19] LABS: BUN/Creatinine Ratio 25 (6-26); Blood Urea Nitrogen 21 mg/dL (8-23); Calcium 8.9 mg/dL (8.6-10.3); Carbon Dioxide 22 mEq/L (23-29); Chloride 106 mEq/L (98-107); Glucose 121 mg/dL (70-105); Osmolality,Calculated 290 (280-300); Sodium 138 mEq/L (136-145); eGFR For African Americans > 60 (> 60); eGFR For Non-African Americans > 60 (> 60)
[2019-10-03] MEDS: Insulin LISPRO 300 UNITS/3 ML VIAL SQ SCH ×3 (08:05→17:00)
[2019-10-03] MEDS: Aspirin Enteric Coated 81 MG Tablet PO SCH (08:47)
[2019-10-03] MEDS: Isosorbide MONOnitrate (24 HR) 60 MG TAB.ER.24H PO SCH (08:48)
[2019-10-03] MEDS: amLODIPine 5 MG TABLET PO SCH (08:48)
[2019-10-03] MEDS: lisinopriL 20 MG TABLET PO SCH (08:48)
[2019-10-03] MEDS: Magnesium Oxide 400 MG TABLET PO SCH (08:48)
[2019-10-03] MEDS: *HR* Heparin 5,000 UNIT/ML VIAL SQ SCH ×2 (12:55→22:35)
[2019-10-03] MEDS ORDERED: ALPRAZolam 0.5 MG TABLET PO PRN (12:57)
[2019-10-03 13:41] LABS: Triiodothyronine (T3) Total 0.75 ng/mL (0.87-1.78)
[2019-10-03] MEDS: cefTRIAXone 1,000 MG in 0.9 % Sodium Chloride Mini Bag 100 ML IVPB SCH (22:13)
[2019-10-03] MEDS: 0.9 % Sodium Chloride 1,000 ML IVC SCH (22:36)
[2019-10-04] MEDS: *HR* Heparin 5,000 UNIT/ML VIAL SQ SCH ×3 (05:18→20:32)
[2019-10-04] MEDS: Insulin LISPRO 300 UNITS/3 ML VIAL SQ SCH ×3 (08:04→16:14)
[2019-10-04] MEDS: amLODIPine 5 MG TABLET PO SCH (09:24)
[2019-10-04] MEDS: lisinopriL 20 MG TABLET PO SCH (09:24)
[2019-10-04] MEDS: Magnesium Oxide 400 MG TABLET PO SCH (09:24)
[2019-10-04] MEDS: Isosorbide MONOnitrate (24 HR) 60 MG TAB.ER.24H PO SCH (09:24)
[2019-10-04] MEDS: Aspirin Enteric Coated 81 MG Tablet PO SCH (09:24)
[2019-10-04] MEDS: cefTRIAXone 1,000 MG in 0.9 % Sodium Chloride Mini Bag 100 ML IVPB SCH (20:32)
[2019-10-04] MEDS: Nystatin POWDER 30 GM BOTTLE TP SCH (20:32)
[2019-10-05] MEDS: *HR* Heparin 5,000 UNIT/ML VIAL SQ SCH ×3 (05:52→21:51)
[2019-10-05] MEDS: Aspirin Enteric Coated 81 MG Tablet PO SCH (08:43)
[2019-10-05] MEDS: Isosorbide MONOnitrate (24 HR) 60 MG TAB.ER.24H PO SCH (08:43)
[2019-10-05] MEDS: Insulin LISPRO 300 UNITS/3 ML VIAL SQ SCH ×3 (08:43→17:25)
[2019-10-05] MEDS: lisinopriL 20 MG TABLET PO SCH (08:43)
[2019-10-05] MEDS: Magnesium Oxide 400 MG TABLET PO SCH (08:44)
[2019-10-05] MEDS: Ertapenem 1,000 MG in 0.9 % Sodium Chloride Mini Bag 100 ML IVPB SCH (14:28)
[2019-10-05] MEDS: Nystatin POWDER 30 GM BOTTLE TP SCH ×2 (14:34→20:33)
[2019-10-05] MEDS: amLODIPine 5 MG TABLET PO SCH (14:35)
[2019-10-05] MEDS ORDERED: ALPRAZolam 0.25 MG TABLET PO ONE (21:45)
[2019-10-05] MEDS ORDERED: Acetaminophen 325 MG TABLET PO ONE (21:46)
[2019-10-06] MEDS: *HR* Heparin 5,000 UNIT/ML VIAL SQ SCH ×3 (05:57→21:14)
[2019-10-06] MEDS: Ertapenem 1,000 MG in 0.9 % Sodium Chloride Mini Bag 100 ML IVPB SCH (08:37)
[2019-10-06] MEDS: lisinopriL 20 MG TABLET PO SCH (08:37)
[2019-10-06] MEDS: Aspirin Enteric Coated 81 MG Tablet PO SCH (08:37)
[2019-10-06] MEDS: amLODIPine 5 MG TABLET PO SCH (08:38)
[2019-10-06] MEDS: Magnesium Oxide 400 MG TABLET PO SCH (08:39)
[2019-10-06] MEDS: Nystatin POWDER 30 GM BOTTLE TP SCH ×2 (08:39→21:15)
[2019-10-06] MEDS: Insulin LISPRO 300 UNITS/3 ML VIAL SQ SCH ×3 (08:39→16:47)
[2019-10-06] MEDS: Isosorbide MONOnitrate (24 HR) 60 MG TAB.ER.24H PO SCH (08:39)
[2019-10-06 08:49] LABS: Basophils % 0.7 %; Eosinophils # 0.1 K/mcL (0.0-0.6); Eosinophils % 2.2 %; Hematocrit 39.5 % (35.3-44.9); Hemoglobin 12.6 g/dL (11.5-15.4); Immature Granulocytes % 0.4 % (0-4); Lymphocytes # 1.5 K/mcL (0.6-4.6); Lymphocytes % 32.2 %; Mean Corpuscular HGB Conc 31.9 g/dL (31.6-35.5); Mean Corpuscular Volume 87.8 fL (83.0-100.0); Mean Platelet Volume 10.4 fL (9.4-12.4); Monocytes # 0.4 K/mcL (0.0-1.3); Monocytes % 9.1 %; Neutrophils # 2.5 K/mcL (1.6-8.9); Platelet Count 219 K/mcL (140-400); Red Cell Distribution Width 13.5 % (11.5-14.5); Segmented Neutrophils % 55.4 %; White Blood Count 4.5 K/mcL (4.3-11.1)
[2019-10-06 09:09] LABS: BUN/Creatinine Ratio 25 (6-26); Blood Urea Nitrogen 20 mg/dL (8-23); Calcium 8.8 mg/dL (8.6-10.3); Carbon Dioxide 24 mEq/L (23-29); Chloride 108 mEq/L (98-107); Glucose 143 mg/dL (70-105); Osmolality,Calculated 291 (280-300); Potassium 3.7 mEq/L (3.5-5.1); Sodium 138 mEq/L (136-145); eGFR For African Americans > 60 (> 60); eGFR For Non-African Americans > 60 (> 60)
[2019-10-06] MEDS ORDERED: ALPRAZolam 0.25 MG TABLET PO ONE ×2 (11:22→16:19)
[2019-10-06] MEDS ORDERED: ALPRAZolam 0.5 MG TABLET PO ONE (21:00)
[2019-10-07] MEDS: *HR* Heparin 5,000 UNIT/ML VIAL SQ SCH ×2 (06:06→15:13)
[2019-10-07] MEDS: Magnesium Oxide 400 MG TABLET PO SCH (07:52)
[2019-10-07] MEDS: Aspirin Enteric Coated 81 MG Tablet PO SCH (07:53)
[2019-10-07] MEDS: amLODIPine 5 MG TABLET PO SCH (07:53)
[2019-10-07] MEDS: Isosorbide MONOnitrate (24 HR) 60 MG TAB.ER.24H PO SCH (07:53)
[2019-10-07] MEDS: lisinopriL 20 MG TABLET PO SCH (07:53)
[2019-10-07] MEDS: Ertapenem 1,000 MG in 0.9 % Sodium Chloride Mini Bag 100 ML IVPB SCH (07:54)
[2019-10-07] MEDS: Insulin LISPRO 300 UNITS/3 ML VIAL SQ SCH ×2 (07:57→11:40)
[2019-10-07] MEDS: Nystatin POWDER 30 GM BOTTLE TP SCH (07:58)
[2019-10-07 11:35] VITALS: BP 122/50
== END 2019-10-07 16:43 | disposition home health service (06) ==
LOC: EMEROOARM 18:43 → 3BNU 18:43 → SUATTDRO 22:26 → 3BNU 22:53
PROVIDERS: ADMIT Internal Medicine; ATTEND Internal Medicine

== ENCOUNTER 2019-12-15 01:27 | Inpatient (IN) ==
[2019-12-15 02:04] LABS: Amorphous Sediment,Urine Few per hpf (None-Few); Bacteria,Urine Moderate per hpf (None-Few); Bilirubin,Urine Negative (Negative); Blood,Urine Negative (Negative); Clarity,Urine Turbid (Clear); Color,Urine Yellow (Yellow); Glucose,Urine (UA) Normal (Normal); Ketones,Urine Negative (Negative); Leukocyte Esterase,Urine Small (Negative); Mucus,Urine Few per lpf (None-Few); Nitrite,Urine Positive (Negative); PH,Urine 5.5 pH Units (5.0-8.0); Protein,Urine Negative (Neg-Trace); RBC,Urine 0-3 per hpf (0-3); Specific Gravity,Urine 1.025 (1.010-1.025); Squamous Epithelial Cell,Urine Few per hpf (None-Few); Urobilinogen,Urine Normal (Normal)
[2019-12-15 02:08] LABS: Basophils % 0.3 %; Eosinophils # 0.1 K/mcL (0.0-0.6); Eosinophils % 1.3 %; Hemoglobin 13.5 g/dL (11.5-15.4); Immature Granulocytes % 0.5 % (0-4); Lymphocytes # 1.4 K/mcL (0.6-4.6); Lymphocytes % 22.6 %; Mean Corpuscular HGB Conc 30.7 g/dL (31.6-35.5); Mean Corpuscular Volume 84.8 fL (83.0-100.0); Mean Platelet Volume 10.2 fL (9.4-12.4); Monocytes # 0.5 K/mcL (0.0-1.3); Monocytes % 8.6 %; Neutrophils # 4.2 K/mcL (1.6-8.9); Platelet Count 245 K/mcL (140-400); Red Blood Count 5.19 M/mcL (3.82-4.97); Red Cell Distribution Width 14.6 % (11.5-14.5); Segmented Neutrophils % 66.7 %; White Blood Count 6.3 K/mcL (4.3-11.1)
[2019-12-15 02:10] LABS: Amphetamine Screen,Urine Negative ng/mL (Cutoff=1000); Barbiturate Screen,Urine Negative ng/mL (Cutoff=200); Benzodiazepines Screen,Urine Positive ng/mL (Cutoff=200); Cannabinoid Screen,Urine Negative ng/mL (Cutoff = 50); Cocaine Screen,Urine Negative ng/mL (Cutoff= 300); Opiate Screen,Urine Negative ng/mL (Cutoff=300); Phencyclidine Screen,Urine Negative ng/mL (Cutoff=25)
[2019-12-15 02:21] LABS: Alanine Aminotransferase 20 Units/L (7-52); Albumin 3.6 g/dL (3.5-5.7); Albumin/Globulin Ratio 1.1 (1.1-2.2); Alkaline Phosphatase 186 Units/L (34-104); Aspartate Amino Transferase 16 Units/L (13-39); BUN/Creatinine Ratio 36 (6-26); Bilirubin,Direct 0.1 mg/dL (0.0-0.2); Bilirubin,Indirect 0.5 mg/dL (0.0-1.0); Bilirubin,Total 0.6 mg/dL (0.3-1.0); Blood Urea Nitrogen 29 mg/dL (8-23); Calcium 9.2 mg/dL (8.6-10.3); Carbon Dioxide 22 mEq/L (23-29); Chloride 103 mEq/L (98-107); Ethanol < 10 mg/dL (Less than 10); Globulin 3.3 g/dL (2.4-3.5); Glucose 176 mg/dL (70-105); Osmolality,Calculated 292 (280-300); Potassium 4.1 mEq/L (3.5-5.1); Sodium 136 mEq/L (136-145); Total Protein 6.9 g/dL (6.4-8.9); Troponin I < 0.03 ng/mL (< 0.04); eGFR For African Americans > 60 (> 60); eGFR For Non-African Americans > 60 (> 60)
[2019-12-15] MEDS ORDERED: Piperacillin/Tazobactam 3.375 GM in 0.9 % Sodium Chloride Mini Bag 100 ML IVPB ONE (02:29)
[2019-12-15 02:32] LABS: INR 1.2; Prothrombin Time 14.1 Seconds (9.4-12.1)
[2019-12-15 02:34] LABS: Activated Partial Thrombo Time 29.4 Seconds (26.0-36.0)
[2019-12-15] MEDS ORDERED: 0.9 % Sodium Chloride 1,000 ML IVC STA (02:56)
[2019-12-15] MEDS ORDERED: D5% in Water 1,000 ML IVC PRN (04:07)
[2019-12-15] MEDS ORDERED: *HR* Dextrose 50 % in Water (Vial) 50 ML VIAL IVP PRN (04:07)
[2019-12-15] MEDS ORDERED: Dextrose Gel 15 GM/37.5 ML TUBE PO PRN ×2 (04:07)
[2019-12-15] MEDS ORDERED: Naloxone 0.4 MG/ML INJ IVP PRN (04:17)
[2019-12-15] MEDS ORDERED: 0.9 % Sodium Chloride 1,000 ML IVC SCH (04:30)
[2019-12-15] MEDS: *HR* Heparin 5,000 UNIT/ML VIAL SQ SCH ×3 (05:14→20:16)
[2019-12-15] MEDS: Insulin LISPRO 300 UNITS/3 ML VIAL SQ SCH ×3 (07:09→16:42)
[2019-12-15] MEDS ORDERED: Nystatin POWDER 30 GM BOTTLE TP PRN (15:48)
[2019-12-15] MEDS: Piperacillin/Tazobactam 3.375 GM in 0.9 % Sodium Chloride Mini Bag 100 ML IVPB SCH (16:42)
[2019-12-15] MEDS: ALPRAZolam 0.5 MG TABLET PO PRN (20:15)
[2019-12-15] MEDS: Melatonin 3 MG TABLET PO PRN (20:16)
[2019-12-15] MEDS ORDERED: Acetaminophen IV 1,000 MG/100 ML INFUS..BTL IVPB ONE (20:24)
[2019-12-16 02:50] LABS: Hematocrit 37.7 % (35.3-44.9); Hemoglobin 11.6 g/dL (11.5-15.4); Mean Corpuscular HGB Conc 30.8 g/dL (31.6-35.5); Mean Corpuscular Hemoglobin 26.1 pg (28.0-33.3); Mean Corpuscular Volume 84.7 fL (83.0-100.0); Mean Platelet Volume 10.9 fL (9.4-12.4); Platelet Count 245 K/mcL (140-400); Red Blood Count 4.45 M/mcL (3.82-4.97); Red Cell Distribution Width 14.5 % (11.5-14.5); White Blood Count 5.2 K/mcL (4.3-11.1)
[2019-12-16 02:59] LABS: BUN/Creatinine Ratio 30 (6-26); Blood Urea Nitrogen 25 mg/dL (8-23); Calcium 8.8 mg/dL (8.6-10.3); Carbon Dioxide 21 mEq/L (23-29); Chloride 106 mEq/L (98-107); Glucose 208 mg/dL (70-105); Osmolality,Calculated 292 (280-300); Potassium 3.9 mEq/L (3.5-5.1); Sodium 136 mEq/L (136-145); eGFR For African Americans > 60 (> 60); eGFR For Non-African Americans > 60 (> 60)
[2019-12-16] MEDS: Levothyroxine 25 MCG TABLET PO SCH (05:27)
[2019-12-16] MEDS: *HR* Heparin 5,000 UNIT/ML VIAL SQ SCH (05:27)
[2019-12-16] MEDS: Insulin LISPRO 300 UNITS/3 ML VIAL SQ SCH ×3 (07:46→17:06)
[2019-12-16] MEDS: amLODIPine 5 MG TABLET PO SCH (08:48)
[2019-12-16] MEDS: lisinopriL 20 MG TABLET PO SCH (08:48)
[2019-12-16] MEDS: Magnesium Oxide 400 MG TABLET PO SCH (08:48)
[2019-12-16] MEDS: Aspirin Enteric Coated 81 MG Tablet PO SCH (08:48)
[2019-12-16] MEDS: Isosorbide MONOnitrate (24 HR) 60 MG TAB.ER.24H PO SCH (08:48)
[2019-12-16] MEDS: ALPRAZolam 0.5 MG TABLET PO PRN ×2 (08:53→21:51)
[2019-12-16] MEDS ORDERED: 0.9 % Sodium Chloride Mini Bag 100 ML ONE (17:02)
[2019-12-16] MEDS: Piperacillin/Tazobactam 3.375 GM in 0.9 % Sodium Chloride Mini Bag 100 ML IVPB SCH (17:06)
[2019-12-17] MEDS: Melatonin 3 MG TABLET PO PRN ×2 (00:48→23:36)
[2019-12-17] MEDS: Piperacillin/Tazobactam 3.375 GM in 0.9 % Sodium Chloride Mini Bag 100 ML IVPB SCH ×2 (00:48→08:06)
[2019-12-17] MEDS: Levothyroxine 25 MCG TABLET PO SCH (05:42)
[2019-12-17 06:16] LABS: Hematocrit 36.5 % (35.3-44.9); Hemoglobin 11.5 g/dL (11.5-15.4); Mean Corpuscular HGB Conc 31.5 g/dL (31.6-35.5); Mean Corpuscular Volume 82.6 fL (83.0-100.0); Mean Platelet Volume 10.7 fL (9.4-12.4); Platelet Count 254 K/mcL (140-400); Red Blood Count 4.42 M/mcL (3.82-4.97); Red Cell Distribution Width 14.6 % (11.5-14.5); White Blood Count 5.5 K/mcL (4.3-11.1)
[2019-12-17 06:30] LABS: BUN/Creatinine Ratio 34 (6-26); Blood Urea Nitrogen 27 mg/dL (8-23); Carbon Dioxide 23 mEq/L (23-29); Chloride 106 mEq/L (98-107); Glucose 171 mg/dL (70-105); Osmolality,Calculated 293 (280-300); Potassium 3.9 mEq/L (3.5-5.1); Sodium 137 mEq/L (136-145); eGFR For African Americans > 60 (> 60); eGFR For Non-African Americans > 60 (> 60)
[2019-12-17] MEDS: amLODIPine 5 MG TABLET PO SCH (08:05)
[2019-12-17] MEDS: Isosorbide MONOnitrate (24 HR) 60 MG TAB.ER.24H PO SCH (08:05)
[2019-12-17] MEDS: Insulin LISPRO 300 UNITS/3 ML VIAL SQ SCH ×3 (08:05→16:39)
[2019-12-17] MEDS: Magnesium Oxide 400 MG TABLET PO SCH (08:06)
[2019-12-17] MEDS: Aspirin Enteric Coated 81 MG Tablet PO SCH (08:06)
[2019-12-17] MEDS: lisinopriL 20 MG TABLET PO SCH (08:06)
[2019-12-17] MEDS: ALPRAZolam 0.5 MG TABLET PO PRN ×2 (12:26→23:32)
[2019-12-17] MEDS: Ertapenem 1,000 MG in 0.9 % Sodium Chloride Mini Bag 100 ML IVPB SCH (14:11)
[2019-12-18 04:50] LABS: Basophils % 0.4 %; Eosinophils # 0.1 K/mcL (0.0-0.6); Eosinophils % 1.3 %; Hematocrit 37.7 % (35.3-44.9); Hemoglobin 11.8 g/dL (11.5-15.4); Immature Granulocytes % 0.6 % (0-4); Lymphocytes # 1.2 K/mcL (0.6-4.6); Lymphocytes % 23.2 %; Mean Corpuscular HGB Conc 31.3 g/dL (31.6-35.5); Mean Corpuscular Hemoglobin 26.5 pg (28.0-33.3); Mean Corpuscular Volume 84.7 fL (83.0-100.0); Mean Platelet Volume 10.5 fL (9.4-12.4); Monocytes # 0.4 K/mcL (0.0-1.3); Monocytes % 7.6 %; Neutrophils # 3.5 K/mcL (1.6-8.9); Platelet Count 250 K/mcL (140-400); Red Blood Count 4.45 M/mcL (3.82-4.97); Red Cell Distribution Width 14.6 % (11.5-14.5); Segmented Neutrophils % 66.9 %; White Blood Count 5.3 K/mcL (4.3-11.1)
[2019-12-18 05:07] LABS: BUN/Creatinine Ratio 33 (6-26); Blood Urea Nitrogen 29 mg/dL (8-23); Calcium 9.1 mg/dL (8.6-10.3); Carbon Dioxide 24 mEq/L (23-29); Chloride 107 mEq/L (98-107); Glucose 193 mg/dL (70-105); Osmolality,Calculated 297 (280-300); Sodium 138 mEq/L (136-145); eGFR For African Americans > 60 (> 60); eGFR For Non-African Americans > 60 (> 60)
[2019-12-18] MEDS: Levothyroxine 25 MCG TABLET PO SCH (06:10)
[2019-12-18] MEDS: Insulin LISPRO 300 UNITS/3 ML VIAL SQ SCH ×3 (08:03→16:11)
[2019-12-18] MEDS: Magnesium Oxide 400 MG TABLET PO SCH (08:04)
[2019-12-18] MEDS: Ertapenem 1,000 MG in 0.9 % Sodium Chloride Mini Bag 100 ML IVPB SCH (08:04)
[2019-12-18] MEDS: Isosorbide MONOnitrate (24 HR) 60 MG TAB.ER.24H PO SCH (08:04)
[2019-12-18] MEDS: Aspirin Enteric Coated 81 MG Tablet PO SCH (08:04)
[2019-12-18] MEDS: amLODIPine 5 MG TABLET PO SCH (08:05)
[2019-12-18] MEDS: lisinopriL 20 MG TABLET PO SCH (08:06)
[2019-12-18] MEDS ORDERED: Fosfomycin Tromethamine 3 GM Packet PO SCH (15:30)
[2019-12-18] MEDS ORDERED: Ondansetron 4 MG/2 ML VIAL IVP ONE (15:38)
[2019-12-18] MEDS: Melatonin 3 MG TABLET PO PRN (19:38)
[2019-12-18] MEDS: ALPRAZolam 0.5 MG TABLET PO PRN (19:38)
[2019-12-19] MEDS: Levothyroxine 25 MCG TABLET PO SCH (06:08)
[2019-12-19] MEDS: ALPRAZolam 0.5 MG TABLET PO PRN ×2 (08:01→20:17)
[2019-12-19] MEDS: Magnesium Oxide 400 MG TABLET PO SCH (08:01)
[2019-12-19] MEDS: Aspirin Enteric Coated 81 MG Tablet PO SCH (08:02)
[2019-12-19] MEDS: amLODIPine 5 MG TABLET PO SCH (08:03)
[2019-12-19] MEDS: lisinopriL 20 MG TABLET PO SCH (08:03)
[2019-12-19] MEDS: Isosorbide MONOnitrate (24 HR) 60 MG TAB.ER.24H PO SCH (08:03)
[2019-12-19] MEDS: Ertapenem 1,000 MG in 0.9 % Sodium Chloride Mini Bag 100 ML IVPB SCH (08:04)
[2019-12-19] MEDS: Insulin LISPRO 300 UNITS/3 ML VIAL SQ SCH ×3 (08:16→17:01)
[2019-12-19 12:40] VITALS: BP 147/78
== END 2019-12-19 20:37 | disposition home or self-care (01) | DRG 463 ==
LOC: 3BNU 01:27 → EMEROOARM 01:27 → 3BNU 04:08
PROVIDERS: ADMIT Student in an Organized Health Care Education/Training Program; ATTEND Student in an Organized Health Care Education/Training Program

== ENCOUNTER 2019-12-30 03:09 | Observation (INO) ==
[2019-12-30] MEDS ORDERED: 0.9 % Sodium Chloride 1,000 ML IVC ONE ×2 (03:40→06:01)
[2019-12-30 04:18] LABS: Alanine Aminotransferase 20 Units/L (7-52); Albumin 3.7 g/dL (3.5-5.7); Albumin/Globulin Ratio 1.1 (1.1-2.2); Alkaline Phosphatase 183 Units/L (34-104); Aspartate Amino Transferase 16 Units/L (13-39); BUN/Creatinine Ratio 26 (6-26); Bilirubin,Direct 0.1 mg/dL (0.0-0.2); Bilirubin,Indirect 0.5 mg/dL (0.0-1.0); Bilirubin,Total 0.6 mg/dL (0.3-1.0); Blood Urea Nitrogen 21 mg/dL (8-23); Calcium 9.3 mg/dL (8.6-10.3); Carbon Dioxide 23 mEq/L (23-29); Chloride 104 mEq/L (98-107); Globulin 3.3 g/dL (2.4-3.5); Glucose 160 mg/dL (70-105); Lipase 14 Units/L (11-82); Osmolality,Calculated 288 (280-300); Sodium 136 mEq/L (136-145); Troponin I < 0.03 ng/mL (< 0.04); eGFR For African Americans > 60 (> 60); eGFR For Non-African Americans > 60 (> 60)
[2019-12-30 04:22] LABS: Basophils % 0.4 %; Eosinophils # 0.1 K/mcL (0.0-0.6); Eosinophils % 1.3 %; Hematocrit 41.3 % (35.3-44.9); Hemoglobin 13.3 g/dL (11.5-15.4); Immature Granulocytes % 0.7 % (0-4); Lymphocytes % 22.7 %; Mean Corpuscular HGB Conc 32.2 g/dL (31.6-35.5); Mean Corpuscular Volume 83.8 fL (83.0-100.0); Mean Platelet Volume 10.7 fL (9.4-12.4); Monocytes # 0.4 K/mcL (0.0-1.3); Monocytes % 7.9 %; Platelet Count 220 K/mcL (140-400); Red Blood Count 4.93 M/mcL (3.82-4.97); Red Cell Distribution Width 14.6 % (11.5-14.5); White Blood Count 4.5 K/mcL (4.3-11.1)
[2019-12-30 04:30] LABS: Thyroid Stimulating Hormone 9.311 mcIU/mL (0.340-5.600)
[2019-12-30 04:58] LABS: Platelet Estimate Normal (Normal)
[2019-12-30] MEDS ORDERED: Levothyroxine Sodium 100 MCG VIAL IVP STA (05:27)
[2019-12-30] MEDS ORDERED: Piperacillin/Tazobactam 3.375 GM in 0.9 % Sodium Chloride Mini Bag 100 ML IVPB ONE (05:52)
[2019-12-30] MEDS ORDERED: Piperacillin/Tazobactam 3.375 GM VIAL ONE (06:13)
[2019-12-30 06:46] LABS: Bilirubin,Urine Negative (Negative); Blood,Urine Negative (Negative); Clarity,Urine Clear (Clear); Color,Urine Light-Yellow (Yellow); Glucose,Urine (UA) Normal (Normal); Ketones,Urine Negative (Negative); Leukocyte Esterase,Urine Trace (Negative); Mucus,Urine Few per lpf (None-Few); Nitrite,Urine Negative (Negative); PH,Urine 5.5 pH Units (5.0-8.0); Protein,Urine Negative (Neg-Trace); RBC,Urine 0-3 per hpf (0-3); Specific Gravity,Urine 1.015 (1.010-1.025); Squamous Epithelial Cell,Urine Few per hpf (None-Few); Urobilinogen,Urine Normal (Normal); WBC,Urine 0-3 per hpf (0-3)
[2019-12-30] MEDS ORDERED: Ondansetron 4 MG/2 ML VIAL IVP PRN (07:53)
[2019-12-30] MEDS ORDERED: Naloxone 0.4 MG/ML INJ IVP PRN (07:53)
[2019-12-30] MEDS ORDERED: Ipratropium/Albuterol Neb 3 ML IH PRN (10:51)
[2019-12-30] MEDS ORDERED: *HR* Dextrose 50 % in Water (Vial) 50 ML VIAL IVP PRN (10:52)
[2019-12-30] MEDS ORDERED: D5% in Water 1,000 ML IVC PRN (10:52)
[2019-12-30] MEDS ORDERED: Dextrose Gel 15 GM/37.5 ML TUBE PO PRN ×2 (10:52)
[2019-12-30] MEDS ORDERED: Isovue-370 500 ML BOTTLE IVP ONE (10:54)
[2019-12-30] MEDS: Insulin LISPRO 300 UNITS/3 ML VIAL SQ SCH ×2 (12:47→16:44)
[2019-12-30] MEDS: Piperacillin/Tazobactam 3.375 GM in 0.9 % Sodium Chloride Mini Bag 100 ML IVPB SCH ×2 (16:31→21:33)
[2019-12-30] MEDS: polyethylene glycoL 3350 17 GM POWD.PACK PO SCH (16:43)
[2019-12-30] MEDS ORDERED: ALPRAZolam 0.5 MG TABLET PO ONE (20:13)
[2019-12-31 04:08] LABS: Basophils % 0.8 %; Eosinophils # 0.1 K/mcL (0.0-0.6); Eosinophils % 1.3 %; Hematocrit 43.4 % (35.3-44.9); Hemoglobin 13.1 g/dL (11.5-15.4); Immature Granulocytes % 0.3 % (0-4); Lymphocytes # 1.5 K/mcL (0.6-4.6); Lymphocytes % 38.6 %; Mean Corpuscular HGB Conc 30.2 g/dL (31.6-35.5); Mean Corpuscular Hemoglobin 25.4 pg (28.0-33.3); Mean Corpuscular Volume 84.1 fL (83.0-100.0); Mean Platelet Volume 10.2 fL (9.4-12.4); Monocytes # 0.4 K/mcL (0.0-1.3); Neutrophils # 1.9 K/mcL (1.6-8.9); Platelet Count 234 K/mcL (140-400); Red Blood Count 5.16 M/mcL (3.82-4.97); Red Cell Distribution Width 14.6 % (11.5-14.5); White Blood Count 3.9 K/mcL (4.3-11.1)
[2019-12-31 04:23] LABS: BUN/Creatinine Ratio 21 (6-26); Blood Urea Nitrogen 16 mg/dL (8-23); Calcium 9.3 mg/dL (8.6-10.3); Carbon Dioxide 23 mEq/L (23-29); Chloride 104 mEq/L (98-107); Glucose 123 mg/dL (70-105); Magnesium 1.7 mg/dL (1.6-2.6); Osmolality,Calculated 289 (280-300); Potassium 4.2 mEq/L (3.5-5.1); Sodium 138 mEq/L (136-145); eGFR For African Americans > 60 (> 60); eGFR For Non-African Americans > 60 (> 60)
[2019-12-31] MEDS ORDERED: Regadenoson 0.4 MG/5 ML SYRINGE IVP ONE (06:26)
[2019-12-31] MEDS: Piperacillin/Tazobactam 3.375 GM in 0.9 % Sodium Chloride Mini Bag 100 ML IVPB SCH ×3 (06:45→21:18)
[2019-12-31] MEDS: Insulin LISPRO 300 UNITS/3 ML VIAL SQ SCH ×3 (08:54→17:37)
[2019-12-31] MEDS: polyethylene glycoL 3350 17 GM POWD.PACK PO SCH (09:01)
[2019-12-31] MEDS: Levothyroxine 25 MCG TABLET PO SCH (09:01)
[2019-12-31] MEDS: Melatonin 3 MG TABLET PO PRN (21:18)
[2020-01-01] MEDS: Piperacillin/Tazobactam 3.375 GM in 0.9 % Sodium Chloride Mini Bag 100 ML IVPB SCH ×2 (06:00→16:45)
[2020-01-01] MEDS: Levothyroxine 25 MCG TABLET PO SCH (06:01)
[2020-01-01 08:13] LABS: Basophils % 0.5 %; Eosinophils # 0.1 K/mcL (0.0-0.6); Eosinophils % 2.3 %; Hematocrit 40.3 % (35.3-44.9); Hemoglobin 12.7 g/dL (11.5-15.4); Immature Granulocytes % 0.7 % (0-4); Lymphocytes # 1.3 K/mcL (0.6-4.6); Lymphocytes % 30.4 %; Mean Corpuscular HGB Conc 31.5 g/dL (31.6-35.5); Mean Corpuscular Hemoglobin 26.6 pg (28.0-33.3); Mean Corpuscular Volume 84.3 fL (83.0-100.0); Mean Platelet Volume 10.3 fL (9.4-12.4); Monocytes # 0.4 K/mcL (0.0-1.3); Monocytes % 8.9 %; Neutrophils # 2.5 K/mcL (1.6-8.9); Platelet Count 244 K/mcL (140-400); Red Blood Count 4.78 M/mcL (3.82-4.97); Red Cell Distribution Width 14.8 % (11.5-14.5); Segmented Neutrophils % 57.2 %; White Blood Count 4.3 K/mcL (4.3-11.1)
[2020-01-01 08:25] LABS: BUN/Creatinine Ratio 20 (6-26); Blood Urea Nitrogen 16 mg/dL (8-23); Calcium 9.2 mg/dL (8.6-10.3); Carbon Dioxide 26 mEq/L (23-29); Chloride 105 mEq/L (98-107); Glucose 136 mg/dL (70-105); Osmolality,Calculated 293 (280-300); Sodium 140 mEq/L (136-145); eGFR For African Americans > 60 (> 60); eGFR For Non-African Americans > 60 (> 60)
[2020-01-01] MEDS: Insulin LISPRO 300 UNITS/3 ML VIAL SQ SCH ×3 (09:09→17:27)
[2020-01-01] MEDS: polyethylene glycoL 3350 17 GM POWD.PACK PO SCH (09:35)
[2020-01-01] MEDS: lisinopriL 20 MG TABLET PO SCH (09:35)
[2020-01-01] MEDS: Aspirin Enteric Coated 81 MG Tablet PO SCH (09:35)
[2020-01-01] MEDS: Isosorbide MONOnitrate (24 HR) 60 MG TAB.ER.24H PO SCH (09:35)
[2020-01-01] MEDS: ALPRAZolam 0.5 MG TABLET PO SCH ×2 (16:46→20:50)
[2020-01-01] MEDS: *HR* Heparin 5,000 UNIT/ML VIAL SQ SCH (17:27)
[2020-01-01] MEDS: Melatonin 3 MG TABLET PO PRN (20:53)
[2020-01-02 02:10] LABS: Basophils % 0.5 %; Eosinophils # 0.1 K/mcL (0.0-0.6); Eosinophils % 1.8 %; Hematocrit 36.9 % (35.3-44.9); Hemoglobin 11.3 g/dL (11.5-15.4); Immature Granulocytes % 0.3 % (0-4); Lymphocytes # 1.2 K/mcL (0.6-4.6); Lymphocytes % 31.5 %; Mean Corpuscular HGB Conc 30.6 g/dL (31.6-35.5); Mean Corpuscular Hemoglobin 25.6 pg (28.0-33.3); Mean Corpuscular Volume 83.7 fL (83.0-100.0); Mean Platelet Volume 10.2 fL (9.4-12.4); Monocytes # 0.3 K/mcL (0.0-1.3); Monocytes % 8.4 %; Neutrophils # 2.3 K/mcL (1.6-8.9); Platelet Count 222 K/mcL (140-400); Red Blood Count 4.41 M/mcL (3.82-4.97); Red Cell Distribution Width 14.9 % (11.5-14.5); Segmented Neutrophils % 57.5 %; White Blood Count 3.9 K/mcL (4.3-11.1)
[2020-01-02 02:17] LABS: BUN/Creatinine Ratio 27 (6-26); Blood Urea Nitrogen 25 mg/dL (8-23); Calcium 8.5 mg/dL (8.6-10.3); Carbon Dioxide 24 mEq/L (23-29); Chloride 105 mEq/L (98-107); Glucose 250 mg/dL (70-105); Magnesium 1.9 mg/dL (1.6-2.6); Osmolality,Calculated 295 (280-300); Phosphorous 3.4 mg/dL (2.7-4.5); Potassium 4.3 mEq/L (3.5-5.1); Sodium 136 mEq/L (136-145); eGFR For African Americans > 60 (> 60); eGFR For Non-African Americans 60 (> 60)
[2020-01-02] MEDS: Levothyroxine 25 MCG TABLET PO SCH (06:11)
[2020-01-02] MEDS: *HR* Heparin 5,000 UNIT/ML VIAL SQ SCH ×2 (06:11→17:05)
[2020-01-02] MEDS: ALPRAZolam 0.5 MG TABLET PO SCH ×3 (08:04→20:55)
[2020-01-02] MEDS: Aspirin Enteric Coated 81 MG Tablet PO SCH (08:04)
[2020-01-02] MEDS: Isosorbide MONOnitrate (24 HR) 60 MG TAB.ER.24H PO SCH (08:05)
[2020-01-02] MEDS: lisinopriL 20 MG TABLET PO SCH (08:05)
[2020-01-02] MEDS: polyethylene glycoL 3350 17 GM POWD.PACK PO SCH (08:07)
[2020-01-02] MEDS: Insulin LISPRO 300 UNITS/3 ML VIAL SQ SCH ×3 (08:08→17:33)
[2020-01-02] MEDS: Insulin DETEMIR 100 UNIT/ML X5UNITS SQ SCH ×2 (08:31→20:46)
[2020-01-02 18:30] VITALS: BP 143/74
== END 2020-01-02 22:54 | disposition home or self-care (01) ==
LOC: EMEROOARM 03:09 → CDU 03:09 → SUATTDRO 08:29 → CDU 09:33 → 3BNU 01-01 16:28
PROVIDERS: ADMIT Internal Medicine; ATTEND Internal Medicine

== ENCOUNTER 2020-04-09 00:08 | Inpatient (IN) ==
[2020-04-09] MEDS ORDERED: Isovue-370 500 ML BOTTLE IVP ONE (00:26)
[2020-04-09 01:01] LABS: Basophils % 0.4 %; Eosinophils # 0.1 K/mcL (0.0-0.6); Eosinophils % 0.9 %; Hematocrit 42.8 % (35.3-44.9); Hemoglobin 13.1 g/dL (11.5-15.4); Immature Granulocytes % 0.6 % (0-4); Lymphocytes # 1.2 K/mcL (0.6-4.6); Lymphocytes % 17.2 %; Mean Corpuscular HGB Conc 30.6 g/dL (31.6-35.5); Mean Corpuscular Hemoglobin 25.2 pg (28.0-33.3); Mean Corpuscular Volume 82.5 fL (83.0-100.0); Mean Platelet Volume 10.6 fL (9.4-12.4); Monocytes # 0.5 K/mcL (0.0-1.3); Monocytes % 6.7 %; Platelet Count 282 K/mcL (140-400); Red Blood Count 5.19 M/mcL (3.82-4.97); Segmented Neutrophils % 74.2 %; White Blood Count 6.7 K/mcL (4.3-11.1)
[2020-04-09 01:14] LABS: Bacteria,Urine Many per hpf (None-Few); Bilirubin,Urine Negative (Negative); Blood,Urine Trace (Negative); Clarity,Urine Turbid (Clear); Color,Urine Yellow (Yellow); Glucose,Urine (UA) >=1000 mg/dL (Normal); Ketones,Urine Negative (Negative); Leukocyte Esterase,Urine Moderate (Negative); Mucus,Urine Few per lpf (None-Few); Nitrite,Urine Positive (Negative); Protein,Urine Trace mg/dL (Neg-Trace); RBC,Urine 0-3 per hpf (0-3); Specific Gravity,Urine 1.022 (1.010-1.025); Squamous Epithelial Cell,Urine Few per hpf (None-Few); Urobilinogen,Urine Normal (Normal)
[2020-04-09 01:17] LABS: Amphetamine Screen,Urine Negative ng/mL (Cutoff=1000); Barbiturate Screen,Urine Negative ng/mL (Cutoff=200); Benzodiazepines Screen,Urine Positive ng/mL (Cutoff=200); Cannabinoid Screen,Urine Negative ng/mL (Cutoff = 50); Cocaine Screen,Urine Negative ng/mL (Cutoff= 300); Opiate Screen,Urine Negative ng/mL (Cutoff=300); Phencyclidine Screen,Urine Negative ng/mL (Cutoff=25)
[2020-04-09 01:20] LABS: Alanine Aminotransferase 25 Units/L (7-52); Albumin 3.5 g/dL (3.5-5.7); Albumin/Globulin Ratio 0.9 (1.1-2.2); Alkaline Phosphatase 293 Units/L (34-104); Aspartate Amino Transferase 17 Units/L (13-39); BUN/Creatinine Ratio 23 (6-26); Bilirubin,Total 0.4 mg/dL (0.3-1.0); Blood Urea Nitrogen 19 mg/dL (8-23); Calcium 9.3 mg/dL (8.6-10.3); Carbon Dioxide 24 mEq/L (23-29); Chloride 102 mEq/L (98-107); Globulin 3.8 g/dL (2.4-3.5); Glucose 278 mg/dL (70-105); Osmolality,Calculated 292 (280-300); Potassium 3.9 mEq/L (3.5-5.1); Sodium 135 mEq/L (136-145); Total Protein 7.3 g/dL (6.4-8.9); eGFR For African Americans > 60 (> 60); eGFR For Non-African Americans > 60 (> 60)
[2020-04-09 01:21] LABS: Troponin I < 0.03 ng/mL (< 0.04)
[2020-04-09 01:46] LABS: Adenovirus Not Detected (Not Detect); Bordetella Pertussis Not Detected (Not Detect); Chlamydophila pneumoniae Not Detected (Not Detect); Coronavirus 229E Not Detected (Not Detect); Coronavirus HKU1 Not Detected (Not Detect); Coronavirus NL63 Not Detected (Not Detect); Coronavirus OC43 Not Detected (Not Detect); Human Metapneumovirus Not Detected (Not Detect); Human Rhinovirus/Enterovirus Not Detected (Not Detect); Influenza A Subtype 2009 H1 Not Detected (Not Detect); Influenza B Not Detected (Not Detect); Mycoplasma pneumoniae Not Detected (Not Detect); Parainfluenza Virus 1 Not Detected (Not Detect); Parainfluenza Virus 2 Not Detected (Not Detect); Parainfluenza Virus 3 Not Detected (Not Detect); Parainfluenza Virus 4 Not Detected (Not Detect); Respiratory Syncytial Virus Not Detected (Not Detect); SARS-CoV-2 Not Detected (Not Detect)
[2020-04-09] MEDS ORDERED: cefTRIAXone 1,000 MG in Water for inj. (sterile) 10 ML IVP ONE (01:57)
[2020-04-09] MEDS ORDERED: Acetaminophen 325 MG TABLET PO ONE (01:58)
[2020-04-09 03:35] LABS: C-Reactive Protein 33 mg/L (Less than 10)
[2020-04-09] MEDS ORDERED: Naloxone 0.4 MG/ML INJ IVP PRN (03:56)
[2020-04-09] MEDS ORDERED: Ondansetron 4 MG/2 ML VIAL IVP PRN (03:56)
[2020-04-09] MEDS ORDERED: Dextrose Gel 15 GM/37.5 ML TUBE PO PRN ×2 (04:58)
[2020-04-09] MEDS ORDERED: *HR* Dextrose 50 % in Water (Vial) 50 ML VIAL IVP PRN (04:58)
[2020-04-09] MEDS ORDERED: D5% in Water 1,000 ML IVC PRN (04:58)
[2020-04-09] MEDS: Ertapenem 1,000 MG in 0.9 % Sodium Chloride Mini Bag 100 ML IVPB SCH (08:37)
[2020-04-09] MEDS: Insulin LISPRO 300 UNITS/3 ML VIAL SUBQ SCH ×4 (08:37→19:36)
[2020-04-09] MEDS: Acetaminophen 325 MG TABLET PO PRN ×2 (10:21→17:17)
[2020-04-09] MEDS: *HR* Heparin 5,000 UNIT/ML VIAL SQ SCH (17:05)
[2020-04-09] MEDS ORDERED: *HR* OxyCODONE Immed Rel 5 MG TABLET PO ONE (17:49)
[2020-04-10] MEDS ORDERED: *HR* Adenosine 6 MG/2 ML SYRINGE IVP ONE (03:24)
[2020-04-10] MEDS ORDERED: *HR* Adenosine 12 MG/4 ML VIAL IVP ONE (03:24)
[2020-04-10] MEDS: Acetaminophen 325 MG TABLET PO PRN ×2 (03:40→10:09)
[2020-04-10 04:50] LABS: Basophils % 0.5 %; Eosinophils # 0.1 K/mcL (0.0-0.6); Eosinophils % 1.5 %; Hematocrit 39.6 % (35.3-44.9); Hemoglobin 12.9 g/dL (11.5-15.4); Immature Granulocytes % 0.5 % (0-4); Lymphocytes # 1.4 K/mcL (0.6-4.6); Lymphocytes % 20.9 %; Mean Corpuscular HGB Conc 32.6 g/dL (31.6-35.5); Mean Corpuscular Hemoglobin 26.4 pg (28.0-33.3); Mean Corpuscular Volume 81.1 fL (83.0-100.0); Mean Platelet Volume 10.7 fL (9.4-12.4); Monocytes # 0.5 K/mcL (0.0-1.3); Monocytes % 8.3 %; Neutrophils # 4.5 K/mcL (1.6-8.9); Platelet Count 272 K/mcL (140-400); Red Blood Count 4.88 M/mcL (3.82-4.97); Red Cell Distribution Width 15.1 % (11.5-14.5); Segmented Neutrophils % 68.3 %; White Blood Count 6.5 K/mcL (4.3-11.1)
[2020-04-10 05:05] LABS: BUN/Creatinine Ratio 32 (6-26); Blood Urea Nitrogen 23 mg/dL (8-23); Calcium 9.3 mg/dL (8.6-10.3); Carbon Dioxide 22 mEq/L (23-29); Chloride 105 mEq/L (98-107); Glucose 223 mg/dL (70-105); Magnesium 1.6 mg/dL (1.6-2.6); Osmolality,Calculated 295 (280-300); Phosphorous 2.9 mg/dL (2.7-4.5); Potassium 3.9 mEq/L (3.5-5.1); Sodium 137 mEq/L (136-145); eGFR For African Americans > 60 (> 60); eGFR For Non-African Americans > 60 (> 60)
[2020-04-10] MEDS ORDERED: *HR* Metoprolol 5 MG/5 ML VIAL IVP ONE ×2 (06:30→06:33)
[2020-04-10 06:45] LABS: Troponin I < 0.03 ng/mL (< 0.04)
[2020-04-10] MEDS ORDERED: DilTIAZem 50 MG/50 ML IV.SOLN IVC SCH (06:45)
[2020-04-10] MEDS: Insulin LISPRO 300 UNITS/3 ML VIAL SUBQ SCH ×4 (07:45→19:53)
[2020-04-10] MEDS: *HR* Heparin 5,000 UNIT/ML VIAL SQ SCH ×2 (07:46→17:48)
[2020-04-10] MEDS ORDERED: cefTRIAXone 1,000 MG in Water for inj. (sterile) 10 ML IVP SCH (09:00)
[2020-04-10] MEDS ORDERED: Perflutren Lipid Microsphere 1.3 ML in 0.9 % Sodium Chloride 8.7 ML IVP PRN (11:06)
[2020-04-10] MEDS: Ertapenem 1,000 MG in 0.9 % Sodium Chloride Mini Bag 100 ML IVPB SCH (11:07)
[2020-04-10] MEDS: Magnesium Oxide 400 MG TABLET PO SCH (12:22)
[2020-04-10] MEDS: ALPRAZolam 0.5 MG TABLET PO SCH ×2 (13:52→20:25)
[2020-04-10] MEDS: Aspirin Enteric Coated 81 MG Tablet PO SCH (13:53)
[2020-04-10] MEDS: amLODIPine 5 MG TABLET PO SCH (13:53)
[2020-04-10] MEDS: Isosorbide MONOnitrate (24 HR) 60 MG TAB.ER.24H PO SCH (13:53)
[2020-04-10 20:07] LABS: Thyroid Stimulating Hormone 7.066 mcIU/mL (0.340-5.600)
[2020-04-11] MEDS: Acetaminophen 325 MG TABLET PO PRN (01:32)
[2020-04-11] MEDS: *HR* Heparin 5,000 UNIT/ML VIAL SQ SCH ×2 (06:12→16:43)
[2020-04-11] MEDS: Ertapenem 1,000 MG in 0.9 % Sodium Chloride Mini Bag 100 ML IVPB SCH (07:51)
[2020-04-11] MEDS: amLODIPine 5 MG TABLET PO SCH (07:52)
[2020-04-11] MEDS: ALPRAZolam 0.5 MG TABLET PO SCH ×3 (07:52→19:37)
[2020-04-11] MEDS: Aspirin Enteric Coated 81 MG Tablet PO SCH (07:52)
[2020-04-11] MEDS: Isosorbide MONOnitrate (24 HR) 60 MG TAB.ER.24H PO SCH (07:52)
[2020-04-11] MEDS: Magnesium Oxide 400 MG TABLET PO SCH (07:52)
[2020-04-11] MEDS: lisinopriL 20 MG TABLET PO SCH (07:52)
[2020-04-11] MEDS: Insulin LISPRO 300 UNITS/3 ML VIAL SUBQ SCH ×4 (07:53→19:36)
[2020-04-11] MEDS ORDERED: Magnesium Oxide 400 MG TABLET PO SCH (09:00)
[2020-04-12] MEDS: Melatonin 3 MG TABLET PO PRN ×2 (00:49→20:19)
[2020-04-12 03:11] LABS: Alanine Aminotransferase 15 Units/L (7-52); Albumin 3.1 g/dL (3.5-5.7); Albumin/Globulin Ratio 0.9 (1.1-2.2); Alkaline Phosphatase 236 Units/L (34-104); Aspartate Amino Transferase 13 Units/L (13-39); BUN/Creatinine Ratio 35 (6-26); Bilirubin,Total 0.5 mg/dL (0.3-1.0); Blood Urea Nitrogen 25 mg/dL (8-23); Calcium 8.7 mg/dL (8.6-10.3); Carbon Dioxide 22 mEq/L (23-29); Chloride 103 mEq/L (98-107); Globulin 3.4 g/dL (2.4-3.5); Glucose 203 mg/dL (70-105); Magnesium 1.8 mg/dL (1.6-2.6); Osmolality,Calculated 288 (280-300); Potassium 4.2 mEq/L (3.5-5.1); Sodium 134 mEq/L (136-145); Total Protein 6.5 g/dL (6.4-8.9); eGFR For African Americans > 60 (> 60); eGFR For Non-African Americans > 60 (> 60)
[2020-04-12] MEDS: *HR* Heparin 5,000 UNIT/ML VIAL SQ SCH ×2 (05:50→17:59)
[2020-04-12] MEDS: Insulin LISPRO 300 UNITS/3 ML VIAL SUBQ SCH ×4 (07:30→20:16)
[2020-04-12] MEDS: lisinopriL 20 MG TABLET PO SCH (09:00)
[2020-04-12] MEDS: ALPRAZolam 0.5 MG TABLET PO SCH ×3 (09:00→20:19)
[2020-04-12] MEDS: Magnesium Oxide 400 MG TABLET PO SCH (09:00)
[2020-04-12] MEDS: Isosorbide MONOnitrate (24 HR) 60 MG TAB.ER.24H PO SCH (09:00)
[2020-04-12] MEDS: amLODIPine 5 MG TABLET PO SCH (09:00)
[2020-04-12] MEDS: Aspirin Enteric Coated 81 MG Tablet PO SCH (09:00)
[2020-04-12] MEDS: Ertapenem 1,000 MG in 0.9 % Sodium Chloride Mini Bag 100 ML IVPB SCH (17:51)
[2020-04-13] MEDS: *HR* Heparin 5,000 UNIT/ML VIAL SQ SCH ×2 (05:23→17:24)
[2020-04-13 05:29] LABS: Alanine Aminotransferase 15 Units/L (7-52); Albumin/Globulin Ratio 0.9 (1.1-2.2); Alkaline Phosphatase 225 Units/L (34-104); Aspartate Amino Transferase 12 Units/L (13-39); BUN/Creatinine Ratio 32 (6-26); Bilirubin,Total 0.3 mg/dL (0.3-1.0); Blood Urea Nitrogen 22 mg/dL (8-23); Calcium 8.8 mg/dL (8.6-10.3); Carbon Dioxide 23 mEq/L (23-29); Chloride 105 mEq/L (98-107); Globulin 3.3 g/dL (2.4-3.5); Glucose 263 mg/dL (70-105); Osmolality,Calculated 294 (280-300); Potassium 4.2 mEq/L (3.5-5.1); Sodium 136 mEq/L (136-145); Total Protein 6.3 g/dL (6.4-8.9); eGFR For African Americans > 60 (> 60); eGFR For Non-African Americans > 60 (> 60)
[2020-04-13] MEDS: Ertapenem 1,000 MG in 0.9 % Sodium Chloride Mini Bag 100 ML IVPB SCH (08:51)
[2020-04-13] MEDS: Magnesium Oxide 400 MG TABLET PO SCH (08:52)
[2020-04-13] MEDS: ALPRAZolam 0.5 MG TABLET PO SCH ×2 (08:53→15:30)
[2020-04-13] MEDS: amLODIPine 5 MG TABLET PO SCH (08:53)
[2020-04-13] MEDS: lisinopriL 20 MG TABLET PO SCH (08:53)
[2020-04-13] MEDS: Aspirin Enteric Coated 81 MG Tablet PO SCH (08:54)
[2020-04-13] MEDS: Isosorbide MONOnitrate (24 HR) 60 MG TAB.ER.24H PO SCH (08:54)
[2020-04-13] MEDS: Insulin LISPRO 300 UNITS/3 ML VIAL SUBQ SCH ×3 (09:00→17:32)
[2020-04-13 14:40] VITALS: BP 131/71
== END 2020-04-13 19:14 | DRG 463 ==
LOC: 3BNU 00:08 → EMEROOARM 00:08 → SUATTDRO 03:23 → 3BNU 04:09 → SUATTDRO 04-10 16:14
PROVIDERS: ADMIT Internal Medicine; ATTEND Registered Nurse

== ENCOUNTER 2020-08-21 23:50 | Inpatient (IN) ==
[2020-08-22 02:57] LABS: Basophils % 0.3 %; Eosinophils # 0.1 K/mcL (0.0-0.6); Eosinophils % 1.3 %; Hematocrit 42.3 % (35.3-44.9); Hemoglobin 13.6 g/dL (11.5-15.4); Immature Granulocytes % 0.4 % (0-4); Lymphocytes # 1.4 K/mcL (0.6-4.6); Lymphocytes % 19.6 %; Mean Corpuscular HGB Conc 32.2 g/dL (31.6-35.5); Mean Corpuscular Hemoglobin 27.1 pg (28.0-33.3); Mean Corpuscular Volume 84.3 fL (83.0-100.0); Monocytes # 0.5 K/mcL (0.0-1.3); Monocytes % 6.6 %; Neutrophils # 5.1 K/mcL (1.6-8.9); Platelet Count 225 K/mcL (140-400); Red Blood Count 5.02 M/mcL (3.82-4.97); Segmented Neutrophils % 71.8 %; White Blood Count 7.1 K/mcL (4.3-11.1)
[2020-08-22 03:15] LABS: BUN/Creatinine Ratio 29 (6-26); Blood Urea Nitrogen 21 mg/dL (8-23); Calcium 8.8 mg/dL (8.6-10.3); Carbon Dioxide 25 mEq/L (23-29); Chloride 105 mEq/L (98-107); Glucose 162 mg/dL (70-105); Osmolality,Calculated 295 (280-300); Potassium 4.3 mEq/L (3.5-5.1); Sodium 139 mEq/L (136-145); eGFR For African Americans > 60 (> 60); eGFR For Non-African Americans > 60 (> 60)
[2020-08-22 03:47] LABS: Bacteria,Urine Few per hpf (None-Few); Bilirubin,Urine Negative (Negative); Blood,Urine Negative (Negative); Clarity,Urine Turbid (Clear); Color,Urine Yellow (Yellow); Glucose,Urine (UA) Normal (Normal); Ketones,Urine Negative (Negative); Leukocyte Esterase,Urine Large (Negative); Mucus,Urine Few per lpf (None-Few); Nitrite,Urine Positive (Negative); Protein,Urine Trace mg/dL (Neg-Trace); RBC,Urine 0-3 per hpf (0-3); Squamous Epithelial Cell,Urine Moderate per hpf (None-Few); Urobilinogen,Urine Normal (Normal); WBC,Urine 50-100 per hpf (0-3)
[2020-08-22] MEDS ORDERED: cefTRIAXone 1,000 MG in 0.9 % Sodium Chloride Mini Bag 100 ML IVPB ONE (04:26)
[2020-08-22] MEDS ORDERED: Naloxone 0.4 MG/ML INJ IVP PRN (05:34)
[2020-08-22] MEDS ORDERED: Acetaminophen 325 MG TABLET PO PRN (05:34)
[2020-08-22] MEDS ORDERED: Ondansetron 4 MG/2 ML VIAL IVP PRN (05:34)
[2020-08-22] MEDS ORDERED: D5% in Water 1,000 ML IVC PRN (05:50)
[2020-08-22] MEDS ORDERED: Dextrose Gel 15 GM/37.5 ML TUBE PO PRN ×2 (05:50)
[2020-08-22] MEDS ORDERED: *HR* Dextrose 50 % in Water (Vial) 50 ML VIAL IVP PRN (05:50)
[2020-08-22 07:46] LABS: Thyroid Stimulating Hormone 13.034 mcIU/mL (0.340-5.600)
[2020-08-22] MEDS: 0.9 % Sodium Chloride 1,000 ML IVC SCH ×2 (07:49→21:56)
[2020-08-22] MEDS: Ertapenem 1,000 MG in 0.9 % Sodium Chloride Mini Bag 100 ML IVPB SCH ×2 (07:50→11:15)
[2020-08-22] MEDS: Insulin LISPRO 300 UNITS/3 ML VIAL SUBQ SCH ×3 (07:53→16:38)
[2020-08-22] MEDS: Cyanocobalamin (B-12) 1,000 MCG/ML VIAL SQ SCH (12:24)
[2020-08-22] MEDS ORDERED: Perflutren Lipid Microsphere 1.3 ML in 0.9 % Sodium Chloride 8.7 ML IVP PRN (14:07)
[2020-08-22] MEDS ORDERED: DilTIAZem 50 MG/50 ML IV.SOLN IVC SCH (14:15)
[2020-08-22] MEDS: Metoprolol 100 MG TABLET PO SCH ×2 (16:05→21:54)
[2020-08-22] MEDS: *HR* Heparin 5,000 UNIT/ML VIAL SQ SCH (16:05)
[2020-08-22] MEDS ORDERED: *HR* Heparin 5,000 UNIT/ML VIAL SQ SCH (18:00)
[2020-08-22] MEDS ORDERED: *HR* Enoxaparin 80 MG/0.8 ML SYRINGE SQ SCH (18:00)
[2020-08-22] MEDS ORDERED: Metoprolol 100 MG TABLET PO SCH (21:00)
[2020-08-23 02:15] LABS: Basophils % 0.4 %; Eosinophils % 0.7 %; Hematocrit 40.6 % (35.3-44.9); Hemoglobin 13.4 g/dL (11.5-15.4); Immature Granulocytes % 0.5 % (0-4); Lymphocytes # 1.2 K/mcL (0.6-4.6); Mean Corpuscular Hemoglobin 27.1 pg (28.0-33.3); Mean Corpuscular Volume 82.2 fL (83.0-100.0); Mean Platelet Volume 11.1 fL (9.4-12.4); Monocytes # 0.5 K/mcL (0.0-1.3); Monocytes % 8.1 %; Neutrophils # 3.9 K/mcL (1.6-8.9); Platelet Count 211 K/mcL (140-400); Red Blood Count 4.94 M/mcL (3.82-4.97); Segmented Neutrophils % 69.3 %; White Blood Count 5.7 K/mcL (4.3-11.1)
[2020-08-23 02:32] LABS: BUN/Creatinine Ratio 23 (6-26); Blood Urea Nitrogen 14 mg/dL (8-23); Calcium 8.6 mg/dL (8.6-10.3); Carbon Dioxide 24 mEq/L (23-29); Chloride 104 mEq/L (98-107); Glucose 188 mg/dL (70-105); Osmolality,Calculated 287 (280-300); Potassium 3.9 mEq/L (3.5-5.1); Sodium 136 mEq/L (136-145); eGFR For African Americans > 60 (> 60); eGFR For Non-African Americans > 60 (> 60)
[2020-08-23 02:48] LABS: Triiodothyronine (T3) Free 3.48 pg/mL (2.50-3.90)
[2020-08-23] MEDS: *HR* Heparin 5,000 UNIT/ML VIAL SQ SCH ×2 (05:24→16:56)
[2020-08-23] MEDS: Ertapenem 1,000 MG in 0.9 % Sodium Chloride Mini Bag 100 ML IVPB SCH (08:19)
[2020-08-23] MEDS: Insulin LISPRO 300 UNITS/3 ML VIAL SUBQ SCH ×3 (08:19→16:58)
[2020-08-23] MEDS: Cyanocobalamin (B-12) 1,000 MCG/ML VIAL SQ SCH (08:20)
[2020-08-23] MEDS: Metoprolol 100 MG TABLET PO SCH ×2 (08:20→19:52)
[2020-08-23] MEDS ORDERED: Melatonin 3 MG TABLET PO PRN (11:01)
[2020-08-23] MEDS: lisinopriL 20 MG TABLET PO SCH (12:09)
[2020-08-23] MEDS: amLODIPine 5 MG TABLET PO SCH (12:09)
[2020-08-23] MEDS: *HR* OxyCODONE/APAP 5/325 TABLET PO PRN (16:56)
[2020-08-23] MEDS: ALPRAZolam 0.5 MG TABLET PO SCH (19:52)
[2020-08-23] MEDS: Nystatin POWDER 30 GM BOTTLE TP SCH (19:53)
[2020-08-24] MEDS: *HR* Heparin 5,000 UNIT/ML VIAL SQ SCH ×2 (05:12→19:35)
[2020-08-24] MEDS: Ertapenem 1,000 MG in 0.9 % Sodium Chloride Mini Bag 100 ML IVPB SCH (09:28)
[2020-08-24] MEDS: Magnesium Oxide 400 MG TABLET PO SCH (09:30)
[2020-08-24] MEDS: Aspirin Enteric Coated 81 MG Tablet PO SCH (09:30)
[2020-08-24] MEDS: Cyanocobalamin (B-12) 1,000 MCG/ML VIAL SQ SCH (09:30)
[2020-08-24] MEDS: Insulin LISPRO 300 UNITS/3 ML VIAL SUBQ SCH ×3 (09:31→19:36)
[2020-08-24] MEDS: ALPRAZolam 0.5 MG TABLET PO SCH ×2 (09:31→21:32)
[2020-08-24] MEDS: lisinopriL 20 MG TABLET PO SCH (09:31)
[2020-08-24] MEDS: Metoprolol 100 MG TABLET PO SCH ×2 (09:31→21:32)
[2020-08-24] MEDS: amLODIPine 5 MG TABLET PO SCH (09:43)
[2020-08-24] MEDS: Nystatin POWDER 30 GM BOTTLE TP SCH ×2 (20:50→21:32)
[2020-08-24] MEDS: *HR* OxyCODONE/APAP 5/325 TABLET PO PRN (21:32)
[2020-08-25 02:22] LABS: BUN/Creatinine Ratio 38 (6-26); Blood Urea Nitrogen 29 mg/dL (8-23); Calcium 8.7 mg/dL (8.6-10.3); Carbon Dioxide 23 mEq/L (23-29); Chloride 105 mEq/L (98-107); Glucose 151 mg/dL (70-105); Osmolality,Calculated 295 (280-300); Potassium 4.1 mEq/L (3.5-5.1); Sodium 138 mEq/L (136-145); eGFR For African Americans > 60 (> 60); eGFR For Non-African Americans > 60 (> 60)
[2020-08-25] MEDS: Insulin LISPRO 300 UNITS/3 ML VIAL SUBQ SCH ×3 (06:50→17:16)
[2020-08-25] MEDS: lisinopriL 20 MG TABLET PO SCH (09:36)
[2020-08-25] MEDS: Magnesium Oxide 400 MG TABLET PO SCH (09:36)
[2020-08-25] MEDS: Aspirin Enteric Coated 81 MG Tablet PO SCH (09:36)
[2020-08-25] MEDS: amLODIPine 5 MG TABLET PO SCH (09:36)
[2020-08-25] MEDS: Metoprolol 100 MG TABLET PO SCH ×2 (09:37→20:23)
[2020-08-25] MEDS: *HR* Heparin 5,000 UNIT/ML VIAL SQ SCH ×2 (09:37→17:16)
[2020-08-25] MEDS: ALPRAZolam 0.5 MG TABLET PO SCH ×2 (09:37→20:23)
[2020-08-25] MEDS: Nystatin POWDER 30 GM BOTTLE TP SCH ×2 (09:38→20:23)
[2020-08-25] MEDS: Cyanocobalamin (B-12) 1,000 MCG/ML VIAL SQ SCH (09:38)
[2020-08-25] MEDS: Ertapenem 1,000 MG in 0.9 % Sodium Chloride Mini Bag 100 ML IVPB SCH (09:38)
[2020-08-25] MEDS: *HR* OxyCODONE/APAP 5/325 TABLET PO PRN ×2 (18:19→23:09)
[2020-08-26] MEDS: *HR* Heparin 5,000 UNIT/ML VIAL SQ SCH (05:16)
[2020-08-26] MEDS ORDERED: Ertapenem 1,000 MG in 0.9 % Sodium Chloride Mini Bag 100 ML IVPB SCH (09:00)
[2020-08-26] MEDS: Metoprolol 100 MG TABLET PO SCH (09:42)
[2020-08-26] MEDS: Aspirin Enteric Coated 81 MG Tablet PO SCH (09:42)
[2020-08-26] MEDS: ALPRAZolam 0.5 MG TABLET PO SCH (09:42)
[2020-08-26] MEDS: lisinopriL 20 MG TABLET PO SCH (09:42)
[2020-08-26] MEDS: amLODIPine 5 MG TABLET PO SCH (09:42)
[2020-08-26] MEDS: Magnesium Oxide 400 MG TABLET PO SCH (09:43)
[2020-08-26] MEDS: Insulin LISPRO 300 UNITS/3 ML VIAL SUBQ SCH ×2 (09:43→12:13)
[2020-08-26] MEDS: Nystatin POWDER 30 GM BOTTLE TP SCH (09:44)
[2020-08-26 11:23] VITALS: BP 153/79
[2020-08-26 11:36] LABS: Adenovirus Not Detected (Not Detect); Coronavirus 229E Not Detected (Not Detect); Coronavirus HKU1 Not Detected (Not Detect); Coronavirus NL63 Not Detected (Not Detect); Coronavirus OC43 Not Detected (Not Detect)
[2020-08-26 11:37] LABS: Bordetella Pertussis Not Detected (Not Detect); Chlamydophila pneumoniae Not Detected (Not Detect); Human Metapneumovirus Not Detected (Not Detect); Human Rhinovirus/Enterovirus Not Detected (Not Detect); Influenza A Subtype 2009 H1 Not Detected (Not Detect); Influenza B Not Detected (Not Detect); Mycoplasma pneumoniae Not Detected (Not Detect); Parainfluenza Virus 1 Not Detected (Not Detect); Parainfluenza Virus 2 Not Detected (Not Detect); Parainfluenza Virus 3 Not Detected (Not Detect); Parainfluenza Virus 4 Not Detected (Not Detect); Respiratory Syncytial Virus Not Detected (Not Detect); SARS-CoV-2 Not Detected (Not Detect)
== END 2020-08-26 13:09 | DRG 463 ==
LOC: 2ANU 23:50 → EMEROOARM 23:50 → SUATTDRO 08-22 05:44 → 2ANU 08-22 06:36
PROVIDERS: ADMIT Internal Medicine; ATTEND Internal Medicine